=== PATIENT | male | born 1935 | race Caucasian/White ===

== ENCOUNTER 2023-08-04 09:20 | Outpatient (CLI) | payer MEDICARE, SELFPAY ==
--- OUTSIDE RECORDS SUMMARY | 2023-08-06 11:27 | XMS_ITS ---
Author Name Unknown Organization [facility] Address [address] [place] [address] Care Team Providers Care Processing Archivist Name Role Phone Unavailable Unavailable Unavailable Surgery Details Not on file Complications Check Surgery Details section. Procedure Estimated Blood Loss Check Surgery Details section. Procedure Findings Check Surgery Details section. Procedure Specimens Taken Check Surgery Details section.
--- OUTSIDE RECORDS SUMMARY | 2023-08-06 11:27 | XMS_ITS | Encounter Summary ---
Author Name Unknown Organization [facility] Address [address] [place] [address] Care Team Providers Care Director Supply Chain Name Role Phone Lashonda Velásquez APRN, C.N.P. Primary Care Provi [place] Encounter Details Date Type Department Care Team (Late st Contact Info) Description 06/10/2023 Orders Only [facility] MNT Lashonda Velásquez APRN, C.N.P. [address] [place] [address] Diabetes Mellitus Type 2 With Diabetic Nephropathy (HCC) Social History Tobacco Use Types Packs/Day Years Used Date Smoking Tobacco: Former Passive Smoke Exposure: Past Smokeless Tobacco: Current Chew Alcohol Use Standard Drinks/Week Comments Yes 2 (1 standard drink = 0.6 oz pur e alcohol) Humiliation, Afraid, Rape, and Kick questionnair e Answer Date Recorded Fear of Current or Ex-Partner No Emotionally Abused No 12/21/2018 Physically Abused No 12/21/2018 Sexually Abused No 12/21/2018 Social Connection and Isolat ion Panel [NHANES] Answer Date Recorded Frequency of Communication w ith Friends and Family Once a week 12/21/2018 Frequency of Social Gatherin gs with Friends and Family Once a week 12/21/2018 Attends Yarsani Services More than 4 times per year 12/21/2018 Active Member of Clubs or Organizations No 12/21/2018 Attends Club or Organization Meetings Never 12/21/2018 Marital Status 12/21/2018 AUDIT-C Answer Date Recorded Frequency of Alcohol Consumption 4 or more times a week 12/21/2018 Average Number of Drinks 1 or 2 019 Frequency of Binge Drinking Never 12/05 Overall Financial Resource Strain (CARDIA) Answe r Date Recorded Difficulty of Paying Living Expenses Not hard at all 12/21/2018 PHQ-2 Answer Date Recorded PHQ-2 Score 0 08/06/2022 [facility] Occupat ional Health - Occupational Stress Questionnaire Answer Date Recorded Feeling of Stress Not at all 12/21/2018 Exercise Vital Sign Answer Date Recorde d Days of Exercise per Week 7 days 2018 Minutes of Exercise per Session 150+ min 12/21/2018 Hunger Vital Sign Answer Date Recorded Worried About Running Out of Food in the Last Ye ar Never true 12/21/2018 Ran Out of Food in the Last Year Never true 12/21/2018 PRAPARE - Transportation Answer Date Re corded Lack of Transportation (Medical) No 12/21/2018 Lack of Transportation (Non-Medical) No 12/21/2018 Nutrition Answer Date Recorded Nutrition: EVOO Fat Source Unknown 08/29 Nutrition: Servings of Fruits/Vegetables per Day Not on file 08/29/2020 Dental Answer Date Recorded Dental: Regular Dentist Unknown 08/29/19 21 Education Answer Date Recorded What is the highest level of school you have completed or the highest degree you have received? 12th grade 12/21/2018 Sex and Gender Information Value Date Recorded Sex Assigned at Male 03/23/2021 1:45 PM CDT Gender Identity Not on file Sexual Orientation Not on file documented as of this encounter Plan of Treatment Scheduled Orders Name Type Priority Associated Diagnoses Orde r Schedule Hemoglobin A1c Lab Routine Diabetes Mellitus Type 2 With Diabetic Nephropathy (HCC) Expected: 06/24/2023, Expires: 12/07/2023 documented as of this encounter Visit Diagnoses Diagnosis Diabetes Mellitus Type 2 With Diabetic Nephropathy (HCC) documented in this encounter Additional Health Concerns Assessment Noted Time PHQ-9 Depression Total Score: 0 06/18/20 17 4:38 PM MARKER SHIPMENTS documented as of this encounter Care Teams Director Supply Chain Relationship Specialty Start Date End Date Lashonda Velásquez APRN, C.N.P. [address] [place] [phone] PCP - General Family Medicine 03/28/21 documented as of this encounter
--- OUTSIDE RECORDS SUMMARY | 2023-08-06 11:27 | XMS_ITS | Clinical Summary ---
Author Name Unknown Organization [facility] Address [address] [place] [address] Care Team Providers Care Salon Customer Experience Specialist Name Role Phone Lashonda Velásquez APRN, C.NCalista Primary Care Provi [place] Source Comments Patient records contain information from all sites at [facility]. For routine questions regarding patient records, call [phone] during business hours, M-F 8:00 AM - 5:00 PM Central Time. Record requests for emergency care only can be directed to [phone] at any time.[facility] Allergies No known active allergies Medications Medication Sig Dispensed Refills Start Date End Date Status aspirin [address] tablet Take 81 mg by mouth. 0 12/18/2016 Active nitroglycerin (NITROSTAT) 0.4 mg SL tabletIndications:C oronary Arterial Bypass Graft Status Post Personal History Place 1 tablet (0.4 mg total) under the tongue every 5 (five) minutes as needed for chest pain. 25 tablet 1 08/09/2022 Active Additional Information Patient not taking.Reported on 01/31/2023 atorvastatin (LIPITOR) 40 mg tabletIndications:D yslipidemia TAKE ONE TABLET BY MOUTH ONCE DAILY 90 tablet 3 09/10/2022 Active levothyroxine (SYNTHROID, LEVOTHROID) 25 mcg tabletIndications:A trial Fibrillation Unspecified (HCC) TAKE 1 AND 1/2 TABLET DAILY 135 tablet 3 10/15/2022 Active hydroCHLOROthiazide (HYDRODIURIL) 12.5 mg tabletIndications:H ypertension And Chronic Kidney Disease Stage 2 TAKE ONE TABLET BY MOUTH EVERY MORNING 90 tablet 3 11/01/2022 Active lisinopriL (PRINIVIL,ZESTRIL) 40 mg tabletIndications:H ypertension And Chronic Kidney Disease Stage 2 TAKE ONE TABLET BY MOUTH ONCE DAILY 90 tablet 3 11/07/2022 Active amLODIPine (NORVASC) 5 mg tabletIndications:H ypertension And Chronic Kidney Disease Stage 2 TAKE ONE TABLET BY MOUTH ONCE DAILY 90 tablet 3 11/19/2022 Active metoprolol succinate (TOPROL-XL) 100 mg 24 hr tablet Take 1 tablet (100 mg total) by mouth daily. Do not crush or chew. 90 tablet 3 11/22/2022 Active Additional Information Patient taking differently: 50 mgoral2 times daily, Do not crush or chew., Reported on 01/10/2023 warfarin (COUMADIN) 5 mg tabletIndications:A trial Fibrillation Unspecified (HCC) Take 1/2 tablet (2.5 mg) Friday, Friday, Friday and 1 tablet (5 mg) all other days. Or as directed by INR clinic. 90 tablet 3 12/17/2022 Active metoprolol succinate (TOPROL-XL) 100 mg 24 hr tablet Take 100 mg by mouth daily. Do not crush or chew. 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) TAKE TWO TABLETS BY MOUTH TWICE A DAY WITH FOOD 360 tablet 3 04/02/2023 Active Active Problems Problem Noted Date Diagnosed Date Loss Hearing Sensorineural Bilateral 08/03/2021 Arthritis Knee Left 03/27/2020 Diabetes Mellitus Type 2 With Diabetic Nephropat hy 12/21/2018 Diabetes Mellitus Type 2 Wit h Diabetic Chronic Kidney Disease 12/21/2018 Chronic Kidney Disease (CKD) , Stage 3a Glomerular Filtration Rate (GFR) 45 To 59 12/21/2018 History Of Falling 09/22/2018 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 Status post right carotid endarterectomy 05/28/2016 fo >70 percent stenosis. Followed by [facility] vascular surgery. 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 Bone: Coronary artery bypass grafts x 2 with a graft from the left internal mammary artery to the 1st diagonal branch of theleft anterior descending and a saphenous vein graft from the aorta to the LAD ?? Embolus Pulmonary Personal History 11/17/2013 Nodule Pulmonary 11/17/2013 Overview: Stable bilateral solid noncalcified pulmonary nodules measuring up to 6 mm Hypertension And Chronic Kidney Disease Stage 2 01/18/2013 Varicose Vein Lower Extremity 01/29/2011 Dermatitis Atopic 09/28/2009 Resolved Problems Problem Noted Date Diagnosed Date Resolved Date Obesity Body Mass Index 30-39.9 Adult 05/25/2018 12/18/2020 Microalbuminuria 05/24/2018 09/18/2018 Atrial Fibrillation Unspecified 01/06/2018 12/19/2019 Monitoring For Therapeutic D rug Therapy [Z51.81] 06/18/2017 06/18/2017 Other Specified Abnormal Fin dings Of Blood Chemistry 06/18/2017 06/18/2017 Diabetes Mellitus Type 2 Diabetic Cataract 04/24/2017 06/18/2017 Overview: Diagnosis Maintenance Updates Jul 2023 Other Specified Postprocedural States 05/28/2016 06/18/2017 Coronary Arterial Bypass Gra ft Status Post Personal History 09/13/2015 06/18/2017 Phimosis 07/05/2015 06/18/2017 Dermatitis Photocontact 01/29/201106/06 Diabetes Mellitus Type 2 09/28/2009 Overview: Diabetes mellitus type II Encounters Date Type Department Care Team Description 06/10/2023 Orders Only [facility]NT Lashonda Velásquez, ASSET MANAGEMENT LEAD, C.N.P. Diabetes Mellitus Type 2 With Diabetic Nephropathy (HCC) from Last 3 Months Immunizations Name Administration Dates Next Due HepB Adult 01/31/2023(Deferred: Patient Ref used) HepB, Unspecified 08/03/2021(Deferred: Other) Influenza high dose QV(65 ye ars or older) (PF) 05/06/2023,07/05/2022,04/17/2021,2019 Influenza, Seasonal, Injectable 07/21/2012 Influenza, Unspecified 05/02/2016,2014,05/26/2013,2012,04/17/2011,03/16/2010 PCV13 01/02/2015 PPSV23 02/13/2012,10/16/2006 RZV (SHINGRIX) 01/31/2023(Deferred: Patient Ref used) SARS-COV-2 (COVID-19) - PFIZ ER (12 YEARS OR OLDER) [id number] 05/06/2023 SARS-COV-2 (COVID-19) - PFIZ ER (12 years or older) 01/31/2023(Deferred: Not available from billing administrator),09/28/2020,09/07/2020 Td (Adult), adsorbed 10/30/2007 Tdap 03/24/2021,08/07/2011 Zoster, Unspecified 08/03/2021(Deferred: Other) influenza high dose (65 year s or older) (PF) 05/04/2019,05/25/2018,05/25/2017 Family History Medical History Relation Name Comments Cancer Brother 1 Carotid artery stenosis Brother 3 Stroke Brother 3 Alcoholic Father Coronary artery disease Father Bowel obstruction Mother Relation Name Status Comments Brother 1 (Age 53) Brother 2 Brother 3 Brother 4 (Age 90) Father (Age 82) Mother (Age 40) Sister (Age 93) Social History Tobacco Use Types Packs/Day Years Used Date Smoking Tobacco: Former Passive Smoke Exposure: Past Smokeless Tobacco: Current Chew Tobacco Cessation:Ready to Q uit: Not Asked; Counseling Given: Not Answered Alcohol Use Standard Drinks/Week Comments Yes 2 [...] and Family Once a week 12/21/2018 Attends [facility] More than 4 times per year [...] Answer Date Recorded PHQ-2 Score 0 08/06/2022 [facility] Occupat ional Health - Occupational Stress [...] Date Recorded Dental: Regular Dentist Unknown 08/29/19 Education Answer Date Recorded What is the highest level of school you have completed or the highest degree you have received? 12th grade 12/21/2018 Sex and Gender Information Value Date Recorded Sex Assigned at Male 03/23/2021 1:45 PM CDT Gender Identity Not on file Sexual Orientation Not on file Last Filed Vital Signs Vital Sign Reading Time Taken Comments Blood Pressure 127/52 01/31/2023 11:35 AM CDT Pulse 60 01/31/2023 10:47 AM CDT Temperature 36.2 ??C (97.2 ??F) 01/31/2023 10:47 AM C DT Respiratory Rate 20 01/31/2023 10:47 AM CDT Oxygen Saturation 99% 01/31/2023 10:47 AM CDT Inhaled Oxygen Concentration - - Weight 80.1 kg (176 lb 9.6 oz) 01/31/2023 10:47 AM CDT Height 167.6 cm (5' 6) 01/10/2023 11:52 AM CDT Body Mass Index 28.5 01/10/2023 11:52 AM CDT Plan of Treatment Health Maintenance Due Date Last Done Comments Visit: Medicare Annual Wellness 1937 Zoster Vaccines (1 of 2) 1956 Hepatitis B Vaccines (1 of 3 - Risk 3-dose series) 1997 Tobacco Cessation counseling 04/20/2022 04/20/2021 Diabetic Office Visit with F oot Exam 03/19/2023 03/19/2022, 07/10/2021, 12/24/2019, Additional history exists Urine Albumin 03/19/2023 03/19/2022, 12/05, 12/22/2019, Additional history exists Depression Screening (Annual PHQ-2) 07/07/2023 Fall Risk Screen (Annual) 07/07/2023 Hemoglobin A1C 08/03/2023 01/31/2023, 07/09, 03/19/2022, Additional history exists Lipid (Cholesterol) Screening 08/06/2023, 08/01/2021, 12/15/2020, Additional history exists Creatinine Level (Kidney Fun ction Test) 02/01/2024 01/31/2023, 01/12/2023, 01/11/2023, Additional history exists Potassium Level 02/01/2024 01/31/2023, 070 03/2023, 01/11/2023, Additional history exists Sodium Level 02/01/2024 01/31/2023, 0 03/2023, 01/11/2023, Additional history exists Visit: Chronic Disease, age 18+ 02/01/2024 , 08/06/2022 Dilated Eye Exam 06/18/2024 06/18/2023 (Per formed elsewhere), 07/09/2021 (Performed elsewhere), 11/02/2019 (Performed elsewhere), Additional history exists DTaP,Tdap,and Td Vaccines (3 - Td or Tdap) 03/24/2031 03/24/2021, 08/07/2011, 10/30/2007 Pneumococcal vaccine (65+ years) Completed 01/02/2015, 02/13/2012, 10/16/2006 COVID-19 Vaccine Completed 05/06/2023, , 04/23/2021, Additional history exists Influenza Vaccine Completed 05/06/2023, , 04/17/2021, Additional history exists Advance Directives For more information, please contact: [phone] Documents on File Type Date Recorded 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 [address] PCP - General Family Medicine 03/28/21
--- OUTSIDE RECORDS SUMMARY | 2023-08-06 11:27 | XMS_ITS | Referral Summary ---
Author Name Unknown Organization [facility] Address [address] [place] [address] Care Team Providers Care Truck Driving Instructor Name Role Phone Lashonda Velásquez APRN, C.N.P. Primary Care Provi [place] Source Comments Patient records contain information from all sites at [facility]. For routine questions regarding patient records, call [phone] during business hours, M-F 8:00 AM - 5:00 PM Central Time. Record requests for emergency care only can be directed to [phone] at any time.[facility] Encounters Date Type Department Care Team Description 06/10/2023 Orders Only [facility] MNT Lashonda Velásquez APRN, C.N.P. Diabetes Mellitus Type 2 With Diabetic Nephropathy (HCC) from Last 3 Months Allergies No known active allergies Medications Medication [...] Do not crush or chew. 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 Status post right carotid endarterectomy 05/28/2016 fo >70 percent stenosis. [facility]ed [facility]. Dyslipidemia 06/18/2017 Smoking Tobacco Use Personal History 06/18/2017 Loss Hearing 06/18/2017 Hypothyroidism 06/18/2017 Atrial Fibrillation Paroxysmal 09/13/2015 Atherosclerotic Heart Diseas e Of [place] Coronary Artery Without Angina Pectoris 09/13/2015 Overview: [...] 2 09/28/2009 Overview: Diabetes mellitus type II Immunizations Name Administration Dates Next Due HepB Adult 01/31/2023(Deferred: Patient Ref used) HepB, Unspecified 08/03/2021(Deferred: Other) Influenza high dose QV(65 ye ars or older) (PF) 05/06/2023,07/05/2022,04/17/2021,2019 Influenza, Seasonal, Injectable 07/21/2012 Influenza, Unspecified 05/02/2016,2014,05/26/2013,2012,04/17/2011,03/16/2010 PCV13 01/02/2015 PPSV23 02/13/2012,10/16/2006 RZV (SHINGRIX) 01/31/2023(Deferred: Patient Ref used) SARS-COV-2 (COVID-19) - PFIZ ER (12 YEARS OR OLDER) [id number] 05/06/2023 SARS-COV-2 (COVID-19) - PFIZ ER (12 years or older) 01/31/2023(Deferred: Not available from rat trapper),09/28/2020,09/07/2020 Td (Adult), adsorbed 10/30/2007 Tdap 03/24/2021,08/07/2011 Zoster, Unspecified 08/03/2021(Deferred: Other) influenza high dose (65 year s or older) (PF) 05/04/2019,05/25/2018,05/25/2017 Social History Tobacco Use Types Packs/Day Years [...] and Family Once a week 12/21/2018 Attends [employer]an[employer] Services More than 4 times per year [...] Answer Date Recorded PHQ-2 Score 0 08/06/2022 [facility] Health - Occupational Stress [...] 01/10/2023 11:52 AM CDT Plan of Treatment Not on file Advance Directives For more information, please contact: [phone] Documents on File Type Date 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 [address] [facility] [place] [phone] PCP - General Family Medicine 03/28/21
--- OUTSIDE RECORDS SUMMARY | 2023-08-06 11:28 | XMS_ITS | Encounter Summary ---
Author Name Unknown Organization [facility] Address [address] [place] [address] Care Team Providers Care Deicer Repairer Name Role Phone Lashonda Velásquez APRN, C.N.P. 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 [address] [place] [address] [facility] Referral ID Status Reason Start Date Expiration Date V isits Requested Visits Authorized [id number] Authorized 12/06/2022 12/06/2023 52 52 Encounter Details Date Type Department Care Team (Latest Contact Info) Description 04/29/2023 11:00 AM CDT Anticoagulation Visit Department of Anticoagulation in [place], [place] [address] [place] [phone] Lashonda Velásquez APRN, C.N.P. [address] [place] [address] Atrial Fibrillation Paroxysmal (HCC) (Primary Dx); Longterm (Current) Anticoagulant Treatment; Embolus Pulmonary Personal History Social History Tobacco Use Types Packs/Day Years [...] and Family Once a week 12/21/2018 Attends [employer] Services More than 4 times per year [...] Answer Date Recorded PHQ-2 Score 0 08/06/2022 [facility] [place] of Occupat ional Health - Occupational Stress [...] on file documented as of this encounter Progress Notes * Keke Stone R.N. - 04/29/2023 11:00 AM CDT Warfarin Maintenance Nursing Protocol Goal Range 2.0-3.0 (version approved 08/2021) Visit Type: Face to Face Primary reason for visit: Routine f/u OR f/u per previous visit recommendations Information provided by:patient INR result: 2.6 Goal range: 2.0-3.0 Inclusion Criteria: All inclusion criteria met. Proceeded to exclusion criteria. Exclusion Criteria: Section 1: No Section 1 exclusion criteria, proceeded to Section 2. Section 2: No Section 2 exclusion criteria, proceeded to screening criteria. Screening Criteria: All screening criteria negative. Testing interval extension evaluation: INR in range today? Yes. Patient does NOT have a newly diagnosed venous thromboembolism (VTE) within the last 3 months, a mechanical heart valve, history of arterial embolism (eg thrombosis superior mesenteric artery, embolism thrombosis lower extremity artery, occlusion arterial personal history), history of intracardiac thrombus (LA or LV apical), antiphospholipid syndrome (lupus anticoagulant syndrome), or a history of stroke/TIA with OR without diagnosis of atrial fibrillation (AF)/atrial flutter. Patient has atrial fibrillation/flutter and a CHADS2 score less than 5 (less than 12.5% risk) or [id number] score lessthan 6. CHADS2 score per EHR is reported as 5.9% risk. Proceeded to maintenance warfarin dosing andfollow-up, but offered patient return for follow-up INR in 6 weeks as 2 consecutive outpatient INRswithin range. Additional Info: None Previous INR was therapeutic. Today???s INR is Therapeutic. Dosing and follow up recommendation: Protocol dosing range for INR 2.0-3.0: No change in weekly dose. Currently bridging? no. Next INR in 6 weeks per testing interval extension eligibility. Additional dosing or follow-up information: None. Pt is on injectable anticoagulant: No. Plan used: Protocol. See Anticoagulation Track Calendar for dosing and plan details. Anticoagulation Visit Summary: Patient provided with handout of warfarin dosing and next INR appointment. Patient repeats back dosing instructions and has no further questions at this time. Total time spent with patient: 15 minutes documented in this encounter Plan of Treatment Not on file documented as of this encounter Procedures Procedure Name Priority Date/Time Associated Diagnosis Comments INR, POCT, B Routine 04/29/2023 11:02 AM CDT documented in this encounter Results * INR, POCT (04/29/2023 11:02 AM CDT) INR, POCT, B 2.6 04/29/2023 11:02 AM CDT NPCL Comment: ----ADDITIONAL INFORMATION---- Standard intensity warfarin therapeutic range: 2.0 to 3.0 ?? High intensity warfarin therapeutic range: 2.5 to 3.5 04/29/2023 11:0 2 AM CDT 04/29/2023 11:04 AM CDT Generic [facility] POCT ORDERABLES - DEVICE [facility] [address] [place] [id number], [facility] NPCL [facility] - [address] [address] documented in this encounter Visit Diagnoses Diagnosis Atrial Fibrillation Paroxysmal (HCC)- Primary Longterm (Current) Anticoagulant Treatment Embolus Pulmonary Personal History documented in this encounter Additional Health Concerns Assessment Noted Time PHQ-9 Depression Total Score: 0 06/18/20 17 4:38 PM DIFFERENTIAL TESTER documented as of this encounter Care Teams Deicer Repairer Relationship Specialty Start Date End Date Lashonda Velásquez APRN, C.N.P. [facility] [phone] PCP - General Family Medicine 03/28/21 documented as of this encounter
--- OUTSIDE RECORDS SUMMARY | 2023-08-06 11:28 | XMS_ITS | Encounter Summary ---
Author Name Unknown Organization [facility] Address [address] [place] [address] Care Team Providers Care Plastic Extruding Machine Operator Name Role Phone Lashonda Velásquez APRN, C.N.P. Primary Care Provi catalina Encounter Details Date Type Department Care Team (Latest Contact Info) Description 01/17/2023 Clinical Communication Department of Anticoagulation in [place], [place] [address] [place] [phone] Lashonda Velásquez APRN, C.N.P. [address] [place] [phone] Social History Tobacco Use Types Packs/Day Years Used Date Smoking Tobacco: Former Smokeless Tobacco: Current Chew Alcohol Use Standard [...] and Family Once a week 12/21/2018 Attends Rastafari Services More than 4 times per year [...] Answer Date Recorded PHQ-2 Score 0 08/06/2022 [facility] - [...] on file documented as of this encounter Miscellaneous Notes * Telephone Encounter - Keke Stone R.N. - 01/17/2023 9:04 AM CDT Patient was seen in clinic 01/14/23 for ACO and needs to have repeat testing on 01/17/23. Appointmentneeds to remain. documented in this encounter Plan of Treatment Not on file documented as of this encounter Visit Diagnoses Not on filedocumented in this encounter Additional Health Concerns Infection Onset Date Last Indicated Resolved Time COVID19 01/10/2023 01/10/2023 01/30/2023 6:17 AM CDT Assessment Noted Time PHQ-9 Depression Total Score: 0 06/18/20 17 4:38 PM TESTS SUPERINTENDENT documented as of this encounter Care Teams Plastic Extruding Machine Operator Relationship Specialty Start Date End Date Lashonda Velásquez APRN, C.N.P. Ave ID JOSE Gresham [phone] PCP - General Family Medicine 03/28/21 documented as of this encounter
--- OUTSIDE RECORDS SUMMARY | 2023-08-06 11:28 | XMS_ITS | Encounter Summary ---
Author Name Unknown Organization [facility] Address [address] [place] [address] Care Team Providers Care Child Care Center Administrator Name Role Phone Lashonda Velásquez APRN, C.N.P. Primary Care Provi catalina Reason for Visit * Outpatient (Routine) - Authorized Specialty Diagnoses / Procedures Referred By Brian beckett Referred To Contact Diagnoses Beer Maker (Current) Anticoagulant Treatment Procedures ACO Anticoagulation check Lashonda Velásquez APRN, C.N.P. [address] [place] [address] [facility] Region Referral ID Status Reason Start Date Expiration Date V isits Requested Visits Authorized [id number] Authorized 12/06/2022 12/06/2023 52 52 Encounter Details Date Type Department Care Team (Latest Contact Info) Description 01/17/2023 10:00 AM CDT Anticoagulation Visit Department of Anticoagulation in [place], [place] [address] [place] [phone] Lashonda Velásquez APRN, C.N.P. [address] [place] [address] Atrial Fibrillation Paroxysmal (HCC) (Primary Dx); Residential (Current) Anticoagulant Treatment; Embolus Pulmonary Personal History [...] and Family Once a week 12/21/2018 Attends Confucianist Services More than 4 times per year [...] Answer Date Recorded PHQ-2 Score 0 08/06/2022 [facility]at ional [facility] - Occupational [...] Progress Notes * Keke Stone R.N. - 01/17/2023 10:00 AM CDT Warfarin Maintenance Nursing Protocol Goal Range 2.0-3.0 (version approved 08/2021) Visit Type: Face to Face Primary reason for visit: Routine f/u OR f/u per previous visit recommendations Information provided by:patient INR result: 2.7 Goal range: 2.0-3.0 Inclusion Criteria: All inclusion criteria met. Proceeded to exclusion criteria. Exclusion Criteria: Section 1: No Section 1 exclusion criteria, proceeded to Section 2. Section 2: No Section 2 exclusion criteria, proceeded to screening criteria. Screening Criteria: Current INR value has changed by greater than or equal to 1 since last INR check: yes. Dose change was made within last 7 days. Protocol does not apply. Provider input required. Additional Info: Recovering from Covid Previous INR was subtherapeutic. Today???s INR is Therapeutic. Dosing and follow up recommendation: Protocol dosing range for INR 2.0-3.0: No change in weekly dose. Currently bridging? no. Next INR in twice the amount of time since last INR (max duration is 4-6 weeks): 2 weeks. Additional dosing or follow-up information: None. Pt [...] Associated Diagnosis Comments INR, POCT, B Routine 01/17/2023 10:01 AM CDT documented in this encounter Results * INR, POCT (01/17/2023 10:01 AM CDT) INR, POCT, B 2.7 01/17/2023 10:01 AM CDT NPC Comment: ----ADDITIONAL INFORMATION---- Standard intensity warfarin therapeutic range: 2.0 to 3.0 ?? High intensity warfarin therapeutic range: 2.5 to 3.5 01/17/2023 10:0 1 AM CDT 01/17/2023 10:03 AM CDT Generic [facility]als LAB POCT ORDERABLES - DEVICE [facility] [address] [place] [address], [address] [place] [id number] documented in this encounter Visit Diagnoses Diagnosis Atrial Fibrillation Paroxysmal (HCC)- Primary Beer Maker (Current) Anticoagulant Treatment Embolus Pulmonary Personal History documented in this encounter Additional Health Concerns Infection Onset Date Last Indicated Resolved Time COVID19 01/10/2023 01/10/2023 01/30/2023 6:17 AM CDT Assessment Noted Time PHQ-9 Depression Total Score: 0 06/18/20 17 4:38 PM STAFF TRAINER documented as of this encounter Care Teams Child Care Center Administrator Relationship Specialty Start Date End Date Lashonda Velásquez APRN, C.N.P. [address] [place] [phone] PCP - General Family Medicine 03/28/21 documented as of this encounter
--- OUTSIDE RECORDS SUMMARY | 2023-08-06 11:28 | XMS_ITS | Encounter Summary ---
Author Name Unknown Organization [facility] Address [address] [place] [address] Care Team Providers Care Train Caller Name Role Phone Lashonda Velásquez APRN, C.N.P. Primary Care Provi catalina Reason for Visit * Reason Comments Follow-up * Appointment Request (Routine) - Closed Specialty Diagnoses / Procedures Referred By Brian beckett Referred To Contact Family Medicine Referral ID Status Reason Start Date Expiration Date Visits Re quested Visits Authorized [id number] Closed 01/24/2023 01/24/2024 1 1 Encounter Details Date Type Department Care Team (Latest Contact Info) Description 01/31/2023 11:00 AM CDT Office Visit Department of Family Medicine in [place], [place] [address] [place] [address] Lashonda Velásquez APRN, C.N.P. 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); Concussion No Loss Of Consciousness Subsequent; Diabetes Mellitus Type 2 With Diabetic Chronic Kidney Disease (HCC) Social History Tobacco Use Types Packs/Day [...] and Family Once a week 12/21/2018 Attends Oriental [employer] Services More than 4 times per year [...] Answer Date Recorded PHQ-2 Score 0 08/06/2022 [facility] - [...] on file documented as of this encounter Last Filed Vital Signs Vital Sign Reading [...] 9.6 oz) 01/31/2023 10:47 AM CDT Height - - Body Mass Index 28.5 01/10/2023 11:52 AM CDT documented in this encounter Progress Notes * Lashonda Velásquez, JOSSIE, C.N.P. - 01/31/2023 11:00 AM CDT SUBJECTIVE CHIEF COMPLAINT/REASON FOR VISIT Follow-up HISTORY OF PRESENT ILLNESS Zeke Tejada is a 87 y.o. male who presents with his for ED follow up. He was seen on 01/11/23 for weakness/fatigue and positive COVID-19 infection. He was prescribed Paxlovid and stable for discharge home. The next day he presented to ED after a fall at home, collapsed after getting out of bed, is not sure if he lost consciousness, his found him and called EMS. Head CT Was negative for any bleed (on Coumadin), and positive for a non displaced nasal fracture. Some mild anemia, hyponatremia, elevated Creatinine. He states he feels better, but is still very tired. agrees. He just does not have energy to do much. No other prolonged or worsening symptoms. BP has been stable. 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 PHYSICAL EXAMINATION General: Patient is alert, oriented and appears to be in no distress. HENT: Head is atraumatic and normocephalic. Ears are externally normal. Bilateral TMs appear normal. Neck is supple and without mass or adenopathy. Cardiovascular: Heart is regular rate and rhythm. There are no murmurs, gallops or rubs. Respiratory: Breathing is nonlabored. Lungs are clear to auscultation bilaterally. Extremities: There is no lower extremity edema. Abdomen: Soft and nontender throughout. No organomegaly. Skin: No rashes or lesion noted. Neurologic: No neurologic deficit noted. ASSESSMENT / PLAN #1 Post COVID-19 Condition #2 Concussion No Loss Of Consciousness Subsequent #3 Diabetes Mellitus Type 2 With Diabetic Chronic Kidney Disease (HCC) - Hemoglobin A1c; Future; Expected date: 01/31/2023 - Hemoglobin A1c Other orders - Comprehensive Metabolic Panel; Future; Expected date: 01/31/2023 - CBC without Differential; Future; Expected date: 01/31/2023 - CBC without Differential - Comprehensive Metabolic Panel Records reviewed. Repeat labs today. We discussed that his fatigue is likely still due to COVID-19 infection at age 87, followed by likely concussion. Symptoms may last 4-6 weeks. They should not worsen, but may linger/persist. I will follow up with him pending results. Will likely need another follow up in 4-6 weeks to follow improvement, or sooner if labs indicate. All questions answered. I encouraged rest, hydration, healthy eating, try to complete a short walk daily, avoid falls. All questions answered. Lashonda Velásquez APRN, C.N.P. documented in this encounter Plan of Treatment Not on file documented as of this encounter Procedures Procedure Name Priority Date/Time Associated Diagnosis Comments CBC WITHOUT DIFFERENTIAL, B Routine 01/31/2023 11:40 AM CDT Post COVID-19 Condition Concussion No Loss Of Consciousness Subsequent Diabetes Mellitus Type 2 With Diabetic Chronic Kidney Disease (HCC) HEMOGLOBIN A1C, B Routine 01/31/2023 11: 40 AM CDT Diabetes Mellitus Type 2 With Diabetic Chronic Kidney Disease (HCC) COMPREHENSIVE METABOLIC PANEL, S/P Routine 01/31/2023 11:40 AM CDT Post COVID-19 Condition Concussion No Loss Of Consciousness Subsequent Diabetes Mellitus Type 2 With Diabetic Chronic Kidney Disease (HCC) documented in this encounter Results * (ABNORMAL) Hemoglobin A1c (01/31/2023 11:40 AM CDT) Hemoglobin A1c, B 6.4(H) 4.2 - 5.6 % 01/31/2023 12:42 PM CDT NPRG Comment: Hemoglobin A1c values of 5.7-6.4 percent indicate an increased risk for developing diabetes mellitus. In diabetic patients, HbA1c goals should be discussed with healthcare provider. Blood (Blood, Venous) 01/31/2023 11:40 AM CDT 01/31/2023 12:06 PM CDT Lashonda Velásquez APRN, C.N.P. LAB BLOOD A DD-ON [facility] [address] [place] [address], [facility] NPRG [facility] [address] [place] [address] * (ABNORMAL) CBC without Differential (01/31/2023 11:40 AM CDT) Hemoglobin 11.3(L) 13.2 - 16.6 g/dL 01/31/2023 12:37 PM CDT NPRG Hematocrit 34.0(L) 38.3 - 48.6 % 01/31/2023 12:37 PM CDT NPRG Erythrocytes 3.45(L) 4.35 - 5.65 x10(12)/L 01/31/2023 12:37 PM CDT NPRG MCV 98.6(H) 78.2 - 97.9 fL 01/31/2023 12:37 PM CDT NPRG RBC Distrib Width 12.9 11.8 - 14.5 % 01/31/2023 12:37 PM CDT NPRG Platelet Count 206 135 - 317 x10(9)/L 01/31/2023 12:37 PM CDT NPRG Leukocytes 7.8 3.4 - 9.6 x10(9)/L 01/31/2023 12:37 PM CDT NPRG Blood (Blood, Venous) 01/31/2023 11:40 AM CDT 01/31/2023 12:07 PM CDT Lashonda Velásquez APRN C.N.P. LAB BLOOD A DD-ON [facility] [address] [place] [address], [facility] NPRG [facility] [address] [place] [address] * (ABNORMAL) Comprehensive Metabolic Panel (01/31/2023 11:40 AM CDT) Potassium, P 4.9 3.6 - 5.2 mmol/L 01/31/2023 12:46 PM CDT NPRG Sodium, P 138 135 - 145 mmol/L 01/31/2023 12:46 PM CDT NPRG Chloride, P 103 98 - 107 mmol/L 01/31/2023 12:46 PM CDT NPRG Bicarbonate, P 25 22 - 29 mmol/L 01/31/2023 12:46 PM CDT NPRG Anion Gap, P 10 7 - 15 01/31/2023 12:46 PM CDT NPRG BUN (Blood Urea Nitrogen), P 25(H) 8 - 24 mg/dL 01/31/2023 12:46 PM CDT NPRG Creatinine 1.68(H) 0.74 - 1.35 mg/dL 01/31/2023 12:46 PM CDT NPRG Estimated GFR (eGFR) 40(L) >=60 mL/min/BS A 01/31/2023 12:46 PM CDT NPRG Comment: Estimated GFR calculated using the 2020 CKD_EPI creatinine equation. Calcium, Total, P 9.8 8.8 - 10.2 mg/dL 01/31/2023 12:46 PM CDT NPRG Glucose, P 126 70 - 140 mg/dL 01/31/2023 12:46 PM CDT NPRG Protein, Total, P 7.4 6.3 - 7.9 g/dL 01/31/2023 12:46 PM CDT NPRG Albumin, P 4.1 3.5 - 5.0 g/dL 01/31/2023 12:46 PM CDT NPRG Aspartate Aminotransferase (AST), P 22 8 - 48 U/L 01/31/2023 12:46 PM CDT NPRG Alkaline Phosphatase, P 65 40 - 129 U/L 01/31/2023 12:46 PM CDT NPRG Alanine Aminotransferase (ALT), P 21 7 - 55 U/L 01/31/2023 12:46 PM CDT NPRG Bilirubin, Total, P 0.5 <=1.2 mg/dL 01/31/2023 12:46 PM CDT NPRG Blood (Blood, Venous) 01/31/2023 11:40 AM CDT 01/31/2023 12:07 PM CDT Lashonda Velásquez APRN, C.N.P. LAB BLOOD A DD-ON [facility] [address] [place] [address], [facility] NPRG [facility] [address] [place] [address] documented in this encounter Visit Diagnoses Diagnosis Post COVID-19 Condition- Primary Concussion No Loss Of Consciousness Subsequent Diabetes Mellitus Type 2 With Diabetic Chronic Kidney Disease (HCC) documented in this encounter Additional Health Concerns Assessment Noted Time PHQ-9 Depression Total Score: 0 06/18/20 17 4:38 PM MANAGER BAKERY documented as of this encounter Care Teams Train Caller Relationship Specialty Start Date End Date Lashonda Velásquez APRN, C.N.P. [address] [place] [address] PCP - General Family Medicine 03/28/21 documented as of this encounter
--- OUTSIDE RECORDS SUMMARY | 2023-08-06 11:28 | XMS_ITS | Encounter Summary ---
Author Name Unknown Organization [facility] Address [address] [place] [address] Care Team Providers Care Microsoft Bi Consultant Name Role Phone Lashonda Velásquez APRN, C.N.P. Primary Care Provi catalina Reason for Visit * Outpatient (Routine) - Authorized Specialty Diagnoses / Procedures Referred By Brian beckett Referred To Contact Diagnoses Superintendent Police (Current) Anticoagulant Treatment Procedures ACO Anticoagulation check Lashonda Velásquez APRN, C.N.P. [address] [place] [address] [facility] Region Referral ID Status Reason Start Date Expiration Date V isits Requested Visits Authorized [id number] Authorized 12/06/2022 12/06/2023 52 52 Encounter Details Date Type Department Care Team (Latest Contact Info) Description 03/18/2023 11:30 AM CDT Anticoagulation Visit Department of Anticoagulation in [place], [place] [address] [place] [phone] Lashonda Velásquez APRN, C.N.P. [address] [place] [address] Atrial Fibrillation Paroxysmal (HCC) (Primary Dx); Assisted (Current) Anticoagulant Treatment; Embolus Pulmonary Personal History [...] Answer Date Recorded PHQ-2 Score 0 08/06/2022 [facility] [place] of Occupat ional Health - Occupational Stress [...] Progress Notes * Keke Stone R.N. - 03/18/2023 11:30 AM CDT Warfarin Maintenance Nursing Protocol Goal [...] interval extension evaluation: INR in range today? Yes, but last INR was out of range. Patient is not eligible for testing interval extension. Proceeded to maintenance warfarin dosing and follow-up. Additional Info: None Previous INR was subtherapeutic. Today???s INR is Therapeutic. Dosing and follow up recommendation: Protocol dosing range for INR 2.0-3.0: No change in weekly dose. Currently bridging? no. Next INR in 4-6 weeks if previous 4-8 week INR was outside range but did NOT require a dose change. Additional dosing or follow-up information: None. Pt [...] Associated Diagnosis Comments INR, POCT, B Routine 03/18/2023 11:42 AM CDT documented in this encounter Results * INR, POCT (03/18/2023 11:42 AM CDT) INR, POCT, B 2.7 03/18/2023 11:42 AM CDT NPCL Comment: ----ADDITIONAL INFORMATION---- Standard intensity warfarin therapeutic range: 2.0 to 3.0 ?? High intensity warfarin therapeutic range: 2.5 to 3.5 03/18/2023 11:4 2 AM CDT 03/18/2023 11:43 AM CDT Generic [facility] LAB POCT ORDERABLES - DEVICE [facility] [address] [place] [address], [facility] [address] [address] documented in this encounter Visit Diagnoses Diagnosis Atrial Fibrillation Paroxysmal (HCC)- Primary Superintendent Police (Current) Anticoagulant Treatment Embolus Pulmonary Personal History documented in this encounter Additional Health Concerns Assessment Noted Time PHQ-9 Depression Total Score: 0 06/18/20 17 4:38 PM CURRICULUM AND INSTRUCTION DIRECTOR documented as of this encounter Care Teams Microsoft Bi Consultant Relationship Specialty Start Date End Date Lashonda Velásquez APRN, C.N.P. [address] [place] [address] PCP - General Family Medicine 03/28/21 documented as of this encounter
--- OUTSIDE RECORDS SUMMARY | 2023-08-06 11:28 | XMS_ITS | Encounter Summary ---
Author Name Unknown Organization [facility] Address [address] [place] [address] Care Team Providers Care Bareback Rider Name Role Phone Lashonda Velásquez APRN, C.N.P. Primary Care Provi catalina Encounter Details Date Type Department Care Team (Late st Contact Info) Description 03/11/2023 Orders Only [facility] PCP [facility] Lashonda Velásquez APRN, C.N.P. [address] [place] [address] Diabetes Mellitus Type 2 With Diabetic Chronic [...] and Family Once a week 12/21/2018 Attends Scientology Services More than 4 times per year [...] Answer Date Recorded PHQ-2 Score 0 08/06/2022 [facility] Occupat ional Health - Occupational [...] Type Priority Associated Diagnoses Orde r Schedule Albumin, Random, Urine Lab Routine Diabetes Mellitus Type 2 With Diabetic Chronic Kidney Disease (HCC) Expected: 03/25/2023, Expires: 09/07/2023 documented as of this encounter Visit Diagnoses Diagnosis Diabetes Mellitus Type 2 With Diabetic Chronic Kidney Disease (HCC) documented in this encounter Additional Health Concerns Assessment Noted Time PHQ-9 Depression Total Score: 0 06/18/20 17 4:38 PM PROCESS SUPERVISOR documented as of this encounter Care Teams Bareback Rider Relationship Specialty Start Date End Date Lashonda Velásquez APRN, [place] [address] PCP - General Family Medicine 03/28/21 documented as of this encounter
--- OUTSIDE RECORDS SUMMARY | 2023-08-06 11:28 | XMS_ITS | Encounter Summary ---
Author Name Unknown Organization [facility] Address [address] [place] [address] Care Team Providers Care Canine Deputy Name Role Phone Lashonda Velásquez APRN, C.NIsabelPIsabel Primary Care Provi catalina Reason for Referral * Outpatient (Routine) - Closed Specialty Diagnoses / Procedures Referred By Brian beckett Referred To Contact Emergency Medicine Diagnoses COVID-19 Infection Thuy Polk D.O. [address] [place] [phone] [facility] Region Referral ID Status Reason Start Date Expiration Date Visits Re quested Visits Authorized [id number] Closed 01/11/2023 01/10/2026 1 1 Scheduling Instructions INR check Friday or Friday due to Paxlovid therapy. Reason for Visit * Reason Comments Weakness - Generalized Patient presents to ER with increased weakness andFever d/t CoVid Encounter Details Date Type Department Care Team (Late st Contact Info) Description 01/11/2023 11:55 AM CDT - 01/11/2023 3:35 PM CDT Emergency [facility] [address] [place] [address] Thuy Polk D.O. [address] [place] [address] COVID-19 Infection (Primary Dx) Discharge Disposition: Home or Self Care Social History Tobacco Use Types Packs/Day Years [...] and Family Once a week 12/21/2018 Attends Alevism Services More than 4 times per year [...] Answer Date Recorded PHQ-2 Score 0 08/06/2022 [facility] of Occupat ional Health - Occupational Stress [...] Sign Reading Time Taken Comments Blood Pressure 128/56 01/11/2023 3:30 PM CDT Pulse 69 01/11/2023 3:30 PM CDT Temperature 36.8 ??C (98.2 ??F) 01/11/2023 3:30 PM CD T Respiratory Rate - - Oxygen Saturation 98% 01/11/2023 3:30 PM CDT Inhaled Oxygen Concentration - - Weight - - Height - - Body Mass Index - - documented in this encounter Discharge Instructions * Discharge Instructions* Thuy Polk D.O. - 01/11/2023 1:06 PM CDT STOP your atorvastatin while taking the Paxlovid. You can restart the atorvastatin cholesterol medication the day after you have taken your last dose of Paxlovid. You will need your INR (coumadin level) checked Friday or Friday. Call the anticoagulation clinic tomorrow for an appointment. It is very important that you treat your fever and body aches. Take Tylenol 1,000mg every 6 hours for pain or fever. Do not take more than 4000 mg of Tylenol per day. You can also take ibuprofen or Aleve for fever. 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 Do not crush or chew. 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 25 tablet 1 08/09/2022 warfarin (COUMADIN) 5 mg tabletIndications:Atr ial Fibrillation Unspecified (HCC) Take 1/2 tablet (2.5 mg) Friday, Friday, Friday and 1 tablet (5 mg) all other days. Or as directed by INR clinic. 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 Take 150 mg nirmatrelvir (one 150 mg tablet) with 100 mg ritonavir (one 100 mg tablet) twice daily for 5 days. 20 tablet 0 01/11/2023 01/31/2023 [employer] Ultra Test strips USE ONE STRIP TO TEST ONCE DAILY 100 strip 3 03/05/2022 03/23/2023 documented as of this encounter ED Notes * Thuy Polk D.O. - 01/11/2023 12:54 PM CDT [facility] EMERGENCY DEPARTMENT ENCOUNTER Patient Name: Zeke Tejada Birthdate 1935 Date of evaluation: 01/11/2023 Provider: Thuy Polk D.O. PCP: Lashonda Velásquez APRN, C.NIsabelPIsabel SUBJECTIVE CHIEF COMPLAINT/REASON FOR VISIT Weakness - Generalized (Patient presents to ER with increased weakness andFever d/t CoVid ) HISTORY OF PRESENT ILLNESS Zeke Tejada is a 87 y.o. male who presents to the emergency department for evaluation of fever and generalized weakness. He was in urgent care yesterday and diagnosed with COVID after developing URI symptoms and having a known COVID exposure 4 days ago. The COVID Care team contacted patientthis morning to discuss initiating Paxlovid therapy, but his said he was weak, somnolent, and was unable to get out of bed independently. The Care team recommended he come to the emergency department for evaluation. She did not realize he had a fever. He has not he has not taken any antipyretic medication since illness symptoms started. No chest pain. No dyspnea. No nausea or vomiting. History provided by: Patient and significant other History limited by: Patient is extremely hard of hearing and does not have his hearing aids. Majority of history provided by . 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 Ill-appearing but no acute distress HENT: Mouth/Throat: Oropharynx is clear and moist. Eyes: Conjunctivae are normal. Neck: Neck supple. Cardiovascular: Normal rate and regular rhythm. No murmur heard.Capillary refill: takes less than 3 seconds Pulmonary/Chest: Effort normal and breath sounds normal. There is normal air entry. No cough. Abdominal: Soft. exhibits no distension. There is no abdominal tenderness. Musculoskeletal: General: No edema. Cervical back: Neck supple. Neurological: Alert and oriented to person, place, and time. No focal weakness. Generalized weakness, but able to sit himself up in bed using the railing on thebed. Shaking rigors from his fever. Skin: Skin is warm and dry. Psychiatric: He has a normal mood and affect. Behavior is normal. DIAGNOSTICS LABS: Labs Reviewed LACTATE, B/P - Abnormal Result Value Lactate, P 3.3 (*) CBC WITH DIFFERENTIAL, B - Abnormal Hemoglobin 11.8 (*) Hematocrit 34.5 (*) Erythrocytes 3.54 (*) MCV 97.5 RBC Distrib Width 12.5 Platelet Count 157 Leukocytes 6.7 Neutrophils 4.08 Lymphocytes 1.17 Monocytes 1.22 (*) Eosinophils 0.18 Basophils 0.02 COMPREHENSIVE METABOLIC PANEL, S/P - Abnormal Potassium, P 4.2 Sodium, P 133 (*) Chloride, P 97 (*) Bicarbonate, P 21 (*) Anion Gap, P 15 BUN (Blood Urea Nitrogen), P 23 Creatinine 1.72 (*) Estimated GFR (eGFR) 38 (*) Calcium, Total, P 9.4 Glucose, P 121 Protein, Total, P 7.7 Albumin, P 4.1 Aspartate Aminotransferase (AST), P 27 Alkaline Phosphatase, P 43 Alanine Aminotransferase (ALT), P 19 Bilirubin, Total, P 0.7 PROTHROMBIN TIME (PT), P - Abnormal Prothrombin Time, P 16.9 (*) INR 1.5 RADIOLOGY: DX Chest AP or PA and Lateral 2 Views Final Result COPD but no acute cardiopulmonary process noted. EMERGENCY DEPARTMENT COURSE and DIFFERENTIAL DIAGNOSIS/MDM: Patient was given the following medications: Medications NaCl 0.9 % bolus 1,000 mL (0 mL intravenous Stopped 01/11/23 1423) acetaminophen tablet 1,000 mg (TYLENOL) (1,000 mg oral Given 01/11/23 1302) NaCl 0.9 % bolus 1,000 mL (0 mL intravenous Stopped 01/11/23 1554) MDM: IMPRESSION AND PLAN Patient presents to the emergency department for evaluation of generalized weakness in the setting of an acute COVID infection. He is febrile and ill- appearing here but nontoxic. He was given Tylenolas well as 2 L of IV fluid. Labs shows a very minimal increase in his creatinine with known CKD. INR is subtherapeutic, but as we are initiating Paxlovid therapy, will not change dosing at this time.He will need close follow-up next week for re-evaluation. Has no shortness of breath or cough. Oxygenation, blood pressure, and heart rate are normal. Fever resolved after the Tylenol. Chest x-ray without evidence of acute COVID cardiopulmonary process. He feels much better after the fluids and antipyretics. I do feel that he is stable for discharge home. I have sent a prescription for Paxlovid to his pharmacy. He has been instructed to stop his atorvastatin while on the Paxlovid and will need close monitoring of his INR. I personally reviewed the lab result(s) and my interpretation is no significant findings. I personally reviewed the radiology image(s) and reviewed the radiology report(s). The Radiology exam interpretation(s) is/are abnormal but unchanged from previous exam. FINAL IMPRESSION: Final diagnoses: [U07.1] COVID-19 Infection ED DISCHARGE MEDS: ED Prescriptions Medication Sig Dispense Start Date End Date Auth. Provider nirmatrelvir-ritonavir (PAXLOVID) 150-100 mg dose pack Take 2 tablets by mouth 2 (two) times a day.Take 150 mg nirmatrelvir (one 150 mg tablet) with 100 mg ritonavir (one 100 mg tablet) twice daily for 5 days. 20 tablet 01/11/2023 -- Thuy Polk D.O. Sarah Rice, D.O. Rice, Sarah, D.O. 01/12/23 1447 documented in this encounter Plan of Treatment Scheduled Referrals Name Type Priority Associated Diagnoses Order Schedule POST ED VISIT Anticoagulation Outpatient Referral Routine COVID-19 Infection Expected: 01/14/2023, Expires: 04/13/2024 documented as of this encounter Procedures Procedure Name Priority Date/Time Associated Diagnosis Comments DX CHEST AP OR PA AND LATERAL 2 VIEWS RAD - Semiurgent (Fast; most ED patients; some inpatients) 01/11/2023 1:15 PM CDT PROTHROMBIN TIME (PT), P STAT 01/11/2023 12:57 PM CDT CBC WITH DIFFERENTIAL, B STAT 01/11/2023 12:57 PM CDT LACTATE, B/P STAT 01/11/2023 12:57 PM CDT COMPREHENSIVE METABOLIC PANEL, S/P STAT 01/11/2023 12:57 PM CDT documented in this encounter Results * DX Chest AP or PA and Lateral 2 Views (01/11/2023 1:15 PM CDT) Anatomical Region Laterality Modality Chest, Thoracic RST LOS, Tho racic ARZ LOS, Thoracic FLA LOS N/A Digital Radiography 01/11/2023 1:25 PM CDT Impressions 01/11/2023 1:25 PM CDT COPD but no acute cardiopulmonary process noted. Narrative 01/11/2023 1:25 PM CDT EXAM: DX CHEST AP OR PA AND LATERAL 2 VIEWS COMPARISON: Chest x-ray 10/20/2019 FINDINGS: The heart is normal in size. The lungs are hyperexpanded with flattening in hemidiaphragms. No suspicious infiltrates or masses are seen. Procedure Note Boy King M.D. - 01/11/2023 EXAM: DX CHEST AP OR PA AND LATERAL 2 VIEWS COMPARISON: Chest x-ray 10/20/2019 FINDINGS: The heart is normal in size. The lungs are hyperexpanded withflattening in hemidiaphragms. No suspicious infiltrates or masses are seen. IMPRESSION: COPD but no acute cardiopulmonary process noted. Thuy STONE DIAGNOSTIC IMAGI NG PROCEDURES * (ABNORMAL) Prothrombin Time (PT) (01/11/2023 12:57 PM CDT) Prothrombin Time, P 16.9(H) 9.4 - 12.5 sec 01/11/2023 1:12 PM CDT NPRG INR 1.5 0.9 - 1.1 01/11/2023 1:12 PM CDT NPRG Comment: ----ADDITIONAL INFORMATION---- Standard intensity warfarin therapeutic range: 2.0 to 3.0 ?? High intensity warfarin therapeutic range: 2.5 to 3.5 Blood (Blood, Venous) 01/11/2023 12:57 PM CDT 01/11/2023 1:00 PM CDT Thuy Polk D.O. LAB BLOOD ADD-ON [facility] [address] [place] [address], [facility] NPRG [facility] [address] [place] [address] * (ABNORMAL) Comprehensive Metabolic Panel (01/11/2023 12:57 PM CDT) Potassium, P 4.2 3.6 - 5.2 mmol/L 01/11/2023 1:23 PM CDT NPRG Sodium, P 133(L) 135 - 145 mmol/L 01/11/2023 1:23 PM CDT NPRG Chloride, P 97(L) 98 - 107 mmol/L 01/11/2023 1:23 PM CDT NPRG Bicarbonate, P 21(L) 22 - 29 mmol/L 01/11/2023 1:23 PM CDT NPRG Anion Gap, P 15 7 - 15 01/11/2023 1:23 PM CDT NPRG BUN (Blood Urea Nitrogen), P 23 8 - 24 mg/dL 01/11/2023 1:23 PM CDT NPRG Creatinine 1.72(H) 0.74 - 1.35 mg/dL 01/11/2023 1:23 PM CDT NPRG Estimated GFR (eGFR) 38(L) >=60 mL/min/BS A 01/11/2023 1:23 PM CDT NPRG Comment: Estimated GFR calculated using the 2020 CKD_EPI creatinine equation. Calcium, Total, P 9.4 8.8 - 10.2 mg/dL 01/11/2023 1:23 PM CDT NPRG Glucose, P 121 70 - 140 mg/dL 01/11/2023 1:23 PM CDT NPRG Protein, Total, P 7.7 6.3 - 7.9 g/dL 01/11/2023 1:23 PM CDT NPRG Albumin, P 4.1 3.5 - 5.0 g/dL 01/11/2023 1:23 PM CDT NPRG Aspartate Aminotransferase (AST), P 27 8 - 48 U/L 01/11/2023 1:23 PM CDT NPRG Alkaline Phosphatase, P 43 40 - 129 U/L 01/11/2023 1:23 PM CDT NPRG Alanine Aminotransferase (ALT), P 19 7 - 55 U/L 01/11/2023 1:23 PM CDT NPRG Bilirubin, Total, P 0.7 <=1.2 mg/dL 01/11/2023 1:23 PM CDT NPRG Blood (Blood, Venous) 01/11/2023 12:57 PM CDT 01/11/2023 1:00 PM CDT Thuy Polk D.O. LAB BLOOD ADD-ON [facility] [address] [place] [address], [facility] NPRG [facility] [address] [place] [address] * (ABNORMAL) CBC with Differential, Blood (01/11/2023 12:57 PM CDT) Hemoglobin 11.8(L) 13.2 - 16.6 g/dL 01/11/2023 1:06 PM CDT NPRG Hematocrit 34.5(L) 38.3 - 48.6 % 01/11/2023 1:06 PM CDT NPRG Erythrocytes 3.54(L) 4.35 - 5.65 x10(12)/L 01/11/2023 1:06 PM CDT NPRG MCV 97.5 78.2 - 97.9 fL 01/11/2023 1:06 PM CDT NPRG RBC Distrib Width 12.5 11.8 - 14.5 % 01/11/2023 1:06 PM CDT NPRG Platelet Count 157 135 - 317 x10(9)/L 01/11/2023 1:06 PM CDT NPRG Leukocytes 6.7 3.4 - 9.6 x10(9)/L 01/11/2023 1:06 PM CDT NPRG Neutrophils 4.08 1.56 - 6.45 x10(9)/L 01/11/2023 1:06 PM CDT NPRG Lymphocytes 1.17 0.95 - 3.07 x10(9)/L 01/11/2023 1:06 PM CDT NPRG Monocytes 1.22(H) 0.26 - 0.81 x10(9)/L 01/11/2023 1:06 PM CDT NPRG Eosinophils 0.18 0.03 - 0.48 x10(9)/L 01/11/2023 1:06 PM CDT NPRG Basophils 0.02 0.01 - 0.08 x10(9)/L 01/11/2023 1:06 PM CDT NPRG Blood (Blood, Venous) 01/11/2023 12:57 PM CDT 01/11/2023 1:00 PM CDT Thuy Polk D.O. LAB BLOOD ADD-ON [facility] [address] [place] [address], [facility] NPRG [place] [address] [place] [address] * (ABNORMAL) Lactate (01/11/2023 12:57 PM CDT) Lactate, P 3.3(H) 0.5 - 2.2 mmol/L 01/11/2023 1:21 PM CDT NPRG Blood (Blood, Venous) 01/11/2023 12:57 PM CDT 01/11/2023 1:00 PM CDT Thuy Polk D.O. LAB BLOOD NON ADD-ON [facility] [address] [place] [address], [place] [address] [place] [address] documented in this encounter Visit Diagnoses Diagnosis COVID-19 Infection- Primary documented in this encounter Administered Medications Inactive Administered Medications - up to 3 most recent administrations Medication Order MAR Action Action Date Dose Rate Site acetaminophen tablet 1,000 mg (TYLENOL) 1,000 mg, oral, Once, On 01/11/23 at 1240, For 1 dose Given 01/11/2023 1:02 PM CDT 1,000 mg NaCl 0.9 % bolus 1,000 mL 1,000 mL, intravenous, at 1,000 mL/hr, Administer over 1 Hours, Once, On 01/11/23 at 1240, For 1 dose New Bag 01/11/2023 1:01 PM CDT 1,000 mL 1000 mL/hr NaCl 0.9 % bolus 1,000 mL 1,000 mL, intravenous, at 1,000 mL/hr, Administer over 1 Hours, Once, On 01/11/23 at 1330, For 1 dose New Bag 01/11/2023 2:31 PM CDT 1,000 mL 1000 mL/hr sodium chloride 0.9 % injection 2-10 mL 2-10 mL, intravenous, As needed, line care, Starting on 01/11/23 at 1239 documented in this encounter Active and Recently Administered Medications Times are shown in CDT. Scheduled Medication Order 01/09/2023 01/10/2023 01/11/2023 acetaminophen tablet 1,000 mg (TYLENOL) (COMPLETED) 1,000 mg, oral, Once, On 01/11/23 at 1240, For 1 dose 1302 (Given - Provid er: Seda Cook R.N.) NaCl 0.9 % bolus 1,000 mL (COMPLETED) 1,000 mL, intravenous, at 1,000 mL/hr, Administer over 1 Hours, Once, On 01/11/23 at 1240, For 1 dose 1301 (New Bag - Prov ider: Seda Cook R.N.)1423 (Stopped - Provider: Carmen Stevens R.N.) NaCl 0.9 % bolus 1,000 mL (COMPLETED) 1,000 mL, intravenous, at 1,000 mL/hr, Administer over 1 Hours, Once, On 7/8/23 at 1330, For 1 dose 1431 (New Bag - Prov ider: Carmen Stevens RIsabelNIsabel - Comment: unit need)1554 (Stopped - Provider: Shaq Melo R.N.) PRN Medication Order 01/09/2023 01/10/2023 01/11/2023 sodium chloride 0.9 % injection 2-10 mL(Linked Group 1) 2-10 mL, intravenous, As needed, line care, Starting on 01/11/23 at 1239 Linked Groups Order Group 1: Place peripheral IV: No upper extremity site restrictions (COMPLETED) Upper extremity site restriction: No upper extremity site restrictions, Quantity of PIVs requested: One, STAT, Once, On 01/11/23 at 1240, For 1 occurrence And sodium chloride 0.9 % injection 2-10 mLJump to med 2-10 mL, intravenous, As needed, line care, Starting on 01/11/23 at 1239 documented in this encounter Additional Health Concerns Infection Onset Date Last Indicated Resolved Time COVID19 01/10/2023 01/10/2023 01/30/2023 6:17 AM CDT Assessment Noted Time PHQ-9 Depression Total Score: 0 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 [address] [place] [phone] PCP - General Family Medicine 03/28/21 documented as of this encounter
--- OUTSIDE RECORDS SUMMARY | 2023-08-06 11:28 | XMS_ITS | Encounter Summary ---
Author Name Unknown Organization [facility] Address [address] [place] [address] Care Team Providers Care Process Assistant Name Role Phone Lashonda Velásquez APRN, C.N.P. Primary Care Provi catalina Reason for Visit * Outpatient (Routine) - Authorized Specialty Diagnoses / Procedures Referred By Brian beckett Referred To Contact Diagnoses [facility] (Current) Anticoagulant Treatment Procedures ACO Anticoagulation check Lashonda Velásquez APRN, C.N.P. [address] [place] [address] [facility] Region Referral ID Status Reason Start Date Expiration Date V isits Requested Visits Authorized [id number] Authorized 12/06/2022 12/06/2023 52 52 Encounter Details Date Type Department Care Team (Latest Contact Info) Description 01/31/2023 10:45 AM CDT Anticoagulation Visit Department of Anticoagulation in [place], [place] [address] [place] [phone] Lashonda Velásquez APRN, C.N.P. [address] [place] [address] Atrial Fibrillation Paroxysmal (HCC) (Primary Dx); Jail (Current) Anticoagulant Treatment; Embolus Pulmonary Personal History [...] and Family Once a week 12/21/2018 Attends [employer]regational Services More than 4 times per year [...] Answer Date Recorded PHQ-2 Score 0 08/06/2022 [facility] [place] of Occupat ional Health - Occupational Stress [...] Progress Notes * Keke Stone R.N. - 01/31/2023 10:45 AM CDT Warfarin Maintenance Nursing Protocol Goal Range 2.0-3.0 (version approved 08/2021) Visit Type: Face to Face Primary reason for visit: Routine f/u OR f/u per previous visit recommendations Information provided by:patient and spouse INR result: 3.1 Goal range: 2.0-3.0 Inclusion Criteria: All inclusion criteria met. Proceeded to exclusion criteria. Exclusion Criteria: Section 1: No Section 1 exclusion criteria, proceeded to Section 2. Section 2: No Section 2 exclusion criteria, proceeded to screening criteria. Screening Criteria: All screening criteria negative. Testing interval extension evaluation: INR in range today? No. Patient is not eligible for testing interval extension. Proceeded to maintenance warfarin dosing and follow-up. Additional Info: None Previous INR was therapeutic. Today???s INR is Supratherapeutic, Causes: Unknown. Dosing and follow up recommendation: Protocol dosing range for INR 3.1-3.2: No change in weekly dose per protocol. Next INR in 2-4 weeks. Additional dosing or follow-up information: None. [...] Associated Diagnosis Comments INR, POCT, B Routine 01/31/2023 11:01 AM CDT documented in this encounter Results * INR, POCT (01/31/2023 11:01 AM CDT) INR, POCT, B 3.1 01/31/2023 11:01 AM CDT NPCL Comment: ----ADDITIONAL INFORMATION---- Standard intensity warfarin therapeutic range: 2.0 to 3.0 ?? High intensity warfarin therapeutic range: 2.5 to 3.5 01/31/2023 11:0 1 AM CDT 01/31/2023 11:04 AM CDT Generic [facility] LAB POCT ORDERABLES - DEVICE [facility] [address] [place] [address], [facility] [address] [address] documented in this encounter Visit Diagnoses Diagnosis Atrial Fibrillation Paroxysmal (HCC)- Primary Jail (Current) Anticoagulant Treatment Embolus Pulmonary Personal History documented in this encounter Additional Health Concerns Assessment Noted Time PHQ-9 Depression Total Score: 0 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 [address] [place] [phone] PCP - General Family Medicine 03/28/21 documented as of this encounter
--- OUTSIDE RECORDS SUMMARY | 2023-08-06 11:28 | XMS_ITS | Encounter Summary ---
Author Name Unknown Organization [facility] Address [address] [place] [address] Care Team Providers Care Db2 Dba Name Role Phone Lashonda Velásquez APRN, C.N.P. Primary Care Provi catalina Reason for Visit * Outpatient (Routine) - Closed Specialty Diagnoses / Procedures Referred By Brian beckett Referred To Contact Emergency Medicine Diagnoses COVID-19 Infection Thuy Polk D.O. [address] [place] [phone] [facility] Region Referral ID Status Reason Start Date Expiration Date Visits Re quested Visits Authorized [id number] Closed 01/11/2023 01/10/2026 1 1 Encounter Details Date Type Department Care Team (Latest Contact Info) Description 01/14/2023 3:15 PM CDT Anticoagulation Visit Department of Anticoagulation in [place], [place] [address] [place] [phone] Thuy Polk D.O. [address] [place] [address] Head Sawyer Automatic (Current) Anticoagulant Treatment (Primary Dx); COVID-19 Infection; Atrial Fibrillation Paroxysmal (HCC); Embolus Pulmonary Personal History Social History Tobacco [...] and Family Once a week 12/21/2018 Attends [employer] [facility] More than 4 times per year [...] Answer Date Recorded PHQ-2 Score 0 08/06/2022 [facility] Occupat ional Health - [...] Progress Notes * Keke Stone R.N. - 01/14/2023 3:15 PM CDT Warfarin Maintenance Nursing Protocol Goal Range 2.0-3.0 (version approved 08/2021) Visit Type: Face to Face Primary reason for visit: Routine f/u OR f/u per previous visit recommendations Information provided by:patient INR result: 1.7 Goal range: 2.0-3.0 Inclusion Criteria: All inclusion [...] Previous INR was therapeutic. Today???s INR is Subtherapeutic, Causes: Health change: has covid for about 1.5 weeks, has not beenfeeling well . Dosing and follow up recommendation: Protocol dosing range for INR 1.5-1.7: Consult required due to indication: no. Increase last 7 daysdosing by 10%. Currently bridging: no. Next INR in 5-7 days. Additional dosing or follow-up information: None. Pt [...] Associated Diagnosis Comments INR, POCT, B Routine 01/14/2023 3:22 PM CDT documented in this encounter Results * INR, POCT (01/14/2023 3:22 PM CDT) INR, POCT, B 1.7 01/14/2023 3:22 PM CDT NPCL Comment: ----ADDITIONAL INFORMATION---- Standard intensity warfarin therapeutic range: 2.0 to 3.0 ?? High intensity warfarin therapeutic range: 2.5 to 3.5 01/14/2023 3:22 PM CDT 01/14/2023 3:23 PM CDT Generic [facility] LAB POCT ORDERABLES - DEVICE [facility] [address] [place] [address], [facility] [address] [place] [id number] documented in this encounter Visit Diagnoses Diagnosis Head Sawyer Automatic (Current) Anticoagulant Treatment- Primary COVID-19 Infection Atrial Fibrillation Paroxysmal (HCC) Embolus Pulmonary Personal History documented in this encounter Additional Health Concerns Infection Onset Date Last Indicated Resolved Time COVID19 01/10/2023 01/10/2023 01/30/2023 6:17 AM CDT Assessment Noted Time PHQ-9 Depression Total Score: 0 06/18/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 [address] [place] [address] PCP - General Family Medicine 03/28/21 documented as of this encounter
--- OUTSIDE RECORDS SUMMARY | 2023-08-06 11:28 | XMS_ITS | Encounter Summary ---
Author Name Unknown Organization [facility] Address [address] [place] [address] Care Team Providers Care Associate Editor Name Role Phone Lashonda Velásquez APRN, C.N.P. Primary Care Provi catalina Reason for Visit * Reason Comments Med Refill Encounter Details Date Type Department Care Team (Late st Contact Info) Description 03/21/2023 Refill Department of Family Medicine in [place], [place] [address] [place] [address] Lashonda Velásquez APRN, C.N.P. 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 [address] [place] [phone] PCP - General Family Medicine 03/28/21 documented as of this encounter
--- OUTSIDE RECORDS SUMMARY | 2023-08-06 11:28 | XMS_ITS | Encounter Summary ---
Author Name Unknown Organization [facility] Address [address] [place] [address] Care Team Providers Care Customer Facilities Supervisor Name Role Phone Lashonda Velásquez APRN, C.N.P. Primary Care Provi catalina Reason for Visit * Reason Comments Fall Pt presents after a fall at home. Pt is positive for COVID and has had a fever for several days. Encounter Details Date Type Department Care Team (Late st Contact Info) Description 01/12/2023 3:01 AM CDT - 01/12/2023 4:35 AM CDT Emergency [place] [facility] [address] [place] [phone] Ha Lim M.D. [address] [place] [phone] Laceration Scalp Initial (Primary Dx); History Of Falling; Fci (Current) Anticoagulant Treatment Discharge Disposition: Home or Self Care Social [...] and Family Once a week 12/21/2018 Attends [employer] [facility] More than 4 times per year [...] Answer Date Recorded PHQ-2 Score 0 08/06/2022 [facility] of Occupat ional Health - Occupational Stress [...] Sign Reading Time Taken Comments Blood Pressure 114/76 01/12/2023 4:15 AM CDT Pulse 74 01/12/2023 4:15 AM CDT Temperature 38.6 ??C (101.5 ??F) 01/12/2023 3:03 AM C DT Respiratory Rate 15 01/12/2023 4:15 AM CDT Oxygen Saturation 93% 01/12/2023 4:15 AM CDT Inhaled Oxygen Concentration - - Weight 84.1 kg (185 lb 6.5 oz) 01/12/2023 3:03 A M CDT Height - - Body Mass Index 29.93 01/10/2023 11:52 AM CDT documented in this encounter Discharge Instructions * Discharge Instructions* Ha Lim M.D. - 01/12/2023 4:23 AM CDT Ibuprofen and Tylenol for pain. The skin glue on your forehead will start to peel off. This will tend to catch on things. Take a fingernail clipper and clip the loose glue. This will help keep it from getting caught on things and peeling so quickly. Return as needed. * Attachments The following attachments cannot be sent through Care Everywhere. * Laceration Care Adult (Swedish) documented in this encounter Medications at Time [...] 5 days. 20 tablet 0 01/11/2023 01/31/2023 OneTouch Ultra Test strips USE ONE STRIP TO TEST ONCE DAILY 100 strip 3 03/05/2022 03/23/2023 documented as of this encounter ED Notes * Ha Lim M.D. - 01/12/2023 3:01 AM CDT [facility] Department of Emergency Medicine- [place] 01/12/2023 4:24 AM CDT *Encounter labs and radiology results at the end of this note* Chief Complaint Patient presents with Fall Pt presents after a fall at home. Pt is positive for COVID and has had a fever for several days. PCP: Lashonda Velásquez APRN, C.N.P. HPI: Zeke Tejada is a 87 y.o. gentleman with a history of paroxysmal atrial fibrillation onCoumadin, history of pulmonary embolism, type 2 diabetes with neuropathy and nephropathy, tobaccoism. He was diagnosed with COVID-19 yesterday and started on Paxlovid. Presents today after an unwitnessed fall getting out of bed in which he ???collapsed?? . Per EMS he was not sure if or four consciousness. Patient states he was out for a few seconds at most. Denies any prodromal symptoms such as lightheadedness, diaphoresis, pain, or shortness of breath, though he is a little bit of a questionable historian. Currently has no complaints, specifically no headache, chest pain, shortness of breath, bony/musculoskeletal pain. He does note a couple small lacerations, one on the bridge of the nose and one on the forehead. A complete review of systems was obtained and negative except as in the HPI. No current tobacco use, modest alcohol, no illicit drugs. PHYSICAL EXAMINATION General: Well-appearing in no acute distress. HEENT: Head is normocephalic. Hearing and vision are grossly normal. No scleral icterus, jaundice, or pallor. 2 cm partial-thickness laceration over the left temporal scalp. Superficial abrasion overthe bridge of the nose, 1.5 cm in length and hemostatic. Neck: Supple, with normal range of motion. Heart: Heart rate is normal and regular, no murmurs. Sternotomy incision, well healed Lungs: Clear to auscultation bilaterally, no wheezes or rales. Abdomen: Soft, nontender, nondistended. Skin: Warm and well-perfused Neurologic: GCS 15. Moving all 4 extremities spontaneously. Speech clear. Psychiatric: Normal mood and affect. Differential diagnosis includes laceration, foreign body contamination, syncope, electrolyte abnormality, dehydration, COVID-19. MDM: 87-year-old man, chronic anticoagulation on warfarin for history of atrial fib and PEs, presenting after a fall with brief loss of consciousness. EKG is obtained with no acute ischemic changes or evidence of arrhythmia. Other labs are reassuring. Given the lack of any cardiac pain symptoms I do not think troponins are necessarily indicated in this instance. CT head was obtained and negative for any intracranial bleeding or other process. He does have a possible broken nose, but states thathis nose does not hurt tonight and thinks he may have broke at boxing in the . No other areas of pain or other complaints. Fluids were given and he ambulated adequately. Discharge with expectant management. 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) Anticoagulant Treatment Disposition: Discharge ED Prescriptions None Labs Reviewed CBC WITH DIFFERENTIAL, B - Abnormal Result Value Hemoglobin 10.6 (*) Hematocrit 31.2 (*) Erythrocytes 3.20 (*) MCV 97.5 RBC Distrib Width 12.6 Platelet Count 136 Leukocytes 5.9 Neutrophils 3.90 Lymphocytes 1.03 Monocytes 0.86 (*) Eosinophils 0.09 Basophils 0.01 BASIC METABOLIC PANEL, S/P - Abnormal Potassium, P 4.1 Sodium, P 132 (*) Chloride, P 100 Bicarbonate, P 18 (*) Anion Gap, P 14 BUN (Blood Urea Nitrogen), P 24 Creatinine 1.61 (*) Estimated GFR (eGFR) 42 (*) Calcium, Total, P 8.7 (*) Glucose, P 121 PROTHROMBIN TIME (PT), P - Abnormal Prothrombin Time, P 16.5 (*) INR 1.5 CT Head without IV Contrast Final Result 1. No evidence of acute intracranial abnormality. 2. Age indeterminant minimally displaced left nasal bone fracture, which is new since 03/24/2021. 3. Left frontal scalp soft tissue swelling. No underlying fracture. Ha Lim M.D. 01/12/[address] documented in this encounter Plan of Treatment Not on file documented as of this encounter Procedures Procedure Name Priority Date/Time Associated Diagnosis Comments CT HEAD WITHOUT IV CONTRAST RAD - Semiurgent (Fast; most ED patients; some inpatients) 01/12/2023 3:39 AM CDT PROTHROMBIN TIME (PT), P STAT 01/12/2023 3:12 AM CDT CBC WITH DIFFERENTIAL, B STAT 01/12/2023 3:12 AM CDT BASIC METABOLIC PANEL, S/P STAT 01/12/2023 3:12 AM CDT ECG Routine 01/12/2023 3:03 AM CDT documented in this encounter Results * CT Head without IV Contrast (01/12/2023 3:39 AM CDT) Anatomical Region Laterality Modality Head, Neuroradiology [facility] , Neuroradiology [facility], Neuroradiology [facility] N/A Computed Tomography 01/12/2023 3:55 AM CDT Impressions 01/12/2023 4:01 AM CDT 1. ??No evidence of acute intracranial abnormality. 2. ??Age indeterminant minimally displaced left nasal bone fracture, which is new since 03/24/2021. 3. ??Left frontal scalp soft tissue swelling. No underlying fracture. Narrative 01/12/2023 4:01 AM CDT EXAM: CT HEAD WITHOUT IV CONTRAST COMPARISON: CT head 03/24/2021. FINDINGS: Parenchyma: Patchy regions of hypoattenuation within periventricular and peripheral white matter most commonly represent chronic microangiopathy. No parenchymal hemorrhage, mass lesion, or evidence of evolving large territorial infarct. Extra-axial spaces: No extra-axial hemorrhage, collection, or generalized intracranial mass effect. Volume: Generalized parenchymal volume loss without lobar predominance. No hydrocephalus. Calvarium: Age indeterminant minimally displaced left nasal bone fracture, which is new since 03/24/2021. No skull fracture. Extracranial: Left frontal skull soft tissue swelling. Lens extractions. Mild mucosal thickening of the visualized paranasal sinuses. No mastoid or middle ear effusions. Other: Scattered calcification of the carotid siphons. Procedure Note Ailin Hernandez M.D. - 01/12/2023 EXAM: CT HEAD WITHOUT IV CONTRAST COMPARISON: CT head 03/24/2021. FINDINGS: Parenchyma: Patchy regions of hypoattenuation within periventricular andperipheral white matter most commonly represent chronic microangiopathy. No parenchymalhemorrhage, mass lesion, or evidence of evolving large territorial infarct. Extra-axial spaces: No extra-axial hemorrhage, collection, or generalizedintracranial mass effect. Volume: Generalized parenchymal volume loss without lobar predominance. Nohydrocephalus. Calvarium: Age indeterminant minimally displaced left nasal bone fracture,which is new since 03/24/2021. No skull fracture. Extracranial: Left frontal skull soft tissue swelling. Lens extractions.Mild mucosal thickening of the visualized paranasal sinuses. No mastoid or middle ear effusions. Other: Scattered calcification of the carotid siphons. IMPRESSION: 1. No evidence of acute intracranial abnormality. 2. Age indeterminant minimally displaced left nasal bone fracture, whichis new since 03/24/2021. 3. Left frontal scalp soft tissue swelling. No underlying fracture. Ha Lmi M.D. IMG CT PROCEDURES * (ABNORMAL) Prothrombin Time (PT) (01/12/2023 3:12 AM CDT) Prothrombin Time, P 16.5(H) 9.4 - 12.5 sec 01/12/2023 3:22 AM CDT NPRG INR 1.5 0.9 - 1.1 01/12/2023 3:22 AM CDT NPRG Comment: ----ADDITIONAL INFORMATION---- Standard intensity warfarin therapeutic range: 2.0 to 3.0 ?? High intensity warfarin therapeutic range: 2.5 to 3.5 Blood (Blood, Venous) 01/12/2023 3:12 AM CDT 01/12/2023 3:15 AM CDT Ha Lim M.D. LAB BLOOD ADD-ON [facility] [address] [place] [address], [place] NPRG [place] [address] [place] [address] * (ABNORMAL) Basic Metabolic Panel (01/12/2023 3:12 AM CDT) Potassium, P 4.1 3.6 - 5.2 mmol/L 01/12/2023 3:38 AM CDT NPRG Sodium, P 132(L) 135 - 145 mmol/L 01/12/2023 3:38 AM CDT NPRG Chloride, P 100 98 - 107 mmol/L 01/12/2023 3:38 AM CDT NPRG Bicarbonate, P 18(L) 22 - 29 mmol/L 01/12/2023 3:38 AM CDT NPRG Anion Gap, P 14 7 - 15 01/12/2023 3:38 AM CDT NPRG BUN (Blood Urea Nitrogen), P 24 8 - 24 mg/dL 01/12/2023 3:38 AM CDT NPRG Creatinine 1.61(H) 0.74 - 1.35 mg/dL 01/12/2023 3:38 AM CDT NPRG Estimated GFR (eGFR) 42(L) >=60 mL/min/BSA 01/12/2023 3:38 AM CDT NPRG Comment: Estimated GFR calculated using the 2020 CKD_EPI creatinine equation. Calcium, Total, P 8.7(L) 8.8 - 10.2 mg/dL 01/12/2023 3:38 AM CDT NPRG Glucose, P 121 70 - 140 mg/dL 01/12/2023 3:38 AM CDT NPRG Blood (Blood, Venous) 01/12/2023 3:12 AM CDT 01/12/2023 3:15 AM CDT Ha Lim M.D. LAB BLOOD ADD-ON [facility] [address] [place] [address], [place] NPRG [place] [address] [place] [address] * (ABNORMAL) CBC with Differential, Blood (01/12/2023 3:12 AM CDT) Hemoglobin 10.6(L) 13.2 - 16.6 g/dL 01/12/2023 3:20 AM CDT NPRG Hematocrit 31.2(L) 38.3 - 48.6 % 01/12/2023 3:20 AM CDT NPRG Erythrocytes 3.20(L) 4.35 - 5.65 x10(12)/L 01/12/2023 3:20 AM CDT NPRG MCV 97.5 78.2 - 97.9 fL 01/12/2023 3:20 AM CDT NPRG RBC Distrib Width 12.6 11.8 - 14.5 % 01/12/2023 3:20 AM CDT NPRG Platelet Count 136 135 - 317 x10(9)/L 01/12/2023 3:20 AM CDT NPRG Leukocytes 5.9 3.4 - 9.6 x10(9)/L 01/12/2023 3:20 AM CDT NPRG Neutrophils 3.90 1.56 - 6.45 x10(9)/L 01/12/2023 3:20 AM CDT NPRG Lymphocytes 1.03 0.95 - 3.07 x10(9)/L 01/12/2023 3:20 AM CDT NPRG Monocytes 0.86(H) 0.26 - 0.81 x10(9)/L 01/12/2023 3:20 AM CDT NPRG Eosinophils 0.09 0.03 - 0.48 x10(9)/L 01/12/2023 3:20 AM CDT NPRG Basophils 0.01 0.01 - 0.08 x10(9)/L 01/12/2023 3:20 AM CDT NPRG Blood (Blood, Venous) 01/12/2023 3:12 AM CDT 01/12/2023 3:15 AM CDT Ha Lim M.D. LAB BLOOD ADD-ON [facility] [address] [facility] [place] [address], [place] NPRG [facility] [address] [place] [address] * ECG 12 Lead (01/12/2023 3:03 AM CDT) Ventricular Rate ECG/Min 80 BPM MUSE UT Interval 170 ms MUSE QRSD Interval 100 ms MUSE QT Interval 394 ms MUSE QTC Interval 454 ms MUSE P Coleman 10 degrees MUSE R Coleman -41 degrees MUSE T Wave Coleman 39 degrees MUSE 01/12/2023 3:03 AM CDT 01/12/2023 3:14 AM CDT Impressions MUSE - 01/12/2023 3:14 AM CDT Normal sinus rhythm Left axis deviation Low anterior forces Cannot rule out Inferior infarct Nonspecific T wave abnormality When compared with ECG of 25-MAY-2017 11:31, Significant changes have occurred Reviewed by PRASHANTH Desai Narrative Procedure Note Jon Lynne M.D. - 01/12/2023 IMPRESSION: Normal sinus rhythm Left axis deviation Low anterior forces Cannot rule out Inferior infarct Nonspecific T wave abnormality When compared with ECG of 25-MAY-2017 11:31, Significant changes have occurred Reviewed by PRASHANTH Desai Ha Lim M.D. 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 (Current) Anticoagulant Treatment documented in this encounter Administered Medications Inactive Administered Medications - up to 3 most recent administrations Medication Order MAR Action Action Date Dose Rate Site NaCl 0.9 % bolus 1,000 mL 1,000 mL, intravenous, at 1,000 mL/hr, Administer over 1 Hours, Once, On 01/12/23 at 0302, For 1 dose New Bag 01/12/2023 3:12 AM CDT 1,000 mL 1000 mL/hr sodium chloride 0.9 % injection 2-10 mL 2-10 mL, intravenous, As needed, line care, Starting on 01/12/23 at 0259 documented in this encounter Active and Recently Administered Medications Times are shown in CDT. Scheduled Medication Order 01/10/2023 01/11/2023 01/12/2023 NaCl 0.9 % bolus 1,000 mL (COMPLETED) 1,000 mL, intravenous, at 1,000 mL/hr, Administer over 1 Hours, Once, On 01/12/23 at 0302, For 1 dose 0312 (New Bag - Prov ider: Chavez Kelly R.N.)0420 (Stopped - Provider: Seda Baker R.N.) PRN Medication Order 01/10/2023 01/11/2023 01/12/2023 sodium chloride 0.9 % injection 2-10 mL(Linked Group 1) 2-10 mL, intravenous, As needed, line care, Starting on 01/12/23 at 0259 Linked Groups Order Group 1: Place peripheral IV: No upper extremity site restrictions (COMPLETED) Upper extremity site restriction: No upper extremity site restrictions, Quantity of PIVs requested: One, STAT, Once, On 01/12/23 at 0300, For 1 occurrence And sodium chloride 0.9 % injection 2-10 mLJump to med 2-10 mL, intravenous, As needed, line care, Starting on 01/12/23 at 0259 documented in this encounter Additional Health Concerns Infection Onset Date Last Indicated Resolved Time COVID19 01/10/2023 01/10/2023 01/30/2023 6:17 AM CDT Assessment Noted Time PHQ-9 Depression Total Score: 0 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 [address] [facility] [place] [phone] PCP - General Family Medicine 03/28/21 documented as of this encounter
--- OUTSIDE RECORDS SUMMARY | 2023-08-06 11:28 | XMS_ITS | Encounter Summary ---
Author Name Unknown Organization [facility] Address [address] [place] [address] Care Team Providers Care Mud Boss Name Role Phone Lashonda Velásquez APRN, C.N.P. 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 [address] [place] [address] [facility] Region Referral ID Status Reason Start Date Expiration Date V isits Requested Visits Authorized [id number] Authorized 12/06/2022 12/06/2023 52 52 Encounter Details Date Type Department Care Team (Latest Contact Info) Description 02/28/2023 11:30 AM CDT Anticoagulation Visit Department of Anticoagulation in [place], [place] [address] [place] [phone] Lashonda Velásquez APRN, C.N.P. [address] [place] [address] Atrial Fibrillation Paroxysmal (HCC) (Primary Dx); Usp (Current) Anticoagulant Treatment; Embolus Pulmonary Personal History [...] and Family Once a week 12/21/2018 [facility] More than 4 times per year [...] Answer Date Recorded PHQ-2 Score 0 08/06/2022 [facility] of Occupat ional Health - Occupational Stress [...] Progress Notes * Keke Stone R.N. - 02/28/2023 11:30 AM CDT Warfarin Maintenance Nursing Protocol [...] criteria, proceeded to screening criteria. Screening Criteria: Patient has had a change in adherence (missed dose, extra dose, inaccurate dose) to prescribed warfarin dosing in last 3 days including: yes. Missed warfarin doses per Warfarin Anticoagulation Tracking calendar. Proceeded to maintenance warfarin dosing and follow-up, but have patient return for follow-up INR in 7-10 days. Additional Info: Missed dose last night Previous INR was supratherapeutic. Today???s INR is Subtherapeutic, Causes: Missed/incorrect warfarin dose: missed yesterday's dose . Dosing and follow up recommendation: Protocol [...] Associated Diagnosis Comments INR, POCT, B Routine 02/28/2023 11:34 AM CDT documented in this encounter Results * INR, POCT (02/28/2023 11:34 AM CDT) INR, POCT, B 1.7 02/28/2023 11:34 AM CDT NPCL Comment: ----ADDITIONAL INFORMATION---- Standard intensity warfarin therapeutic range: 2.0 to 3.0 ?? High intensity warfarin therapeutic range: 2.5 to 3.5 02/28/2023 11:3 4 AM CDT 02/28/2023 11:35 AM CDT Generic [facility] LAB POCT ORDERABLES - DEVICE 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 [address] [place] [address] PCP - General Family Medicine 03/28/21 documented as of this encounter
--- OUTSIDE RECORDS SUMMARY | 2023-08-06 11:28 | XMS_ITS | Encounter Summary ---
Author Name Unknown Organization [facility] Address [address] [place] [address] Care Team Providers Care Animal Geneticist Name Role Phone Lashonda Velásquez APRN, C.N.P. Primary Care Provi catalina Reason for Visit * Reason Comments Med Refill Encounter Details Date Type Department Care Team (Late st Contact Info) Description 03/29/2023 Refill Department of Family Medicine in [place], [place] [address] [place] [address] Lashonda Velásquez APRN, C.N.P. [address] [place] [address] Med Refill Social History Tobacco Use Types [...] and Family Once a week 12/21/2018 Attends [employer] Services More than 4 times per year [...] Answer Date Recorded PHQ-2 Score 0 08/06/2022 [facility] of Occupat ional Health - Occupational Stress [...] encounter Miscellaneous Notes * Telephone Encounter - Deyanira Mcintyre V. - 03/31/2023 9:06 AM CDT Recent Visits Date Type Provider Dept 01/31/23 Office Visit Lashonda Velásquez APRN, C.N.P. [facility] Npnp 08/06/22 Office Visit Lashonda Velásquez APRN, C.N.P. [facility] Npcristal Showing recent visits within past 365 days with a meds authorizing provider and meeting all other requirements Future Appointments No visits were found meeting these conditions. Showing future appointments within next 90 days with a meds authorizing provider and meeting all other requirements documented in this encounter Plan of Treatment Not on file documented as of this encounter Visit Diagnoses Diagnosis Diabetes Mellitus Type 2 With Diabetic Nephropathy (HCC) documented in this encounter Additional Health Concerns Assessment Noted Time PHQ-9 Depression Total Score: 0 06/18/20 17 4:38 PM PLUG WIRER documented as of this encounter Care Teams Animal Geneticist Relationship Specialty Start Date End Date Lashonda Velásquez APRN, C.NCalista [address] [facility] [place] [phone] PCP - General Family Medicine 03/28/21 documented as of this encounter
--- OUTSIDE RECORDS SUMMARY | 2023-08-06 11:29 | XMS_ITS | Encounter Summary ---
Author Name Unknown Organization [facility] Address [address] [place] [address] Care Team Providers Care Consultant Electronics Name Role Phone Lashonda Velásquez APRN, C.N.P. Primary Care Provi catalina Encounter Details Date Type Department Care Team (Late st Contact Info) Description 11/08/2022 Clinical Communication Department of Family Medicine in [place], [place] [address] [place] [phone] Lashonda Velásquez APRN, C.N.P. [address] [place] [phone] Social History Tobacco Use Types Packs/Day Years [...] and Family Once a week 12/21/2018 Attends [employer] Services More than 4 times per year [...] Answer Date Recorded PHQ-2 Score 0 08/06/2022 [facility] of Occupat ional Health - Occupational Stress [...] encounter Miscellaneous Notes * Telephone Encounter - Lashonda Velásquez APRN, C.N.P. - 11/22/2022 1:56 PM CDT Done, thanks TK * Telephone Encounter - Keke Stone R.N. - 11/22/2022 11:19 AM CDT Reviewed cardiology message with patient, he wants to continue with amlodipine instead of diltiazem. He is ok with increasing his metoprolol to 100 mg, refill pended to pcp. Name of Medication(s) Needing Refill: Requested Prescriptions Pending Prescriptions Disp Refills metoprolol succinate (TOPROL-XL) 100 mg 24 hr tablet 90 tablet 3 Sig: Take 1 tablet (100 mg total) by mouth daily. Do not crush or chew. Additional Information: Last BMP Lab Results Component Value Date NA 140 08/06/2022 KSERUM 4.7 12/21/2018 KPLASMA 4.7 08/06/2022 CL 102 08/06/2022 BICARB 27 08/06/2022 CREATININE 1.62 (H) 08/06/2022 CREATPOC 1.3 05/13/2016 EGFRNONBLKAA 49 (L) 08/14/2021 EGFRBLKAA 57 (L) 08/14/2021 BUN 23 08/06/2022 ANIONGAP 11 08/06/2022 GLUCOSE 116 (H) 08/06/2022 GLUCOSE CANCELED 08/06/2022 CALCIUM 9.7 08/06/2022 Last Appointment: Future Appointment: Pharmacy Verified: Yes * Telephone Encounter - Sapna Juárez R.N. - 11/21/2022 4:[address] Natarajan Diltiazem and amlodipine are in that same drug family and not dure why he would tolerate one nd not the other. If he goes cack to Amlodipine then will need to increase Metoprolol 100mg daily. Electronically signed by: Sapna Juárez R.N. 11/21/22 4:18 PM CDT * Telephone Encounter - Lashonda Velásquez APRN, C.N.P. - 11/08/2022 3:38 PM CDT Can this message be sent to his damage adjuster for review so they can decide if they want to trial anything else? Since they made the change I want them to be aware. Thanks, tK * Telephone Encounter - Keke Stone R.N. - 11/08/2022 3:24 PM CDT R: Refill for amlodipine pended. S: Patient states that he couldn't take diltiazem because it made him unable to sleep, he went backto amlodipine. B: Patient had been taking amlodipine 5 mg, he saw cardiology 09/19/22 and was switched to [id number] mg. He states that he took diltiazem for a week but then stopped because he was not able to sleep. He states that as soon as he made the switch back to amlodipine he was able to sleep per usual. He is requesting a refill of amlodipine. Name of Medication(s) Needing Refill: Requested Prescriptions Pending Prescriptions Disp Refills amLODIPine (NORVASC) 5 mg tablet 90 tablet 3 Sig: Take 1 tablet (5 mg total) by mouth daily. 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 [address] [place] [address] PCP - General Family Medicine 03/28/21 documented as of this encounter
--- OUTSIDE RECORDS SUMMARY | 2023-08-06 11:29 | XMS_ITS | Encounter Summary ---
Author Name Unknown Organization [facility] Address [address] [place] [address] Care Team Providers Care Agricultural Plow Operator Name Role Phone Lashonda Velásquez APRN, C.N.P. Primary Care Provi catalina Reason for Visit * Outpatient (Routine) - Canceled Specialty Diagnoses / Procedures Referred By Brian beckett Referred To Contact Diagnoses Monitoring For Therapeutic Drug Therapy Residential (Current) Anticoagulant Treatment Atrial Fibrillation Paroxysmal (HCC) Embolus Pulmonary Personal History Atrial Fibrillation Unspecified (HCC) Procedures ACO Anticoagulation check Lashonda Velásquez APRN, C.N.P. [address] [place] [address] [facility] Referral ID Status Reason Start Date Expiration Date V isits Requested Visits Authorized [id number] Canceled 12/18/2021 12/18/2022 52 [phone] Encounter Details Date Type Department Care Team (Latest Contact Info) Description 11/08/2022 11:15 AM CDT Anticoagulation Visit Department of Anticoagulation in [place], [place] [address] [place] [address] Lashonda Velásquez APRN, C.N.P. [address] [place] [phone] Monitoring For Therapeutic Drug Therapy; Cold Rolling Coordinator (Current) Anticoagulant Treatment; Atrial Fibrillation Paroxysmal (HCC); Embolus Pulmonary Personal History; Atrial Fibrillation Unspecified (HCC) Social History Tobacco Use Types Packs/Day [...] and Family Once a week 12/21/2018 Attends [employer] Services More than 4 times per year [...] Answer Date Recorded PHQ-2 Score 0 08/06/2022 [facility] of Occupat ional Health - Occupational [...] Progress Notes * Keke Stone R.N. - 11/08/2022 11:15 AM CDT Warfarin Maintenance Nursing Protocol Goal Range 2.0-3.0 (version approved 08/2021) Visit Type: Face to Face Primary reason for visit: Routine f/u OR f/u per previous visit recommendations Information provided by:patient INR result: 4.4 Goal range: 2.0-3.0 Inclusion Criteria: All inclusion [...] follow-up. Additional Info: None Previous INR was supratherapeutic. Today???s INR is Supratherapeutic, Causes: Unknown. Dosing and follow up recommendation: Protocol dosing range for INR 4.1-5: 2nd consecutive INR above goal range. HOLD next dose of warfarin, then decrease average daily dose by 50% for 1 dose, then resume current dose per protocol. Next INR within 5 days. Additional dosing or follow-up information: None. Pt is on injectable anticoagulant: No. Plan used: Consult. See Anticoagulation Track Calendar for dosing and [...] Associated Diagnosis Comments INR, POCT, B Routine 11/08/2022 11:27 AM CDT documented in this encounter Results * INR, POCT (11/08/2022 11:27 AM CDT) INR, POCT, B 4.4 11/08/2022 11:27 AM CDT NPCL Comment: ----ADDITIONAL INFORMATION---- Standard intensity warfarin therapeutic range: 2.0 to 3.0 ?? High intensity warfarin therapeutic range: 2.5 to 3.5 11/08/2022 11:2 7 AM CDT 11/08/2022 11:28 AM CDT Generic Rals LAB POCT ORDERABLES - DEVICE [facility] [address] [place] [address], [facility] NP[facility] [address] [address] documented in this encounter Visit Diagnoses Diagnosis Monitoring For Therapeutic Drug Therapy Cold Rolling Coordinator (Current) Anticoagulant Treatment Atrial Fibrillation Paroxysmal (HCC) Embolus Pulmonary Personal History Atrial Fibrillation Unspecified (HCC) documented in this encounter Additional Health Concerns Assessment Noted Time PHQ-9 Depression Total Score: 0 06/18/20 17 4:38 PM FRUIT GROWER documented as of this encounter Care Teams Agricultural Plow Operator Relationship Specialty Start Date End Date Lashonda Velásquez APRN, C.N.P. [address] [place] [address] PCP - General Family Medicine 03/28/21 documented as of this encounter
--- OUTSIDE RECORDS SUMMARY | 2023-08-06 11:29 | XMS_ITS | Encounter Summary ---
Author Name Unknown Organization [facility] Address [address] [place] [address] Care Team Providers Care Auto Damage Appraiser Name Role Phone Lashonda Velásquez APRN, C.N.P. Primary Care Provi catalina Encounter Details Date Type Department Care Team (Late st Contact Info) Description 12/11/2022 Orders Only [facility] Lashonda Velásquez APRN, C.N.P. [address] [place] [phone] Diabetes Mellitus Type 2 With Diabetic Nephropathy [...] and Family Once a week 12/21/2018 Attends [employer] Services More than 4 times per year [...] Answer Date Recorded PHQ-2 Score 0 08/06/2022 [facility] of Occupat ional Health - Occupational Stress [...] as of this encounter Plan of Treatment Not on file documented as of this encounter Visit Diagnoses Diagnosis Diabetes Mellitus Type 2 With Diabetic Nephropathy (HCC) documented in this encounter Additional Health Concerns Assessment Noted Time PHQ-9 Depression Total Score: 0 06/18/20 17 4:38 PM CNC APPLICATIONS ENGINEER documented as of this encounter Care Teams Auto Damage Appraiser Relationship Specialty Start Date End Date Lashonda Velásquez APRN, C.N.[place] [phone] PCP - General Family Medicine 03/28/21 documented as of this encounter
--- OUTSIDE RECORDS SUMMARY | 2023-08-06 11:29 | XMS_ITS | Encounter Summary ---
Author Name Unknown Organization [facility] Address [address] [place] [address] Care Team Providers Care Rivet Hammer Machine Operator Name Role Phone Lashonda Velásquez APRN, C.N.P. Primary Care Provi catalina Reason for Visit * Reason Comments Med Refill Encounter Details Date Type Department Care Team (Late st Contact Info) Description 11/11/2022 Refill Department of Family Medicine in [place], [place] [address] [place] [address] Lashonda Velásquez APRN, C.N.P. 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 [address] [place] [address] PCP - General Family Medicine 03/28/21 documented as of this encounter
--- OUTSIDE RECORDS SUMMARY | 2023-08-06 11:29 | XMS_ITS | Encounter Summary ---
Author Name Unknown Organization [facility] Address [address] [place] [address] Care Team Providers Care Breed To Wean Production Technician Name Role Phone Lashonda Velásquez APRN, C.N.P. Primary Care Provi catalina Reason for Visit * Reason Comments covid exposure with sx Exposed 01-07-23 Sx . Started yesterday am Encounter Details Date Type Department Care Team (Late st Contact Info) Description 01/10/2023 11:45 AM CDT Office Visit Urgent Care, [facility], in [place], [place] [address] [place] [phone] Anai Kaufman APRN, C.N.P., D.N.P. COVID-19 Infection (Primary Dx); Contact With And (Suspected) Exposure To COVID-19 Discharge Disposition: Home or Self Care Social History Tobacco Use Types Packs/Day Years Used Date Smoking Tobacco: Former Smokeless Tobacco: Current Chew Tobacco Cessation:Ready to [...] Answer Date Recorded PHQ-2 Score 0 08/06/2022 [facility] of Occupat ional Health - Occupational [...] Sign Reading Time Taken Comments Blood Pressure 111/65 01/10/2023 11:52 AM CDT Pulse 69 01/10/2023 11:52 AM CDT Temperature 37.2 ??C (99 ??F) 01/10/2023 11:52 AM CDT Respiratory Rate - - Oxygen Saturation 99% 01/10/2023 11:52 AM CDT Inhaled Oxygen Concentration - - Weight 79.8 kg (176 lb) 01/10/2023 11:52 AM CDT Height 167.6 cm (5' 6) 01/10/2023 11:52 AM CDT Body Mass Index 28.41 01/10/2023 11:52 AM CDT documented in this encounter Progress Notes * Anai Kaufman, JOSSIE, C.N.P., D.N.P. - 01/10/2023 11:45 AM CDT SUBJECTIVE CHIEF COMPLAINT / REASON FOR VISIT covid exposure with sx (Exposed 01-07-23 Sx. Started yesterday am) HISTORY OF PRESENT ILLNESS Zeke Tejada is a 87 y.o. male who presents to the urgent care for COVID testing. Patient reports that with body aches and chills with an occasional cough since yesterday. He was with his son on 07 of January and reports that his son called to informed that he tested positive for COVID the next day. Currently a daughter is also positive for COVID. REVIEW OF SYSTEMS A brief review of systems was negative except for that mentioned in the history of present of illness. The patient's social history, medical history, and home medications were reviewed in the electronicmedical record. ALLERGIES/CONTRAINDICATIONS No Known Allergies OBJECTIVE VITAL SIGNS BP 111/65 Pulse 69 Temp 37.2 ??C Ht 167.6 cm Wt 79.8 kg SpO2 99% BMI 28.41 kg/m?? PHYSICAL EXAMINATION General: This patient is alert and in no acute distress. HEENT: Head is normocephalic. Eyes: Pupils are PERRLA. Conjunctivae are clear without any discharge, edema or erythema. Ears: Auditory canals are clear without erythema or edema. TMs are pearly nur and intact without erythema. Mouth: Mucous membranes are moist. Posterior pharynx clear without erythema or exudates. Neck: Supple. Full range of motion without lymphadenopathy. Respiratory: Effort is easy. Lung sounds are clear to auscultation. No retractions or accessory muscle use. Cardiovascular: Normal rate. Musculoskeletal: grossly intact. Skin: Normal color, temperature and moisture. No rashes or lesions are noted. DIAGNOSTICS Recent Results (from the past 24 hour(s)) SARS Coronavirus 2, PCR Rapid Symptomatic Collection Time: 01/10/23 12:00 PM Specimen: Nasopharynx; Swab Result Value SARS CoV-2, PCR, Rapid, V Detected (A) SARS Coronavirus 2, Source, Rapid Swab, Nasopharynx No results found. ASSESSMENT / PLAN #1 COVID-19 Infection #2 Contact With And (Suspected) Exposure To COVID-19 - SARS Coronavirus 2, PCR Rapid Symptomatic COVID PCR was positive. Patient was given the [facility] COVID care team phone number. Plan will be to call at 8:00 a.m. tomorrow morning to discuss treatment options as patient is currently on long-term anticoagulation for atrial fibrillation on Coumadin and GFR of 41. Patient is aware that that typically the [facility] COVID care team will be contacting patient as well. Encouraged nutritious fluids and rest as needed. Patient was discharged ambulatory in stable condition. All questions were answered. Patient is agreeable to this plan. Electronically signed by: Anai Kaufman APRN, C.N.P., D.N.P. 01/10/23 documented in this encounter Plan of Treatment Not on file documented as of this encounter Procedures Procedure Name Priority Date/Time Associated Diagnosis Comments SARS CORONAVIRUS 2, PCR RAPID, V STAT 01/10/2023 12:00 PM CDT Contact With And (Suspected) Exposure To COVID-19 documented in this encounter Results * (ABNORMAL) SARS Coronavirus 2, PCR Rapid Symptomatic (01/10/2023 12:00 PM CDT) Pathologist [facility] SARS CoV-2, PCR, Rapid, V Detected(A) Undetected 01/10/2023 12:31 PM CDT NPRG Comment: ----ADDITIONAL INFORMATION---- This RT-PCR test was performed using the [employer] SARS-CoV-2 and Influenza A/B Reagent assay from [employer] [employer], which has received Emergency Use Authorization(EUA) by the U.S. Food and Drug Administration. Fact sheets for this Emergency Use Authorization (EUA) assay can be found at the following links: For Healthcare Providers: https://www.fda.gov/media/405522/download For Patients: https://www.fda.gov/media/911170/download SARS Coronavirus 2, Source, Rapid Swab, Nasopharynx 01/10/2023 12:06 PM CDT NPRG Swab (Nasopharynx) 01/10/2023 12:00 PM CDT 01/10/2023 12:06 PM CDT Anai Kaufman APRN, C.N.P., D.N.P. LAB M ICROBIOLOGY - GENERAL ORDERABLES [facility] [address] [place] [address], [facility] NPRG [facility] [address] [place] [address] documented in this encounter Visit Diagnoses Diagnosis COVID-19 Infection- Primary Contact With And (Suspected) Exposure To COVID-19 documented in this encounter Additional Health Concerns Infection Onset Date Last Indicated Resolved Time COVID19 Pending 01/10/2023 01/10/2023 01/10/2023 1 2:31 PM CDT Assessment Noted Time PHQ-9 Depression Total Score: 0 06/18/20 17 4:38 PM MARINE ELECTRONICS REPAIRER documented as of this encounter Care Teams Breed To Wean Production Technician Relationship Specialty Start Date End Date Lashonda Velásquez APRN, C.N.P. [address] [place] [address] PCP - General Family Medicine 03/28/21 documented as of this encounter
--- OUTSIDE RECORDS SUMMARY | 2023-08-06 11:29 | XMS_ITS | Encounter Summary ---
Author Name Unknown Organization [facility] Address [address] [place] [address] Care Team Providers Care Forest Technician Name Role Phone Lashonda Velásquez APRN, C.N.P. Primary Care Provi catalina Reason for Referral * Outpatient (Routine) - Authorized Specialty Diagnoses / Procedures Referred By Brian beckett Referred To Contact Diagnoses Skilled Nursing (Current) Anticoagulant Treatment Procedures ACO Anticoagulation check Lashonda Velásquez APRN, C.N.P. [address] [place] [address] [facility] Region Referral ID Status Reason Start Date Expiration Date V isits Requested Visits Authorized [id number] Authorized 12/06/2022 12/06/2023 52 52 Reason for Visit * Outpatient (Routine) - Canceled Specialty Diagnoses / Procedures Referred By Contlynda beckett Referred To Contact Diagnoses Monitoring For Therapeutic Drug Therapy Skilled Nursing (Current) Anticoagulant Treatment Atrial Fibrillation Paroxysmal (HCC) Embolus Pulmonary Personal History Atrial Fibrillation Unspecified (HCC) Procedures ACO Anticoagulation check Lashonda Velásquez APRN, C.N.P. [address] [place] [address] [facility] Region Referral ID Status Reason Start Date Expiration Date V isits Requested Visits Authorized [id number] Canceled 12/18/2021 12/18/2022 52 52 Encounter Details Date Type Department Care Team (Latest Contact Info) Description 12/06/2022 9:00 AM CDT Anticoagulation Visit Department of Anticoagulation in [place], [place] [address] [place] [address] Lashonda Velásquez APRN, C.N.P. [address] [place] [phone] Fuel Truck Driver (Current) Anticoagulant Treatment (Primary Dx); Monitoring For Therapeutic Drug Therapy; Atrial Fibrillation Paroxysmal (HCC); Embolus Pulmonary Personal [...] and Family Once a week 12/21/2018 Attends Confucianism Services More than 4 times per year [...] Answer Date Recorded PHQ-2 Score 0 08/06/2022 [facility] [place] of Occupat ional Health - Occupational Stress [...] Progress Notes * Keke Stone R.N. - 12/06/2022 9:00 AM CDT Warfarin Maintenance Nursing Protocol Goal Range 2.0-3.0 (version approved 08/2021) Visit Type: Face to Face Primary reason for visit: Routine f/u OR f/u per previous visit recommendations Information provided by:patient INR result: 1.9 Goal range: 2.0-3.0 Inclusion Criteria: All inclusion [...] was therapeutic. Today???s INR is Subtherapeutic, Causes: Diet change: added v8 back in . Dosing and follow up recommendation: Protocol dosing range for INR 1.8-1.9: Consult required due to indication: no. 1st INR in this range. No change in weekly dose per protocol. Currently bridging? no. Next INR in 8-10 days per protocol. Additional dosing or follow-up information: None. Pt is on injectable anticoagulant: No. Plan used: Protocol. See Anticoagulation Track Calendar for dosing and plan details. Anticoagulation Visit Summary: Patient provided with handout of warfarin dosing and next INR appointment. Patient repeats back dosing instructions and has no further questions at this time. Total time spent with patient: 15 minutes documented in this encounter Miscellaneous Notes * Addendum Note - Keke Stone R.N. - 12/06/2022 9:00 AM CDTAddended by: KEKE STONE on: 12/06/2022 09:55 AM Modules accepted: Orders documented in this encounter Plan of Treatment Scheduled Orders Name Type Priority Associated Diagnoses Orde r Schedule ACO Anticoagulation check Procedures Routine Fuel Truck Driver (Current) Anticoagulant Treatment 52 Occurrences starting 12/06/2022 until 03/08/2024 documented as of this encounter Procedures Procedure Name Priority Date/Time Associated Diagnosis Comments INR, POCT, B Routine 12/06/2022 9:02 AM CDT documented in this encounter Results * INR, POCT (12/06/2022 9:02 AM CDT) INR, POCT, B 1.9 12/06/2022 9:02 AM CDT NPCL Comment: ----ADDITIONAL INFORMATION---- Standard intensity warfarin therapeutic range: 2.0 to 3.0 ?? High intensity warfarin therapeutic range: 2.5 to 3.5 12/06/2022 9:02 AM CDT 12/06/2022 9:03 AM CDT Generic Rals LAB POCT ORDERABLES - DEVICE [facility] [address] [place] [address], [facility] NPCL [facility] [address] [place] [phone] documented in this encounter Visit Diagnoses Diagnosis Fuel Truck Driver (Current) Anticoagulant Treatment- Primary Monitoring For Therapeutic Drug Therapy Atrial Fibrillation Paroxysmal (HCC) Embolus Pulmonary Personal History Atrial Fibrillation Unspecified (HCC) documented in this encounter Additional Health Concerns Assessment Noted Time PHQ-9 Depression Total Score: 0 06/18/20 17 4:38 PM LUG LOADER documented as of this encounter Care Teams Forest Technician Relationship Specialty Start Date End Date Lashonda Velásquez APRN, C.N.P. [address] [place] [address] PCP - General Family Medicine 03/28/21 documented as of this encounter
--- OUTSIDE RECORDS SUMMARY | 2023-08-06 11:29 | XMS_ITS | Encounter Summary ---
Author Name Unknown Organization [facility] Address [address] [place] [address] Care Team Providers Care Complex Care Nurse Name Role Phone Lashonda Velásquez APRN, C.N.P. Primary Care Provi catalina Reason for Visit * Outpatient (Routine) - Authorized Specialty Diagnoses / Procedures Referred By Brian beckett Referred To Contact Diagnoses Check Clerk (Current) Anticoagulant Treatment Procedures ACO Anticoagulation check Lashonda Velásquez APRN, C.N.P. [address] [place] [address] [facility] Region Referral ID Status Reason Start Date Expiration Date V isits Requested Visits Authorized [id number] Authorized 12/06/2022 12/06/2023 52 52 Encounter Details Date Type Department Care Team (Latest Contact Info) Description 12/20/2022 11:15 AM CDT Anticoagulation Visit Department of Anticoagulation in [place], [place] [address] [place] [phone] Lashonda Velásquez APRN, C.N.P. [address] [place] [address] Atrial Fibrillation Paroxysmal (HCC) (Primary [...] and Family Once a week 12/21/2018 Attends Anabaptist Services More than 4 times per year [...] Answer Date Recorded PHQ-2 Score 0 08/06/2022 [facility] of Occupat ional Health - Occupational [...] Progress Notes * Keke Stone R.N. - 12/20/2022 11:15 AM CDT Warfarin Maintenance Nursing Protocol Goal Range 2.0-3.0 (version approved 08/2021) Visit Type: Face to Face Primary reason for visit: Routine f/u OR f/u per previous visit recommendations Information provided by:patient INR result: 2.3 Goal range: 2.0-3.0 Inclusion Criteria: All inclusion [...] Associated Diagnosis Comments INR, POCT, B Routine 12/20/2022 11:19 AM CDT documented in this encounter Results * INR, POCT (12/20/2022 11:19 AM CDT) INR, POCT, B 2.3 12/20/2022 11:19 AM CDT NPCL Comment: ----ADDITIONAL INFORMATION---- Standard intensity warfarin therapeutic range: 2.0 to 3.0 ?? High intensity warfarin therapeutic range: 2.5 to 3.5 12/20/2022 11:1 9 AM CDT 12/20/2022 11:20 AM CDT Generic Rals LAB POCT ORDERABLES - DEVICE [facility] [address] [place] [address], [facility] [address] [address] documented in this encounter Visit Diagnoses Diagnosis Atrial Fibrillation Paroxysmal (HCC)- Primary Check Clerk (Current) Anticoagulant Treatment Embolus Pulmonary Personal History documented in this encounter Additional Health Concerns Assessment Noted Time PHQ-9 Depression Total Score: 0 06/18/20 17 4:38 PM NON LICENSED NUCLEAR PLANT OPERATOR documented as of this encounter Care Teams Complex Care Nurse Relationship Specialty Start Date End Date Lashonda Velásquez APRN, C.N.P. [address] [place] [address] PCP - General Family Medicine 03/28/21 documented as of this encounter
--- OUTSIDE RECORDS SUMMARY | 2023-08-06 11:29 | XMS_ITS | Encounter Summary ---
Author Name Unknown Organization [facility] Address [address] [place] [address] Care Team Providers Care Shoeshiner Name Role Phone Lashonda Velásquez APRN, C.N.P. Primary Care Provi catalina Reason for Visit * Reason Comments Med Refill Encounter Details Date Type Department Care Team (Late st Contact Info) Description 12/15/2022 Refill Department of Family Medicine in [place], [place] [address] [place] [address] Lashonda Velásquez APRN, C.N.P. [address] [place] [address] Med Refill Social History Tobacco Use Types [...] Answer Date Recorded PHQ-2 Score 0 08/06/2022 [facility] of Occupat ional Health - Occupational Stress [...] encounter Miscellaneous Notes * Telephone Encounter - Daphne Damon - 12/17/2022 10:38 AM CDT Nurse review: Unable to forward request to provider; Anticoagulation Medication Primary Provider: Lashonda Kardoes, WEB SITE SPECIALIST, C.N.P. Requested Prescriptions Pending Prescriptions Disp Refills warfarin (COUMADIN) 5 mg tablet [Pharmacy Med Name: WARFARIN SODIUM 5MG TABS] 90 tablet 3 Sig: TAKE ONE TABLET BY MOUTH ONCE DAILY [facility] [place], [place] - [address] [phone] documented in this encounter Plan of Treatment Not on file documented as of this encounter Visit Diagnoses Diagnosis Atrial Fibrillation Unspecified (HCC) documented in this encounter Additional Health Concerns Assessment Noted Time PHQ-9 Depression Total Score: 0 06/18/20 17 4:38 PM COMMODITY MANAGER documented as of this encounter Care Teams Shoeshiner Relationship Specialty Start Date End Date Lashonda Velásquez APRN, C.N.P. [address] [place] [address] PCP - General Family Medicine 03/28/21 documented as of this encounter
--- OUTSIDE RECORDS SUMMARY | 2023-08-06 11:29 | XMS_ITS | Encounter Summary ---
Author Name Unknown Organization [facility] Address [address] [place] [address] Care Team Providers Care Sound Editor Name Role Phone Lashonda Velásquez APRN, C.N.P. Primary Care Provi catalina Reason for Visit * Reason Comments Med Refill Encounter Details Date Type Department Care Team (Late st Contact Info) Description 11/10/2022 Refill Department of Family Medicine in [place], [place] [address] [place] [address] Lashonda Velásquez APRN, C.N.P. [address] [place] [address] Med Refill Social History Tobacco Use Types [...] and Family Once a week 12/21/2018 Attends Christian Services More than 4 times per year [...] Answer Date Recorded PHQ-2 Score 0 08/06/2022 [facility] of Occupat ional Health - [...] * Telephone Encounter - Letitia Renee - 11/13/2022 11:51 AM CDT Recent Visits Date Type Provider Dept 08/06/22 Office Visit KardoLashonda ruiz APRN, C.N.P. [facility] 03/19/22 Office Visit Lashonda Velásquez APRN, C.N.P. [facility] Showing recent visits within past 365 days [...] Total Score: 0 06/18/20 17 4:38 PM SURGICAL PROCESSOR documented as of this encounter Care Teams Sound Editor Relationship Specialty Start Date End Date Lashonda Velásquez APRN, C.NCalista [address] [facility] [place] [address] PCP - General Family Medicine 03/28/21 documented as of this encounter
--- OUTSIDE RECORDS SUMMARY | 2023-08-06 11:29 | XMS_ITS | Encounter Summary ---
Author Name Unknown Organization [facility] Address [address] [place] [address] Care Team Providers Care Database Programmer Analyst Name Role Phone Lashonda Velásquez APRN, C.N.P. Primary Care Provi catalina Reason for Visit * Outpatient (Routine) - Canceled Specialty Diagnoses / Procedures Referred By Brian beckett Referred To Contact Diagnoses Monitoring For Therapeutic Drug Therapy Detention (Current) Anticoagulant Treatment Atrial Fibrillation Paroxysmal (HCC) Embolus Pulmonary Personal History Atrial Fibrillation Unspecified (HCC) Procedures ACO Anticoagulation check Lashonda Velásquez APRN, C.N.P. [address] [place] [address] [facility] Region Referral ID Status Reason Start Date Expiration Date V isits Requested Visits Authorized [id number] Canceled 12/18/2021 12/18/2022 52 52 Encounter Details Date Type Department Care Team (Latest Contact Info) Description 11/15/2022 11:00 AM CDT Anticoagulation Visit Department of Anticoagulation in [place], [place] [address] [place] [address] Lashonda Velásquez APRN, C.N.P. [address] [place] [phone] Monitoring For Therapeutic Drug Therapy; Special Assemblies Supervisor (Current) Anticoagulant Treatment; Atrial Fibrillation Paroxysmal (HCC); [...] and Family Once a week 12/21/2018 Attends Buddhist Services More than 4 times per year [...] Answer Date Recorded PHQ-2 Score 0 08/06/2022 [facility] of Occupat ional Health - [...] Progress Notes * Keke Stone R.N. - 11/15/2022 11:00 AM CDT Warfarin Maintenance Nursing Protocol Goal Range 2.0-3.0 (version approved 08/2021) Visit Type: Face to Face Primary reason for visit: Routine f/u OR f/u per previous visit recommendations Information provided by:patient INR result: 4.0 Goal range: 2.0-3.0 Inclusion Criteria: All inclusion [...] up recommendation: Protocol dosing range for INR 3.6-4: 3rd or more consecutive INR above goal range. Consulted Anticoagulation [facility] for plan. Additional dosing or follow-up information: None. Pt [...] Associated Diagnosis Comments INR, POCT, B Routine 11/15/2022 11:06 AM CDT documented in this encounter Results * INR, POCT (11/15/2022 11:06 AM CDT) INR, POCT, B 4.0 11/15/2022 11:06 AM CDT NPCL Comment: ----ADDITIONAL INFORMATION---- Standard intensity warfarin therapeutic range: 2.0 to 3.0 ?? High intensity warfarin therapeutic range: 2.5 to 3.5 11/15/2022 11:0 6 AM CDT 11/15/2022 11:08 AM CDT Generic Rals LAB POCT ORDERABLES - DEVICE [facility] [address] [place] [address], [facility] [address] [address] documented in this encounter Visit Diagnoses Diagnosis Monitoring For Therapeutic Drug Therapy Detention (Current) Anticoagulant Treatment Atrial Fibrillation Paroxysmal (HCC) Embolus Pulmonary Personal History Atrial Fibrillation Unspecified (HCC) documented in this encounter Additional Health Concerns Assessment Noted Time PHQ-9 Depression Total Score: 0 06/18/20 17 4:38 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 [address] [place] [address] PCP - General Family Medicine 03/28/21 documented as of this encounter
--- OUTSIDE RECORDS SUMMARY | 2023-08-06 11:29 | XMS_ITS | Encounter Summary ---
Author Name Unknown Organization [facility] Address [address] [place] [address] Care Team Providers Care Tube Making Machine Operator Name Role Phone Lashonda Velásquez APRN, C.N.P. Primary Care Provi catalina Reason for Visit * Reason Comments Med Refill Encounter Details Date Type Department Care Team (Late st Contact Info) Description 11/04/2022 Refill Department of Family Medicine in [place], [place] [address] [place] [address] Lashonda Velásquez APRN, C.N.P. [address] [place] [address] Med Refill Social History Tobacco Use Types [...] Answer Date Recorded PHQ-2 Score 0 08/06/2022 [facility] of Occupat ional Health - Occupational [...] encounter Miscellaneous Notes * Telephone Encounter - Johanna Bacon L.P.NIsabel - 11/06/2022 6:38 AM CDT Recent Visits Date Type Provider Dept 08/06/22 Office Visit Lashonda Velásquez APRN, C.N.P. [facility] 03/19/22 Office Visit Lashonda Velásquez APRN, C.N.P. 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 [address] [place] [address] PCP - General Family Medicine 03/28/21 documented as of this encounter
--- OUTSIDE RECORDS SUMMARY | 2023-08-06 11:29 | XMS_ITS | Encounter Summary ---
Author Name Unknown Organization [facility] Address [address] [place] [address] Care Team Providers Care Crane Ladle Person Name Role Phone Lashonda Velásquez APRN, C.N.P. Primary Care Provi catalina Reason for Visit * Reason Comments Med Refill Encounter Details Date Type Department Care Team (Late st Contact Info) Description 11/16/2022 Refill Department of Family Medicine in [place], [place] [address] [place] [address] Lashonda Velásquez APRN, C.N.P. [address] [place] [address] Med Refill Social History Tobacco Use Types [...] and Family Once a week 12/21/2018 Attends Protestant Services More than 4 times per year [...] Answer Date Recorded PHQ-2 Score 0 08/06/2022 [facility] of Occupat ional Health - Occupational [...] Total Score: 0 06/18/20 17 4:38 PM SOUNDING DEVICE OPERATOR documented as of this encounter Care Teams Crane Ladle Person Relationship Specialty Start Date End Date Lashonda Velásquez APRN, C.N.P. [address] [place] [phone] PCP - General Family Medicine 03/28/21 documented as of this encounter
--- OUTSIDE RECORDS SUMMARY | 2023-08-06 11:29 | XMS_ITS | Encounter Summary ---
Author Name Unknown Organization [facility] Address [address] [place] [address] Care Team Providers Care Employee Relations Manager Name Role Phone Lashonda Velásquez APRN, C.N.P. Primary Care Provi catalina Reason for Referral * Outpatient (Routine) - Authorized Specialty Diagnoses / Procedures Referred By Contact Referred To Contact Hematology / Anticoagulation Diagnoses Atrial Fibrillation Paroxysmal (HCC) Lashonda Velásquez APRN, C.N.P. [address] [place] [address] Referral ID Status Reason Start Date Expiration Date Visits Requested Visits Authorized [id number] Authorized Specialty Services Required 11/11/2022 11/11/2024 1 1 Scheduling Instructions Per [facility] warfarin management protocols Reason for Visit * Reason Onset Date Comments Anticoagulation 11/11/2022 Encounter Details Date Type Department Care Team (Latest Contact Info) Description 11/11/2022 Clinical Communication Department of Family Medicine in [place], [place] [address] [place] [phone] Christen Lashonda Don, BULK SEALER OPERATOR, C.N.P. [address] [place] [phone] Anticoagulation Social History Tobacco Use Types Packs/Day Years [...] and Family Once a week 12/21/2018 Attends Synagogue Services More than 4 times per year [...] Answer Date Recorded PHQ-2 Score 0 08/06/2022 [facility] of Occupat ional Health - Occupational [...] encounter Miscellaneous Notes * Telephone Encounter - Chidi Tejada, Pharm.D., R.Ph. - 11/11/2022 3:36 PM CDT Approve of plan of care, sent to PCP for final approval. Chidi Tejada PharmD * Telephone Encounter - Ruthann Montague R.N. - 11/11/2022 2:59 PM CDT ACO Biannual Plan of Care Due Indication for Anticoagulation (select all that apply): Atrial fibrillation and Hx. of Pulmonary Embolism Range: 2-3 Length of Therapy: Life time If atrial fibrillation, complete CHADS2 score: CHADS2 Score if applicable: ( ) Hx of CHF (1) (x ) Hx of HTN (1) ( x) Age > 75 (1) ( x) Hx of DM (1) ( ) Hx of TIA/Stroke (2) Total Score: 3 Lab Results Component Value Date WBC 8.0 04/02/2022 HGB 11.8 (L) 04/02/2022 HCT 36.1 (L) 04/02/2022 MCV 96.5 04/02/2022 PLT 200 04/02/2022 Pharmacist: Please update the CHADS2 in Epic if applicable. Please sign the plan of care order if agreeable. Nursing: It is recommended that patients on anticoagulation therapy have a yearly CBC. Nursing please pend CBC order to patients PCP if not completed in the last 12 months. Please update plan of care and date of last CBC in the episode comment. Please place ACO Standing Order for 52 visits. documented in this encounter Plan of Treatment Scheduled Referrals Name Type Priority Associated Diagnoses Orde r Schedule Anticoagulation monitoring consult (clinic) Outpatient Referral Routine Atrial Fibrillation Paroxysmal (HCC) Ordered: 11/11/2022 documented as of this encounter Visit Diagnoses Diagnosis Atrial Fibrillation Paroxysmal (HCC)- Primary documented in this encounter Additional Health Concerns Assessment Noted Time PHQ-9 Depression Total Score: 0 06/18/20 17 4:38 PM HAULAGE BOSS documented as of this encounter Care Teams Employee Relations Manager Relationship Specialty Start Date End Date Lashonda Velásquez, JOSSIE, C.N.P. [address] [place] [phone] PCP - General Family Medicine 03/28/21 documented as of this encounter
--- OUTSIDE RECORDS SUMMARY | 2023-08-06 11:29 | XMS_ITS | Encounter Summary ---
Author Name Unknown Organization [facility] Address [address] [place] [address] Care Team Providers Care Marine Engine Machinist Name Role Phone NakuljosephLashonda APRN, C.NIsabelPIsabel Primary Care Provi catalina Reason for Visit * Reason Onset Date Comments COVID Treatment Review 01/11/2023 Encounter Details Date Type Department Care Team (Latest Contact Info) Description 01/11/2023 Clinical Communication Department of Family Medicine, [address] [address] Juanita Samuel, R.NIsabel [address] [place] [address] COVID Treatment Review Social History Tobacco Use Types Packs/Day Years [...] and Family Once a week 12/21/2018 Attends Sabianist Services More than 4 times per year [...] Answer Date Recorded PHQ-2 Score 0 08/06/2022 [facility] of Occupat ional Health - Occupational Stress [...] Miscellaneous Notes * Telephone Encounter - Destiny Fuller R.N. - 01/11/2023 11:10 AM CDT [facility] COMMUNICATION NOTE The patient's returned a call to the [facility] regarding a recent positive test result for COVID-19.. The caller is with the patient. Treatment Recommendation: Paxlovid, Remdesivir, and Molnupiravir Monoclonal Antibody Screening Score (MASS) Total Points Current as of about an hour ago 7 0 - 3 Points: Low Risk 4 - 6 Points: Medium Risk >= 7 Points: High Risk No Change Details This score is used to evaluate patient risk of complications with COVID-19 infection Points Metrics 2 Age: 87 Current as of about an hour ago 0 Has Chronic Respiratory Disease: No Current as of about an hour ago 2 Has Diabetes: Yes Current as of about an hour ago 0 Patient is Immune Compromised/Transplant Patient: No Current as of about an hour ago 0 BMI: 28.41 Current as of about an hour ago 2 Has CVD: Yes Current as of about an hour ago 0 Has Renal Disease (CKD 4 or 5, ESRD w/ Dialysis): No Current as of about an hour ago 1 Has Hypertension: Yes Current as of about an hour ago 0 : No Current as of about an hour ago Symptom Onset Date: 01/09/23 . Patient is between day 0-5 and having symptoms. The patient is currently experiencing severe weakness and fatigue. His states it is difficult for him to stay awake. He is unable to sit up in bed unassisted. He is unable to get out of bed due to extreme weakness. If you are experiencing severe symptoms, please seek emergency medical attention. Severe symptoms may include new or increasing oxygen requirements, shortness of breath at rest, shortness of breath that limits walking short distances, chest pain (such as retrosternal or left sided chest pain, pain that radiates to the jaw or arm), and dizziness or lightheadedness that makes you unsteady or unableto stand or walk. Counseling Regarding Therapy for COVID-19 You may choose to accept or refuse any of the available treatments that we will review today. You may also stop treatment at any time. Your choice will not change your standard medical care. Regardless of your choice, you should continue to self-isolate and use infection control measures according to CDC guidelines (e.g., wear mask, isolate, social distance, avoid sharing personal items,and frequent handwashing). In addition, regardless of whether you accept any of the treatments we discuss today, if you develop worsening symptoms of COVID-19, you should reach out to your primary care provider or present to the nearest emergency department for evaluation. Treatment Discussion The patient is currently experiencing severe symptoms that require evaluation in the emergency department. The patient's states she will contact their neighbor for assistance transporting the patient to the emergency department. If the neighbor is unavailable, the will call an ambulance. If the patient is discharged from the emergency department and needs assistance with arranging outpatient COVID-19 treatment, the will call the [facility] back at [phone]. We are available Friday- 8:30 a.m. - 4:30 p.m. and Friday - Friday 8:30 a.m. - noon. Isolation: COVID-19 Isolation: Stay home from work, school, or daycare until fever free for 24 hours without the use of fever reducing medications AND it has been at least 5 days since symptom onset (10 days ifconsidered immunocompromised). Continue to wear a face mask for 5 additional days. Home Care Points for Upper Respiratory Infection: - Wash your hands often with soap and water. - For fever or discomfort, give Acetaminophen (Tylenol) or Ibuprofen (Motrin) following the dosing recommendations on the attending psychiatrist's label. - For a sore throat, gargle with 8 ounces of warm salt water several times a day for throat discomfort (1/4 tsp regular salt to 8 ounces or 1 cup warm water). Do not swallow salt water. Throat lozenges will help keep the throat lubricated. Hard candy, lollipops, and throat lozenges are equally effective. - Suctioning your 's nose can make it easier for your child to breathe and eat. Using a bulb syringe or nasal aspirator with saline drops, you can safely remove mucus from your child's nose. - Suction mucus from your child's nose before you feed your child. - Notify your primary care provider of any new or worsening symptoms. When to seek emergency care: Patient is 18 years of age or older and reports the following urgent symptoms: - New shortness of breath at rest. - Pain, pressure, or tightness in chest, jaw, or arm (unrelated to coughing). - New confusion or inability to stay alert and awake. - Dizziness when sitting or standing. - Noisy, wheezy, or raspy breathing that does not clear with coughing. - Inability to swallow liquids or saliva, muffled voice, or inability to open mouth fully. - Drooling. Please follow up with your PCP with any questions regarding symptom management. Plan: Disposition/Recommendation: recommended to report to the nearest emergency department Response to Education: patient/caller able to teach back Was the RN protocol completed? N/A The following references were used: Nursing or provider judgement, [facility] workflow(s), guidelines, and protocols, [facility] Protocols Destiny Fuller R.N. [facility] Care Team [facility] and [facility] * Telephone Encounter - Juanita Samuel R.N. - 01/11/2023 8:53 AM CDT [facility] COMMUNICATION NOTE Attempt #1 to reach patient regarding COVID-19.. Left a voicemail for patient and sent a portal message if possible. Our team is available at [phone] Friday- [phone] and Friday-Friday [phone] if patient returns call. Juanita Samuel R.N. [facility] Team [facility] and [facility] documented in this encounter Plan of Treatment Not on file documented as of this encounter Visit Diagnoses Not on filedocumented in this encounter Additional Health Concerns Infection Onset Date Last Indicated Resolved Time COVID19 01/10/2023 01/10/2023 01/30/2023 6:17 AM CDT Assessment Noted Time PHQ-9 Depression Total Score: 0 06/18/20 17 4:38 PM FUNCTIONAL TESTER TYPEWRITERS documented as of this encounter Care Teams Marine Engine Machinist Relationship Specialty Start Date End Date Lashonda Velásquez APRN, C.N.P. [address] [place], [place] [phone] PCP - General Family Medicine 03/28/21 documented as of this encounter
--- OUTSIDE RECORDS SUMMARY | 2023-08-06 11:29 | XMS_ITS | Encounter Summary ---
Author Name Unknown Organization [facility] Address [address] [place] [address] Care Team Providers Care Landscape Artist Name Role Phone Lashonda Velásquez APRN, C.N.P. Primary Care Provi catalina Reason for Visit * Outpatient (Routine) - Canceled Specialty Diagnoses / Procedures Referred By Brian beckett Referred To Contact Diagnoses Monitoring For Therapeutic Drug Therapy Group Home (Current) Anticoagulant Treatment Atrial Fibrillation Paroxysmal (HCC) Embolus Pulmonary Personal History Atrial Fibrillation Unspecified (HCC) Procedures ACO Anticoagulation check Lashonda Velásquez APRN, C.N.P. [address] [place] [address] [facility] Region Referral ID Status Reason Start Date Expiration Date V isits Requested Visits Authorized [id number] Canceled 12/18/2021 12/18/2022 52 [phone] Encounter Details Date Type Department Care Team (Latest Contact Info) Description 11/22/2022 11:00 AM CDT Anticoagulation Visit Department of Anticoagulation in [place], [place] [address] [place] [address] Lashonda Velásquez APRN, C.N.P. [address] [place] [phone] Monitoring For Therapeutic Drug Therapy; Sap Director (Current) Anticoagulant Treatment; Atrial Fibrillation Paroxysmal (HCC); [...] and Family Once a week 12/21/2018 Attends Sabianism Services More than 4 times per year [...] Answer Date Recorded PHQ-2 Score 0 08/06/2022 [facility] of Occupat ional Health - [...] Progress Notes * Keke Stone R.N. - 11/22/2022 11:00 AM CDT Warfarin Maintenance Nursing Protocol [...] Previous INR was supratherapeutic. Today???s INR is Therapeutic. Dosing and follow [...] Associated Diagnosis Comments INR, POCT, B Routine 11/22/2022 11:07 AM CDT documented in this encounter Results * INR, POCT (11/22/2022 11:07 AM CDT) INR, POCT, B 2.3 11/22/2022 11:07 AM CDT NPCL Comment: ----ADDITIONAL INFORMATION---- Standard intensity warfarin therapeutic range: 2.0 to 3.0 ?? High intensity warfarin therapeutic range: 2.5 to 3.5 11/22/2022 11:0 7 AM CDT 11/22/2022 11:08 AM CDT Generic [facility] POCT ORDERABLES - DEVICE [facility] [address] [place] [address], [facility] [address] [address] documented in this encounter Visit Diagnoses Diagnosis Monitoring For Therapeutic Drug Therapy Group Home (Current) Anticoagulant Treatment Atrial Fibrillation Paroxysmal (HCC) Embolus Pulmonary Personal History Atrial Fibrillation Unspecified (HCC) documented in this encounter Additional Health Concerns Assessment Noted Time PHQ-9 Depression Total Score: 0 06/18/20 17 4:38 PM HOISTING LABORER documented as of this encounter Care Teams Landscape Artist Relationship Specialty Start Date End Date Lashonda Velásquez APRN, C.N.P. [address] [place] [address] PCP - General Family Medicine 03/28/21 documented as of this encounter
--- OUTSIDE RECORDS SUMMARY | 2023-08-06 11:30 | XMS_ITS | Encounter Summary ---
Author Name Unknown Organization [facility] Address [address] [place] [address] Care Team Providers Care Neon Sign Worker Name Role Phone Lashonda Velásquez APRN CIsabelNCalista Primary Care Provi catalina Reason for Visit * Physical Therapy (Routine) - Canceled Specialty Diagnoses / Procedures Referred By Brian beckett Referred To Contact Diagnoses Primary Osteoarthritis Knee Left Procedures PT Ongoing treatment Lily Mederos P.A.-C., M.S. [address] [place] [phone] [facility] Region Referral ID Status Reason Start Date Expiration Date V isits Requested Visits Authorized [id number] Canceled 08/23/2022 07/06/2023 99 99 Encounter Details Date Type Department Care Team (Latest Contact Info) Description 09/09/2022 8:00 AM RIGGING ENGINEER Clinical Support Department of Physical Medicine and Rehabilitation in [place], [place] [address] [place] [phone] Lily Mederos P.A.-C., M.S. [address] [place] [phone] Eliane Alberto P.T. [address] [place] [phone] Primary Osteoarthritis Knee Left Social History Tobacco Use Types Packs/Day Years [...] and Family Once a week 12/21/2018 Attends Orthodox Services More than 4 times per [...] Answer Date Recorded PHQ-2 Score 0 08/06/2022 [facility] of Occupat ional Health - [...] as of this encounter Progress Notes * Eliane Alberto PCathy. - 09/09/2022 8:00 AM CST Physical Therapy Outpatient Treatment Note SUBJECTIVE Patient's Name: Zeke Tejada Referring Provider: Damion Sommers* Visit Diagnosis: 1. 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 Patient comments: Patient reports he noted improvement of stiffness and tightness into his left thigh following last therapy session which did maintain over the weekend. Patient had slight return into the lateral thigh. He has been consistent with home exercise program OBJECTIVE Measures - Tools Patient presents with FOTO functional status score of 86 (MCII: 8 and MDC: 9) indicating general function at stage 5. The risk adjusted functional status score is 56. Patient is predicted to have -2 points of functional status change in 9 visits over 35 days based on normative data. Gait Speed (m/sec) Preferred speed: .80 Reference values: Age Preferred men 60's 0.95 70's 0.94 Household Ambulation: .4 Limited Community: .4-.8 Community: .8-1.2 Fall Risk: <.45 m/sec=Fall Risk The Timed Up and Go (TUG) Time: 14.88 Normative Data for Community Dwelling: Age Range Time in seconds 80-89 years old 10.5 Score > 13.5 seconds is correlated with increased fall risk, > 20 seconds is indicative of impaired functional mobility. TREATMENT Treatment today consisted of: Manual Therapy: In right side-lying, myofascial/mobilization performed into distal 1/2 ITB band. Insitting, performed additionally into vastus lateralis. Therapeutic Exercise: Initiated lower extremity resistance strengthening exercises including: Hip adduction 4.5 plates X 20 reps Hip abduction 3.5 plates X 20 reps Leg extension 1.0 plates X 20 reps Leg curl 3.0 plates X 20 reps Reviewed home exercise program of standing towel roll calf stretch progressing into standing towel roll hamstring stretch 20 seconds each Home Exercise Program/Education: Standing towel roll calf stretch, hamstring stretch Patient reports good HEP compliance. Assessment Clinical Impression: Patient continues have hypertonicity into the distal ITB band however patient denies tenderness with manual therapy techniques. Improvement of symptoms noted with return to sitting and standing per patient. Patient able to initiate resistance strengthening exercises with no worsening of symptoms. Functional Goals and Timeframes: PT Goal #1: Patient will have full resolution of tightness in thigh PT Goal #1 Date: 10/18/22 PT Goal #2: patient to increase gait speed to 1.0 m/s for community ambulation PT Goal #2 Date: 10/18/22 PT Goal #3: patient to increase activity tolerance to increase daily walks to 1.5 miles per day PT Goal #3 Date: 10/18/22 PT Goal #4: patient to increase timed up and go to 10.5 sec for community ambulation PT Goal #4 Date: 10/18/22 Plan Physical Therapy Attestation Statement: Patient agrees with the plan of care and goals. Plan: Continue with current plan Number of Outpatient PT Visits: 10 PT Outpatient Duration (days): 90 days PT Frequency: 2 times per week Plan for next session: Will continue manual therapy techniques into the ITB band and quadricep musculature. Treatment/Interventions: Therapeutic exercise, Therapeutic functional activity, Neuromuscular re-education, Manual therapy Time Spent with Patient Therapeutic Interventions Manual Therapy (min): 17 min Therapeutic Exercise (min): 10 min Time Tracking Total Timed Units (min): 27 min Total Treatment Time (min): 27 min ING ENGINEER documented in this encounter Plan of Treatment Not on file documented as of this encounter Visit Diagnoses Diagnosis Primary Osteoarthritis Knee Left documented in this encounter Additional Health Concerns Assessment Noted Time PHQ-9 Depression Total Score: 0 06/18/20 17 4:38 PM RIGGING ENGINEER documented as of this encounter Care Teams Neon Sign Worker Relationship Specialty Start Date End Date Lashonda Velásquez APRN, C.N.P. [address] [place] [phone] PCP - General Family Medicine 03/28/21 documented as of this encounter
--- OUTSIDE RECORDS SUMMARY | 2023-08-06 11:30 | XMS_ITS | Encounter Summary ---
Author Name Unknown Organization [facility] Address [address] [place] [address] Care Team Providers Care Aviation Electrician Name Role Phone Lashonda Velásquez APRN, C.N.P. Primary Care Provi catalina Reason for Visit * Outpatient (Routine) - Canceled Specialty Diagnoses / Procedures Referred By Brian beckett Referred To Contact Diagnoses Monitoring For Therapeutic Drug Therapy Senior Living (Current) Anticoagulant Treatment Atrial Fibrillation Paroxysmal (HCC) Embolus Pulmonary Personal History Atrial Fibrillation Unspecified (HCC) Procedures ACO Anticoagulation check Lashonda Velásquez APRN, C.N.P. [address] [place] [address] [facility] Region Referral ID Status Reason Start Date Expiration Date V isits Requested Visits Authorized [id number] Canceled 12/18/2021 12/18/2022 52 52 Encounter Details Date Type Department Care Team (Latest Contact Info) Description 09/10/2022 11:45 AM CESSATION SYSTEMS OUTREACH SPECIALIST Anticoagulation Visit Department of Anticoagulation in [place], [place] [address] [place] [address] Kardoes, Lashonda E, CUSTODIAL SUPERVISOR, C.N.P. [address] [place] [phone] Monitoring For Therapeutic Drug Therapy; Pe Manager (Current) Anticoagulant Treatment; Atrial Fibrillation Paroxysmal (HCC); Embolus Pulmonary Personal History; Atrial Fibrillation Unspecified Social History Tobacco Use Types Packs/Day Years [...] Answer Date Recorded PHQ-2 Score 0 08/06/2022 [facility] of Occupat ional Health - [...] Progress Notes * Keke Stone R.N. - 09/10/2022 11:45 AM CST Warfarin Maintenance Nursing Protocol Goal Range 2.0-3.0 (version approved 08/2021) Visit Type: Face to Face Primary reason for visit: Routine f/u OR f/u per previous visit recommendations Information provided by:patient INR result: 3.9 Goal range: 2.0-3.0 Inclusion Criteria: All inclusion [...] was supratherapeutic. Today???s INR is Supratherapeutic, Causes: No alcohol this past week and doesn't plan on any this week . Dosing and follow up recommendation: Protocol dosing range for INR 3.6-4: 2nd consecutive INR above goal range. INR is same or trending down from last INR. Decrease last 7 days by 10% per protocol. Next INR in 5-7 days. Additional dosing or follow-up information: None. Pt is on injectable anticoagulant: No. Plan used: Protocol. See Anticoagulation Track Calendar for dosing and plan details. Anticoagulation Visit Summary: Patient provided with handout of warfarin dosing and next INR appointment. Patient repeats back dosing instructions and has no further questions at this time. Total time spent with patient: 15 minutes ATION SYSTEMS OUTREACH SPECIALIST documented in this encounter Plan of Treatment Not on file documented as of this encounter Procedures Procedure Name Priority Date/Time Associated Diagnosis Comments INR, POCT, B Routine 09/10/2022 11:51 AM CESSATION SYSTEMS OUTREACH SPECIALIST documented in this encounter Results * INR, POCT (09/10/2022 11:51 AM CESSATION SYSTEMS OUTREACH SPECIALIST) INR, POCT, B 3.9 09/10/2022 11:51 AM CESSATION SYSTEMS OUTREACH SPECIALIST NPCL Comment: ----ADDITIONAL INFORMATION---- Standard intensity warfarin therapeutic range: 2.0 to 3.0 ?? High intensity warfarin therapeutic range: 2.5 to 3.5 09/10/2022 11:5 1 AM CESSATION SYSTEMS OUTREACH SPECIALIST 09/10/2022 11:52 AM CESSATION SYSTEMS OUTREACH SPECIALIST Generic [facility] POCT ORDERABLES - DEVICE [facility] [address] [place] [address], [facility] NPCL [address] [address] documented in this encounter Visit Diagnoses Diagnosis Monitoring For Therapeutic Drug Therapy Pe Manager (Current) Anticoagulant Treatment Atrial Fibrillation Paroxysmal (HCC) Embolus Pulmonary Personal History Atrial Fibrillation Unspecified (HCC) documented in this encounter Additional Health Concerns Assessment Noted Time PHQ-9 Depression Total Score: 0 06/18/20 17 4:38 PM CESSATION SYSTEMS OUTREACH SPECIALIST documented as of this encounter Care Teams Aviation Electrician Relationship Specialty Start Date End Date Lashonda Velásquez APRN, C.N.P. [address] [place] [address] (work) PCP - General Family Medicine 03/28/21 documented as of this encounter
--- OUTSIDE RECORDS SUMMARY | 2023-08-06 11:30 | XMS_ITS | Encounter Summary ---
Author Name Unknown Organization [facility] Address [address] [place] [address] Care Team Providers Care Filament Maker Name Role Phone Lashonda Velásquez APRN, C.N.P. Primary Care Provi catalina Reason for Visit * Outpatient (Routine) - Canceled Specialty Diagnoses / Procedures Referred By Brian beckett Referred To Contact Diagnoses Monitoring For Therapeutic Drug Therapy Custodial (Current) Anticoagulant Treatment Atrial Fibrillation Paroxysmal (HCC) Embolus Pulmonary Personal History Atrial Fibrillation Unspecified (HCC) Procedures ACO Anticoagulation check Lashonda Velásquez APRN, C.N.P. [address] [place] [address] [facility] Region Referral ID Status Reason Start Date Expiration Date V isits Requested Visits Authorized [id number] Canceled 12/18/2021 12/18/2022 52 52 Encounter Details Date Type Department Care Team (Latest Contact Info) Description 09/17/2022 11:45 AM CDT Anticoagulation Visit Department of Anticoagulation in [place], [place] [address] [place] [address] Lashonda Velásquez APRN, C.N.P. [address] [place] [phone] Monitoring For Therapeutic Drug Therapy; Hepatologist (Current) Anticoagulant Treatment; Atrial Fibrillation Paroxysmal (HCC); [...] and Family Once a week 12/21/2018 Attends Uats[employer] Services More than 4 times per year [...] Answer Date Recorded PHQ-2 Score 0 08/06/2022 [facility] of Occupat ional Health - Occupational [...] Progress Notes * Keke Stone R.N. - 09/17/2022 11:45 AM CDT Warfarin Maintenance Nursing Protocol Goal [...] not apply. Provider input required. Additional Info: None Previous INR was supratherapeutic. Today???s INR is Subtherapeutic, Causes: Unknown. Dosing and follow up recommendation: [...] Associated Diagnosis Comments INR, POCT, B Routine 09/17/2022 11:56 AM CDT documented in this encounter Results * INR, POCT (09/17/2022 11:56 AM CDT) INR, POCT, B 1.9 09/17/2022 11:56 AM CDT NPCL Comment: ----ADDITIONAL INFORMATION---- Standard intensity warfarin therapeutic range: 2.0 to 3.0 ?? High intensity warfarin therapeutic range: 2.5 to 3.5 09/17/2022 11:5 6 AM CDT 09/17/2022 11:58 AM CDT Generic [facility] POCT ORDERABLES - DEVICE [facility] [address] [place] [address], [facility] [address] [address] documented in this encounter Visit Diagnoses Diagnosis Monitoring For Therapeutic Drug Therapy Hepatologist (Current) Anticoagulant Treatment Atrial Fibrillation Paroxysmal (HCC) Embolus Pulmonary Personal History Atrial Fibrillation Unspecified (HCC) documented in this encounter Additional Health Concerns Assessment Noted Time PHQ-9 Depression Total Score: 0 06/18/20 17 4:38 PM MUFFLER INSTALLER documented as of this encounter Care Teams Filament Maker Relationship Specialty Start Date End Date Lashonda Velásquez APRN, C.N.P. [address] [place] [address] PCP - General Family Medicine 03/28/21 documented as of this encounter
--- OUTSIDE RECORDS SUMMARY | 2023-08-06 11:30 | XMS_ITS | Encounter Summary ---
Author Name Unknown Organization [facility] Address [address] [place] [address] Care Team Providers Care College Advisor Name Role Phone Lashonda Velásquez APRN, C.N.P. [...] Velásquez APRN, C.N.P. [address] [place] [address] [facility] Region Referral ID Status Reason Start Date Expiration Date V isits Requested Visits Authorized [id number] Canceled 12/18/2021 12/18/2022 52 52 Encounter Details Date Type Department Care Team (Latest Contact Info) Description 10/04/2022 11:00 AM CDT Anticoagulation Visit Department of Anticoagulation in [place], [place] [address] [place] [address] Lashonda Velásquez APRN, C.N.P. [address] [place] [phone] Monitoring For Therapeutic Drug Therapy; Plate Grinder (Current) Anticoagulant Treatment; Atrial Fibrillation Paroxysmal (HCC); [...] and Family Once a week 12/21/2018 Attends Anglican Services More than 4 times per year [...] Answer Date Recorded PHQ-2 Score 0 08/06/2022 [facility] of Occupat ional Health - Occupational [...] Progress Notes * Keke Stone R.N. - 10/04/2022 11:00 AM CDT Warfarin Maintenance Nursing Protocol Goal Range 2.0-3.0 (version approved 08/2021) Visit Type: Face to Face Primary reason for visit: Routine f/u OR f/u per previous visit recommendations Information provided by:patient INR result: 2.9 Goal range: 2.0-3.0 Inclusion Criteria: All inclusion [...] last INR (max duration is 4-6 weeks): 4 weeks. Additional dosing or follow-up information: None. [...] Associated Diagnosis Comments INR, POCT, B Routine 10/04/2022 11:01 AM CDT documented in this encounter Results * INR, POCT (10/04/2022 11:01 AM CDT) INR, POCT, B 2.9 10/04/2022 11:01 AM CDT NPCL Comment: ----ADDITIONAL INFORMATION---- Standard intensity warfarin therapeutic range: 2.0 to 3.0 ?? High intensity warfarin therapeutic range: 2.5 to 3.5 10/04/2022 11:0 1 AM CDT 10/04/2022 11:02 AM CDT Generic [facility] POCT ORDERABLES - DEVICE [facility] [address] [place] [address], [facility] NPCL [address] [address] documented in this encounter Visit Diagnoses Diagnosis Monitoring For Therapeutic Drug Therapy Plate Grinder (Current) Anticoagulant Treatment Atrial Fibrillation Paroxysmal (HCC) Embolus Pulmonary Personal History Atrial Fibrillation Unspecified (HCC) documented in this encounter Additional Health Concerns Assessment Noted Time PHQ-9 Depression Total Score: 0 06/18/20 17 4:38 PM EDUCATIONAL ASSISTANT TEACHER documented as of this encounter Care Teams College Advisor Relationship Specialty Start Date End Date Lashonda Velásquez APRN, C.N.P. [address] [place] [address] PCP - General Family Medicine 03/28/21 documented as of this encounter
--- OUTSIDE RECORDS SUMMARY | 2023-08-06 11:30 | XMS_ITS | Encounter Summary ---
Author Name Unknown Organization [facility] Address [address] [place] [address] Care Team Providers Care Federal Law Clerk Name Role Phone Lashonda Velásquez APRN, C.N.P. Primary Care Provi catalina Reason for Visit * Outpatient (Routine) - Canceled Specialty Diagnoses / Procedures Referred By Brian beckett Referred To Contact Diagnoses Monitoring For Therapeutic Drug Therapy Long-Term (Current) Anticoagulant Treatment Atrial Fibrillation Paroxysmal (HCC) Embolus Pulmonary Personal History Atrial Fibrillation Unspecified (HCC) Procedures ACO Anticoagulation check Lashonda Velásquez APRN, C.N.P. [address] [place] [address] [facility] Region Referral ID Status Reason Start Date Expiration Date V isits Requested Visits Authorized [id number] Canceled 12/18/2021 12/18/2022 52 52 Encounter Details Date Type Department Care Team (Latest Contact Info) Description 09/03/2022 11:45 AM SCOUT Anticoagulation Visit Department of Anticoagulation in [place], [place] [address] [place] [address] Kardoes, Lashonda E, WAITER WAITRESS, C.N.P. [address] [place] [phone] Monitoring For Therapeutic Drug Therapy; Records Management Clerk (Current) Anticoagulant Treatment; Atrial Fibrillation Paroxysmal (HCC); [...] and Family Once a week 12/21/2018 Attends Yazidi Services More than 4 times per year [...] Answer Date Recorded PHQ-2 Score 0 08/06/2022 [facility] of Occupat ional Health - [...] as of this encounter Progress Notes * Kkee Stone R.N. - 09/03/2022 11:45 AM CST Warfarin Maintenance Nursing Protocol Goal Range 2.0-3.0 (version approved 08/2021) Visit Type: Face to Face Primary reason for visit: Routine f/u OR f/u per previous visit recommendations Information provided by:patient INR result: 4.6 Goal range: 2.0-3.0 Inclusion Criteria: All inclusion criteria met. Proceeded to exclusion criteria. Exclusion Criteria: Section 1: No Section 1 exclusion criteria, proceeded to Section 2. Section 2: No Section 2 exclusion criteria, proceeded to screening criteria. Screening Criteria: Patient has had a change in diet, lifestyle, alcohol intake, tobacco habits, health status, hospitalization, or surgery in the last 3 days: yes. Alcohol intake change: had whiskey yesterday. Proceeded to maintenance warfarin dosing and follow-up, but have patient return for follow-up INR in 7-10 days. Additional Info: None Previous INR was supratherapeutic. Today???s INR is Supratherapeutic, Causes: Diet change: had whiskey yesterday . Dosing and follow up recommendation: Protocol [...] Total time spent with patient: 15 minutes T documented in this encounter Plan of Treatment Not on file documented as of this encounter Procedures Procedure Name Priority Date/Time Associated Diagnosis Comments INR, POCT, B Routine 09/03/2022 11:40 AM SCOUT documented in this encounter Results * INR, POCT (09/03/2022 11:40 AM SCOUT) INR, POCT, B 4.6 09/03/2022 11:40 AM SCOUT NPCL Comment: ----ADDITIONAL INFORMATION---- Standard intensity warfarin therapeutic range: 2.0 to 3.0 ?? High intensity warfarin therapeutic range: 2.5 to 3.5 09/03/2022 11:4 0 AM SCOUT 09/03/2022 11:42 AM SCOUT Generic [facility] POCT ORDERABLES - DEVICE [facility] [address] [place] [address], [facility] NPCL [facility] [place] [address] documented in this encounter Visit Diagnoses Diagnosis Monitoring For Therapeutic Drug Therapy Long-Term (Current) Anticoagulant Treatment Atrial Fibrillation Paroxysmal (HCC) Embolus Pulmonary Personal History Atrial Fibrillation Unspecified (HCC) documented in this encounter Additional Health Concerns Assessment Noted Time PHQ-9 Depression Total Score: 0 06/18/20 17 4:38 PM SCOUT documented as of this encounter Care Teams Federal Law Clerk Relationship Specialty Start Date End Date Lashonda Velásquez APRN, C.N.P. [address] [place] [phone] PCP - General Family Medicine 03/28/21 documented as of this encounter
--- OUTSIDE RECORDS SUMMARY | 2023-08-06 11:30 | XMS_ITS | Encounter Summary ---
Author Name Unknown Organization [facility] Address [address] [place] [address] Care Team Providers Care Federal Appellate Law Clerk Name Role Phone Lashonda Velásquez APRN, C.N.P. Primary Care Provi catalina Reason for Referral * Outpatient (Routine) - Closed Specialty Diagnoses / Procedures Referred By Brian beckett Referred To Contact Diagnoses Pain Knee Left Procedures DX Knee Left 4+ Views Lily Mederos P.A.-C., M.S. [address] [place] [phone] [facility] Region Referral ID Status Reason Start Date Expiration Date Visits Re quested Visits Authorized [id number] Closed 08/08/2022 08/08/2023 1 1 H COMMANDER Reason for Visit * Outpatient (Routine) - Closed Specialty Diagnoses / Procedures Referred By Brian beckett Referred To Contact Diagnoses Pain Knee Left Procedures DX Knee Left 4+ Views Lily Mederos P.A.-C., M.S. [address] [place] [phone] [facility] Region Referral ID Status Reason Start Date Expiration Date Visits Re quested Visits Authorized [id number] Closed 08/08/2022 08/08/2023 1 1 Encounter Details Date Type Department Care Team (Latest Contact Info) Description 08/23/2022 9:15 AM WATCH COMMANDER - 08/23/2022 11:59 PM WATCH COMMANDER Hospital Encounter Department of Radiology, [facility], in [place], [place] [address] [place] [phone] Lily Mederos P.A.-C., M.S. [address] [place] [phone] Pain Knee Left Discharge Disposition: Home or Self Care Social [...] and Family Once a week 12/21/2018 Attends Church Services More than 4 times per year [...] Answer Date Recorded PHQ-2 Score 0 08/06/2022 [facility] Occupat ional Health - Occupational Stress [...] on file documented as of this encounter Medications at Time of Discharge Medication Sig Dispensed Refills Start Date End Date aspirin [address] tablet Take 81 mg by mouth. 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 Do not crush or chew. 90 tablet 0 08/06/2022 11/13/2022 ProgressusTouch Ultra Test strips USE ONE STRIP TO TEST ONCE DAILY 100 strip 3 03/05/2022 03/23/2023 warfarin (COUMADIN) 5 mg tabletIndications:Atrial Fibrillation Unspecified (HCC) TAKE ONE TABLET BY MOUTH ONCE DAILY 90 tablet 3 11/06/2021 12/17/2022 documented as of this encounter Plan of Treatment Not on file documented as of this encounter Procedures Procedure Name Priority Date/Time Associated Diagnosis Comments DX KNEE LEFT 4+ VIEWS RAD - Routine (most inpatients and all outpatients) 08/23/2022 9:39 AM WATCH COMMANDER Pain Knee Left documented in this encounter Results * DX Knee Left 4+ Views (08/23/2022 9:39 AM WATCH COMMANDER) Anatomical Region Laterality Modality Lower Extremity, Knee, Muscu loskeletal RST LOS, Musculoskeletal ARZ LOS, Muskuloskeletal FLA LOS Left Digit al Radiography 08/23/2022 9:59 AM WATCH COMMANDER Impressions 08/23/2022 10:06 AM WATCH COMMANDER 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 Narrative 08/23/2022 10:06 AM WATCH COMMANDER EXAM: DX KNEE LEFT 4+ VIEWS COMPARISON: 03/29/2020. FINDINGS: Soft tissues are unremarkable except for extensive vascular calcification and surgical clips at the medial aspect of the knee. No fracture or destructive lesion is identified. There is mild degenerative osteoarthritis of the medial compartment and patellofemoral joint. Incidentally visualized right knee on the AP, PA, and sunrise views is unremarkable except for mild degenerative change of the patellofemoral joint. Degenerative change of the left knee shows mild progression compared with 03/29/2020. Procedure Note Deven Montaño Jr., M.D. - 08/23/2022 EXAM: DX KNEE LEFT 4+ VIEWS COMPARISON: 03/29/2020. FINDINGS: Soft tissues are unremarkable except for extensive vascularcalcification and surgical clips at the medial aspect of the knee. No fracture or destructive lesionis identified. There is mild degenerative osteoarthritis of the medial compartment andpatellofemoral joint. Incidentally visualized right knee on the AP, PA, and sunrise views is unremarkableexcept for mild degenerative change of the patellofemoral joint. Degenerative change of the left kneeshows mild progression compared with 03/29/2020. IMPRESSION: Mild degenerative osteoarthritis of the left medial compartment andpatellofemoral joint. Lily Mederos P.A.-C. M.S. IMG DIAG NOSTIC IMAGING PROCEDURES documented in this encounter Visit Diagnoses Diagnosis Pain Knee Left documented in this encounter Additional Health Concerns Assessment Noted Time PHQ-9 Depression Total Score: 0 06/18/20 17 4:38 PM WATCH COMMANDER documented as of this encounter Care Teams Federal Appellate Law Clerk Relationship Specialty Start Date End Date Lashonda Velásquez APRN, C.N.P. [address] [place] [phone] PCP - General Family Medicine 03/28/21 documented as of this encounter
--- OUTSIDE RECORDS SUMMARY | 2023-08-06 11:30 | XMS_ITS | Encounter Summary ---
Author Name Unknown Organization [facility] Address [address] [place] [address] Care Team Providers Care Reed Polisher Name Role Phone Lashonda Velásquez APRN, C.N.P. Primary Care Provi catalina Reason for Visit * Reason Comments Med Refill Encounter Details Date Type Department Care Team (Late st Contact Info) Description 09/07/2022 Refill Department of Family Medicine in [place], [place] [address] [place] [address] Lashonda Velásquez APRN, C.N.P. [address] [place] [address] Med Refill Social History Tobacco Use Types [...] and Family Once a week 12/21/2018 Attends Amish Services More than 4 times per year [...] Answer Date Recorded PHQ-2 Score 0 08/06/2022 [facility] [place] of Occupat ional Health - Occupational Stress [...] * Telephone Encounter - Daphne Damon - 09/09/2022 10:35 AM ENTERPRISE SALES PERSON Recent Visits Date Type Provider Dept 08/06/22 [...] authorizing provider and meeting all other requirements RPRISE SALES PERSON documented in this encounter Plan of Treatment Not on file documented as of this encounter Visit Diagnoses Diagnosis Dyslipidemia documented in this encounter Additional Health Concerns Assessment Noted Time PHQ-9 Depression Total Score: 0 06/18/20 17 4:38 PM ENTERPRISE SALES PERSON documented as of this encounter Care Teams Reed Polisher Relationship Specialty Start Date End Date Lashonda Velásquez APRN, C.NCalista [address] [place] [phone] PCP - General Family Medicine 03/28/21 documented as of this encounter
--- OUTSIDE RECORDS SUMMARY | 2023-08-06 11:30 | XMS_ITS | Encounter Summary ---
Author Name Unknown Organization [facility] Address [address] [place] [address] Care Team Providers Care Psychiatric Security Nurse Name Role Phone Lashonda Velásquez APRN CIsabelNCalista Primary Care Provi catalina Reason for Visit * Physical Therapy (Routine) - Canceled Specialty Diagnoses / Procedures Referred By Brian beckett Referred To Contact Diagnoses Primary Osteoarthritis Knee Left Procedures PT Ongoing treatment Lily Mederos P.A.-C., M.S. [address] [place] [phone] [facility] Region Referral ID Status Reason Start Date Expiration Date V isits Requested Visits Authorized [id number] Canceled 08/23/2022 07/06/2023 99 99 Encounter Details Date Type Department Care Team (Latest Contact Info) Description 09/12/2022 1:00 PM DRIVER OPERATOR Clinical Support Department of Physical Medicine and Rehabilitation in [place], [place] [address] [place] [phone] Lily Mederos P.A.-C., M.S. [address] [place] [phone] Eliane Ayers P.T. [address] [place] [phone] Primary Osteoarthritis Knee Left Social History [...] and Family Once a week 12/21/2018 Attends [employer] Services More than 4 times per year [...] of this encounter Progress Notes * Eliane Ayers PCathy. - 09/12/2022 1:00 PM CST Physical Therapy Outpatient Treatment Note SUBJECTIVE Patient's Name: Zeke Tejada Referring Provider: Damion Sommers* Visit Diagnosis: 1. 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 Patient comments: Patient reports full resolution of stiffness and tightness into his thigh muscle since last therapy session. He states he is able to complete his activities of daily living without difficulty. OBJECTIVE Patient returns with FOTO functional status score of 94 indicating 8 point change compared to initial survey. Patient has 3 visits over 20 days. Patient is predicted to have -2 points [...] performed additionally into vastus lateralis. Therapeutic Exercise: lower extremity resistance strengthening exercises including: Hip [...] good HEP compliance. Assessment Clinical Impression: Patient with continued tightness into ITB band however full resolution tightness and tenderness with manual therapy techniques. Patient verbalizes he feels ready for discharge due to improvement of symptoms. Patient has met partially all physical therapy goals. Functional Goals and Timeframes: PT Goal #1: [...] times per week Plan for next session: Patient be discharged from physical therapy services. Treatment/Interventions: Therapeutic exercise, Therapeutic functional activity, Neuromuscular re-education, Manual therapy Time Spent with Patient Therapeutic Interventions Manual Therapy (min): 10 min Therapeutic Exercise (min): 10 min Time Tracking Total Timed Units (min): 20 min Total Treatment Time (min): 20 min ER OPERATOR documented in this encounter Miscellaneous Notes * Addendum Note - Eliane Ayers P.T. - 09/12/2022 1:00 PM CSTAddended by: ELIANE AYERS on: 10/09/2022 10:59 AM Modules accepted: Orders documented in this encounter Plan of Treatment Not on file documented as of this encounter Visit Diagnoses Diagnosis Primary Osteoarthritis Knee Left documented in this encounter Additional Health Concerns Assessment Noted Time PHQ-9 Depression Total Score: 0 06/18/20 17 4:38 PM DRIVER OPERATOR documented as of this encounter Care Teams Psychiatric Security Nurse Relationship Specialty Start Date End Date Lashonda Velásquez APRN, C.N.P. [address] [place] [phone] PCP - General Family Medicine 03/28/21 documented as of this encounter
--- OUTSIDE RECORDS SUMMARY | 2023-08-06 11:30 | XMS_ITS | Encounter Summary ---
Author Name Unknown Organization [facility] Address [address] [place] [address] Care Team Providers Care Geophysical Laboratory Chief Name Role Phone Lashonda Velásquez APRN, C.N.P. Primary Care Provi catalina Reason for Visit * Reason Comments Med Refill Encounter Details Date Type Department Care Team (Late st Contact Info) Description 09/02/2022 Refill Department of Family Medicine in [place], [place] [address] [place] [address] Lashonda Velásquez APRN, C.N.P. [address] [place] [address] Med Refill Social History Tobacco Use Types [...] and Family Once a week 12/21/2018 Attends Jew Services More than 4 times per year [...] Answer Date Recorded PHQ-2 Score 0 08/06/2022 [facility] of Occupat ional Health - Occupational Stress [...] Total Score: 0 06/18/20 17 4:38 PM FUR TINTER documented as of this encounter Care Teams Geophysical Laboratory Chief Relationship Specialty Start Date End Date Lashonda Velásquez APRN, [place] [phone] PCP - General Family Medicine 03/28/21 documented as of this encounter
--- OUTSIDE RECORDS SUMMARY | 2023-08-06 11:30 | XMS_ITS | Encounter Summary ---
Author Name Unknown Organization [facility] Address [address] [place] [address] Care Team Providers Care Meal Cook Name Role Phone Lashonda Velásquez APRN, C.NCalista Primary Care Provi catalina Reason for Referral * Outpatient (Routine) - Closed Specialty Diagnoses / Procedures Referred By Brian beckett Referred To Contact Diagnoses Fatigue Procedures Echo Transthoracic (TTE) Shirley Natarajan M.D. [address] [place] [address] [facility] Region Referral ID Status Reason Start Date Expiration Date Visits Re quested Visits Authorized [id number] Closed 09/19/2022 09/19/2023 1 1 Reason for Visit * Outpatient (Routine) - Closed Specialty Diagnoses / Procedures Referred By Brian beckett Referred To Contact Diagnoses Fatigue Procedures Echo Transthoracic (TTE) Shirley Natarajan M.D. [address] [place] [address] [facility] Region Referral ID Status Reason Start Date Expiration Date Visits Re quested Visits Authorized [id number] Closed 09/19/2022 09/19/2023 1 1 Encounter Details Date Type Department Care Team (Latest Contact Info) Description 10/08/2022 12:43 PM CDT - 10/08/2022 11:59 PM CDT Hospital Encounter Department of Cardiovascular Diseases in [place], [place] [address] [place] [phone] Shirley Natarajan M.D. [address] [place] [address] Fatigue Discharge Disposition: Home or Self Care Social [...] and Family Once a week 12/21/2018 Attends Denominational Services More than 4 times per year [...] Answer Date Recorded PHQ-2 Score 0 08/06/2022 [facility] of Occupat ional Health - Occupational [...] mouth. 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 90 tablet 0 08/06/2022 11/19/2022 hydroCHLOROthiazide (HYDRODIURIL) 12.5 mg tabletIndications:Hypert ension And [...] or chew. 90 tablet 0 08/06/2022 11/13/2022 Core StixTouch Ultra Test strips USE ONE STRIP TO TEST ONCE DAILY 100 strip 3 03/05/2022 03/23/2023 warfarin (COUMADIN) 5 mg tabletIndications:Atrial Fibrillation Unspecified (HCC) TAKE ONE TABLET BY MOUTH ONCE DAILY 90 tablet 3 11/06/2021 12/17/2022 documented as of this encounter Plan of Treatment Not on file documented as of this encounter Procedures Procedure Name Priority Date/Time Associated Diagnosis Comments (TTE) 2D ECHO DOPPLER COLOR Routine 10/08/2022 1:18 PM CDT Fatigue documented in this encounter Results * (TTE) 2D ECHO DOPPLER COLOR (10/08/2022 1:18 PM CDT) Narrative CV E[facility] - 10/15/2022 9:04 AM CDT This study was read by an external provider and scanned to the patient's chart. Please launch the scanned document link to view the full report. Shirley Natarajan M.D. CV ECHO PROCEDURES [facility] NA documented in this encounter Visit Diagnoses Diagnosis Fatigue documented in this encounter Additional Health Concerns Assessment Noted Time PHQ-9 Depression Total Score: 0 06/18/20 17 4:38 PM TEST CAR DRIVER documented as of this encounter Care Teams Meal Cook Relationship Specialty Start Date End Date Lashonda Velásquez APRN, C.N.P. [address] [place] [phone] PCP - General Family Medicine 03/28/21 documented as of this encounter
--- OUTSIDE RECORDS SUMMARY | 2023-08-06 11:30 | XMS_ITS | Encounter Summary ---
Author Name Unknown Organization [facility] Address [address] [place] [address] Care Team Providers Care Bottling Machine Operator Name Role Phone Lashonda Velásquez APRN, C.N.P. Primary Care Provi catalina Reason for Visit * Reason Comments Med Refill Encounter Details Date Type Department Care Team (Late st Contact Info) Description 10/14/2022 Refill Department of Family Medicine in [place], [place] [address] [place] [address] Lashonda Velásquez APRN, C.N.P. [address] [place] [address] Med Refill Social History Tobacco Use Types [...] Answer Date Recorded PHQ-2 Score 0 08/06/2022 [facility] of Occupat ional Health - Occupational Stress [...] encounter Miscellaneous Notes * Telephone Encounter - Loretta Anaya L.P.NIsabel - 10/15/2022 2:51 PM CDT Recent Visits Date Type Provider Dept 08/06/22 Office Visit Lashonda Vel[facility]quez APRN[facility] C.N.P. [facility] 03/19/22 Office Visit Lashonda Velásquez APRN, C.N.P. [facility] Showing recent visits within past 365 days with a meds authorizing provider and meeting all other requirements Future Appointments No visits were found meeting these conditions. Showing future appointments within next 90 days with a meds authorizing provider and meeting all other requirements Lab Results Component Value Date TSH 3.8 08/06/2022 documented in this encounter Plan of Treatment Not on file documented as of this encounter Visit Diagnoses Diagnosis Atrial Fibrillation Unspecified (HCC) documented in this encounter Additional Health Concerns Assessment Noted Time PHQ-9 Depression Total Score: 0 06/18/20 17 4:38 PM SALES CENTER MANAGER documented as of this encounter Care Teams Bottling Machine Operator Relationship Specialty Start Date End Date Lashonda Velásquez APRN, C.N.P. [address] [place] [facility] [place] [address] PCP - General Family Medicine 03/28/21 documented as of this encounter
--- OUTSIDE RECORDS SUMMARY | 2023-08-06 11:30 | XMS_ITS | Encounter Summary ---
Author Name Unknown Organization [facility] Address [address] [place] [address] Care Team Providers Care Machine Ii Coremaker Name Role Phone Lashonda Velásquez APRN, C.NCalista Primary Care Provi catalina Reason for Visit * Physical Therapy (Routine) - Closed Specialty Diagnoses / Procedures Referred By Brian beckett Referred To Contact Diagnoses Primary Osteoarthritis Knee Left Procedures PT Evaluate and treat Lily Mederos P.A.-C., M.S. [address] [place] [phone] [facility] Region Referral ID Status Reason Start Date Expiration Date Visits Re quested Visits Authorized [id number] Closed 08/23/2022 08/23/2023 1 1 Encounter Details Date Type Department Care Team (Latest Contact Info) Description 09/06/2022 2:15 PM BELLHOP SERVICE CAPTAIN Comprehensive Visit Department of Physical Medicine and Rehabilitation in [place], [place] [address] [place] [phone] Lily Mederos P.A.-C., M.S. [address] [place] [address] Eliane Alberto P.T. [address] [place] [phone] Primary Osteoarthritis Knee Left (Primary Dx) Social History Tobacco Use Types Packs/Day Years [...] and Family Once a week 12/21/2018 [facility]ends [employer] More than 4 times per year [...] Date Recorded PHQ-2 Score 0 08/06/2022 [facility] of Occupat ional Health - Occupational Stress [...] on file documented as of this encounter Consult Notes * Eliane Alberto P.Victorino. - 09/06/2022 2:15 PM CST Physical Therapy Outpatient Evaluation/Treatment By co-signing this note, the provider certifies the therapy being provided to this patient is reasonable and necessary for the diagnosis or treatment of this patient. SUBJECTIVE Patient's Name: Zeke Tejada Referring Provider: Damion Sommers* Visit Diagnosis: 1. 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 Mcfp Anticoagulant Treatment [Z79.01] Stenosis Carotid Artery Right [...] Arthritis Knee Left Loss Hearing Sensorineural Bilateral Past Surgical History: Procedure Laterality Date APPENDECTOMY CAROTID ENDARTERECTOMY CHOLECYSTECTOMY N/A 09/09/2008 Cholecystectomy CORONARY ARTERY BYPASS GRAFTS X 2 N/A 08/31/2015 CABG x 2 - Coronary artery bypass grafts x 2 DECOMPRESSION OF MEDIAN NERVE N/A Carpal tunnel release REPAIR OF MUSCULOTENDINOUS CUFF OF SHOULDER N/A Rotator cuff repair Diagnostic Tests: IMPRESSION: 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 Patient presents to outpatient physical therapy for evaluation of symptoms including: Right thigh tightness Overall patient reports status remains the same. History of Present Illness: Patient presents today stating that over the past few years he is beganto have worsening of left thigh tightness into the muscle region. Patient states that it is not a pain into the knee but feels stiffness into the knee joint and thigh. He states that the more he moves it will get improved however finds an aching sensation into the thigh muscle with prolonged sitting position. He is able to perform stairs with step over step negotiation up and down. He began utilizing a cane proximally 3-4 years go indoor and outdoor. He finds the tightness in the thigh interferes with sleep proximally 1 time per week. He is currently limited to ambulating with his dog for 1/2mi however he had been completing up to 6 miles prior to initiation of coronavirus. He is found himself with decreased activity tolerance since then. They have discontinued using their [email or web address] and [employer] membership over past few years as well. Patient does not require any heating pad, cold pack, [id number] medications for this dysfunction. Aggravating Factors: Sitting Relieving Factors: Ambulating Previous Treatments: None Prior Function/Occupational Profile: Prior Mobility/Functional Transfers Level of [place]: Modified independent Gait Devices/Wheelchair Used: Cane Prior Function/Occupational Profile Dominant Hand: Right Lives With: Spouse Receives Help From: Family ADL Assistance: Independent IADL/Homemaking Assistance: Independent Driving: Independent Occupational Role: Retired Home Living Type of Home: House Home Layout: Two level, Bedroom upstairs Home Access: Stairs to enter with rails, Stairs to alternate level with rails Entrance Stairs: Number of Steps: 2 Family/Caregiver Present: No Patient goals:Decrease Discomfort in Thigh Fall Risk (65 and older) Fall in the last 12 months: No Are you fearful of falling?: No OBJECTIVE REVIEW OF SYSTEMS Pt denies the following red flag symptoms: immunosuppresion, recent spine surgery, fever/chills, rash, history of spine infection, unexplained weight loss, cancer history, increased night pain, osteoporosis (fracture risk), trauma, systemic steroids (fracture risk), foot drop, incapacitating pain. PHYSICAL EXAM Pain: Pain Assessment Pain Assessment: 0-10 Numeric Pain Intensity Scale Pain Score: 0 - No pain Vital Signs Outcome Measures: Measures - Tools Patient presents with FOTO [...] seconds is indicative of impaired functional mobility. Observation/Inspection: No swelling or edema into the knee joint Ambulation/Balance: Device: Single point cane Assessment of Gait: Patient ambulates with single-point cane with step through gait pattern. Cane placed in right upper extremity. Palpation: Hypertonicity into ITB band musculature however patient denies pain with palpation throughout the knee joint structures. Range of Motion: ROM - Lower Extremity Screen: Addressed, no concerns noted Strength: Strength - Lower Extremity Screen: Addressed, no concerns noted Neuro Screen/Motor Control: Sensation intact to light touch bilateral lower extremities Joint Mobility: Good mobility tibial mobilizations and patellar mobilizations Attendance policy was discussed with patient. Patient verbalized and agrees to no show policy expectations including discharge from therapy if attendance expectations are not met. TREATMENT Treatment today consisted of: Manual Therapy: In right side-lying, myofascial release and soft tissue mobilization into distal 1/2 ITB band. Therapeutic Exercise: Initiated standing towel roll calf stretch progressing into standing towel roll hamstring stretch Home Exercise Program/Education: Standing towel roll calf stretch, hamstring stretch Assessment Clinical Impression: Patient presents to physical therapy with signs and symptoms consistent with left knee stiffness. Patient presenting with full range of motion into the knee joint denying tenderness with palpation throughout musculature. With manual therapy techniques into the ITB band, patient notes improvement of symptoms with return to sitting and standing immediately. Patient feels adequate stretch with standing towel roll calf stretch. Patient benefit from continued physical therapy services focusing on manual therapy techniques into this region while also progressing into lower extremity stabilizationexercises of the knee and general strengthening of conditioning to improve patient's overall activity tolerance and fall risks as seen with gait speed and timed up and go values. Rehab Potential: Patient has Good potential to achieve established physical therapy goals within the time frame outlined below, provided active participation in the physical therapy treatment plan and home program. Comorbid Conditions: Arthritis Personal Factors: Age, Needs assistive device Clinical Presentation: Stable Examination elements: 1-2 Clinical Decision Making: Low complexity clinical decision making Functional Goals and Timeframes: PT Outpatient Goals PT Goal #1: Patient will have full [...] ambulation PT Goal #4 Date: 10/18/22 Plan Patient was educated regarding evaluative findings, diagnosis, prognosis, potential risks and benefits of rehabilitation interventions. A collaborative effort was used to establish goals and plan of care. The patient was informed of the right to make decisions regarding care, including refusal of examination or treatment or selection of services from another provider if desired. The treatment plan may be progressed or modified based upon the patient's response to treatment. Physical Therapy Attestation Statement: Patient agrees with the plan of care and goals. Treatment Plan: Plan: Plan of care initiated Start of Plan of Care: 09/06/2022 PT Next Certification Date: 11/15/22 Number of Visits:10 visits PT Duration: 90 days PT Frequency: PT Frequency: 2 times per week Treatment interventions may include: Treatment/Interventions: Therapeutic exercise, Therapeutic functional activity, Neuromuscular re-education, Manual therapy Plan for next session: Will reassess initiation into the knee joint and continue as warranted. Willinitiate lower extremity strengthening and stabilization exercises Time Spent with Patient Evaluations PT Eval - Low Complexity: 16 min Therapeutic Interventions Manual Therapy (min): 15 min Therapeutic Exercise (min): 3 min Time Tracking Total Timed Units (min): 18 min Total Treatment Time (min): 34 min HOP SERVICE CAPTAIN documented in this encounter Plan of Treatment Not on file documented as of this encounter Visit Diagnoses Diagnosis Primary Osteoarthritis Knee Left- Primary documented in this encounter Additional Health Concerns Assessment Noted Time PHQ-9 Depression Total Score: 0 06/18/20 17 4:38 PM BELLHOP SERVICE CAPTAIN documented as of this encounter Care Teams Machine Ii Coremaker Relationship Specialty Start Date End Date Lashonda Velásquez APRN, C.N.P. [address] [facility] [place] [phone] PCP - General Family Medicine 03/28/21 documented as of this encounter
--- OUTSIDE RECORDS SUMMARY | 2023-08-06 11:30 | XMS_ITS | Encounter Summary ---
Author Name Unknown Organization [facility] Address [address] [place] [address] Care Team Providers Care Capacity Planning Analyst Name Role Phone Lashonda Velásquez APRN, C.N.P. Primary Care Provi catalina Reason for Visit * Outpatient (Routine) - Canceled Specialty Diagnoses / Procedures Referred By Brian beckett Referred To Contact Diagnoses Monitoring For Therapeutic Drug Therapy Prison (Current) Anticoagulant Treatment Atrial Fibrillation Paroxysmal (HCC) Embolus Pulmonary Personal History Atrial Fibrillation Unspecified (HCC) Procedures ACO Anticoagulation check Lashonda Velásquez APRN, C.N.P. [address] [place] [address] [facility] Region Referral ID Status Reason Start Date Expiration Date V isits Requested Visits Authorized [id number] Canceled 12/18/2021 12/18/2022 52 52 Encounter Details Date Type Department Care Team (Latest Contact Info) Description 11/01/2022 11:00 AM CDT Anticoagulation Visit Department of Anticoagulation in [place], [place] [address] [place] [address] Lashonda Velásquez APRN, C.N.P. [address] [place] [phone] Monitoring For Therapeutic Drug Therapy; Skidder Driver (Current) Anticoagulant Treatment; Atrial Fibrillation Paroxysmal (HCC); [...] Answer Date Recorded PHQ-2 Score 0 08/06/2022 [facility] of Occupat ional Health - Occupational [...] Progress Notes * Keke Stone R.N. - 11/01/2022 11:00 AM CDT Warfarin Maintenance Nursing Protocol Goal Range 2.0-3.0 (version approved 08/2021) Visit Type: Face to Face Primary reason for visit: Routine f/u OR f/u per previous visit recommendations Information provided by:patient INR result: 4.3 Goal range: 2.0-3.0 Inclusion Criteria: All inclusion criteria met. Proceeded to exclusion criteria. Exclusion Criteria: Section 1: No Section 1 exclusion criteria, proceeded to Section 2. Section 2: No Section 2 exclusion criteria, proceeded to screening criteria. Screening Criteria: Current INR value has changed by greater than or equal to 1 since last INR check: yes. NO dose change was made within the last 7 days. Proceeded to maintenance warfarin dosing and follow-up Additional Info: None Previous INR was therapeutic. Today???s INR is Supratherapeutic, Causes: Unknown. Dosing and follow up recommendation: Protocol dosing range for INR 4.1-5: HOLD next dose of warfarin, then resume current dose per protocol. Next [...] Associated Diagnosis Comments INR, POCT, B Routine 11/01/2022 11:02 AM CDT documented in this encounter Results * INR, POCT (11/01/2022 11:02 AM CDT) INR, POCT, B 4.3 11/01/2022 11:02 AM CDT NPCL Comment: ----ADDITIONAL INFORMATION---- Standard intensity warfarin therapeutic range: 2.0 to 3.0 ?? High intensity warfarin therapeutic range: 2.5 to 3.5 11/01/2022 11:0 2 AM CDT 11/01/2022 11:03 AM CDT Generic [facility] LAB POCT ORDERABLES - DEVICE [facility] [address] [place] [address], [facility] [address] [address] documented in this encounter Visit Diagnoses Diagnosis Monitoring For Therapeutic Drug Therapy Prison (Current) Anticoagulant Treatment Atrial Fibrillation Paroxysmal (HCC) Embolus Pulmonary Personal History Atrial Fibrillation Unspecified (HCC) documented in this encounter Additional Health Concerns Assessment Noted Time PHQ-9 Depression Total Score: 0 06/18/20 17 4:38 PM GUN STOCKER documented as of this encounter Care Teams Capacity Planning Analyst Relationship Specialty Start Date End Date Lashonda Velásquez APRN, C.N.P. [address] [place] [address] PCP - General Family Medicine 03/28/21 documented as of this encounter
--- OUTSIDE RECORDS SUMMARY | 2023-08-06 11:30 | XMS_ITS | Encounter Summary ---
Author Name Unknown Organization [facility] Address [address] [place] [address] Care Team Providers Care Pressure Dispatcher Name Role Phone Lashonda Velásquez APRN, C.NCalista Primary Care Provi catalina Reason for Referral * Physical Therapy (Routine) - Closed Specialty Diagnoses / Procedures Referred By Brian beckett Referred To Contact Diagnoses Primary Osteoarthritis Knee Left Procedures PT Evaluate and treat Lily Mederos P.A.-C., M.S. 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 [address] [place] [address] [facility] Region Referral ID Status Reason Start Date Expiration Date Visits Re quested Visits Authorized [id number] Closed 08/06/2022 08/06/2023 1 1 Encounter Details Date Type Department Care Team (Latest Contact Info) Description 08/23/2022 9:30 AM NON ACOUSTIC OPERATOR Comprehensive Visit Department of Orthopedic Surgery in [place], [place] [address] [place] [address] Eric Garcia D.O. [address] [place] [address] Primary Osteoarthritis Knee Left (Primary Dx) Social [...] and Family Once a week 12/21/2018 Attends [employer] More than 4 times per year [...] Answer Date Recorded PHQ-2 Score 0 08/06/2022 [facility] of Occupat ional Health - Occupational [...] Sign Reading Time Taken Comments Blood Pressure - - Pulse 65 08/23/2022 9:44 AM NON ACOUSTIC OPERATOR Temperature 36.3 ??C (97.3 ??F) 08/23/2022 9:44 AM CS T Respiratory Rate - - Oxygen Saturation 97% 08/23/2022 9:44 AM NON ACOUSTIC OPERATOR Inhaled Oxygen Concentration - - Weight - - Height - - Body Mass Index - - documented in this encounter Consult Notes * Lily Mederos P.A.-C., M.S. - 08/23/2022 9:30 AM CST [facility] Orthopedic Surgery [facility] Note Name: Zeke Tejada : 1935 Sex: male Date: 08/23/2022 Zeke Tejada is a 87 y.o. male who was referred by Lashonda Velásquez APRN, C.N.P. for consultation of left knee pain. CHIEF COMPLAINT: Left knee pain HISTORY OR PRESENT ILLNESS: Luis is an 87-year-old male who presents to the clinic with left knee pain. He is accompanied by his Casandra. He states his left knee has started to become bothersome for him over the last 2-3 months. He denies having any pain to the knee while doing any day-to-day activities or with walking. His biggest complaint is the sensation of instability while ambulating. He does use a cane for assistance. He states he normally would walk roughly 3-4 miles a day but is now limited to half a mile. He denies any previous bracing to the knee or any formal physical therapy. PAST MEDICAL/SURGICAL/FAMILY/SOCIAL HISTORY: The medical history was reviewed today from the electronic medical record. Please see the electronic medical record for complete details of the PAST MEDICAL HISTORY, FAMILY HISTORY, and SOCIAL HISTORY. Past Surgical History: Procedure Laterality Date APPENDECTOMY CAROTID ENDARTERECTOMY CHOLECYSTECTOMY N/A 09/09/2008 Cholecystectomy CORONARY ARTERY BYPASS GRAFTS X 2 N/A 08/31/2015 CABG x 2 - Coronary artery bypass grafts x 2 DECOMPRESSION OF MEDIAN NERVE N/A Carpal tunnel release REPAIR OF MUSCULOTENDINOUS CUFF OF SHOULDER N/A Rotator cuff repair MEDICATIONS: Current Outpatient Medications on File Prior to Visit Medication Sig Dispense Refill amLODIPine (NORVASC) 5 mg tablet Take 1 tablet (5 mg total) by mouth daily. 90 tablet [address] tablet Take 81 mg by mouth. atorvastatin (LIPITOR) 40 mg tablet TAKE ONE TABLET BY MOUTH ONCE DAILY 90 tablet 1 hydroCHLOROthiazide (HYDRODIURIL) 12.5 mg tablet TAKE ONE TABLET BY MOUTH EVERY MORNING 90 tablet 0 levothyroxine (SYNTHROID, LEVOTHROID) 25 mcg tablet TAKE 1 AND 1/2 TABLET DAILY 135 tablet 0 lisinopriL (PRINIVIL,ZESTRIL) 40 mg tablet Take 1 tablet (40 mg total) by mouth daily. 90 tablet 0 metFORMIN (GLUCOPHAGE) 500 mg tablet TAKE TWO TABLETS BY MOUTH TWICE A DAY WITH FOOD 360 tablet 3 metoprolol succinate (TOPROL-XL) 50 mg 24 hr tablet Take 1 tablet (50 mg total) by mouth every evening. Do not crush or chew. 90 tablet 0 Content Raven Ultra Test strips USE ONE STRIP TO TEST ONCE DAILY 100 strip 3 warfarin (COUMADIN) 5 mg tablet TAKE ONE TABLET BY MOUTH ONCE DAILY 90 tablet 3 nitroglycerin (NITROSTAT) 0.[address] 1 tablet (0.4 mg total) under the tongue every 5 (five) minutes as needed for chest pain. (Patient not taking: Reported on 08/23/2022) 25 tablet 1 No current facility-administered medications on file prior to visit. ALLERGIES: No Known Allergies PHYSICAL EXAM: General: Alert and orientated to person, place, and time. No signs of distress or discomfort. Speech is coherent and appropriate to conversation. Breathing is non-labored. Vitals: 08/23/22 0944 Pulse: 65 Temp: 36.3 ??C SpO2: 97% Gait: Nonantalgic. Skin: Intact. No ecchymosis or scars. Pulses: 2+ posterior tibialis pulse. Sensation: Intact sensation along peroneal, deep peroneal, and tibial nerve distribution bilaterally. Left Knee Exam: No joint effusion with balloting. Range of motion 0??-125??. No tenderness to palpation along the anterior, medial, and lateral joint lines. No pain or laxity with valgus and varus stress at 0?? and 30??. Mild patellofemoral crepitus during knee extension and flexion. 5/5 strength with flexion and extension. Negative Anterior drawer. IMAGING: @DX Knee Left 4+ Views Result Date: 08/23/2022 Impression: 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 ASSESSMENT: Left knee instability Left knee mild osteoarthritic changes PLAN: I reviewed patient's x-rays today. He does have mild osteoarthritic changes to the left knee.I discussed with him that patients with arthritic changes can have sensations of instability. He isnot having any pain at this time to the knee. I discussed with him the anatomy and pathology of arthritis and different treatment options we have. I feel at this time it is most appropriate for him to attempt bracing to the left knee as well as attend formal physical therapy to work on quadriceps and hamstring strengthening. We discussed different brace options today, and he plans on picking one up at a local pharmacy. Luis will plan to follow up with us on an as-needed basis. If he has any new symptoms or increased pain to the knee, he will let us know and we can see him. Zeke Tejada verbalizes understanding and agrees with the plan. If further questions or concerns arise to let us know. Keerthi Mederos PA-C Orthopedic Surgery [facility] ACOUSTIC OPERATOR documented in this encounter Plan of Treatment Not on file documented as of this encounter Visit Diagnoses Diagnosis Primary Osteoarthritis Knee Left- Primary documented in this encounter Additional Health Concerns Assessment Noted Time PHQ-9 Depression Total Score: 0 06/18/20 17 4:38 PM NON ACOUSTIC OPERATOR documented as of this encounter Care Teams Pressure Dispatcher Relationship Specialty Start Date End Date Lashonda Velásquez APRN, [place] [address] PCP - General Family Medicine 03/28/21 documented as of this encounter
--- OUTSIDE RECORDS SUMMARY | 2023-08-06 11:30 | XMS_ITS | Encounter Summary ---
Author Name Unknown Organization [facility] Address [address] [place] [address] Care Team Providers Care Director Of Knowledge Management Name Role Phone Lashonda Velásquez APRN, C.N.P. Primary Care Provi catalina Reason for Visit * Reason Comments Med Refill Encounter Details Date Type Department Care Team (Late st Contact Info) Description 10/29/2022 Refill Department of Family Medicine in [place], [place] [address] [place] [address] Lashonda Velásquez APRN, C.N.P. [address] [place] [address] Med Refill Social History Tobacco Use Types [...] Answer Date Recorded PHQ-2 Score 0 08/06/2022 [facility] of Occupat ional Health - [...] * Telephone Encounter - Destiny King - 10/30/2022 1:46 PM CDT Recent Visits Date Type Provider [...] Total Score: 0 06/18/20 17 4:38 PM RISK CONTROL MANAGER documented as of this encounter Care Teams Director Of Knowledge Management Relationship Specialty Start Date End Date Lashonda Velásquez APRN, C.NCalista [address] [place] [address] PCP - General Family Medicine 03/28/21 documented as of this encounter
--- OUTSIDE RECORDS SUMMARY | 2023-08-06 11:31 | XMS_ITS | Encounter Summary ---
Author Name Unknown Organization [facility] Address [address] [place] [address] Care Team Providers Care Roll Icer Name Role Phone Lashonda Velásquez APRN, C.N.P. 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 [address] [place] [address] [facility] Region Referral ID Status Reason Start Date Expiration Date V isits Requested Visits Authorized [id number] Authorized 08/06/2022 08/05/2025 1 1 Encounter Details Date Type Department Care Team (Late st Contact Info) Description 08/23/2022 11:45 AM BATCH ANALYST Nurse Only Department of Family Medicine in [place], [place] [address] [place] [phone] Lashonda Velásquez APRN, C.N.P. [address] [place] [address] Keke Stone R.N. Hypertension Social History Tobacco Use Types Packs/Day Years [...] and Family Once a week 12/21/2018 Attends [employer] More than 4 times per year [...] Sign Reading Time Taken Comments Blood Pressure 108/68 08/23/2022 11:46 AM BATCH ANALYST Pulse 65 08/23/2022 11:46 AM BATCH ANALYST Temperature - - Respiratory Rate - - Oxygen Saturation - - Inhaled Oxygen Concentration - - Weight 81.6 kg (180 lb) 08/23/2022 11:46 AM BATCH ANALYST Height - - Body Mass Index 28.59 08/03/2021 12:44 PM BATCH ANALYST documented in this encounter Progress Notes * Keke Stone R.N. - 08/23/2022 11:45 AM CST Zeke is seen today for a routine BP check per orders from Lashonda Velásquez CNP . After sitting for 10 minutes, BP was measured and recorded. A list of home BP readings brought in by patient are reviewed. Systolic BP ranges from 100 to 144, average 122. Diastolic BP ranges from 59 to 77, average 68. Heart rate ranges from 67 to 67, [id number]. The provider notified of BP reading. Patient is requested to follow up with provider. H ANALYST * Lashonda Velásquez APRN, C.N.P. - 08/23/2022 11:45 AM CST This looks good, is pt feeling fine? Thanks, TK H ANALYST documented in this encounter Plan of Treatment Not on file documented as of this encounter Visit Diagnoses Not on filedocumented in this encounter Additional Health Concerns Assessment Noted Time PHQ-9 Depression Total Score: 0 06/18/20 4:38 PM BATCH ANALYST documented as of this encounter Care Teams Roll Icer Relationship Specialty Start Date End Date Lashonda Velásquez APRN, C.N.P. [facility] [phone] PCP - General Family Medicine 03/28/21 documented as of this encounter
--- OUTSIDE RECORDS SUMMARY | 2023-08-06 11:31 | XMS_ITS | Encounter Summary ---
Author Name [facility] Organization [facility] Address [address] [place] [address] Support Name Relationship Address Phone ELÍAS BERNARD Hany Next of Kin [address] [facility] [place] [address] HILARIA ROGERS Emergency Contact [address] [place] [address] Insurance Providers: All historical and current Section Date Range: From patient's date of to the date document was created. This section includes the names of all active insurance providers for the patient. Insurance Provider Type of Coverage Plan Name Start of Policy Coverage End of Policy Coverage Group Number Member ID Insurance Provider's Telephone Number Policy Clark's Name Patient's Relationship to Policy Clark MEDICARE PART D (WNR) MEDICARE (M) PART D Jul 07, 2011 PART D [id number] [phone] BLANK BERNARD PATIENT [facility] OF [facility] (WNR) MEDICARE (M) MCR(W NR) STAND LIZZY S Jul 07, 2019 [id number] [phone] BLANK BERNARD PATIENT [facility] OF [facility] (WNR) MEDICARE ADVANTAGE [facility] (WNR) Jul 07, 2010 RICT [id number] BLANK BERNARD ERT PATIENT Selected Encounter This section includes the information on record at [place] for the Encounter. Date/Time Encounter Type Encounter Description Reason Pro vider Source Jun 12, 2023 12:00 PM Outpatient Encounter TELEPHONE TRIAGE IHE Encounter Template Text not used by [place] Social History: Smoking Status (Most current) and Tobacco Use (All prior to encounter date) This section includes the most current, and the historical, smoking and tobacco- related health factors from the [place] facility where the Encounter took place. Current Smoking Status This section includes the most current smoking, or tobacco-related health factor, from the [place] facility where the Encounter took place. Date/Time Current Smoking Status Comment Facil ity Feb 08, 2013 08:53 AM FORMER TOBACCO USE <1Y [facility] Encounter Notes: All associated encounter notes This section contains the clinical notes associated to the Encounter. Date/Time Encounter Note(s) Provider Source Jun 12, 2023 12:00 PM NONVA CONSULT: LOCAL TITLE: COMMUNITY CARE CONSULT RESULT DS ROUTINE AUD STANDARD TITLE: NONVA CONSULT DATE OF NOTE: JUN 12, 2023@12:00 ENTRY DATE: JUN 13, 2023@11:58:22 AUTHOR: ESTEFANY KHALIL EXP COSIGNER: URGENCY: STATUS: COMPLETED VistA Imaging - Scanned Document SCANNED DOCUMENT SIGNATURE NOT REQUIRED Electronically Filed: 06/13/2023 by: ESTEFANY KHALIL LPN LICENSED PRACTICAL NURSE ESTEFANY KHALIL [facility]
--- OUTSIDE RECORDS SUMMARY | 2023-08-06 11:31 | XMS_ITS | Encounter Summary ---
Author Name [facility] Organization [facility] Address [address] [place] [address] Support Name Relationship Address Phone ELÍAS BERNARD Next of Kin [address] [facility] [place] [address] HILARIA ROGERS Emergency Contact [address] [place] [address] Insurance Providers: All historical and current Section [...] PART D Jul 07, 2011 PART D [id number] [phone] BLANK BERNARD PATIENT [facility] (WNR) MEDICARE (M) MCR(W NR) STAND LIZZY S Jul 07, 2019 [id number] BLANK BERNARD PATIENT [facility] (WNR) MEDICARE ADVANTAGE [facility] (WNR) Jul 07, 2010 RICT [id number] BLANK BERNARD PATIENT Selected Encounter This section includes the information on record at [place] for the Encounter. Date/Time Encounter Type Encounter Description Reason Pro vider Source May 28, 2023 01:31 PM Outpatient Encounter COMMUNITY CARE CONSULT IHE Encounter Template Text not used by [place] Social History: Smoking Status (Most current) and Tobacco Use (All prior to encounter date) This section includes the most current, and the historical, smoking and tobacco- related health factors from the [place] facility where the Encounter took place. Current Smoking Status This section includes the most current smoking, or tobacco-related health factor, from the [place] facility where the Encounter took place. Date/Time Current Smoking Status Comment Facil ity Feb 08, 2013 08:53 AM FORMER TOBACCO USE <1Y [facility] Encounter Notes: All associated encounter notes This section contains the clinical notes associated to the Encounter. Date/Time Encounter Note(s) Provider Source May 28, 2023 01:31 PM NONVA NOTE: LOCAL TITLE: COMMUNITY CARE PRE-AUTH LETTER (AUTOPRINT) STANDARD TITLE: NONVA NOTE DATE OF NOTE: MAY 28, 2023@13:31 ENTRY DATE: MAY 28, 2023@13:32:01 AUTHOR: KURTIS SEGURA COSIGNER: URGENCY: STATUS: COMPLETED May RYLEE BERNARD [address] [address] Dear RYLEE BERNARD, Your VA provider has referred you to a provider within the community for care. Your medical care for Audiology has been authorized with the community care provider listed below. DO NOT REPORT TO THE [place] [facility] Provider info: Care has been approved for the following vendor: Office name, address, and phone number: [facility] [address] [place] [address] Please contact the identified provider to schedule your community appointment. If you need assistance with this appointment, please call your facility community care office [facility] Office of Community Care at [phone] during the hours of 8:30AM - 3:00PM. Please follow up with your local community care office once this is scheduled. This step is needed to ensure your referral duration is maximized and the [place] has accurate referral information for billing purposes. Authorization Number: [id number] Referral Issue Date: May Expiration Date: May (subject to change based on first appointment) If you are unable to schedule this appointment or the appointment is no longer needed, please contact the community provider above for notification/rescheduling and then call the [facility] Office of Community Care at [phone] during the hours of 8:30AM - 3:00PM. If you need additional care/services not mentioned above or your authorization has and additional care is needed, please contact your primary care provider for a new referral. [facility] Portal(Fredio) Co-Payments: If you are required to pay a VA co-payment, you will be billed by the VA for each authorized visit that you attend. However, you are NOT REQUIRED to make co-payments to a community provider. Medical Devices: Your community provider may recommend that medical devices, adapted equipment, or other items be provided for the treatment or rehabilitation of your medical condition. Veterans are generally required to obtain these items through the [facility] Office of Community Care by calling [phone]. Thank you for the opportunity to serve you. Sincerely, [place] Community Care (VACC) /joseph/ KURTIS SEGURA MSA Signed: 05/28/2023 13:33 KURTIS SEGURA [facility]
--- OUTSIDE RECORDS SUMMARY | 2023-08-06 11:31 | XMS_ITS | Encounter Summary ---
Author Name [facility] of [facility] Organization [facility] of [facility] Address [address] [place] [address] Support Name Relationship Address Phone ELÍAS BERNARD Hany Next of Kin [address] [facility] [place] [address] HILARIA ROGERS Emergency Contact [address] [place] [address] Insurance Providers: All historical and current Section [...] PART D Jul 07, 2011 PART D [id number] BLANK BERNARD PATIENT U-CARE OF [facility] (WNR) MEDICARE (M) MCR(W NR) STAND LIZZY S Jul 07, 2019 [id number] BLANK BERNARD PATIENT U-CARE OF [facility] (WNR) MEDICARE ADVANTAGE [facility] (WNR) Jul 07, 2010 RICT [id number] [phone] BLANK BERNARD ERT PATIENT Selected Encounter This section includes the information on record at [place] for the Encounter. Date/Time Encounter Type Encounter Description Reason Pro vider Source Feb 03, 2023 12:00 PM Outpatient Encounter TELEPHONE TRIAGE IHE Encounter Template Text not used by [place] Social History: Smoking Status (Most current) and Tobacco Use (All prior to encounter date) This section includes the most current, and the historical, smoking and tobacco- related health factors from the [place] facility where the Encounter took place. Current Smoking Status This section includes the most current smoking, or tobacco-related health factor, from the [place] facility where the Encounter took place. Date/Time Current Smoking Status Comment Facil ity Feb 08, 2013 08:53 AM FORMER TOBACCO USE <1Y [facility] Encounter Notes: All associated encounter notes This section contains the clinical notes associated to the Encounter. Date/Time Encounter Note(s) Provider Source Feb 03, 2023 12:00 PM NONVA CONSULT: LOCAL TITLE: COMMUNITY CARE CONSULT RESULT DS ROUTINE AUD STANDARD TITLE: NONVA CONSULT DATE OF NOTE: FEB 03, 2023@12:00 ENTRY DATE: FEB 06, 2023@10:36:46 AUTHOR: SHAWN CUELLAR LPN EXP COSIGNER: URGENCY: STATUS: COMPLETED VistA Imaging - Scanned Document [facility] Hearing SCANNED DOCUMENT SIGNATURE NOT REQUIRED Electronically Filed: 02/06/2023 by: SHAWN CUELLAR LPN STAFF NURSE SHAWN CUELLAR LPN [facility]
--- OUTSIDE RECORDS SUMMARY | 2023-08-06 11:31 | XMS_ITS | Encounter Summary ---
Author Name [facility] of [facility] Organization [facility] Address [address] [place] [address] Support Name Relationship Address Phone ELÍAS BERNARD Hany Next of Kin [address] [facility] [address] HILARIA ROGERS Emergency Contact [address] [place] [address] Insurance Providers: All historical and current Section [...] PART D Jul 07, 2011 PART D [id number] BLANK BERNARD PATIENT U-CARE OF [facility] (WNR) MEDICARE (M) MCR(W NR) STAND LIZZY S Jul 07, 2019 [id number] [phone] BLANK BERNARD PATIENT U-CARE OF [facility] (WNR) MEDICARE ADVANTAGE [facility] (WNR) Jul 07, 2010 RICT [id number] BLANK BERNARD ERT PATIENT Selected Encounter This section includes the information on record at [place] for the Encounter. Date/Time Encounter Type Encounter Description Reason Pro vider Source Feb 19, 2023 12:00 PM Outpatient Encounter TELEPHONE TRIAGE IHE Encounter Template Text not used by [place] Social History: Smoking Status (Most current) and Tobacco Use (All prior to encounter date) This section includes the most current, and the historical, smoking and tobacco- related health factors from the [place] facility where the Encounter took place. Current Smoking Status This section includes the most current smoking, or tobacco-related health factor, from the [place] facility where the Encounter took place. Date/Time Current Smoking Status Comment Facil ity Feb 08, 2013 08:53 AM FORMER TOBACCO USE <1Y [facility] Encounter Notes: All associated encounter notes This section contains the clinical notes associated to the Encounter. Date/Time Encounter Note(s) Provider Source Feb 19, 2023 12:00 PM NONVA CONSULT: LOCAL TITLE: COMMUNITY CARE CONSULT RESULT DS ROUTINE AUD STANDARD TITLE: NONVA CONSULT DATE OF NOTE: FEB 19, 2023@12:00 ENTRY DATE: FEB 27, 2023@13:06:14 AUTHOR: LAVERNE SARGENT EXP COSIGNER: URGENCY: STATUS: COMPLETED VistA Imaging - Scanned Document SCANNED DOCUMENT SIGNATURE NOT REQUIRED Electronically Filed: 02/27/2023 by: LAVERNE SARGENT LPN LICENSED PRACTICAL NURSE LAVERNE SARGENT [facility]
--- OUTSIDE RECORDS SUMMARY | 2023-08-06 11:31 | XMS_ITS | Encounter Summary ---
Author Name [facility] Organization [facility] Address [address] [place] [address] Support Name Relationship Address Phone ELÍAS BERNARD Hany Next of Kin [address] [facility] [place] [address] HILARIA ROGERS Emergency Contact [address] [place] [address] Insurance Providers: All historical and current Section [...] PART D Jul 07, 2011 PART D [id number] BLANK BERNARD PATIENT U-CARE OF [facility] (WNR) MEDICARE (M) MCR(W NR) STAND LIZZY S Jul 07, 2019 [id number] BLANK BERNARD PATIENT [facility] (WNR) MEDICARE ADVANTAGE [facility] (WNR) Jul 07, 2010 RICT [id number] [phone] BLANK BERNARD ERT PATIENT Selected Encounter This section includes the information on record at [place] for the Encounter. Date/Time Encounter Type Encounter Description Reason Pro vider Source Jan 02, 2023 12:00 PM Outpatient Encounter TELEPHONE TRIAGE IHE Encounter Template Text not used by [place] Social History: Smoking Status (Most current) and Tobacco Use (All prior to encounter date) This section includes the most current, and the historical, smoking and tobacco- related health factors from the [place] facility where the Encounter took place. Current Smoking Status This section includes the most current smoking, or tobacco-related health factor, from the [place] facility where the Encounter took place. Date/Time Current Smoking Status Comment Facil ity Feb 08, 2013 08:53 AM FORMER TOBACCO USE <1Y [facility] Encounter Notes: All associated encounter notes This section contains the clinical notes associated to the Encounter. Date/Time Encounter Note(s) Provider Source Jan 02, 2023 12:00 PM NONVA CONSULT: LOCAL TITLE: COMMUNITY CARE CONSULT RESULT DS ROUTINE AUD STANDARD TITLE: NONVA CONSULT DATE OF NOTE: JAN 02, 2023@12:00 ENTRY DATE: JAN 12, 2023@18:33:52 AUTHOR: ESTEFANY KHALIL EXP COSIGNER: URGENCY: STATUS: COMPLETED VistA Imaging - Scanned Document SCANNED DOCUMENT SIGNATURE NOT REQUIRED Electronically Filed: 01/12/2023 by: ESTEFANY KHALIL LPN LICENSED PRACTICAL NURSE ESTEFANY KHALIL [facility]
--- OUTSIDE RECORDS SUMMARY | 2023-08-06 11:31 | XMS_ITS | Encounter Summary ---
Author Name Unknown Organization [facility] Address [address] [place] [address] Care Team Providers Care Hvac Sheet Metal Installer Helper Name Role Phone Lashonda Velásquez APRN, C.N.P. Primary Care Provi catalina Reason for Referral * Outpatient (Routine) - Authorized Specialty Diagnoses / Procedures Referred By Brian beckett Referred To Contact Orthopedic Surgery Eliane Pearson, D.P.M. [address] [place] [address] [facility] Region Referral ID Status Reason Start Date Expiration Date V isits Requested Visits Authorized [id number] Authorized 08/23/2022 08/22/2025 1 1 IT PORTFOLIO MANAGER Reason for Visit * Outpatient (Routine) - Closed Specialty Diagnoses / Procedures Referred By Brian beckett Referred To Contact Orthopedic Surgery Diagnoses Diabetes Mellitus Type 2 With Diabetic Nephropathy (HCC) Dystrophic Toenail Lashonda Velásquez APRN, C.N.P. [address] [place] [address] [facility] Referral ID Status Reason Start Date Expiration Date Visits Re quested Visits Authorized [id number] Closed 08/06/2022 08/06/2023 1 1 Encounter Details Date Type Department Care Team (Late st Contact Info) Description 08/23/2022 10:30 AM CREDIT PORTFOLIO MANAGER Comprehensive Visit Department of Orthopedic Surgery in [place], [place] [address] [place] [phone] Eliane Pearson D.P.M. [address] [place] [phone] Diabetes Mellitus Type 2 With Diabetic Nephropathy (HCC); Onychomycosis Discharge Disposition: Home or Self Care Social [...] Answer Date Recorded PHQ-2 Score 0 08/06/2022 [facility] of Occupat ional Health - Occupational Stress [...] of this encounter Progress Notes * Eliane Pearson D.P.M. - 08/23/2022 10:30 AM CST SUBJECTIVE CHIEF COMPLAINT No chief complaint on file. HISTORY OF PRESENT ILLNESS Zeke Tejada is a 87 y.o. male who presents for routine diabetic foot care. Patient reports that his toenails have been thick, dystrophic and difficult to trim for quite some time. He is no longer able to reach his toenails to trim them himself. He is requesting assistance with this today. No further concerns at this time. The following portions were reviewed and updated as appropriate: Allergies, medications, medical history, surgical history, family history, social history and problem list. OBJECTIVE VITAL SIGNS There were no vitals taken for this visit. PHYSICAL EXAMINATION General: Appears well, in no apparent distress. Alert and oriented times three, pleasant and cooperative. Vital signs are as noted by the nurse. Respiratory: No evidence of respiratory distress. Breathing is regular and non-labored. Psych: Appropriate affect, judgement and insight Vascular: Pulses: PT 0/4 and DP 0/4 bilateral Hair growth absent at the level of the digits. Capillary refill less than three seconds to distal tip of all digits Lower extremity/foot edema absent bilateral. Neurological: Protective sensation decreased bilaterally to light touch Dermatologic: Skin thin, shiny and atrophic, without open lesions bilateral Bilateral 1st, 2nd, 3rd, 4th and 5th toenail(s) are thickened, dystrophic, discolored, significantly elongated and full of subungual debris. Drainage is not present. Absent pain on palpation of affected nail . Musculoskeletal: Neutral medial longitudinal arch height, bilateral ASSESSMENT / PLAN #1 Diabetes Mellitus Type 2 With Diabetic Nephropathy (HCC) #2 Onychomycosis Performed sharp debridement to thickened elongated onychomycotic toenail plates digits 1 through 5 bilateral feet to normal thickness and length with a sterile toenail yumi. Slight bleeding was noted upon debridement of left second digit nail plate. Coagulation noted and dressed with a band aid. Discussed with patient about monitoring feet after the debridement that occurred today for any signs of infection such as increased redness, swelling, new developed sores or lesions. Notify Podiatry and/or present to emergency department if there ever becomes concern for infection in the feet. Patient agreeable with plan. Patient will return to Podiatry Clinic in 3 months. Perla TriplettPGregory IT PORTFOLIO MANAGER documented in this encounter Plan of Treatment Scheduled Referrals Name Type Priority Associated Diagnoses Order Schedule Orthopedic Surgery office visit (clinic) Outpatient Referral Routine Expected: 11/20/2022 (Approximate), Expires: 11/21/2023 documented as of this encounter Visit Diagnoses Diagnosis Diabetes Mellitus Type 2 With Diabetic Nephropathy (HCC) Onychomycosis documented in this encounter Additional Health Concerns Assessment Noted Time PHQ-9 Depression Total Score: 0 06/18/20 17 4:38 PM CREDIT PORTFOLIO MANAGER documented as of this encounter Care Teams Hvac Sheet Metal Installer Helper Relationship Specialty Start Date End Date Lashonda Velásquez APRN, C.N.P. [facility] [place] [phone] PCP - General Family Medicine 03/28/21 documented as of this encounter
--- OUTSIDE RECORDS SUMMARY | 2023-08-06 11:31 | XMS_ITS | Encounter Summary ---
Author Name Unknown Organization [facility] Address [address] [place] [address] Care Team Providers Care Senior Firewall Engineer Name Role Phone Lashonda Velásquez APRN, C.N.P. Primary Care Provi catalina Reason for Visit * Reason Comments Med Refill Encounter Details Date Type Department Care Team (Late st Contact Info) Description 08/09/2022 Refill Department of Family Medicine in [place], [place] [address] [place] [address] Lashonda Velásquez APRN, C.N.P. [address] [place] [address] Med Refill Social History Tobacco Use Types [...] Date Recorded PHQ-2 Score 0 08/06/2022 [facility] - Occupational [...] encounter Miscellaneous Notes * Telephone Encounter - Filomena Naik L.P.N. - 08/09/2022 2:09 PM AGRICULTURE RESEARCH DIRECTOR Unable to refill per protocol: Name of Medications Needing Refill: Nitorglycerin Last Refill Date: 2020 Additional Information: Last / Future Appointment: Last OV 08/06/22 No future Ov scheduled. CULTURE RESEARCH DIRECTOR documented in this encounter Plan of Treatment Not on file documented as of this encounter Visit Diagnoses Diagnosis Coronary Arterial Bypass Graft Status Post Personal History documented in this encounter Additional Health Concerns Assessment Noted Time PHQ-9 Depression Total Score: 0 06/18/20 17 4:38 PM AGRICULTURE RESEARCH DIRECTOR documented as of this encounter Care Teams Senior Firewall Engineer Relationship Specialty Start Date End Date Lashonda Velásquez APRN, C.N.P. [address] [facility] [place] [phone] PCP - General Family Medicine 03/28/21 documented as of this encounter
--- OUTSIDE RECORDS SUMMARY | 2023-08-06 11:31 | XMS_ITS | Continuity of Care Document ---
Author Name [facility] Organization [facility] Care Team Providers Care Rotor Coil Taper Name Role Phone [facility] Unavailable Unavailable Problems Combined list of problems from Department of Defense and Veterans Affairs facilities. It does not include entries that were removed or entered in error. Problem Status Onset Date Problem Type Date of Resolution Comments Source Diabetic complication Active Condition [facility] Hypertension * (ICD-9-CM 401.9) Active Condition [facility] Diagnosis: ICD-10-CM Z01.118 Encntr for exam of ears and hearing w oth abnormal findings Active Diagnosis [facility] Encounters Combined list of: 1) Encounters from Department of Veterans Affairs facilities going back up to thelast 18 months. 2) Encounters from the Department of Defense facilities going back up to 280 months. Location Location Details Encounter Type Encounter Number Reason For Visit Attending Provider ADM Date DC Date Status Disposition Source [facility] HEARING AID FITTING/[facility] E[facility] [id number] Diagnos is: ICD-10- CM Z01.118 Encntr for exam of ears and hearing w oth abnorma l finding s
Clifford CAMEJO 01/10 [facility] [place] [facility] Outpatient Encounter [id number] 01/02 [facility] [place] [facility] Outpatient Encounter [id number] 02/03 [facility] [place] [facility] Outpatient Encounter [id number] 02/19 [facility] [place] [facility] Outpatient Encounter [id number] 05/28 [facility] [place] [facility] Outpatient Encounter [id number] 06/12 [facility] Social History Combined list of available smoking, tobacco, and other social history from Department of Defense and Veterans Affairs facilities. Social History Type Response Date Comment Sourc e Tobacco smoking status NHIS FORMER TOBACCO USE <1Y 02/08/2013 [facility]
--- OUTSIDE RECORDS SUMMARY | 2023-08-06 11:31 | XMS_ITS | Encounter Summary ---
Author Name Unknown Organization [facility] Address [address] [place] [address] Care Team Providers Care Maintenance Equipment Operator Name Role Phone Lashonda Velásquez APRN, C.N.P. Primary Care Provi catalina Reason for Visit * Outpatient (Routine) - Canceled Specialty Diagnoses / Procedures Referred By Brian beckett Referred To Contact Diagnoses Monitoring For Therapeutic Drug Therapy Shelter (Current) Anticoagulant Treatment Atrial Fibrillation Paroxysmal (HCC) Embolus Pulmonary Personal History Atrial Fibrillation Unspecified (HCC) Procedures ACO Anticoagulation check Lashonda Velásquez APRN, C.N.P. [address] [place] [address] [facility] Region Referral ID Status Reason Start Date Expiration Date V isits Requested Visits Authorized [id number] Canceled 12/18/2021 12/18/2022 [id number] Encounter Details Date Type Department Care Team (Latest Contact Info) Description 08/23/2022 11:30 AM IMAGING CLERK Anticoagulation Visit Department of Anticoagulation in [place], [place] [address] [place] [address] Kardoes, Lashonda E, POLYSOMNOGRAPH TECH, C.N.P. [address] [place] [phone] Monitoring For Therapeutic Drug Therapy; Fisher Dip Net (Current) Anticoagulant Treatment; Atrial Fibrillation Paroxysmal (HCC); [...] Date Recorded PHQ-2 Score 0 08/06/2022 [facility] - Occupational [...] Notes * Keke Stone R.N. - 08/23/2022 11:30 AM CST Warfarin Maintenance Nursing Protocol Goal Range 2.0-3.0 (version approved 08/2021) Visit Type: Face to Face Primary reason for visit: Routine f/u OR f/u per previous visit recommendations Information provided by:patient INR result: 3.5 Goal range: 2.0-3.0 Inclusion Criteria: All inclusion [...] up recommendation: Protocol dosing range for INR 3.3-3.5: Decrease average daily dose by 50% for 1 dose, then resume current dose per protocol. Next INR in 8-10 days. Additional dosing or follow-up information: None. Pt is on injectable anticoagulant: No. Plan used: Protocol. See Anticoagulation Track Calendar for dosing and plan details. Anticoagulation Visit Summary: Patient provided with handout of warfarin dosing and next INR appointment. Patient repeats back dosing instructions and has no further questions at this time. Total time spent with patient: 15 minutes ING CLERK documented in this encounter Plan of Treatment Not on file documented as of this encounter Procedures Procedure Name Priority Date/Time Associated Diagnosis Comments INR, POCT, B Routine 08/23/2022 11:37 AM IMAGING CLERK documented in this encounter Results * INR, POCT (08/23/2022 11:37 AM IMAGING CLERK) INR, POCT, B 3.5 08/23/2022 11:37 AM IMAGING CLERK NPCL Comment: ----ADDITIONAL INFORMATION---- Standard intensity warfarin therapeutic range: 2.0 to 3.0 ?? High intensity warfarin therapeutic range: 2.5 to 3.5 08/23/2022 11:3 7 AM IMAGING CLERK 08/23/2022 11:39 AM IMAGING CLERK Generic [facility] POCT ORDERABLES - DEVICE [facility] [address] [place] [address], [facility] NPCL [facility] - [address] [address] documented in this encounter Visit Diagnoses Diagnosis Monitoring For Therapeutic Drug Therapy Shelter (Current) Anticoagulant Treatment Atrial Fibrillation Paroxysmal (HCC) Embolus Pulmonary Personal History Atrial Fibrillation Unspecified (HCC) documented in this encounter Additional Health Concerns Assessment Noted Time PHQ-9 Depression Total Score: 0 06/18/20 17 4:38 PM IMAGING CLERK documented as of this encounter Care Teams Maintenance Equipment Operator Relationship Specialty Start Date End Date Lashonda Velásquez APRN, C.N.P. [address] [place] [address] PCP - General Family Medicine 03/28/21 documented as of this encounter
--- OUTSIDE RECORDS SUMMARY | 2023-08-06 11:31 | XMS_ITS | Encounter Summary ---
Author Name Unknown Organization [facility] Address [address] [place] [address] Care Team Providers Care Mechanical Oxidizer Name Role Phone Lashonda Velásquez APRN, C.N.P. Primary Care Provi catalina Encounter Details Date Type Department Care Team (Late st Contact Info) Description 08/09/2022 Abstract Department of Family Medicine in [place], [place] [address] [place] [phone] Lashonda Velásquez APRN, C.N.P. [address] [place] [phone] Social History Tobacco Use Types Packs/Day Years [...] and Family Once a week 12/21/2018 Attends [employer] More than 4 times per year [...] Answer Date Recorded PHQ-2 Score 0 08/06/2022 [facility] - Occupational [...] Total Score: 0 06/18/20 17 4:38 PM DEVELOPMENTAL EDUCATION INSTRUCTOR documented as of this encounter Care Teams Mechanical Oxidizer Relationship Specialty Start Date End Date Lashonda Velásquez APRN, C.N.P. [facility] [place] [phone] PCP - General Family Medicine 03/28/21 documented as of this encounter
--- OUTSIDE RECORDS SUMMARY | 2023-08-06 11:31 | XMS_ITS | Clinical Summary ---
Author Name Unknown Organization [facility] Address [place], [place] [address] Care Team Providers Care Air Conditioning Installer Name Role Phone Lashonda Velásquez CALCULUS TEACHER Primary Care Provider [phone] Allergies No known active allergies Medications Medication Sig Dispensed Refills Start Date End Date Status levothyroxine (SYNTHROID) 25 mcg tablet Take 1 tablet by mouth before breakfast. 0 Active metFORMIN (GLUCOPHAGE) 500 mg tablet Take 1 tablet by mouth 2 times daily with meals. 0 Active CONTOUR NEXT STRIPS strip 0 07/18/2015 Active atorvastatin (LIPITOR) 40 mg tabletIndications:S/P CABG x 2 Take 1 tablet by mouth once daily with evening meal. 30 tablet 2 09/06/2015 Active nitroglycerin (NITROSTAT) 0.4 mg sublingual tabletIndications:S/P CABG x 2,ASCVD (arteriosclerotic cardiovascular disease) Place 1 tablet under the tongue every 5 minutes if needed for Chest Pain. 1 Bottle 0 09/06/2015 Active aspirin (ECOTRIN) 81 mg enteric coated tablet Take 1 tablet by mouth once daily with a meal. 0 12/18/2016 Active warfarin (COUMADIN) 5 mg tablet 2.5mg on Mon/Fri; 5mg all other days 0 09/08/2018 Active hydroCHLOROthiazide 12.5 mg tablet Take 12.5 mg by mouth. 0 08/03/2021 Active lisinopriL (PRINIVIL; ZESTRIL) 40 mg tablet Take 40 mg by mouth. 0 07/10/2021 Active dilTIAZem (DILACOR XR; DILTIA XT) 120 mg Extended-Release capsuleIndications:JUDY D (arteriosclerotic heart disease),Fatigue, unspecified type Take 1 Capsule (120 mg) by mouth once daily. In AM 30 Capsule 6 09/19/2022 Active metoprolol succinate (TOPROL XL) 100 mg Sustained-Release tablet Take 0.5 Tablets (50 mg) by mouth once daily. In PM 0 09/19/2022 Active Active Problems Problem Noted Date Diagnosed Date S/P right carotid endarterectomy 05/28/2016 Dr. 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 Bone: Coronary artery bypass grafts x 2 with a graft from the left internal mammary artery to the 1st diagonal branch of theleft anterior descending and a saphenous vein graft from the aorta to the LAD ?? Lightheadedness 08/30/2015 Chronic anticoagulation 08/30/2015 ASCVD (arteriosclerotic cardiovascular disease) 08/30/2015 Overview: -Stress Myoview 08/03/2015 Medium sized area of mild to moderate ischemia in the inferior and inferolateral elkins EF 60% Abnormal liver function tests Diabetes mellitus, type 2 Hearing loss HTN (hypertension) Dyslipidemia Hypothyroidism Nuclear sclerosis History of pulmonary embolism Pulmonary nodule Former smoker Varicose veins Carotid stenosis, asymptomatic Encounters Date Type Department Care Team Description 07/10/2023 [facility]phone [facility] [address] [place] [address] Sergio Cast AuD 06/18/2023 Orders Only [facility] Scanner 1 scan: (1-Ord) [facility], 06/18/2023 06/12/2023 11:30 AM LACING OPERATOR [facility] [address] [place] [address] Sergio Cast, Cynthia Hearing Aid 06/12/2023 Travel 05/12/2023 11:30 AM LACING OPERATOR [facility] [address] [place] [address] Sergio Cast AuD Hearing Aid 05/12/2023 Travel 05/09/2023 [facility]phone [facility] [address] [place] [address] Sergio Cast, AuD from Last 3 Months Immunizations Name Administration Dates Next Due Influenza, IIV3 (Age >=3 years) 05/06/2016 Influenza, IIV4 07/03/2015 Social History Tobacco Use Types Packs/Day Years Used Date Smoking Tobacco: Former Cigarettes 1 17 Pipe Smokeless Tobacco: Current Chew Alcohol Use Standard Drinks/Week Comments Yes 7 (1 standard drink = 0.6 oz pur e alcohol) once or twice week very little Social Connections Answer Date Recorded Frequency of Communication with Friends and Fami ly Not on file 07/07/2021 Financial Resource Strain Answer Date R ecorded Difficulty of Paying Living Expenses Not on file 07/07/2021 Difficulty of Paying Living Expenses Not on file 07/07/2021 Sex and Gender Information Value Date Recorded Sex Assigned at Not on file Gender Identity Not on file Sexual Orientation Not on file Obstetrics History Last Filed Vital Signs Vital Sign Reading Time Taken Comments Blood Pressure 146/61 09/19/2022 11:37 AM CDT Pulse 69 09/19/2022 11:37 AM CDT Temperature 36.7 ??C (98.1 ??F) 05/29/2016 7:36 AM CS T Respiratory Rate 16 05/29/2016 7:36 AM LACING OPERATOR Oxygen Saturation 100% 09/19/2022 11:37 AM CDT Inhaled Oxygen Concentration - - Weight 81.6 kg (180 lb) 09/19/2022 11:37 AM CDT Height 170.2 cm (5' 7) 12/19/2021 2:45 PM CDT Body Mass Index 28.19 12/19/2021 2:45 PM CDT Plan of Treatment Upcoming Encounters Date Type Department Care Team (Late st Contact Info) Description 08/11/2023 10:00 AM LACING OPERATOR [facility] [address] [place] [address] Sergio Cast, AuD [address] [place] [phone] Health Maintenance Due Date Last Done Comments Pneumococcal series for age 65+ (1 of 2 - PCV) 1943 Tdap 1948 Depression screening for age 12+ 1949 Tetanus booster 1957 Zoster (shingles) series for age 50+ (1 of 2) 1987 Medicare Wellness for age 65+ 2002 BMI (ht and wt on same day) for age 18+ 12/19/2022 12/19/2021, 12/06/2020, 01/13/2019, Additional history exists Influenza for age 65+ 03/07/2023 05/06/2016, 015 COVID-19 vaccine series Completed 05/06/20, 05/29/2022, 04/23/2021, Additional history exists Goals Goal Patient Goal Type Associated Problems Recent Progress Patient-Stated? Author BLOOD PRESSURE - MAINTAINS BP less than 140/90 Blood Pressure No Roman Ortega MD Medical Devices Implanted Type Area Estate Planning Paralegal Device Identifier Shelf Expiration Date Model / Serial / Lot Patch Vasc 0.8x8cm [employer] Pericardial - [id number] Implanted:Qty: 1 on 05/28/2016 by Chidi Valenzuela MD at [facility] Right: Carotid Artery [employer] 01/01/2019 [id number]# / / [id number] Procedures Procedure Name Priority Date/Time Associated Diagnosis Comments SCAN-EYE EXAM 06/18/2023 12:00 AM LACING OPERATOR SCAN-DIAGNOSTIC REPORT 05/12/2023 12:00 AM LACING OPERATOR from Last 3 Months Results * SCAN-EYE EXAM (06/18/2023 12:00 AM LACING OPERATOR) Scanner OTHER * SCAN-DIAGNOSTIC REPORT (05/12/2023 12:00 AM LACING OPERATOR) Scanner OTHER from Last 3 Months Advance Directives Latest Code Status on File Code Status Date Activated Date Inactivated Comments Full Code 05/28/2016 4:21 PM 05/29/2016 3:50 PM Code Status History Code Status Date Activated Date Inactivated Comments Full Code 09/04/2015 4:03 PM 09/06/2015 3:32 PM Full Code 09/01/2015 11:21 AM 09/04/2015 4:03 PM Full Code 08/31/2015 10:11 AM 09/01/2015 11:21 AM Full Code 08/31/2015 5:56 AM 08/31/2015 10:11 AM Care Teams Air Conditioning Installer Relationship Specialty Start Date End Date Lashonda Velásquez NP [address] [address] PCP - General Nurse Practitioner 03/28/22
--- OUTSIDE RECORDS SUMMARY | 2023-08-06 11:31 | XMS_ITS | Encounter Summary ---
Author Name Unknown Organization [facility] Address [address] [place] [address] Care Team Providers Care Design Agent Name Role Phone Lashonda Velásquez APRN, C.N.P. Primary Care Provi catalina Reason for Referral * Outpatient (Routine) - Closed Specialty Diagnoses / Procedures Referred By Brian beckett Referred To Contact Orthopedic Surgery Diagnoses Diabetes Mellitus Type 2 With Diabetic Nephropathy (HCC) Dystrophic Toenail Lashonda Velásquez APRN, C.N.P. [address] [place] [address] [facility] Region Referral ID Status Reason Start Date Expiration Date Visits Re quested Visits Authorized [id number] Closed 08/06/2022 08/06/2023 1 1 Scheduling Instructions Schedule after imaging orders FORCE ANALYST * Outpatient (Routine) - Authorized Specialty Diagnoses / Procedures Referred By Brian beckett Referred To Contact Family Medicine Diagnoses Hypertension And Chronic Kidney Disease Stage 2 Lashonda Velásquez APRN, C.N.P. [address] [place] [address] [facility] Referral ID Status Reason Start Date Expiration Date V isits Requested Visits Authorized [id number] Authorized 08/06/2022 08/05/2025 1 1 FORCE ANALYST * Outpatient (Routine) - Closed Specialty Diagnoses / Procedures Referred By Brian t Referred To Contact Diagnoses Atrial Fibrillation Paroxysmal (HCC) Lashonda Velásquez APRN, C.N.P. 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 [address] [place] [address] [facility] Region Referral ID Status Reason Start Date Expiration Date Visits Re quested Visits Authorized [id number] Closed 08/06/2022 08/06/2023 1 1 Scheduling Instructions Ortho internal referral panel order, imaging before Consult visit FORCE ANALYST Reason for Visit * Reason Comments Pain Left knee. Would lik e referral Cortisone injection Encounter Details Date Type Department Care Team (Late st Contact Info) Description 08/06/2022 3:30 PM WORKFORCE ANALYST Office Visit Department of Family Medicine in [place], [place] [address] [place] [address] Lahsonda Velásquez, OPTICAL GOODS DRILL OPERATOR, C.N.P. [address] [place] [address] Chronic Kidney Disease (CKD), Stage 3a Glomerular Filtration Rate (GFR) 45 To 59 (HCC) (Primary Dx); Dyslipidemia; Diabetes Mellitus Type 2 With Diabetic Nephropathy (HCC); Atrial Fibrillation Paroxysmal (HCC); Hypertension And Chronic Kidney Disease Stage 2; Dystrophic Toenail; History Of Falling; Fatigue; Pain Knee Left Social History Tobacco Use Types [...] and Family Once a week 12/21/2018 Attends [employer] Services More than 4 times per year [...] Answer Date Recorded PHQ-2 Score 0 08/06/2022 [facility] - Occupational [...] Sign Reading Time Taken Comments Blood Pressure 152/68 08/06/2022 4:21 PM WORKFORCE ANALYST Pulse 64 08/06/2022 3:36 PM WORKFORCE ANALYST Temperature 36.6 ??C (97.8 ??F) 08/06/2022 3:36 PM CS T Respiratory Rate 20 08/06/2022 3:36 PM WORKFORCE ANALYST Oxygen Saturation 100% 08/06/2022 3:36 PM WORKFORCE ANALYST Inhaled Oxygen Concentration - - Weight 81.4 kg (179 lb 6.4 oz) 08/06/2022 3:36 P M WORKFORCE ANALYST Height - - Body Mass Index 28.49 08/03/2021 12:44 PM WORKFORCE ANALYST documented in this encounter Progress Notes * Lashonda Velásquez, JOSSIE, C.N.P. - 08/06/2022 3:30 PM CST SUBJECTIVE CHIEF COMPLAINT/REASON FOR VISIT Pain (Left knee. Would like referral Cortisone injection /) HISTORY OF PRESENT ILLNESS Zeke Tejada is a 87 y.o. male who presents for a few concerns today: He would like to see a internet security specialist for his nail care. They are thickened and difficult to cut himself. He is having intermittent left knee pain and instability. He continues to feel generalized fatigue, but wonders if this is just due to age. He did have a bit of a GI bug about 2 weeks ago, but this seems to have self resolved. The following screenings were completed: PHQ-2 Score: 0 REVIEW OF SYSTEMS As stated above. Otherwise a complete systems review was performed and negative. 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 atorvastatin (LIPITOR) 40 mg tablet TAKE ONE TABLET BY MOUTH ONCE DAILY hydroCHLOROthiazide (HYDRODIURIL) 12.5 mg tablet TAKE ONE TABLET BY MOUTH EVERY MORNING levothyroxine (SYNTHROID, LEVOTHROID) 25 mcg tablet TAKE 1 AND 1/2 TABLET DAILY lisinopriL (PRINIVIL,ZESTRIL) 40 mg tablet Take 1 tablet (40 mg total) by mouth daily. metFORMIN (GLUCOPHAGE) 500 mg tablet TAKE TWO TABLETS BY MOUTH TWICE A DAY WITH FOOD metoprolol succinate (TOPROL-XL) 50 mg 24 hr tablet Take 1 tablet (50 mg total) by mouth every evening. Do not crush or chew. Bike HUDuch Ultra Test strips USE ONE STRIP TO TEST ONCE DAILY warfarin (COUMADIN) 5 mg tablet TAKE ONE TABLET BY MOUTH ONCE DAILY amLODIPine (NORVASC) 5 mg tablet Take 1 tablet (5 mg total) by mouth daily. nitroglycerin (NITROSTAT) 0.[address] 1 tablet (0.4 mg total) under the tongue every 5 (five) minutes as needed for chest pain. (Patient not taking: Reported on 08/23/2022) ALLERGIES/CONTRAINDICATIONS No Known Allergies MEDICAL HISTORY Past Medical History: Diagnosis Date Coronary Arterial Bypass Graft Status Post Personal History 09/13/2015 Dermatitis Photocontact 01/29/2011 Diabetes Mellitus Type 2 (HCC) Diabetes Mellitus Type 2 Diabetic Cataract Hyperglycemic (HCC) 04/24/2017 Hyperlipidemia Hypertension NOS Monitoring For Therapeutic Drug Therapy [Z51.81] 06/18/2017 Other Specified Abnormal Findings Of Blood Chemistry 06/18/2017 Other Specified Postprocedural States 05/28/2016 Phimosis 07/05/2015 SURGICAL HISTORY Past Surgical History: Procedure Laterality Date APPENDECTOMY CAROTID ENDARTERECTOMY CHOLECYSTECTOMY N/A 09/09/2008 Cholecystectomy CORONARY ARTERY BYPASS GRAFTS X 2 N/A 08/31/2015 CABG x 2 - Coronary artery bypass grafts x 2 DECOMPRESSION OF MEDIAN NERVE N/A Carpal tunnel release REPAIR OF MUSCULOTENDINOUS CUFF OF SHOULDER N/A Rotator cuff repair FAMILY HISTORY Family History Problem Relation Age of Onset Coronary artery disease Father Alcoholic Father Bowel obstruction Mother Cancer Brother Carotid artery stenosis Brother Stroke Brother SOCIAL HISTORY Social History Tobacco Use Smoking status: Former Smokeless tobacco: Current Types: Chew Substance Use Topics Alcohol use: Yes Alcohol/week: 2.0 standard drinks Types: 1 Shots of liquor, 1 Cans of beer per week Drug use: No Social History Social History Narrative Luis is . He has 6 kids. He enjoys walking his dog and reading. He does not smoke. He likes adrink of Vyteris nightly. OBJECTIVE VITAL SIGNS BP 152/68 Pulse 64 Temp 36.6 ??C Resp 20 Wt 81.4 kg SpO2 100% BMI 28.49 kg/m?? PHYSICAL EXAMINATION General: Patient is alert, [...] neurologic deficit noted. ASSESSMENT / PLAN #1 Chronic Kidney Disease (CKD), Stage 3a Glomerular Filtration Rate (GFR) 45 To 59 (HCC) Continuing to monitor, review medications. Labs today. #2 Dyslipidemia Labs today, continue statin. - Lipid Panel; Future; Expected date: 08/06/2022 - Lipid Panel #3 Diabetes Mellitus Type 2 With Diabetic Nephropathy (HCC) Recent A1c has been stable. Continue current medications. Labs today. - Comprehensive Metabolic Panel; Future; Expected date: 08/06/2022 - Glucose, Fasting; Future; Expected date: 08/06/2022 - Hemoglobin A1c; Future; Expected date: 08/06/2022 - Hemoglobin A1c - Glucose, Fasting - Comprehensive Metabolic Panel #4 Atrial Fibrillation Paroxysmal (HCC) HE has not seen cardiology in almost 2 years. We will set up a follow up appointment with his lead systems analyst. - External referral physician (non-[facility]) #5 Hypertension And Chronic Kidney Disease Stage 2 BP stable, I think it is reasonable to try and slightly lower metoprolol to see if this helps with fatigue. HE needs to continue on it for his rate control, but we will lower to 50mg daily, and startamlodipine 5mg daily. Recheck BP in 2 weeks. His BP was high today. Increase lisinopril to 40mg daily. - lisinopriL (PRINIVIL,ZESTRIL) 40 mg tablet; Take 1 tablet (40 mg total) by mouth daily., StartingFri08/06/2022, Normal - amLODIPine (NORVASC) 5 mg tablet; Take 1 tablet (5 mg total) by mouth daily., Starting Fri08/06/2022, Normal - metoprolol succinate (TOPROL-XL) 50 mg 24 hr tablet; Take 1 tablet (50 mg total) by mouth every evening. Do not crush or chew., Starting Fri08/06/2022, Normal - Family Medicine nurse visit (clinic); Future; Expected date: 08/20/2022 #[address] podiatry consult due to diabetic dystrophic toenails. - Orthopedic Surgery - Podiatry foot non surgical consult (clinic); Future; Expected date: 08/06/2022 #7 History Of Falling No recent falls. We will address left knee instability with orthopedics. #8 Fatigue Check TSH with other labs today. Sleep he feels is stable. - S-TSH (Thyroid-Stimulating Hormone - Sensitive); Future; Expected date: 08/06/2022 - S-TSH (Thyroid-Stimulating Hormone - Sensitive) #9 Pain Knee Left Consult ortho for mild left knee pain. Consider injection vs PT for strengthening. - Orthopedic Surgery - Knee non surgical consult (clinic); Future; Expected date: 08/06/2022 (Aftertests) All questions answered. Follow up with lab results. BP check 2 weeks. Next visit likely 3-4 months. Lashonda Velásquez APRN, C.N.P. FORCE ANALYST documented in this encounter Plan of Treatment Scheduled Referrals Name Type Priority Associated Diagnoses Order Schedule Orthopedic Surgery - Knee non surgical consult (clinic) Outpatient Referral Routine Pain Knee Left Expected: 08/06/2022 (Approximate), Expires: 11/04/2023 Family Medicine nurse visit (clinic) Outpatient Referral Routine Hypertension And Chronic Kidney Disease Stage 2 Expected: 08/20/2022 (Approximate), Expires: 11/04/2023 Orthopedic Surgery - Podiatry foot non surgical consult (clinic) Outpatient Referral Routine Dystrophic Toenail Expected: 08/06/2022 (Approximate), Expires: 11/04/2023 documented as of this encounter Procedures Procedure Name Priority Date/Time Associated Diagnosis Comments LIPID PANEL, S Routine 08/06/2022 4:29 PM WORKFORCE ANALYST Dyslipidemia HEMOGLOBIN A1C, B Routine 08/06/2022 4:2 9 PM WORKFORCE ANALYST Diabetes Mellitus Type 2 With Diabetic Nephropathy (HCC) GLUCOSE, FASTING, S/P Routine 08/06/2022 4:29 PM WORKFORCE ANALYST Diabetes Mellitus Type 2 With Diabetic Nephropathy (HCC) COMPREHENSIVE METABOLIC PANEL, S/P Routine 08/06/2022 4:29 PM WORKFORCE ANALYST Diabetes Mellitus Type 2 With Diabetic Nephropathy (HCC) THYROID-STIMULATING HORMONE-SENSITIVE (S-TSH) Routine 08/06/2022 4:28 PM WORKFORCE ANALYST Fatigue documented in this encounter Results * (ABNORMAL) Hemoglobin A1c (08/06/2022 4:29 PM WORKFORCE ANALYST) Hemoglobin A1c, B 6.4(H) 4.2 - 5.6 % 08/06/2022 7:26 PM WORKFORCE ANALYST NPRG Comment: Hemoglobin A1c values of 5.7-6.4 percent indicate an increased risk for developing diabetes mellitus. In diabetic patients, HbA1c goals should be discussed with healthcare provider. Blood (Blood, Venous) 08/06/2022 4:29 PM WORKFORCE ANALYST 08/06/2022 6:58 PM WORKFORCE ANALYST Lashonda Velásquez APRN C.N.PIsabel LAB BLOOD A DD-ON Performing Organization Address [facility] Co de Phone Number [facility] [address] [place] [address], [facility] NPRG [place] [address] [place] [address] * (ABNORMAL) Glucose, Fasting (08/06/2022 4:29 PM WORKFORCE ANALYST) Glucose, P 116(H) 70 - 100 mg/dL 08/06/2022 7:19 PM WORKFORCE ANALYST NPRG Last Intake 8 hr 08/06/2022 6:58 PM WORKFORCE ANALYST NPRG Blood (Blood, Venous) 08/06/2022 4:29 PM WORKFORCE ANALYST 08/06/2022 6:58 PM WORKFORCE ANALYST Lashonda Velásquez APRN, C.N.P. LAB BLOOD N ON ADD-ON Performing Organization Address [facility] Co de Phone Number [facility] [address] [place] [address], [facility] NPRG [place] [address] [address] [place] [address] * (ABNORMAL) Comprehensive Metabolic Panel (08/06/2022 4:29 PM WORKFORCE ANALYST) Potassium, P 4.7 3.6 - 5.2 mmol/L 08/06/2022 7:29 PM WORKFORCE ANALYST NPRG Sodium, P 140 135 - 145 mmol/L 08/06/2022 7:29 PM WORKFORCE ANALYST NPRG Chloride, P 102 98 - 107 mmol/L 08/06/2022 7:29 PM WORKFORCE ANALYST NPRG Bicarbonate, P 27 22 - 29 mmol/L 08/06/2022 7:29 PM WORKFORCE ANALYST NPRG Anion Gap, P 11 7 - 15 08/06/2022 7:29 PM WORKFORCE ANALYST NPRG BUN (Blood Urea Nitrogen), P 23 8 - 24 mg/dL 08/06/2022 7:29 PM WORKFORCE ANALYST NPRG Creatinine 1.62(H) 0.74 - 1.35 mg/dL 08/06/2022 7:29 PM WORKFORCE ANALYST NPRG Estimated GFR (eGFR) 41(L) >=60 mL/min/BS A 08/06/2022 7:29 PM WORKFORCE ANALYST NPRG Comment: Estimated GFR calculated using the 2020 CKD_EPI creatinine equation. Calcium, Total, P 9.7 8.8 - 10.2 mg/dL 08/06/2022 7:29 PM WORKFORCE ANALYST NPRG Glucose, P CANCELED mg/dL 08/06/2022 6:58 PM WORKFORCE ANALYST NPRG Comment: Duplicate test request. Result canceled by the ancillary. Protein, Total, P 7.8 6.3 - 7.9 g/dL 08/06/2022 7:29 PM WORKFORCE ANALYST NPRG Albumin, P 4.4 3.5 - 5.0 g/dL 08/06/2022 7:29 PM WORKFORCE ANALYST NPRG Aspartate Aminotransferase (AST), P 24 8 - 48 U/L 08/06/2022 7:29 PM WORKFORCE ANALYST NPRG Alkaline Phosphatase, P 56 40 - 129 U/L 08/06/2022 7:29 PM WORKFORCE ANALYST NPRG Alanine Aminotransferase (ALT), P 17 7 - 55 U/L 08/06/2022 7:29 PM WORKFORCE ANALYST NPRG Bilirubin, Total, P 0.5 <=1.2 mg/dL 08/06/2022 7:29 PM WORKFORCE ANALYST NPRG Blood (Blood, Venous) 08/06/2022 4:29 PM WORKFORCE ANALYST 08/06/2022 6:58 PM WORKFORCE ANALYST Emily Renae APRNNCalista LAB BLOOD A DD-ON [facility] [address] [place] [address], [place] NPRG [facility] [address] [place] [address] * (ABNORMAL) Lipid Panel (08/06/2022 4:29 PM WORKFORCE ANALYST) Triglycerides 141 mg/dL 08/06/2022 7:29 PM WORKFORCE ANALYST NPRG Comment: ----REFERENCE VALUE---- Normal: <150 mg/dL Borderline High: 150-199 mg/dL High: 200-499 mg/dL Very High: > or =500 mg/dL Cholesterol, Total 123 mg/dL 2022 7:29 PM WORKFORCE ANALYST NPRG Comment: ----REFERENCE VALUE---- Desirable: < 200 mg/dL Borderline High: 200 - 239 mg/dL High: > or = 240 mg/dL Cholesterol, LDL, Calculated 60 mg/dL 08/06/2022 7:29 PM WORKFORCE ANALYST NPRG Comment: ----REFERENCE VALUE---- Desirable: <100 mg/dL Above Desirable: 100-129 mg/dL Borderline High: 130-159 mg/dL High: 160-189 mg/dL Very High: >=190 mg/dL ----ADDITIONAL INFORMATION---- LDL cholesterol calculated using the Islas/NIH equation. Cholesterol, HDL 38(L) >=40 mg/dL 08/06/19 7:29 PM WORKFORCE ANALYST NPRG Cholesterol, Non-HDL, Calculated 85 mg/dL 08/06/2022 7:29 PM WORKFORCE ANALYST NPRG Comment: ----REFERENCE VALUE---- Desirable: <130 mg/dL Above Desirable: 130-159 mg/dL Borderline High: 160-189 mg/dL High: 190-219 mg/dL Very High: > or =220 mg/dL Fasting (8 HR or more) Y 08/06/2022 6:58 PM WORKFORCE ANALYST NPRG Blood (Blood, Venous) 08/06/2022 4:29 PM WORKFORCE ANALYST 08/06/2022 6:58 PM WORKFORCE ANALYST Lashonda Velásquez APRN C.N.PIsabel LAB BLOOD A DD-ON [facility] [address] [place] [address], [facility] [address] [place] [address] * S-TSH (Thyroid-Stimulating Hormone - Sensitive) (08/06/2022 4:28 PM WORKFORCE ANALYST) TSH, Sensitive 3.8 0.3 - 4.2 mIU/L 08/06/2022 7:35 PM WORKFORCE ANALYST NPRG Blood (Blood, Venous) 08/06/2022 4:28 PM WORKFORCE ANALYST 08/06/2022 6:58 PM WORKFORCE ANALYST Lashonda Velásquez APRN, C.N.P. LAB BLOOD A DD-ON [facility] [address] [place] [address], [facility] NPRG [facility] [address] [place] [address] documented in this encounter Visit Diagnoses Diagnosis Chronic Kidney Disease (CKD), Stage 3a Glomerular Filtration Rate (GFR) 45 To 59 (HCC)- Primary Dyslipidemia Diabetes Mellitus Type 2 With Diabetic Nephropathy (HCC) Atrial Fibrillation Paroxysmal (HCC) Hypertension And Chronic Kidney Disease Stage 2 Dystrophic Toenail History Of Falling Fatigue Pain Knee Left documented in this encounter Additional Health Concerns Assessment Noted Time PHQ-9 Depression Total Score: 0 06/18/20 17 4:38 PM WORKFORCE ANALYST documented as of this encounter Care Teams Design Agent Relationship Specialty Start Date End Date Lashonda Velásquez APRN, C.N.P. [address] [place] [address] PCP - General Family Medicine 03/28/21 documented as of this encounter
== END 2023-08-04 09:21 | disposition home or self-care (01) ==
LOC: NFLDREF 08-06 11:18
PROVIDERS: PCP Internal Medicine; Referring Provider Internal Medicine; Visit Provider Internal Medicine
DX: E03.9 Hypothyroidism, unspecified (principal); E11.9 Type 2 diabetes mellitus without complications
CPT/HCPCS: 80053; 80061; 82043; 82570; 84439; 84443

== ENCOUNTER 2023-11-04 11:05 | Outpatient (CLI) | payer MEDICARE, SELFPAY ==
--- OUTSIDE RECORDS SUMMARY | 2023-11-05 06:45 | XMS_ITS ---
Author Name Unknown Organization [facility] Address [address] [place] [address] Care Team Providers Care Milk Drying Machine Operator Name Role Phone Unavailable Unavailable Unavailable Surgery Details Not on file Complications Check Surgery Details section. Procedure Estimated Blood Loss Check Surgery Details section. Procedure Findings Check Surgery Details section. Procedure Specimens Taken Check Surgery Details section.
--- OUTSIDE RECORDS SUMMARY | 2023-11-05 06:45 | XMS_ITS | Encounter Summary ---
Author Name Unknown Organization [facility] Address [address] [place] [address] Care Team Providers Care Labeling Strategist Name Role Phone Lashonda Velásquez APRN, C.N.P. Primary Care Provi catalina Reason for Visit * Outpatient (Routine) - Authorized Specialty Diagnoses / Procedures Referred By Brian beckett Referred To Contact Diagnoses Fpc (Current) Anticoagulant Treatment Procedures ACO Anticoagulation check Lashonda Velásquez APRN, C.N.P. [address] [place] [address] [facility] Region Referral ID Status Reason Start Date Expiration Date V isits Requested Visits Authorized [id number] Authorized 12/06/2022 12/06/2023 52 52 Encounter Details Date Type Department Care Team (Latest Contact Info) Description 04/29/2023 11:00 AM CDT Anticoagulation Visit Department of Anticoagulation in [place], [place] [address] [place] [address] Lashonda Velásquez APRN, C.N.P. 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 [facility] [address] PCP - General Family Medicine 03/28/21 documented as of this encounter
--- OUTSIDE RECORDS SUMMARY | 2023-11-05 06:45 | XMS_ITS | Referral Summary ---
Author Name Unknown Organization [facility] Address [address] [place] [address] Care Team Providers Care Healthcare Recruiter Name Role Phone Lashonda Velásquez APRN, C.N.P. Primary Care Provi catalina Source Comments Patient records contain information from all sites at [facility]. For routine questions regarding patient records, call [phone] during business hours, M-F 8:00 AM - 5:00 PM Central Time. Record requests for emergency care only can be directed to [phone] at any time.[facility] Encounters Date Type Department Care Team Description 10/24/2023 Refill Department of Family Medicine in [place], [place] [address] [place] [phone] Lashonda Velásquez APRN, C.N.P. Med Refill 09/09/2023 Orders Only [facility] Lashonda Velásquez APRN, C.N.P. Diabetes Mellitus Type 2 With Diabetic Nephropathy (HCC); Dyslipidemia from Last 3 Months Allergies No known active allergies Medications Medication Sig Dispensed Refills Start Date End Date Status aspirin [address] tablet Take 81 mg by mouth. 12/18/2016 Active nitroglycerin (NITROSTAT) 0.4 mg SL tabletIndications :Coronary Arterial Bypass Graft Status Post Personal History Place 1 tablet (0.4 mg total) under the tongue every 5 (five) minutes as needed for chest pain. 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 Or as directed by INR clinic. 90 tablet 3 12/17/2022 Active metoprolol succinate (TOPROL-XL) 100 mg 24 hr tablet Take 100 mg by mouth daily. Do not crush or chew. Active Mediaoceanuch Ultra Test Strips USE ONE STRIP TO TEST ONCE DAILY 100 strip 3 03/23/2023 Active metFORMIN (GLUCOPHAGE) 500 mg tabletIndications :Diabetes Mellitus Type 2 With Diabetic Nephropathy (HCC) TAKE TWO TABLETS BY MOUTH TWICE A DAY WITH FOOD 360 tablet 3 04/02/2023 Active levothyroxine (SYNTHROID, LEVOTHROID) 25 mcg tabletIndications :Atrial Fibrillation Unspecified (HCC) take 1 and 1/2 tablets by mouth every day 135 tablet 10/29/2023 Active levothyroxine (SYNTHROID, LEVOTHROID) 25 mcg tabletIndications :Atrial Fibrillation Unspecified (HCC) TAKE 1 AND 1/2 TABLET DAILY 135 tablet 3 10/15/2022 10/29/19 24 Discontinued Active Problems Problem Noted Date Diagnosed Date Loss Hearing Sensorineural Bilateral 08/03/2021 Arthritis Knee Left 03/27/2020 Diabetes Mellitus Type 2 With Diabetic Nephropat hy 12/21/2018 Diabetes Mellitus Type 2 Wit h Diabetic Chronic Kidney Disease 12/21/2018 Chronic Kidney Disease (CKD) , Stage 3a Glomerular Filtration Rate (GFR) 45 To 59 12/21/2018 History Of Falling 09/22/2018 Stenosis Carotid Artery Right 06/18/2017 Overview: Fully occluded left carotid. Status post right carotid endarterectomy 05/28/2016 fo >70 percent stenosis. [facility]ed by [facility] vascular surgery. Dyslipidemia 06/18/2017 Smoking Tobacco Use Personal History 06/18/2017 Loss Hearing 06/18/2017 Hypothyroidism 06/18/2017 Atrial Fibrillation Paroxysmal 09/13/2015 Atherosclerotic Heart Diseas e Of [place] Coronary Artery Without Angina Pectoris 09/13/2015 Overview: [...] Therapeutic D rug Therapy [Z51.81] 06/18/2017 06/18/2017 Shelter Anticoagulant Treatment [Z79.01] 06/18/2017 08/26/2023 Other Specified Abnormal Fin dings Of Blood [...] Injectable 07/21/2012 Influenza, Unspecified 05/02/2016,2014,05/26/2013,2012,04/17/2011,03/16/2010 PCV13 01/02/2015 PPSV23(Discontinued) 02/13/2012,10/16/2006 RZV (SHINGRIX) 01/31/2023(Deferred: Patient Ref used) SARS-COV-2 (COVID-19) - PFIZ ER (Discontinued)(12 years or older) 01/31/2023(Deferred: Not available from beach expert),09/28/2020,09/07/2020 SARS-COV-2 (COVID-19) - PFIZ ER [id number] (12 YEARS OR OLDER) 05/06/2023 Td (Adult), adsorbed 10/30/2007 Tdap 03/24/2021,08/07/2011 Zoster, [...] and Family Once a week 12/21/2018 Attends [employer] Services More than 4 times per [...] Answer Date Recorded PHQ-2 Score 0 08/06/2022 [facility] - Occupational [...] CDT Plan of Treatment Not on file Procedures Procedure Name Priority Date/Time Associated Diagnosis Comments HEMOGLOBIN A1C, B Routine 01/31/2023 11: 40 AM CDT Diabetes Mellitus Type 2 With Diabetic Chronic Kidney Disease (HCC) COMPREHENSIVE METABOLIC PANEL, S/P Routine 01/31/2023 11:40 AM CDT Post COVID-19 Condition Concussion No Loss Of Consciousness Subsequent Diabetes Mellitus Type 2 With Diabetic Chronic Kidney Disease (HCC) LIPID PANEL, S Routine 08/06/2022 4:29 PM DUTY OFFICER Dyslipidemia ALBUMIN, RANDOM, U Routine 03/19/2022 10 :44 AM CDT Diabetes Mellitus Type 2 With Diabetic Nephropathy (HCC) from Last 3 Months or Most Recently Relevant to Health Maintenance Results * (ABNORMAL) Hemoglobin A1c (01/31/2023 11:40 [...] Velásquez APRN, C.N.P. LAB BLOOD A DD-ON [facility] [address] [place] [address], [place] NPRG [facility] [address] [place] [address] * (ABNORMAL) Comprehensive Metabolic Panel (01/31/2023 11:40 [...] 01/31/2023 12:07 PM CDT Lashonda Velásquez APRN C.NIsabelPIsabel LAB BLOOD A DD-ON [facility] [address] [place] [address], [facility] NPRG [place] [address] [place] [address] * (ABNORMAL) Lipid Panel (08/06/2022 4:29 PM DUTY OFFICER) Triglycerides 141 mg/dL 08/06/2022 7:29 PM DUTY OFFICER NPRG Comment: ----REFERENCE VALUE---- Normal: <150 mg/dL Borderline High: 150-199 mg/dL High: 200-499 mg/dL Very High: > or =500 mg/dL Cholesterol, Total 123 mg/dL 2022 7:29 PM DUTY OFFICER NPRG Comment: ----REFERENCE VALUE---- Desirable: < 200 mg/dL Borderline High: 200 - 239 mg/dL High: > or = 240 mg/dL Cholesterol, LDL, Calculated 60 mg/dL 08/06/2022 7:29 PM DUTY OFFICER NPRG Comment: ----REFERENCE VALUE---- Desirable: <100 mg/dL Above Desirable: 100-129 mg/dL Borderline High: 130-159 mg/dL High: 160-189 mg/dL Very High: >=190 mg/dL ----ADDITIONAL INFORMATION---- LDL cholesterol calculated using the Islas/NIH equation. Cholesterol, HDL 38(L) >=40 mg/dL 08/06/19 7:29 PM DUTY OFFICER NPRG Cholesterol, Non-HDL, Calculated 85 mg/dL 08/06/2022 7:29 PM DUTY OFFICER NPRG Comment: ----REFERENCE VALUE---- Desirable: <130 mg/dL Above Desirable: 130-159 mg/dL Borderline High: 160-189 mg/dL High: 190-219 mg/dL Very High: > or =220 mg/dL Fasting (8 HR or more) Y 08/06/2022 6:58 PM DUTY OFFICER NPRG Blood (Blood, Venous) 08/06/2022 4:29 PM DUTY OFFICER 08/06/2022 6:58 PM DUTY OFFICER Lashonda Velásquez APRN, C.N.P. LAB BLOOD A DD-ON Performing Organization Address City/[facility] Co de Phone Number [facility] [address] [place] [address], [facility] NPRG [place] [address] [place] [address] * (ABNORMAL) Albumin, Random, Urine (03/19/2022 10:44 AM CDT) Microalbumin 17.0 mg/L 03/19/2022 12:51 PM CDT NPRG Creatinine 88 mg/dL 03/19/2022 12:51 PM CDT NPRG Albumin/Creatinin e Ratio 19(H) <17 mg/g 03/19/2022 12:51 PM CDT NPRG Urine (Urine, Midstream) 03/19/2022 10:44 AM CDT 03/19/2022 12:12 PM CDT Lashonda Velásquez APRN, C.N.P. LAB URINE O RDERABLES [facility] [address] [place] [address], [facility] NPRG [facility] [address] [place] [address] from Last 3 Months or Most Recently Relevant to Health Maintenance Advance Directives For more information, please contact: [phone] Documents on File Type Date Recorded Patient Qa Software Test Engineer Expl anation Advance Directives 06/04/2018 1:25 PM * DNR/DNI (Latest Code Status on File) Date Activated Date Inactivated Comments 12/19/2019 3:45 PM 03/24/2021 10:20 AM Healthcare Agents on File Name Relationship Healthcare Agent Relationshi p Communication Michelle Tejada Spouse Health Care Agent Rip Tejada First Alternate Health Care Agent Juanita Velasquez Alterna te Health Care Agent Care Teams Healthcare Recruiter Relationship Specialty Start Date End Date Lashonda Velásquez APRN, C.N.P. [address] [place] [id number] PCP - General Family Medicine 03/28/21
--- OUTSIDE RECORDS SUMMARY | 2023-11-05 06:45 | XMS_ITS | Clinical Summary ---
Author Name Unknown Organization [facility] Address [address] [place] [address] Care Team Providers Care Furniture Fabricator Name Role Phone Lashonda Velásquez APRN, C.N.P. Primary Care Provi catalina Source Comments Patient records contain information from all sites at [facility]. For routine questions regarding patient records, call [phone] during business hours, M-F 8:00 AM - 5:00 PM Central Time. Record requests for emergency care only can be directed to [phone] at any time.[facility] Allergies No known active allergies Medications [...] daily. Do not crush or chew. Active Unrulyuch Ultra Test Strips USE ONE STRIP TO [...] 05/28/2016 fo >70 percent stenosis. Followed by [facility] vascular surgery. 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 Med Refill 09/09/2023 Orders Only [facility] Lashonda Velásquez APRN, C.N.P. Diabetes Mellitus Type 2 With Diabetic Nephropathy (HCC); Dyslipidemia from Last 3 Months Immunizations Name Administration Dates Next Due HepB Adult 01/31/2023(Deferred: Patient Ref used) HepB, Unspecified 08/03/2021(Deferred: Other) Influenza high dose QV(65 ye ars or older) (PF) 05/06/2023,07/05/2022,04/17/2021,2019 Influenza, Seasonal, Injectable 07/21/2012 Influenza, Unspecified 05/02/2016,2014,05/26/2013,2012,04/17/2011,03/16/2010 PCV13 01/02/2015 PPSV23(Discontinued) 02/13/2012,10/16/2006 RZV (SHINGRIX) 01/31/2023(Deferred: Patient Ref used) SARS-COV-2 (COVID-19) - PFIZ ER (Discontinued)(12 years or older) 01/31/2023(Deferred: Not available from resp ther),09/28/2020,09/07/2020 SARS-COV-2 (COVID-19) - PFIZ ER [id number] (12 YEARS OR OLDER) 05/06/2023 Td (Adult), [...] Answer Date Recorded PHQ-2 Score 0 08/06/2022 [facility] [place] of Occupat ional Health - Occupational Stress [...] 1937 Zoster Vaccines (1 of 2) 1956 Tobacco Cessation counseling 04/20/2022 04/20/2021 Diabetic Office Visit with F oot Exam 03/19/2023 03/19/2022, 07/10/2021, 12/24/2019, Additional history exists Urine Albumin 03/19/2023 03/19/2022, 12/05, 12/22/2019, Additional history exists Depression Screening (Annual PHQ-2) 07/07/2023 Fall Risk Screen (Annual) 07/07/2023 Hemoglobin A1C 08/03/2023 01/31/2023, 07/09, 03/19/2022, Additional history exists Lipid (Cholesterol) Screening 08/06/2023, 08/01/2021, 12/15/2020, Additional history exists COVID-19 Vaccine (2 4 season) 2023 05/06/2023, 05/29/2022, 04/23/2021, Additional history exists Creatinine Level (Kidney Fun ction Test) 02/01/2024 01/31/2023, 01/12/2023, 01/11/2023, Additional history exists Potassium Level 02/01/2024 01/31/2023, 07/0 03/2023, 01/11/2023, Additional history exists Sodium Level 02/01/2024 01/31/2023, 07/0 03/2023, 01/11/2023, Additional history exists Visit: Chronic Disease, age 18+ 02/01/2024 , 08/06/2022 Dilated Eye Exam 06/18/2024 06/18/2023 (Per formed elsewhere), 07/09/2021 (Performed elsewhere), 11/02/2019 (Performed elsewhere), Additional history exists DTaP,Tdap,and Td Vaccines (3 - Td or Tdap) 03/24/2031 03/24/2021, 08/07/2011, 10/30/2007 Pneumococcal vaccine (65+ years) Completed 01/02/2015, 02/13/2012, 10/16/2006 Influenza Vaccine Completed 05/06/2023, , 04/17/2021, Additional history exists Procedures Procedure Name Priority Date/Time Associated Diagnosis Comments HEMOGLOBIN A1C, B Routine 01/31/2023 11: 40 AM CDT Diabetes Mellitus Type 2 With Diabetic Chronic Kidney Disease (HCC) COMPREHENSIVE METABOLIC PANEL, S/P Routine 01/31/2023 11:40 AM CDT Post COVID-19 Condition Concussion No Loss Of Consciousness Subsequent Diabetes Mellitus Type 2 With Diabetic Chronic Kidney Disease (HCC) LIPID PANEL, S Routine 08/06/2022 4:29 PM PROPOSAL DIRECTOR Dyslipidemia ALBUMIN, RANDOM, U Routine 03/19/2022 10 [...] CDT 01/31/2023 12:06 PM CDT Lashonda Velásquez APRN C.N.P. LAB BLOOD A DD-ON [facility] [address] [place] [address], [facility] NPRG [facility] [address] [place] [address] * (ABNORMAL) Comprehensive Metabolic Panel (01/31/2023 11:40 [...] Velásquez APRN, C.N.P. LAB BLOOD A DD-ON [facility] [address] [place] [address], [facility] NPRG [facility] [address] [place] [address] * (ABNORMAL) Lipid Panel (08/06/2022 4:29 PM PROPOSAL DIRECTOR) [facility] Triglycerides 141 mg/dL 08/06/2022 7:29 PM PROPOSAL DIRECTOR NPRG Comment: ----REFERENCE VALUE---- Normal: <150 mg/dL Borderline High: 150-199 mg/dL High: 200-499 mg/dL Very High: > or =500 mg/dL Cholesterol, Total 123 mg/dL 2022 7:29 PM PROPOSAL DIRECTOR NPRG Comment: ----REFERENCE VALUE---- Desirable: < 200 mg/dL Borderline High: 200 - 239 mg/dL High: > or = 240 mg/dL Cholesterol, LDL, Calculated 60 mg/dL 08/06/2022 7:29 PM PROPOSAL DIRECTOR NPRG Comment: ----REFERENCE VALUE---- Desirable: <100 mg/dL Above Desirable: 100-129 mg/dL Borderline High: 130-159 mg/dL High: 160-189 mg/dL Very High: >=190 mg/dL ----ADDITIONAL INFORMATION---- LDL cholesterol calculated using the Islas/NIH equation. Cholesterol, HDL 38(L) >=40 mg/dL 08/06/19 7:29 PM PROPOSAL DIRECTOR NPRG Cholesterol, Non-HDL, Calculated 85 mg/dL 08/06/2022 7:29 PM PROPOSAL DIRECTOR NPRG Comment: ----REFERENCE VALUE---- Desirable: <130 mg/dL Above Desirable: 130-159 mg/dL Borderline High: 160-189 mg/dL High: 190-219 mg/dL Very High: > or =220 mg/dL Fasting (8 HR or more) Y 08/06/2022 6:58 PM PROPOSAL DIRECTOR NPRG Blood (Blood, Venous) 08/06/2022 4:29 PM PROPOSAL DIRECTOR 08/06/2022 6:58 PM PROPOSAL DIRECTOR Lashonda Velásquez APRN, C.N.P. LAB BLOOD A DD-ON [facility] [address] [place] [address], [facility] NPRG [facility] [address] [place] [address] * (ABNORMAL) Albumin, Random, Urine (03/19/2022 10:44 AM CDT) Microalbumin 17.0 mg/L 03/19/2022 12:51 PM CDT NPRG Creatinine 88 mg/dL 03/19/2022 12:51 PM CDT NPRG Albumin/Creatinin e Ratio 19(H) <17 mg/g 03/19/2022 12:51 PM CDT NPRG Urine (Urine, Midstream) 03/19/2022 10:44 AM CDT 03/19/2022 12:12 PM CDT Lashonda Velásquez APRN, C.N.P. LAB URINE O RDERABLES [facility] [address] [place] [address], [place] NPRG [facility] [address] [place] [address] from Last 3 Months or Most Recently Relevant to Health Maintenance Advance Directives For more information, please contact: [phone] Documents on File Type Date Recorded Patient Keyliner Expl anation Advance Directives 06/04/2018 1:25 PM * DNR/DNI (Latest Code Status on File) Date Activated Date Inactivated Comments 12/19/2019 3:45 PM 03/24/2021 10:20 AM Healthcare Agents on File Name Relationship Healthcare Agent Relationshi p Communication Michelle Tejada Spouse Health Care Agent Rip Tejada First Alternate Health Care Agent Juanita Velasquez Alterna te Health Care Agent Care Teams Furniture Fabricator Relationship Specialty Start Date End Date Lashonda Velásquez APRN, C.N.P. [address] [place] [phone] PCP - General Family Medicine 03/28/21
--- OUTSIDE RECORDS SUMMARY | 2023-11-05 06:45 | XMS_ITS | Encounter Summary ---
Author Name Unknown Organization [facility] [place] [facility] Address [address] [place] [address] Care Team Providers Care Health Promotion Educator Name Role Phone Lashonda Velásquez APRN, C.N.P. Primary Care Provi catalina Reason for Visit * Reason Comments Med Refill Encounter Details Date Type Department Care Team (Late st Contact Info) Description 10/24/2023 Refill Department of Family Medicine in [place], [place] [address] [place] [address] Lashonda Velásquez APRN, C.N.P. [address] [place] [address] Med Refill Social History Tobacco Use Types [...] and Family Once a week 12/21/2018 Attends [employer] More than 4 times per year [...] Answer Date Recorded PHQ-2 Score 0 08/06/2022 [facility] Occupat ional Health - Occupational [...] Telephone Encounter - Deyanira Mcintyre V. - 10/27/2023 7:17 AM CDT Lab Results Component Value Date TSH 3.8 08/06/2022 Existing Office visit order available for patient to schedule. Recent Visits Date Type Provider Dept 01/31/23 Office Visit Lashonda Velásquez APRN C.N.PIsabel [facility] Showing recent visits within past 365 [...] Total Score: 0 06/18/20 17 4:38 PM GUEST EXPERIENCE MANAGER documented as of this encounter Care Teams Health Promotion Educator Relationship Specialty Start Date End Date Lashonda Velásquez APRN, C.N.P. [address] [place] [phone] PCP - General Family Medicine 03/28/21 documented as of this encounter
--- OUTSIDE RECORDS SUMMARY | 2023-11-05 06:45 | XMS_ITS | Clinical Summary ---
Author Name Unknown Organization [employer] [facility] Address [place], [place] [address] Care Team Providers Care Roll Forger Name Role Phone Lashonda Velásquez BEAN SNIPPER Primary Care Provider [phone] Allergies No known active allergies Medications Medication Sig Dispensed Refills Start Date End Date Status levothyroxine (SYNTHROID) 25 mcg tablet Take 1 tablet by mouth before breakfast. 0 Active metFORMIN (GLUCOPHAGE) 500 mg tablet Take 1 tablet by mouth 2 times daily with meals. 0 Active CONTOUR NEXT STRIPS strip 07/18/2015 Active atorvastatin (LIPITOR) 40 mg tabletIndications:S/P [...] 2.5mg on Mon/Fri; 5mg all other days 09/08/2018 Active hydroCHLOROthiazide 12.5 mg tablet Take 12.5 mg by mouth. 08/03/2021 Active lisinopriL (PRINIVIL; ZESTRIL) 40 mg tablet Take 40 mg by mouth. 07/10/2021 Active dilTIAZem (DILACOR XR; DILTIA XT) 120 mg Extended-Release capsuleIndications:JUDY D (arteriosclerotic heart disease),Fatigue, unspecified type Take 1 Capsule (120 mg) by mouth once daily. In AM 30 Capsule 6 09/19/2022 Active metoprolol succinate (TOPROL XL) 100 mg Sustained-Release tablet Take 0.5 Tablets (50 mg) by mouth once daily. In PM 09/19/2022 Active Active Problems Problem Noted Date [...] Encounters Date Type Department Care Team Description 10/13/2023 Telephone [facility] [place] [address] [place] [address] Natalya Dumont MD Results (echocardiogram) 10/10/2023 2:00 PM CDT Ancillary Procedure [facility] [address] [place] [address] 10/10/2023 Travel 09/11/2023 Telephone [facility] [place] [address] [place] [address] Natalya Dumont MD Procedure (echo) 08/11/2023 10:00 AM DIAL MOUNTER Office Visit [facility] [address] [place] [address] Sergio Cast, Cynthia Hearing Problem 08/11/2023 Travel from Last 3 Months Immunizations Name Administration [...] T Respiratory Rate 16 05/29/2016 7:36 AM DIAL MOUNTER Oxygen Saturation 100% 09/19/2022 11:37 AM CDT Inhaled Oxygen Concentration - - Weight 81.6 kg (180 lb) 09/19/2022 11:37 AM CDT Height 170.2 cm (5' 7) 12/19/2021 2:45 PM CDT Body Mass Index 28.19 12/19/2021 2:45 PM CDT Plan of Treatment Upcoming Encounters Date Type Department Care Team (Late st Contact Info) Description 12/23/2023 11:30 AM CDT Office Visit [facility] [address] [place] [address] Nickolas Contreras MD [address] [address] Health Maintenance Due Date Last Done Comments [...] Additional history exists Influenza for age 65+ 03/07/2024 05/06/2016, 015 COVID-19 vaccine series Completed 05/06/20, 05/29/2022, 04/23/2021, Additional history exists Goals Goal Patient Goal Type Associated Problems Recent Progress Patient-Stated? Author BLOOD PRESSURE - MAINTAINS BP less than 140/90 Blood Pressure No Roman Ortega MD Medical Devices Implanted Type Area Store Coordinator Device Identifier Shelf Expiration Date Model / Serial / Lot Patch Vasc 0.8x8cm [employer] Pericardial - [id number] Implanted:Qty: 1 on 05/28/2016 by Chidi Valenzuela MD at [facility] Right: Carotid Artery [employer] 01/01/2019 0.8P8# / / [id number] Procedures Procedure Name Priority Date/Time Associated Diagnosis Comments ECHO TTE COMPLETE WO CONTRAST Routine 10/10/2023 2:18 PM CDT PAF (paroxysmal atrial fibrillation) (HC) HTN (hypertension) ASHD (arteriosclerotic heart disease) from Last 3 Months Results * ECHO TTE COMPLETE WO CONTRAST (10/10/2023 2:18 PM CDT) AORTIC VALVE MEAN PG 18 mmHg EJECTION FRACTION 62 % PEAK TR VELOCITY 3.1 m/s LVEDD 4.8 cm Anatomical Region Laterality Modality Ultrasound 10/10/2023 2:04 PM CDT Narrative 10/10/2023 2:29 PM CDT ECHOCARDIOGRAM RYLEE TEJADA ?Accession#: ?? [id number] : ?1935 88 years Study Date: ?? 10/10/2023 2:04:22 PM Gender: M ? BP: ? 140/70 mmHg Height: 170.00 cm ? BSA: ?1.94 m? ? ? Weight: 82.00 kg ?Tech: ? NWA ?Referring MD: NATALYA DUMONT Site: ? [facility] Reading Location: Mobile-OP Patient Location: Outpatient. Procedure: 2D, Color Doppler and Spectral Doppler. Indication for study: paroxysmal Afib, HTN, Cardiac Rhythm: Regular.Study quality: Final Impressions: 1. Normal left ventricular size, mildly increased wall thickness, normal global systolic function, calculated EF of 62 %. 2. Right ventricular cavity size is normal, global systolic RV function is normal. 3. The aortic valve is calcified and trileaflet, mild to moderate stenosis (Vmax 2.8m/s, MG 18mmHg, DI 0.24) and mild regurgitation. Comparison Compared to prior exam of 10/08/22, there has been no significant change. Chamber Sizes and Function Normal left ventricular size, mildly increased wall thickness, normal global systolic function, calculated EF of 62 %. Left atrial size is normal. Right ventricular cavity size is normal, global systolic RV function is normal. RV wall thickness is normal. The right atrium is normal. Right atrial volume index is 12 ml/m? ? ?. Right atrial area is 11 cm? ? ?. The pulmonary artery is of normal size and origin. The sinus of Valsalva is normal sized. The ascending aorta is normal sized. Valves, RV Pressures and Diastolic Function The aortic valve is calcified and trileaflet, mild to moderate stenosis and mild regurgitation. The mitral valve is sclerotic, trace mitral regurgitation. Normal diastolic function for age. The tricuspid valve is normal in structure. Tricuspid regurgitation is mild regurgitation. The tricuspid regurgitant velocity is 3.1 m/s, the estimated right ventricular systolic pressure is 38 mmHg plus right atrial pressure. The pulmonic valve is normal. Mild pulmonary regurgitation. Masses, Effusion, Shunts There is no pericardial effusion. The inferior vena cava is normal sized, respiratory size variation greater than 50%. No left to right shunting was detected by limited color flow Doppler interrogation of the interatrial septum. MEASUREMENTS AND CALCULATIONS 2-D Measurements and LV Function: LVID (d) 4.8 cm Planimetered EF 62 % LVID (s) 2.5 cm LV FS% (2D) ? 47 % IVS (d) ??1.2 cm LVOT diameter ?? 2.2 cm LVPW (d) 1.1 cm HR ?63 bpm Ao Sinus 3.6 cm LA Vol index ?22 ml/m2 Asc Ao ?? 3.8 cm RA Vol index ?12 ml/m2 LA ? 4.3 cm RA area ? 11 cm?RV Max 4C (d) ?? 3.3 cm Diastology: Mitral ?Tissue Doppler E Peak 1.0 m/s ??e', Septum ? 0.07 m/s A Peak 1.1 m/s ??e', Lateral ?0.09 m/s E/A ?0.9 ?E/e' Average ?? 12.30 DT ? 198 msec Aortic Valve: Vmax ? 2.8 m/s ??MARILY (V) ?? 1.08 cm? ? ? VTI ?0.76 m ?? MARILY (I) ?? 0.94 cm? ? ? LVOT V max 0.8 m/s ??Max PG ?31 mmHg LVOT VTI ?? 0.18 m ?? Mean PG ?? 18 mmHg SV ? 72 ml ?Dim Index 0.24 SV index ?? 37 ml/m? ? ? CO ?4.5 l/min ?CI ?2.3 l/min/m? ? ? Mitral Valve: MVA ?3.8 cm? ? ? MV P 1/2 57 msec Tricuspid Valve and estimated PA pressures: TR Vmax 3.1 m/s TAPSE 1.8 cm TR maxG 38 mmHg Pulmonic Valve: PV Vmax 1.0 m/s PIEDV 1.2 m/s . This study was interpreted by an [facility] accredited facility. ??Final ?? Procedure Note Jackson Vargas MD - 10/10/2023 ECHOCARDIOGRAM RYLEE TEJADA : 1935 88 years Study Date: 10/10/2023 2:04:22 PM Gender: M BP: 140/70 mmHg Height: 170.00 cm BSA: 1.94 m? ? ? Weight: 82.00 kg Tech: SELVIN Referring MD: NATALYA DUMONT Site: [facility] Reading Location: Mobile-OP Patient Location: Outpatient. Procedure: 2D, Color Doppler and Spectral Doppler. Indication for study: paroxysmal Afib, HTN, Cardiac Rhythm: Regular.Study quality: Final Impressions: 1. Normal left ventricular size, mildly increased wall thickness, normalglobal systolic function, calculated EF of 62 %. 2. Right ventricular cavity size is normal, global systolic RV functionis normal. 3. The aortic valve is calcified and trileaflet, mild to moderatestenosis (Vmax 2.8m/s, MG 18mmHg, DI 0.24) and mild regurgitation. Comparison Compared to prior exam of 10/08/22, there has been no significant change. Chamber Sizes and Function Normal left ventricular size, mildly increased wall thickness, normalglobal systolic function, calculated EF of 62 %. Left atrial size isnormal. Right ventricular cavity size is normal, global systolic RVfunction is normal. RV wall thickness is normal. The right atrium isnormal. Right atrial volume index is 12 ml/m? ? ?. Right atrial area is 11cm? ? ?. The pulmonary artery is of normal size and origin. The sinus ofValsalva is normal sized. The ascending aorta is normal sized. Valves, RV Pressures and Diastolic Function The aortic valve is calcified and trileaflet, mild to moderate stenosisand mild regurgitation. The mitral valve is sclerotic, trace mitralregurgitation. Normal diastolic function for age. The tricuspid valve isnormal in structure. Tricuspid regurgitation is mild regurgitation. Thetricuspid regurgitant velocity is 3.1 m/s, the estimated right ventricularsystolic pressure is 38 mmHg plus right atrial pressure. The pulmonicvalve is normal. Mild pulmonary regurgitation. Masses, Effusion, Shunts There is no pericardial effusion. The inferior vena cava is normal sized,respiratory size variation greater than 50%. No left to right shunting wasdetected by limited color flow Doppler interrogation of the interatrialseptum. MEASUREMENTS AND CALCULATIONS 2-D Measurements and LV Function: LVID (d) 4.8 cm Planimetered EF 62 % LVID (s) 2.5 cm LV FS% (2D) 47 % IVS (d) 1.2 cm LVOT diameter 2.2 cm LVPW (d) 1.1 cm HR 63 bpm Ao Sinus 3.6 cm LA Vol index 22 ml/m2 Asc Ao 3.8 cm RA Vol index 12 ml/m2 LA 4.3 cm RA area 11 cm? ? ? RV Max 4C (d) 3.3 cm Diastology: Mitral Tissue Doppler E Peak 1.0 m/s e', Septum 0.07 m/s A Peak 1.1 m/s e', Lateral 0.09 m/s E/A 0.9 E/e' Average 12.30 DT 198 msec Aortic Valve: Vmax 2.8 m/s MARILY (V) 1.08 cm? ? ? VTI 0.76 m MARILY (I) 0.94 cm? ? ? LVOT V max 0.8 m/s Max PG 31 mmHg LVOT VTI 0.18 m Mean PG 18 mmHg SV 72 ml Dim Index 0.24 SV index 37 ml/m? ? ? CO 4.5 l/min CI 2.3 l/min/m? ? ? Mitral Valve: MVA 3.8 cm? ? ? MV P 1/2 57 msec Tricuspid Valve and estimated PA pressures: TR Vmax 3.1 m/s TAPSE 1.8 cm TR maxG 38 mmHg Pulmonic Valve: PV Vmax 1.0 m/s PIEDV 1.2 m/s . This study was interpreted by an [facility] accredited facility. Final Natalya Dumont MD ECHO ORD from Last 3 Months Advance Directives * Full Code (Latest Code Status on File) Date Activated Date Inactivated Comments 05/28/2016 4:21 PM 05/29/2016 3:50 PM * Full Code Date Activated Date Inactivated Comments 09/04/2015 4:03 PM 09/06/2015 3:32 PM * Full Code Date Activated Date Inactivated Comments 09/01/2015 11:21 AM 09/04/2015 4:03 PM * Full Code Date Activated Date Inactivated Comments 08/31/2015 10:11 AM 09/01/2015 11:21 AM * Full Code Date Activated Date Inactivated Comments 08/31/2015 5:56 AM 08/31/2015 10:11 AM Care Teams Roll Forger Relationship Specialty Start Date End Date Lashonda Velásquez NP [address] [place] [facility] [place] [address] PCP - General Nurse Practitioner 03/28/22
--- OUTSIDE RECORDS SUMMARY | 2023-11-05 06:45 | XMS_ITS | Continuity of Care Document ---
Author Name DOD-AK Organization [facility] Care Team Providers Care Striping Machine Operator Name Role Phone DOD-AK Unavailable Unavailable Problems Combined list of problems from Department of Defense and Veterans Affairs facilities. It does not include entries that were removed or entered in error. Problem Status Onset Date Problem Type Date of Resolution Comments Source Diabetic complication Active Condition [facility] Hypertension * (ICD-9-CM 401.9) Active Condition [facility] Encounters Combined list of: 1) Encounters from Department of Veterans Affairs facilities going back up to thelast 18 months. 2) Encounters from the Department of [facility] facilities going back up to 280 months. Location Location Details Encounter Type Encounter Number Reason For Visit Attending Provider ADM Date DC Date Status Disposition Source [place] [facility] Outpatient Encounter [id number] 01/02 [facility] [place] [facility] Outpatient Encounter [id number] 02/03 [facility] [place] [facility] Outpatient Encounter [id number] 02/19 [facility] [place] [facility] Outpatient Encounter [id number] 05/28 [facility] [place] [facility] Outpatient Encounter [id number] 06/12 [facility] [place] [facility] Outpatient Encounter [id number] 08/11 [facility] Social History Combined list of available smoking, tobacco, and other social history from Department of Defense and Veterans Affairs facilities. Social History Type Response Date Comment Sourc e Tobacco smoking status NHIS FORMER TOBACCO USE <1Y 02/08/2013 [place] [facility]
--- OUTSIDE RECORDS SUMMARY | 2023-11-05 06:45 | XMS_ITS | Encounter Summary ---
Author Name Unknown Organization [facility] Address [address] [place] [address] Care Team Providers Care Operational Risk Manager Name Role Phone Lashonda Velásquez APRN, C.N.P. Primary Care Provi catalina Reason for Referral * Outpatient (Routine) - Authorized Specialty Diagnoses / Procedures Referred By Brian beckett Referred To Contact Family Medicine Lashonda Velásquez APRN, C.N.P. [address] [place] [address] [facility] Region Referral ID Status Reason Start Date Expiration Date V isits Requested Visits Authorized [id number] Authorized 09/09/2023 03/10/2025 1 1 Scheduling Instructions Nurse AWV Do not schedule prior to due date to ensure insurance coverage Visit: Medicare Annual Wellness Never done. RPRISE ENGINEER * Outpatient (Routine) - Authorized Specialty Diagnoses / Procedures Referred By Brian beckett Referred To Contact Family Lashonda Lisa APRN, C.N.P. [address] [place] [address] [facility] Region Referral ID Status Reason Start Date Expiration Date V isits Requested Visits Authorized [id number] Authorized 09/09/2023 03/10/2025 1 1 Scheduling Instructions Medicare annual provider visit/HCC gaps Do not schedule prior to due date to ensure insurance coverage Visit: Medicare Annual Wellness Never done. RPRISE ENGINEER Encounter Details Date Type Department Care Team (Late st Contact Info) Description 09/09/2023 Orders Only [facility] PCP [facility] MNT Lashonda Velásquez APRN, C.N.P. [address] [place] [place] [phone] Diabetes Mellitus Type 2 With Diabetic Nephropathy (HCC); Dyslipidemia Social History Tobacco Use Types Packs/Day Years [...] and Family Once a week 12/21/2018 Attends Shinto Services More than 4 times per year [...] Type 2 With Diabetic Nephropathy (HCC) Expected: 09/23/2023, Expires: 03/07/2024 Lipid Panel Lab Routine Dyslipidemia Expected: 09/23/2023, Expires: 03/07/2024 Scheduled Referrals Name Type Priority Associated Diagnoses Orde r Schedule Family Medicine office visit (clinic) Outpatient Referral Routine Expected: 10/07/2023, Expires: 03/07/2024 Family Medicine nurse visit (clinic) Outpatient Referral Routine Expected: 10/07/2023, Expires: 03/07/2024 documented as of this encounter Visit Diagnoses Diagnosis Diabetes Mellitus Type 2 With Diabetic Nephropathy (HCC) Dyslipidemia documented in this encounter Additional Health Concerns Assessment Noted Time PHQ-9 Depression Total Score: 0 06/18/20 17 4:38 PM ENTERPRISE ENGINEER documented as of this encounter Care Teams Operational Risk Manager Relationship Specialty Start Date End Date Lashonda Velásquez APRN, C.N.P. [address] [place] [phone] PCP - General Family Medicine 03/28/21 documented as of this encounter
== END 2023-11-04 11:06 | disposition home or self-care (01) ==
LOC: NFLDREF 11-05 06:43
PROVIDERS: PCP Internal Medicine; Referring Provider Internal Medicine; Visit Provider Internal Medicine
DX: D68.59 Other primary thrombophilia (principal); Z79.01 Long term (current) use of anticoagulants
CPT/HCPCS: 85610

== ENCOUNTER 2023-12-17 13:33 | Outpatient (CLI) | payer MEDICARE, SELFPAY ==
--- OUTSIDE RECORDS SUMMARY | 2023-12-21 16:25 | XMS_ITS | Clinical Summary ---
Author Organization [facility] Address [address] [place] [address] Care Team Providers Care Window Installation Subcontractor Name Role Phone Ruben Morelos M.D. Primary Care Provider [phone] Source Comments Patient records contain information from all sites at [facility]. For routine questions regarding patient records, call [phone] during business hours, M-F 8:00 AM - 5:00 PM Central Time. Record requests for emergency care only can be directed to [phone] at any time.[facility] Allergies No known active allergies Medications [...] Additional Information Patient not taking.Reported on 01/31/2023 amLODIPine (NORVASC) 5 mg tabletIndications :Hypertension And [...] daily. Do not crush or chew. 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 Patient needs Office Visit for further refills. 90 tablet 11/28/2023 Active metoprolol succinate (TOPROL-XL) 100 mg 24 hr tablet Take 1 tablet (100 mg total) by mouth daily. Patient needs Office Visit for further refills. 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 Followed by [facility] vascular surgery. 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 Overview: [...] Therapeutic D rug Therapy [Z51.81] 06/18/2017 06/18/2017 Long-Term Anticoagulant Treatment [Z79.01] 06/18/2017 08/26/2023 Other Specified Abnormal Fin dings Of Blood Chemistry 06/18/2017 06/18/2017 Diabetes Mellitus Type 2 Diabetic Cataract 04/24/2017 06/18/2017 Other Specified Postprocedural States 05/28/2016 06/18/2017 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 Monitoring For Therapeutic Drug Therapy; Diabetes Mellitus Type 2 With Diabetic Nephropathy (HCC) 11/27/2023 Refill Department of Family Medicine in [place], [place] [address] [place] [address] Lashonda Velásquez APRN, C.N.P. Med Refill 11/13/2023 Refill Department of Family Medicine in [place], [place] [address] [place] [address] Lashonda Velásquez APRN, C.N.P. Med Refill 11/06/2023 Refill Department of Family Medicine in [place], [place] [address] [place] [address] Lashonda Velásquez APRN, C.N.P. Med Refill 10/24/2023 Refill Department of Family Medicine in [place], [place] [address] [place] [address] Lashonda Velásquez APRN, C.N.P. Med Refill from Last 3 Months Immunizations Name Administration Dates Next Due HepB Adult 01/31/2023(Deferred: Patient Ref used) HepB, Unspecified 08/03/2021(Deferred: Other) Influenza high dose QV(65 ye ars or older) (PF) 05/06/2023,07/05/2022,04/17/2021,2019 Influenza, Seasonal, Injectable 07/21/2012 Influenza, Unspecified 05/02/2016,2014,05/26/2013,2012,04/17/2011,03/16/2010 PCV13 01/02/2015 PPSV23 02/13/2012,10/16/2006 RZV (SHINGRIX) 01/31/2023(Deferred: Patient Ref used) SARS-COV-2 (COVID-19) - PFIZ ER (Discontinued)(12 years or older) 01/31/2023(Deferred: Not available from international sales manager),09/28/2020,09/07/2020 SARS-COV-2 (COVID-19) - PFIZ ER [id number] (12 YEARS OR OLDER) 05/06/2023 Td (Adult), [...] and Family Once a week 12/21/2018 Attends [employer] More than 4 times per year [...] Answer Date Recorded PHQ-2 Score 0 08/06/2022 [facility] - Occupational [...] 08/01/2021, 12/15/2020, Additional history exists COVID-19 Vaccine (2022-2 4 season) 2023 05/06/2023, 05/29/2022, 04/23/2021, Additional [...] LIPID PANEL, S Routine 08/06/2022 4:29 PM ALTERNATIVE DISPUTE RESOLUTION MEDIATOR Dyslipidemia ALBUMIN, RANDOM, U Routine 03/19/2022 10 [...] 11:40 AM CDT 01/31/2023 12:06 PM CDT Emily Renae APRNNIsabelPIsabel LAB BLOOD A DD-ON [facility] [address] [place] [address], [facility] NPRG [facility] [address] [place] [address] * (ABNORMAL) Comprehensive Metabolic Panel (01/31/2023 11:40 [...] Velásquez APRN, C.N.P. LAB BLOOD A DD-ON [facility] [address] [place] [address], [facility] NPRG [facility] [address] [place] [address] * (ABNORMAL) Lipid Panel (08/06/2022 4:29 PM ALTERNATIVE DISPUTE RESOLUTION MEDIATOR) Triglycerides 141 mg/dL 08/06/2022 7:29 PM ALTERNATIVE DISPUTE RESOLUTION MEDIATOR NPRG Comment: ----REFERENCE VALUE---- Normal: <150 mg/dL Borderline High: 150-199 mg/dL High: 200-499 mg/dL Very High: > or =500 mg/dL Cholesterol, Total 123 mg/dL 2022 7:29 PM ALTERNATIVE DISPUTE RESOLUTION MEDIATOR NPRG Comment: ----REFERENCE VALUE---- Desirable: < 200 mg/dL Borderline High: 200 - 239 mg/dL High: > or = 240 mg/dL Cholesterol, LDL, Calculated 60 mg/dL 08/06/2022 7:29 PM ALTERNATIVE DISPUTE RESOLUTION MEDIATOR NPRG Comment: ----REFERENCE VALUE---- Desirable: <100 mg/dL Above Desirable: 100-129 mg/dL Borderline High: 130-159 mg/dL High: 160-189 mg/dL Very High: >=190 mg/dL ----ADDITIONAL INFORMATION---- LDL cholesterol calculated using the Islas/NIH equation. Cholesterol, HDL 38(L) >=40 mg/dL 08/06/19 7:29 PM ALTERNATIVE DISPUTE RESOLUTION MEDIATOR NPRG Cholesterol, Non-HDL, Calculated 85 mg/dL 08/06/2022 7:29 PM ALTERNATIVE DISPUTE RESOLUTION MEDIATOR NPRG Comment: ----REFERENCE VALUE---- Desirable: <130 mg/dL Above Desirable: 130-159 mg/dL Borderline High: 160-189 mg/dL High: 190-219 mg/dL Very High: > or =220 mg/dL Fasting (8 HR or more) Y 08/06/2022 6:58 PM ALTERNATIVE DISPUTE RESOLUTION MEDIATOR NPRG Blood (Blood, Venous) 08/06/2022 4:29 PM ALTERNATIVE DISPUTE RESOLUTION MEDIATOR 08/06/2022 6:58 PM ALTERNATIVE DISPUTE RESOLUTION MEDIATOR Emily Renae APRNNCalista LAB BLOOD A DD-ON Performing Organization Address [facility] Co de Phone Number [facility] [address] [place] [address], [facility] NPRG [place] [address] [place] [address] * (ABNORMAL) Albumin, Random, Urine (03/19/2022 10:44 AM CDT) Microalbumin 17.0 mg/L 03/19/2022 12:51 PM CDT NPRG Creatinine 88 mg/dL 03/19/2022 12:51 PM CDT NPRG Albumin/Creatinin e Ratio 19(H) <17 mg/g 03/19/2022 12:51 PM CDT NPRG Urine (Urine, Midstream) 03/19/2022 10:44 AM CDT 03/19/2022 12:12 PM CDT Emliy Renae APRNNIsabelP. LAB URINE O RDERABLES Performing Organization Address [facility] Co de Phone Number [facility] [address] [place] [address], [facility] [address] [address] from Last 3 Months or Most Recently Relevant to Health Maintenance Advance Directives For more information, please contact: [phone] Documents on File Type Date Recorded Patient Wet Sander Expl anation Advance Directives 06/04/2018 1:25 PM * DNR/DNI (Latest Code Status on File) Date Activated Date Inactivated Comments 12/19/2019 3:45 PM 03/24/2021 10:20 AM Healthcare Agents on File Name Relationship Healthcare Agent Relationshi p Communication Michelle Tejada Spouse Health Care Agent Rip Tejada First Alternate Health Care Agent Juanita Howard First Alterna te Health Care Agent Care Teams Window Installation Subcontractor Relationship Specialty Start Date End Date Ruben Morelos M.D. [address] [place] [phone] PCP - General 11/28/23
--- OUTSIDE RECORDS SUMMARY | 2023-12-21 16:26 | XMS_ITS | Referral Summary ---
Author Organization [facility] Address [address] [place] [address] Care Team Providers Care Lapping Machine Operator Name Role Phone Ruben Morelos M.D. Primary Care Provider [phone] Source Comments Patient records contain information from all sites at [facility]. For routine questions regarding patient records, call [phone] during business hours, M-F 8:00 AM - 5:00 PM Central Time. Record requests for emergency care only can be directed to [phone] at any time.[facility] Encounters Date Type Department Care Team Description 12/09/2023 Orders Only [facility] PCP [facility] Ruben Conley M.D. Monitoring For Therapeutic Drug Therapy; Diabetes Mellitus Type 2 With Diabetic Nephropathy (HCC) 11/27/2023 Refill Department of Family Medicine in [place], [place] [address] [place] [address] Lashonda Velásquez APRN, C.N.P. Med Refill 11/13/2023 Refill Department of Family Medicine in [place], [place] [address] [place] [phone] Lashonda Velásquez APRN, C.N.P. Med Refill 11/06/2023 Refill Department of Family Medicine in [place], [place] [address] [place] [address] Lashonda Velásquez APRN, C.N.P. Med Refill 10/24/2023 Refill Department of Family Medicine in [place], [place] [address] [place] [address] Lashonda Velásquez APRN, C.N.P. Med Refill from Last 3 Months Allergies No known [...] daily. Do not crush or chew. Active Sample6uch Ultra Test Strips USE ONE STRIP TO [...] 05/28/2016 fo >70 percent stenosis. Followed by [facility] vascular surgery. 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 Overview: [...] Therapeutic D rug Therapy [Z51.81] 06/18/2017 06/18/2017 [facility] Administrator Anticoagulant Treatment [Z79.01] 06/18/2017 08/26/2023 Other Specified [...] years or older) 01/31/2023(Deferred: Not available from selector packer),09/28/2020,09/07/2020 SARS-COV-2 (COVID-19) - PFIZ ER [id number] (12 YEARS OR OLDER) 05/06/2023 Td (Adult), [...] Answer Date Recorded PHQ-2 Score 0 08/06/2022 [facility] Occupat ional Health - Occupational Stress [...] LIPID PANEL, S Routine 08/06/2022 4:29 PM SIGNAL ENGINEER Dyslipidemia ALBUMIN, RANDOM, U Routine 03/19/2022 10 [...] CDT 01/31/2023 12:06 PM CDT Emily Renae APRNNIsabelP. LAB BLOOD A DD-ON [facility] [address] [place] [address], [facility] NPRG [facility] [address] [place] [address] * (ABNORMAL) Comprehensive Metabolic Panel (01/31/2023 11:40 [...] 11:40 AM CDT 01/31/2023 12:07 PM CDT Jean Renae APRN.N.P. LAB BLOOD A DD-ON [facility] [address] [place] [address], [facility] NPRG [facility] [address] [place] [address] * (ABNORMAL) Lipid Panel (08/06/2022 4:29 PM SIGNAL ENGINEER) Triglycerides 141 mg/dL 08/06/2022 7:29 PM SIGNAL ENGINEER NPRG Comment: ----REFERENCE VALUE---- Normal: <150 mg/dL Borderline High: 150-199 mg/dL High: 200-499 mg/dL Very High: > or =500 mg/dL Cholesterol, Total 123 mg/dL 2022 7:29 PM SIGNAL ENGINEER NPRG Comment: ----REFERENCE VALUE---- Desirable: < 200 mg/dL Borderline High: 200 - 239 mg/dL High: > or = 240 mg/dL Cholesterol, LDL, Calculated 60 mg/dL 08/06/2022 7:29 PM SIGNAL ENGINEER NPRG Comment: ----REFERENCE VALUE---- Desirable: <100 mg/dL Above Desirable: 100-129 mg/dL Borderline High: 130-159 mg/dL High: 160-189 mg/dL Very High: >=190 mg/dL ----ADDITIONAL INFORMATION---- LDL cholesterol calculated using the Islas/NIH equation. Cholesterol, HDL 38(L) >=40 mg/dL 08/06/19 7:29 PM SIGNAL ENGINEER NPRG Cholesterol, Non-HDL, Calculated 85 mg/dL 08/06/2022 7:29 PM SIGNAL ENGINEER NPRG Comment: ----REFERENCE VALUE---- Desirable: <130 mg/dL Above Desirable: 130-159 mg/dL Borderline High: 160-189 mg/dL High: 190-219 mg/dL Very High: > or =220 mg/dL Fasting (8 HR or more) Y 08/06/2022 6:58 PM SIGNAL ENGINEER NPRG Blood (Blood, Venous) 08/06/2022 4:29 PM SIGNAL ENGINEER 08/06/2022 6:58 PM SIGNAL ENGINEER Lashonda Velásquez APRN C.N.P. LAB BLOOD A DD-ON [facility] [address] [place] [address], [facility] NPRG [facility] [address] [place] [address] * (ABNORMAL) Albumin, Random, Urine (03/19/2022 10:44 AM CDT) Microalbumin 17.0 mg/L 03/19/2022 12:51 PM CDT NPRG Creatinine 88 mg/dL 03/19/2022 12:51 PM CDT NPRG Albumin/Creatinin e Ratio 19(H) <17 mg/g 03/19/2022 12:51 PM CDT NPRG Urine (Urine, Midstream) 03/19/2022 10:44 AM CDT 03/19/2022 12:12 PM CDT Emily Renae APRNNCalista LAB URINE O RDERABLES [facility] [address] [place] [address], [facility] NPRG [facility] [address] [place] [address] from Last 3 Months or Most Recently Relevant to Health Maintenance Advance Directives For more information, please contact: [phone] Documents on File Type Date Recorded 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 [phone] PCP - General 11/28/23
--- OUTSIDE RECORDS SUMMARY | 2023-12-21 16:26 | XMS_ITS | Encounter Summary ---
Author Organization [facility] Address [address] [place] [address] Care Team Providers Care Nurse Supervisor Name Role Phone Ruben Morelos M.D. Primary Care Provider Reason for Referral * Outpatient (Routine) - Authorized Specialty Diagnoses / Procedures Referred By Brian beckett Referred To Contact Family Medicine Chelsi Jimenez M.D. [address] [place] [address] [facility] Region Referral ID Status Reason Start Date Expiration Date V isits Requested Visits Authorized [id number] Authorized 11/28/2023 05/29/2025 1 1 Reason for Visit * Reason Comments Med Refill Encounter Details Date Type Department Care Team (Late st Contact Info) Description 11/27/2023 Refill Department of Family Medicine in [place], [place] [address] [place] [phone] Lashonda Velásquez APRN, C.N.P. Med Refill Social History Tobacco Use Types [...] * Telephone Encounter - Letitia Renee - 11/27/2023 4:19 PM CDT Existing Office visit order available for patient to schedule. 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 [address] [place] [phone] PCP - General 11/28/23 documented as of this encounter
--- OUTSIDE RECORDS SUMMARY | 2023-12-21 16:26 | XMS_ITS | Encounter Summary ---
Author Organization [facility] Address [address] [place] [address] Care Team Providers Care Cash Accounting Clerk Name Role Phone Lashonda Velásquez APRN, C.N.P. Primary Care Provi catalina Unavailable Reason for Visit * Reason Comments Med Refill Encounter Details Date Type Department Care Team (Late st Contact Info) Description 11/06/2023 Refill Department of Family Medicine in [place], [place] [address] [place] [phone] Lashonda Velásquez APRN, C.N.P. Med Refill Social [...] Answer Date Recorded PHQ-2 Score 0 08/06/2022 [facility] Occupat ional Health [...] Notes * Telephone Encounter - Johanna Bacon L.P.N. - 11/06/2023 12:57 PM CDT Existing Office Visit and Labs order(s) available for patient to schedule. documented in this encounter Plan of Treatment Not on file documented as of this encounter Visit Diagnoses Diagnosis Dyslipidemia documented in this encounter Additional Health Concerns Assessment Noted Time PHQ-9 Depression Total Score: 0 06/18/20 17 4:38 PM CARTON STAMPER documented as of this encounter Care Teams Cash Accounting Clerk Relationship Specialty Start Date End Date Lashonda Velásquez APRN, C.N.P. PCP - General Family Medicine 03/28/21 11/27/23 documented as of this encounter
--- OUTSIDE RECORDS SUMMARY | 2023-12-21 16:26 | XMS_ITS | Clinical Summary ---
Author Organization [facility] [employer] [facility] Address [place], [place] [address] Care Team Providers Care Day Care Teacher Name Role Phone Lashonda Velásquez INSEAM TRIMMER Primary Care Provider [phone] Allergies No known active allergies Medications Medication [...] warfarin (COUMADIN) 5 mg tablet 2.5mg on Fri/Fri; 5mg all other days 09/08/2018 Active hydroCHLOROthiazide [...] Type Department Care Team Description 10/13/2023 Telephone [facility] [address] [place], [place] [phone] Natalya Dumont MD Results (echocardiogram) 10/10/2023 2:00 PM CDT Ancillary Procedure [facility] [address] [place] [address] 10/10/2023 Travel from Last 3 Months Immunizations Name [...] T Respiratory Rate 16 05/29/2016 7:36 AM CONTRACTS ANALYST Oxygen Saturation 100% 09/19/2022 11:37 AM CDT Inhaled Oxygen Concentration - - Weight 81.6 kg (180 lb) 09/19/2022 11:37 AM CDT Height 170.2 cm (5' 7) 12/19/2021 2:45 PM CDT Body Mass Index 28.19 12/19/2021 2:45 PM CDT Plan of Treatment Upcoming Encounters Date Type Department Care Team (Late st Contact Info) Description 12/23/2023 11:30 AM CDT Office Visit [facility] [address] [place] [address] Nickolas Contreras MD [address] [place] [address] Health Maintenance Due Date Last Done Comments Pneumococcal series for age 65+ (1 of 2 - PCV) 1943 Tdap 1948 Depression screening for age 12+ 1949 Tetanus booster 1957 Zoster (shingles) series for age 50+ (1 of 2) 1987 Medicare Wellness for age 65+ 2002 BMI (ht and wt on same day) for age 18+ 12/19/2022 12/19/2021, 12/06/2020, 01/13/2019, Additional history exists COVID-19 vaccine series (2022-24 season) 2023 05/06/2023, 05/29/2022, 04/23/2021, Additional history exists Influenza for age 65+ 03/07/2024 05/06/2016, 015 Goals Goal Patient Goal Type Associated Problems Recent Progress Patient-Stated? Author BLOOD PRESSURE - MAINTAINS BP less than 140/90 Blood Pressure No Roman Ortega MD Medical Devices Implanted Type Area Bonderizer Operator Device Identifier Shelf Expiration Date Model / Serial / Lot Patch Vasc 0.8x8cm Xenosure Biological Pericardial - [id number] Implanted:Qty: 1 on 05/28/2016 by Chidi Valenzuela MD at [facility] Right: Carotid Artery [employer] 01/01/2019 [id number]# / / [id number] Procedures Procedure Name Priority Date/Time Associated Diagnosis [...] PM CDT ECHOCARDIOGRAM RYLEE TEJADA ?Accession#: ?? [id number] : ?1935 88 years Study Date: ?? 10/10/2023 2:04:22 PM Gender: M ? BP: ? 140/70 mmHg Height: 170.00 cm ? BSA: ?1.94 m? ? ? Weight: 82.00 kg ?Tech: ? NWA ?Referring MD: NATALYA DUMONT Site: ? [facility] Reading Location: Mobile-OP Patient Location: Outpatient. Procedure: [...] . This study was interpreted by an [facility] accredited facility. ??Final ?? Procedure Note Jackson Vargas MD - 10/10/2023 ECHOCARDIOGRAM RYLEE TEJADA : 1935 88 years Study Date: 10/10/2023 2:04:22 PM Gender: M BP: 140/70 mmHg Height: 170.00 cm BSA: 1.94 m? ? ? Weight: 82.00 kg Tech: NWA Referring MD: NATALYA DUMONT Site: [facility] Reading Location: Mobile-OP Patient Location: Outpatient. Procedure: [...] . This study was interpreted by an [facility] accredited facility. Final Natalya Dumont MD ECHO [...] 5:56 AM 08/31/2015 10:11 AM Care Teams Day Care Teacher Relationship Specialty Start Date End Date Lashonda Velásquez NP [address] [place] [phone] PCP - General Nurse Practitioner 03/28/22
--- OUTSIDE RECORDS SUMMARY | 2023-12-21 16:26 | XMS_ITS | Continuity of Care Document ---
Author Name [facility] Organization [facility] Care Team Providers Care Life Scientists Name Role Phone [facility] Unavailable Unavailable Problems Combined list of problems from Department of Defense and Veterans Affairs facilities. It does not include entries that were removed or entered in error. Problem Status Onset Date Problem Type Date of Resolution Comments Source Diabetic complication Active Condition [facility] Hypertension * (ICD-9-CM 401.9) Active Condition [facility] Encounters Combined list of: 1) Encounters from Department of Veterans Affairs facilities going back up to thelast 18 months. 2) Encounters from the Department of [facility] facilities going back up to 280 months. Location Location Details Encounter Type Encounter Number Reason For Visit Attending Provider ADM Date DC Date Status Disposition Source [place] [facility] Outpatient Encounter [id number] 01/02 [facility] [place] [facility] Outpatient Encounter [id number] 02/03 [facility] [place] [facility] Outpatient Encounter [id number] 02/19 [facility] [place] [facility] Outpatient Encounter [id number] 05/28 [facility] [place] [facility] Outpatient Encounter [id number] 06/12 [facility] [place] [facility] Outpatient Encounter [id number] 08/11 [facility] Social History Combined list of available smoking, tobacco, and other social history from Department of Defense and Veterans Affairs facilities. Social History Type Response Date Comment Sourc e Tobacco smoking status NHIS FORMER TOBACCO USE <1Y 02/08/2013 [place] [facility]
--- OUTSIDE RECORDS SUMMARY | 2023-12-21 16:26 | XMS_ITS | Encounter Summary ---
Author Organization [facility] Address [address] [place] [address] Care Team Providers Care Senior Biostatistician Name Role Phone Ruben Morelos M.D. Primary Care Provider [phone] Encounter Details Date Type Department Care Team (Late st Contact Info) Description 12/09/2023 Orders Only [facility] P[facility] Ruben Conley M.D. [address] [place] [phone] Monitoring For Therapeutic Drug Therapy; Diabetes Mellitus [...] and Family Once a week 12/21/2018 Attends Worship Services More than 4 times per year [...] Answer Date Recorded PHQ-2 Score 0 08/06/2022 [facility] of Occupat ional Health - Occupational Stress [...] Type Priority Associated Diagnoses Orde r Schedule Basic Metabolic Panel Lab Routine Monitoring For Therapeutic Drug Therapy Expected: 12/23/2023, Expires: 06/06/2024 Hemoglobin A1c Lab Routine Diabetes Mellitus Type 2 With Diabetic Nephropathy (HCC) Expected: 12/23/2023, Expires: 06/06/2024 documented as of this encounter Visit Diagnoses Diagnosis Monitoring For Therapeutic Drug Therapy Diabetes Mellitus Type 2 With Diabetic Nephropathy (HCC) documented in this encounter Additional Health Concerns Assessment Noted Time PHQ-9 Depression Total Score: 0 06/18/20 17 4:38 PM CANE FLUME WATCHMAN documented as of this encounter Care Teams Senior Biostatistician Relationship Specialty Start Date End Date Ruben Morelos M.D. [address] [place] [address] PCP - General 11/28/23 documented as of this encounter
--- OUTSIDE RECORDS SUMMARY | 2023-12-21 16:26 | XMS_ITS | Encounter Summary ---
Author Organization [facility] Address [address] [place] [address] Care Team Providers Care Centerless Grinder Name Role Phone Lashonda Velásquez APRN, C.N.P. Primary Care Provi catalina Unavailable Reason for Visit * Reason Comments Med Refill Encounter Details Date Type Department Care Team (Late st Contact Info) Description 10/24/2023 Refill Department of Family Medicine in [place], [place] [address] [place] [phone] Lashonda Velásquez APRN, C.N.P. Med Refill Social [...] and Family Once a week 12/21/2018 Attends [employer] Services More than 4 times per year [...] Type Provider Dept 01/31/23 Office Visit Lashonda Velásquez, JOSSIE, C.N.P. [facility] Showing recent visits within past [...] Total Score: 0 06/18/20 17 4:38 PM CAMPUS ADMINISTRATIVE ASSISTANT documented as of this encounter Care Teams Centerless Grinder Relationship Specialty Start Date End Date Lashonda Velásquez APRN, C.N.P. PCP - General Family Medicine 03/28/21 11/27/23 documented as of this encounter
--- OUTSIDE RECORDS SUMMARY | 2023-12-21 16:26 | XMS_ITS | Encounter Summary ---
Author Organization [facility] Address [address] [place] [address] Care Team Providers Care Ur Coordinator Name Role Phone Lashonda Velásquez APRN, C.N.P. Primary Care Provi catalina Unavailable Reason for Visit * Reason Comments Med Refill Encounter Details Date Type Department Care Team (Late st Contact Info) Description 11/13/2023 Refill Department of Family Medicine in [place], [place] [address] [place] [phone] Lashonda Velásquez APRN, C.N.P. Med Refill Social [...] and Family Once a week 12/21/2018 Attends Baptism Services More than 4 times per year [...] Answer Date Recorded PHQ-2 Score 0 08/06/2022 [facility] of Occupat ional Health - Occupational [...] * Telephone Encounter - Daphne Damon - 11/13/2023 1:48 PM CDT Recent Visits Date Type Provider Dept 01/31/23 Office Visit Lashonda Velásquez, JOSSIE, C.N.P. [facility] Showing recent visits within past 365 days with a meds authorizing provider and meeting all other requirements Future Appointments No visits were found meeting these conditions. Showing future appointments within next 90 days with a meds authorizing provider and meeting all other requirements Existing Office visit order available for patient to schedule. 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 PCP - General Family Medicine 03/28/21 11/27/23 documented as of this encounter
--- OUTSIDE RECORDS SUMMARY | 2023-12-21 16:26 | XMS_ITS ---
Author Organization [facility] Address [address] [place] [address] Care Team Providers Care General Passenger Agent Name Role Phone Unavailable Unavailable Unavailable Surgery Details Not on file Complications Check Surgery Details section. Procedure Estimated Blood Loss Check Surgery Details section. Procedure Findings Check Surgery Details section. Procedure Specimens Taken Check Surgery Details section.
== END 2023-12-17 13:34 | disposition home or self-care (01) ==
LOC: NFLDREF 12-21 16:23
PROVIDERS: PCP Internal Medicine; Referring Provider Internal Medicine; Visit Provider Internal Medicine
DX: D68.59 Other primary thrombophilia (principal); I48.0 Paroxysmal atrial fibrillation; Z79.01 Long term (current) use of anticoagulants
CPT/HCPCS: 85610

== ENCOUNTER 2023-12-31 11:00 | Outpatient (CLI) | payer MEDICARE, SELFPAY ==
--- OUTSIDE RECORDS SUMMARY | 2024-01-02 09:32 | XMS_ITS | Encounter Summary ---
Author Organization [facility] Address [address] [place] [address] Care Team Providers Care Coremaker Bench Name Role Phone Ruben Morelos M.D. Primary Care Provider [phone] Reason for Referral * Outpatient (Routine) - Authorized Specialty Diagnoses / Procedures Referred By Brian beckett Referred To Contact Family Medicine Chelsi Jimenez M.D. [address] [place] [address] [facility] Referral ID Status Reason Start Date Expiration Date V isits Requested Visits Authorized [id number] Authorized 11/28/2023 05/29/2025 1 1 Reason for Visit * Reason Comments Med Refill Encounter Details Date Type Department Care Team (Late st Contact Info) Description 11/27/2023 Refill Department of Family Medicine in [place], [place] [address] [place] [phone] Lashonda Velásquez APRN, C.N.P. Med Refill Social [...] and Family Once a week 12/21/2018 Attends Restorationism Services More than 4 times per year [...] Date Recorded PHQ-2 Score 0 08/06/2022 [facility] of Occupat ional Health [...] Total Score: 0 06/18/20 17 4:38 PM INTEGRITY SPECIALIST documented as of this encounter Care Teams Coremaker Bench Relationship Specialty Start Date End Date Ruben Morelos M.D. [address] [place] [phone] PCP - General 11/28/23 documented as of this encounter
--- OUTSIDE RECORDS SUMMARY | 2024-01-02 09:32 | XMS_ITS | Encounter Summary ---
Author Organization [facility] Address [address] [place] [address] Care Team Providers Care Bean Dumper Name Role Phone Lashonda Velásquez APRN, C.N.P. Primary Care Provi catalina Unavailable Reason for Visit * Reason Comments Med Refill Encounter Details Date Type Department Care Team (Late st Contact Info) Description 11/13/2023 Refill Department of Family Medicine in [place], [place] [address] [place] [phone] Lashonda Velásquez APRN, C.N.P. Med Refill Social [...] and Family Once a week 12/21/2018 Attends Tenriism Services More than 4 times per year [...] Answer Date Recorded PHQ-2 Score 0 08/06/2022 [facility] of Occupat ional Health - Occupational [...] Total Score: 0 06/18/20 17 4:38 PM ROOFER HELPER VINYL COATING documented as of this encounter Care Teams Bean Dumper Relationship Specialty Start Date End Date Lashonda Velásquez APRN, C.N.P. PCP - General Family Medicine 03/28/21 11/27/23 documented as of this encounter
--- OUTSIDE RECORDS SUMMARY | 2024-01-02 09:32 | XMS_ITS | Encounter Summary ---
Author Organization [facility] Address [address] [place] [address] Care Team Providers Care Shuttleless Loom Weaver Name Role Phone Lashonda Velásquez APRN, C.N.P. Primary Care Provi catalina Unavailable Reason for Visit * Reason Comments Med Refill Encounter Details Date Type Department Care Team (Late st Contact Info) Description 11/06/2023 Refill Department of Family Medicine in [place], [place] [address] [place] [phone] Lashonda Velásquez APRN, C.N.P. Med Refill Social [...] and Family Once a week 12/21/2018 Attends Sikh Services More than 4 times per year [...] Answer Date Recorded PHQ-2 Score 0 08/06/2022 [facility] of Occupat ional Health - [...] Total Score: 0 06/18/20 17 4:38 PM HEAT WELDER PLASTICS documented as of this encounter Care Teams Shuttleless Loom Weaver Relationship Specialty Start Date End Date Lashonda Velásquez APRN, C.N.P. PCP - General Family Medicine 03/28/21 11/27/23 documented as of this encounter
--- OUTSIDE RECORDS SUMMARY | 2024-01-02 09:32 | XMS_ITS | Referral Summary ---
Author Organization [facility] Address [address] [place] [address] Care Team Providers Care Sand Slinger Operator Name Role Phone Ruben Morelos M.D. Primary Care Provider [phone] Source Comments Patient records contain information from all sites at [facility]. For routine questions regarding patient records, call [phone] during business hours, M-F 8:00 AM - 5:00 PM Central Time. Record requests for emergency care only can be directed to [phone] at any time.[facility] Encounters Date Type Department Care Team Description 12/09/2023 Orders Only [facility] Ruben Conley M.D. Monitoring For Therapeutic Drug Therapy; Diabetes Mellitus Type 2 With Diabetic Nephropathy (HCC) 11/27/2023 Refill Department of Family Medicine in [place], [place] [address] [place] [phone] Lashonda Velásquez APRN, C.N.P. Med Refill 11/13/2023 Refill Department of Family Medicine in [place], [place] [address] [place] [phone] Lashonda Velásquez APRN, C.N.P. Med Refill 11/06/2023 Refill Department of Family Medicine in [place], [place] [address] [place] [address] Lashonda Velásquez APRN, C.N.P. Med Refill 10/24/2023 Refill Department of Family Medicine in [place], [place] [address] [place] [address] Lashonda Velásquez APRN, C.N.P. Med Refill from [...] taking.Reported on 01/31/2023 amLODIPine (NORVASC) 5 mg tabletIndications:H ypertension And [...] daily. Do not crush or chew. 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 (HCC) TAKE TWO TABLETS BY MOUTH TWICE A DAY WITH FOOD 360 tablet 3 04/02/2023 Active levothyroxine (SYNTHROID, LEVOTHROID) 25 mcg tabletIndications:A trial Fibrillation Unspecified (HCC) take 1 and 1/2 tablets by mouth every day 135 tablet 10/29/2023 Active atorvastatin (LIPITOR) 40 mg tabletIndications:D yslipidemia take one tablet by mouth once daily 90 tablet 11/07/2023 Active hydroCHLOROthiazide 12.5 mg tabletIndications:H 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 Patient needs Office Visit for further refills. 90 tablet 11/28/2023 Active metoprolol succinate (TOPROL-XL) 100 mg 24 hr tablet Take 1 tablet (100 mg total) by mouth daily. Patient needs Office Visit for further refills. 90 tablet 11/28/2023 Active Active Problems Problem Noted Date Diagnosed [...] 05/28/2016 fo >70 percent stenosis. Followed by [facility] vascular surgery. 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 Overview: [...] Therapeutic D rug Therapy [Z51.81] 06/18/2017 06/18/2017 Seed Potato Cutter Anticoagulant Treatment [Z79.01] 06/18/2017 08/26/2023 Other Specified [...] years or older) 01/31/2023(Deferred: Not available from lab head),09/28/2020,09/07/2020 SARS-COV-2 (COVID-19) - PFIZ ER [id number] (12 YEARS OR OLDER) 05/06/2023 Td (Adult), [...] Answer Date Recorded PHQ-2 Score 0 08/06/2022 [facility] [place] of Occupat ional Health - Occupational Stress [...] LIPID PANEL, S Routine 08/06/2022 4:29 PM DIETITIAN CHIEF Dyslipidemia ALBUMIN, RANDOM, U Routine 03/19/2022 10 [...] CDT 01/31/2023 12:06 PM CDT Emily Renae APRNNCalista LAB BLOOD A DD-ON [facility] [address] [place] [address], [facility] NPRG [facility] [address] [place] [address] * (ABNORMAL) Comprehensive Metabolic Panel (01/31/2023 11:40 [...] Velásquez APRN, C.N.P. LAB BLOOD A DD-ON [facility] [address] [place] [address], [facility] NPRG [facility] [address] [place] [address] * (ABNORMAL) Lipid Panel (08/06/2022 4:29 PM DIETITIAN CHIEF) Triglycerides 141 mg/dL 08/06/2022 7:29 PM DIETITIAN CHIEF NPRG Comment: ----REFERENCE VALUE---- Normal: <150 mg/dL Borderline High: 150-199 mg/dL High: 200-499 mg/dL Very High: > or =500 mg/dL Cholesterol, Total 123 mg/dL 2022 7:29 PM DIETITIAN CHIEF NPRG Comment: ----REFERENCE VALUE---- Desirable: < 200 mg/dL Borderline High: 200 - 239 mg/dL High: > or = 240 mg/dL Cholesterol, LDL, Calculated 60 mg/dL 08/06/2022 7:29 PM DIETITIAN CHIEF NPRG Comment: ----REFERENCE VALUE---- Desirable: <100 mg/dL Above Desirable: 100-129 mg/dL Borderline High: 130-159 mg/dL High: 160-189 mg/dL Very High: >=190 mg/dL ----ADDITIONAL INFORMATION---- LDL cholesterol calculated using the Islas/NIH equation. Cholesterol, HDL 38(L) >=40 mg/dL 08/06/19 7:29 PM DIETITIAN CHIEF NPRG Cholesterol, Non-HDL, Calculated 85 mg/dL 08/06/2022 7:29 PM DIETITIAN CHIEF NPRG Comment: ----REFERENCE VALUE---- Desirable: <130 mg/dL Above Desirable: 130-159 mg/dL Borderline High: 160-189 mg/dL High: 190-219 mg/dL Very High: > or =220 mg/dL Fasting (8 HR or more) Y 08/06/2022 6:58 PM DIETITIAN CHIEF NPRG Blood (Blood, Venous) 08/06/2022 4:29 PM DIETITIAN CHIEF 08/06/2022 6:58 PM DIETITIAN CHIEF Lashonda Velásquez APRN, C.N.PIsabel LAB BLOOD A DD-ON [facility] [address] [place] [address], [facility] NPRG [facility] [address] [place] [address] * (ABNORMAL) Albumin, Random, Urine (03/19/2022 10:44 AM CDT) Microalbumin 17.0 mg/L 03/19/2022 12:51 PM CDT NPRG Creatinine 88 mg/dL 03/19/2022 12:51 PM CDT NPRG Albumin/Creatinin e Ratio 19(H) <17 mg/g 03/19/2022 12:51 PM CDT NPRG Urine (Urine, Midstream) 03/19/2022 10:44 AM CDT 03/19/2022 12:12 PM CDT Emily Renae APRNNCalista LAB URINE O RDERABLES [facility] [address] [place] [address], [place] NPRG [facility] [address] [place] [address] from Last 3 Months or Most Recently Relevant to Health Maintenance Advance Directives For more information, please contact: [phone] Documents on File Type Date Recorded Patient Hunter Skin Diver Expl anation Advance Directives 06/04/2018 1:25 PM * DNR/DNI (Latest Code Status on File) Date Activated Date Inactivated Comments 12/19/2019 3:45 PM 03/24/2021 10:20 AM Healthcare Agents on File Name Relationship Healthcare Agent [facility] p Communication Michelle Tejada Spouse Health Care Agent Rip Tejada First Alternate Health Care Agent Juanitajorden Howard First [place] Health Care Agent Care Teams Sand Slinger Operator Relationship Specialty Start Date End Date Ruben Morelos M.D. ARNOL: [id number] [place] [address] PCP - General 11/28/23
--- OUTSIDE RECORDS SUMMARY | 2024-01-02 09:32 | XMS_ITS | Encounter Summary ---
Author Organization [facility] Address [address] [place] [address] Care Team Providers Care Mixer Lever Operator Name Role Phone Ruben Morelos M.D. Primary Care Provider [phone] Encounter Details Date Type Department Care Team (Late st Contact Info) Description 12/09/2023 Orders Only [facility] Ruben Conley M.D. [address] [place] [phone] Monitoring For Therapeutic Drug Therapy; Diabetes Mellitus [...] Answer Date Recorded PHQ-2 Score 0 08/06/2022 [facility] [place] of Occupat ional Health - Occupational Stress [...] Total Score: 0 06/18/20 17 4:38 PM RECONCILIATION MACHINE OPERATOR documented as of this encounter Care Teams Mixer Lever Operator Relationship Specialty Start Date End Date Ruben Morelos M.D. [address] [facility] [place] [address] PCP - General 11/28/23 documented as of this encounter
--- OUTSIDE RECORDS SUMMARY | 2024-01-02 09:32 | XMS_ITS | Clinical Summary ---
Author Organization [facility] Address [address] [place] [address] Care Team Providers Care Tarper Name Role Phone Ruben Morelos M.D. Primary Care Provider [phone] Source Comments Patient records contain information from all sites at [facility]. For routine questions regarding patient records, call [phone] during business hours, M-F 8:00 AM - 5:00 PM Central Time. Record requests for emergency care only can be directed to [phone] at any time.[facility] Allergies No known active allergies Medications Medication [...] daily. Do not crush or chew. Active [employer] Ultra Test Strips USE ONE STRIP TO [...] 05/28/2016 fo >70 percent stenosis. [facility]ed by [facility] vascular surgery. 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 Med Refill 11/13/2023 Refill Department of Family Medicine in [place] [address] [place] [address] Lashonda Velásquez APRN, C.N.P. Med Refill 11/06/2023 Refill Department of Family Medicine in [place] [address] [place] [address] Lashonda Velásquez APRN, C.N.P. Med Refill 10/24/2023 Refill Department of Family Medicine in [place] [address] [place] [address] Lashonda Velásquez APRN, C.N.P. Med Refill from [...] years or older) 01/31/2023(Deferred: Not available from accounting recruiter),09/28/2020,09/07/2020 SARS-COV-2 (COVID-19) - PFIZ ER [id number] (12 YEARS OR OLDER) 05/06/2023 Td (Adult), [...] and Family Once a week 12/21/2018 Attends Mandaen Services More than 4 times per year [...] Date Recorded PHQ-2 Score 0 08/06/2022 [facility] of Occupat ional Health - Occupational Stress [...] LIPID PANEL, S Routine 08/06/2022 4:29 PM RAIL SIGNAL DESIGNER Dyslipidemia ALBUMIN, RANDOM, U Routine 03/19/2022 10 [...] Velásquez APRN C.N.P. LAB BLOOD A DD-ON [facility] [address] [place] [address], [place] NPRG [facility] [address] [place] [address] * (ABNORMAL) Comprehensive Metabolic Panel (01/31/2023 11:40 [...] Velásquez APRN, C.N.P. LAB BLOOD A DD-ON [facility] [address] [place] [address], [facility] NPRG [facility] [address] [place] [address] * (ABNORMAL) Lipid Panel (08/06/2022 4:29 PM RAIL SIGNAL DESIGNER) Triglycerides 141 mg/dL 08/06/2022 7:29 PM RAIL SIGNAL DESIGNER NPRG Comment: ----REFERENCE VALUE---- Normal: <150 mg/dL Borderline High: 150-199 mg/dL High: 200-499 mg/dL Very High: > or =500 mg/dL Cholesterol, Total 123 mg/dL 2022 7:29 PM RAIL SIGNAL DESIGNER NPRG Comment: ----REFERENCE VALUE---- Desirable: < 200 mg/dL Borderline High: 200 - 239 mg/dL High: > or = 240 mg/dL Cholesterol, LDL, Calculated 60 mg/dL 08/06/2022 7:29 PM RAIL SIGNAL DESIGNER NPRG Comment: ----REFERENCE VALUE---- Desirable: <100 mg/dL Above Desirable: 100-129 mg/dL Borderline High: 130-159 mg/dL High: 160-189 mg/dL Very High: >=190 mg/dL ----ADDITIONAL INFORMATION---- LDL cholesterol calculated using the Islas/NIH equation. Cholesterol, HDL 38(L) >=40 mg/dL 08/06/19 7:29 PM RAIL SIGNAL DESIGNER NPRG Cholesterol, Non-HDL, Calculated 85 mg/dL 08/06/2022 7:29 PM RAIL SIGNAL DESIGNER NPRG Comment: ----REFERENCE VALUE---- Desirable: <130 mg/dL Above Desirable: 130-159 mg/dL Borderline High: 160-189 mg/dL High: 190-219 mg/dL Very High: > or =220 mg/dL Fasting (8 HR or more) Y 08/06/2022 6:58 PM RAIL SIGNAL DESIGNER NPRG Blood (Blood, Venous) 08/06/2022 4:29 PM RAIL SIGNAL DESIGNER 08/06/2022 6:58 PM RAIL SIGNAL DESIGNER Lashonda Velásquez APRN, C.N.P. LAB BLOOD A DD-ON Performing Organization Address City/[facility] Co de Phone Number [facility] [address] [place] [address], [facility] [place] [address] [place] [address] * (ABNORMAL) Albumin, Random, Urine (03/19/2022 10:44 AM CDT) Microalbumin 17.0 mg/L 03/19/2022 12:51 PM CDT NPRG Creatinine 88 mg/dL 03/19/2022 12:51 PM CDT NPRG Albumin/Creatinin e Ratio 19(H) <17 mg/g 03/19/2022 12:51 PM CDT NPRG Urine (Urine, Midstream) 03/19/2022 10:44 AM CDT 03/19/2022 12:12 PM CDT Lashonda Velásquez APRN, C.N.P. LAB URINE O RDERABLES Performing Organization Address City/[facility] Co de Phone Number [facility] [address] [place] [address], [facility] [place] [address] [address] [place] [address] from Last 3 Months or Most Recently Relevant to Health Maintenance Advance Directives For more information, please contact: [phone] Documents on File Type Date Recorded Patient Item Processor Expl anation Advance Directives 06/04/2018 1:25 PM * DNR/DNI (Latest Code Status on File) Date Activated Date Inactivated Comments 12/19/2019 3:45 PM 03/24/2021 10:20 AM Healthcare Agents on File Name Relationship Healthcare Agent Relationshi p Communication Michelle Tejada Spouse Health Care Agent Rip Tejada First Alternate Health Care Agent Juanita Howard First Alterna te Health Care Agent Care Teams Tarper Relationship Specialty Start Date End Date [place] [address] PCP - General 11/28/23
--- OUTSIDE RECORDS SUMMARY | 2024-01-02 09:32 | XMS_ITS ---
Author Organization [facility] Address [address] [place] [address] Care Team Providers Care Group Account Director Name Role Phone Unavailable Unavailable Unavailable Surgery Details Not on file Complications Check Surgery Details section. Procedure Estimated Blood Loss Check Surgery Details section. Procedure Findings Check Surgery Details section. Procedure Specimens Taken Check Surgery Details section.
--- OUTSIDE RECORDS SUMMARY | 2024-01-02 09:33 | XMS_ITS | Continuity of Care Document ---
Author Name DOD-NH Organization [facility] Care Team Providers Care Trust Vault Clerk Name Role Phone DOD-NH Unavailable Unavailable Problems Combined list of problems from Department of Defense and Veterans Affairs facilities. It does not include entries that were removed or entered in error. Problem Status Onset Date Problem Type Date of Resolution Comments Source Diabetic complication Active Condition [facility] Hypertension * (ICD-9-CM 401.9) Active Condition [facility] Encounters Combined list of: 1) Encounters from Department of Veterans Affairs facilities going back up to thelast 18 months. 2) Encounters from the Department of [facility] facilities going back up to 280 months. Location Location Details Encounter Type Encounter Number Reason For Visit Attending Provider ADM Date DC Date Status Disposition Source [place] [facility] Outpatient Encounter [id number] 01/02 [facility] [place] [facility] Outpatient Encounter [id number] 02/03 [place] [facility] [place] [facility] Outpatient Encounter [id number] 02/19 [place] [facility] [place] [facility] Outpatient Encounter [id number] 05/28 [facility] [place] [facility] Outpatient Encounter [id number] 06/12 [place] [facility] [place] [facility] Outpatient Encounter [id number] 08/11 [facility] Social History Combined list of available smoking, tobacco, and other social history from Department of Defense and Veterans Affairs facilities. Social History Type Response Date Comment Sourc e Tobacco smoking status NHIS FORMER TOBACCO USE <1Y 02/08/2013 [place] [facility]
--- OUTSIDE RECORDS SUMMARY | 2024-01-02 09:33 | XMS_ITS | Clinical Summary ---
Author Organization [facility] Address [place], [place] [address] Care Team Providers Care Parachute Line Tier Name Role Phone Pao Nguyen MD Primary Care Provider [phone] Allergies No known active allergies Medications Medication [...] Encounters Date Type Department Care Team Description 12/23/2023 11:30 AM CDT Office Visit [facility] [address] [place] [phone] Nickolas Contreras MD Follow Up (Review- echo result) 12/23/2023 Travel 10/13/2023 Telephone [facility] [address] [place], [place] [phone] Natalya Dumont MD Results (echocardiogram) 10/10/2023 2:00 PM CDT Ancillary Procedure [facility] [address] [place] [phone] 10/10/2023 Travel from Last 3 Months Immunizations [...] Sign Reading Time Taken Comments Blood Pressure 120/68 12/23/2023 11:29 AM CDT Pulse 66 12/23/2023 11:29 AM CDT Temperature 36.7 ??C (98.1 ??F) 05/29/2016 7:36 AM CS T Respiratory Rate 16 05/29/2016 7:36 AM BLANCHARD GRINDER OPERATOR Oxygen Saturation 100% 12/23/2023 11:29 AM CDT Inhaled Oxygen Concentration - - Weight 84.4 kg (186 lb) 12/23/2023 11:29 AM CDT Height 170.2 cm (5' 7) 12/19/2021 2:45 PM CDT Body Mass Index 29.13 12/19/2021 2:45 PM CDT Plan of Treatment Health Maintenance Due [...] 01/13/2019, Additional history exists COVID-19 vaccine series ( season) 2023 05/06/2023, 09/28/2020, 09/07/2020 Influenza for age 65+ 03/07/2024 05/06/2016, 015 Goals Goal Patient Goal Type Associated Problems Recent Progress Patient-Stated? Author BLOOD PRESSURE - MAINTAINS BP less than 140/90 Blood Pressure No Roman Ortega MD Medical Devices Implanted Type Area Entry Level Sales Representative Device Identifier Shelf Expiration Date Model / Serial / Lot Patch Vasc 0.8x8cm Xenosure Biological Pericardial - [id number] Implanted:Qty: 1 on 05/28/2016 by Chidi Valenzuela MD at [facility] Right: Carotid Artery [employer] 01/01/2019 0.8P8# / / [id number] Procedures Procedure Name Priority Date/Time Associated Diagnosis [...] Narrative 10/10/2023 2:29 PM CDT ECHOCARDIOGRAM RYLEE BERNARD ?Accession#: ?? [id number] : ?1935 88 years Study Date: ?? 10/10/2023 2:04:22 PM Gender: M ? BP: ? 140/70 mmHg Height: 170.00 cm ? BSA: ?1.94 m? ? ? Weight: 82.00 kg ?Tech: ? NWA ?Referring MD: NATALYA DUMONT Site: ? [facility] Reading Location: Mobile-OP Patient Location: Outpatient. Procedure: [...] . This study was interpreted by an [facility] accredited facility. ??Final ?? Procedure Note aJckson Vargas MD - 10/10/2023 ECHOCARDIOGRAM RYLEE BERNARD : 1935 88 years Study Date: 10/10/2023 2:04:22 PM Gender: M BP: 140/70 mmHg Height: 170.00 cm BSA: 1.94 m? ? ? Weight: 82.00 kg Tech: NWA Referring MD: NATALYA DUMONT Site: [facility] Reading Location: Mobile-OP Patient Location: Outpatient. Procedure: [...] . This study was interpreted by an [facility] accredited facility. Final Natalya Dumont MD ECHO [...] 5:56 AM 08/31/2015 10:11 AM Care Teams Parachute Line Tier Relationship Specialty Start Date End Date Pao Nguyen MD [address] [place] [address] PCP - General Internal Medicine 12/23/23
--- OUTSIDE RECORDS SUMMARY | 2024-01-02 09:33 | XMS_ITS | Encounter Summary ---
Author Organization [facility] Address [address] [place] [address] Care Team Providers Care Hospice Volunteer Name Role Phone Lashonda Velásquez APRN, C.N.P. Primary Care Provi catalina Unavailable Reason for Visit * Reason Comments Med Refill Encounter Details Date Type Department Care Team (Late st Contact Info) Description 10/24/2023 Refill Department of Family Medicine in [place], [place] [address] [place] [phone] Lashonda Velásquez APRN, C.N.P. Med Refill Social [...] 01/31/23 Office Visit Lashonda Velásquez, JOSSIE, C.N.P. [facility] Showing recent visits within past [...] Total Score: 0 06/18/20 17 4:38 PM BROKERAGE MANAGER documented as of this encounter Care Teams Hospice Volunteer Relationship Specialty Start Date End Date Lashonda Velásquez APRN, C.N.P. PCP - General Family Medicine 03/28/21 11/27/23 documented as of this encounter
== END 2023-12-31 11:01 | disposition home or self-care (01) ==
LOC: NFLDREF 01-02 09:30
PROVIDERS: PCP Internal Medicine; Referring Provider Internal Medicine; Visit Provider Internal Medicine
DX: Z79.01 Long term (current) use of anticoagulants (principal)
CPT/HCPCS: 85610

== ENCOUNTER 2024-03-05 11:04 | Outpatient (CLI) | payer MEDICARE, SELFPAY ==
--- OUTSIDE RECORDS SUMMARY | 2024-03-07 07:38 | XMS_ITS | Clinical Summary ---
Author Organization [facility] Address [address] [place] [address] Care Team Providers Care Basket Hand Braider Name Role Phone Ruben Morelos M.D. Primary Care Provider [phone] Source Comments Patient records contain information from all sites at [facility]. For routine questions regarding patient records, call [phone] during business hours, M-F 8:00 AM - 5:00 PM Central Time. Record requests for emergency care only can be directed to [phone] at any time.[facility] Allergies No known active allergies Medications Medication [...] Additional Information Patient not taking.Reported on 01/31/2023 metoprolol succinate (TOPROL-XL) 100 mg 24 hr [...] daily. Do not crush or chew. 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 90 tablet 11/28/2023 Active levothyroxine 25 mcg tabletIndications:A trial Fibrillation Unspecified (HCC) take 1 and 1/2 tablets by mouth every day 135 tablet 01/26/2024 Active amLODIPine (Norvasc) 5 mg tabletIndications:H ypertension And Chronic Kidney Disease Stage 2 take one tablet by mouth once daily 90 tablet 01/26/2024 Active Active Problems Problem Noted Date Diagnosed Date Loss Hearing Sensorineural Bilateral 08/03/2021 Arthritis Knee Left 03/27/2020 Diabetes Mellitus Type 2 With Diabetic Nephropat hy 12/21/2018 Diabetes Mellitus Type 2 Wit h Diabetic Chronic Kidney Disease 12/21/2018 Chronic Kidney Disease (CKD) , Stage 3a Glomerular Filtration Rate (GFR) 45 To 59 12/21/2018 History Of Falling 09/22/2018 Stenosis Carotid Artery Right 06/18/2017 Overview (06/26/2020): Fully occluded left carotid. Status post right carotid endarterectomy 05/28/2016 fo >70 percent stenosis. Followed by [facility] vascular surgery. Dyslipidemia 06/18/2017 Smoking Tobacco Use Personal History 06/18/2017 Loss Hearing 06/18/2017 Hypothyroidism 06/18/2017 Atrial Fibrillation Paroxysmal 09/13/2015 Atherosclerotic Heart Diseas e Of [place] Coronary Artery Without Angina Pectoris 09/13/2015 Overview (06/18/2017): -Stress Myoview 08/03/2015 Medium sized area of mild to moderate ischemia in the inferior and inferolateral elkins EF 60% Coronary Arterial Bypass Graft Status Post Perso nal History 09/01/2015 Overview (06/18/2017): 09/01/2015 Dr. Bone: Coronary artery bypass grafts x 2 with a graft from the left internal mammary artery to the 1st diagonal branch of theleft anterior descending and a saphenous vein graft from the aorta to the LAD ?? 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 Dermatitis Atopic 09/28/2009 Resolved Problems Problem Noted Date Diagnosed Date Resolved Date Obesity Body Mass Index 30-39.9 Adult 05/25/2018 12/18/2020 Microalbuminuria 05/24/2018 09/18/2018 Atrial Fibrillation Unspecified 01/06/2018 12/19/2019 Monitoring For Therapeutic D rug Therapy [Z51.81] 06/18/2017 06/18/2017 Managing Consultant Clinical Professor Anticoagulant Treatment [Z79.01] 06/18/2017 08/26/2023 Other Specified Abnormal Fin dings Of Blood Chemistry 06/18/2017 06/18/2017 Diabetes Mellitus Type 2 Diabetic Cataract 04/24/2017 06/18/2017 Other Specified Postprocedural States 05/28/2016 06/18/2017 Coronary Arterial Bypass Gra ft Status Post Personal History 09/13/2015 06/18/2017 Phimosis 07/05/2015 06/18/2017 Dermatitis Photocontact 01/29/201106/06 Diabetes Mellitus Type 2 09/28/2009 Overview (11/26/2016): Diabetes mellitus type II Encounters Date Type Department Care Team Description 01/24/2024 Refill Department of Family Medicine in [place], [place] [address] [place] [phone] Lashonda Velásquez, MACHINE HELPER, C.N.P. Med Refill 12/09/2023 Orders Only [facility] Ruben Morelos M.D. Monitoring For Therapeutic Drug Therapy; Diabetes [...] years or older) 01/31/2023(Deferred: Not available from vice provost),09/28/2020,09/07/2020 SARS-COV-2 (COVID-19) - PFIZ ER [id number] (12 YEARS OR OLDER) 05/06/2023 Td (Adult), [...] Answer Date Recorded PHQ-2 Score 0 08/06/2022 [facility] [place] of Occupat ional Health - Occupational Stress [...] of 3 - Risk 3-dose series) 1997 Diabetic Office Visit with F oot Exam [...] Chronic Disease, age 18+ 02/01/2024 , 08/06/2022 Influenza Vaccine (#1) 2024 , 07/05/2022, 04/17/2021, Additional history exists Dilated Eye Exam 06/18/2024 06/18/2023 (Per formed elsewhere), 07/09/2021 (Performed elsewhere), 11/02/2019 (Performed elsewhere), Additional history exists DTaP,Tdap,and Td Vaccines (3 - Td or Tdap) 03/24/2031 03/24/2021, 08/07/2011, 10/30/2007 Pneumococcal vaccine (65+ years) Completed 01/02/2015, 02/13/2012, 10/16/2006 Procedures Procedure Name Priority Date/Time Associated Diagnosis Comments HEMOGLOBIN A1C, B Routine 01/31/2023 11: 40 AM CDT Diabetes Mellitus Type 2 With Diabetic Chronic Kidney Disease (HCC) COMPREHENSIVE METABOLIC PANEL, S/P Routine 01/31/2023 11:40 AM CDT Post COVID-19 Condition Concussion No Loss Of Consciousness Subsequent Diabetes Mellitus Type 2 With Diabetic Chronic Kidney Disease (HCC) LIPID PANEL, S Routine 08/06/2022 4:29 PM OPERATIONS AND MAINTENANCE SPECIALIST Dyslipidemia ALBUMIN, RANDOM, U Routine 03/19/2022 10 [...] Emily Renae APRNNCalista LAB BLOOD A DD-ON [facility] [address] [place] [address], [facility] NPRG [facility] [address] [place] [address] * (ABNORMAL) Comprehensive Metabolic Panel (01/31/2023 11:40 [...] 01/31/2023 12:07 PM CDT Lashonda Velásquez APRN C.N.PIsabel LAB BLOOD A DD-ON [facility] [address] [place] [address], [place] NPRG [facility] [address] [place] [address] * (ABNORMAL) Lipid Panel (08/06/2022 4:29 PM OPERATIONS AND MAINTENANCE SPECIALIST) Triglycerides 141 mg/dL 08/06/2022 7:29 PM OPERATIONS AND MAINTENANCE SPECIALIST NPRG Comment: ----REFERENCE VALUE---- Normal: <150 mg/dL Borderline High: 150-199 mg/dL High: 200-499 mg/dL Very High: > or =500 mg/dL Cholesterol, Total 123 mg/dL 2022 7:29 PM OPERATIONS AND MAINTENANCE SPECIALIST NPRG Comment: ----REFERENCE VALUE---- Desirable: < 200 mg/dL Borderline High: 200 - 239 mg/dL High: > or = 240 mg/dL Cholesterol, LDL, Calculated 60 mg/dL 08/06/2022 7:29 PM OPERATIONS AND MAINTENANCE SPECIALIST NPRG Comment: ----REFERENCE VALUE---- Desirable: <100 mg/dL Above Desirable: 100-129 mg/dL Borderline High: 130-159 mg/dL High: 160-189 mg/dL Very High: >=190 mg/dL ----ADDITIONAL INFORMATION---- LDL cholesterol calculated using the Islas/NIH equation. Cholesterol, HDL 38(L) >=40 mg/dL 08/06/19 7:29 PM OPERATIONS AND MAINTENANCE SPECIALIST NPRG Cholesterol, Non-HDL, Calculated 85 mg/dL 08/06/2022 7:29 PM OPERATIONS AND MAINTENANCE SPECIALIST NPRG Comment: ----REFERENCE VALUE---- Desirable: <130 mg/dL Above Desirable: 130-159 mg/dL Borderline High: 160-189 mg/dL High: 190-219 mg/dL Very High: > or =220 mg/dL Fasting (8 HR or more) Y 08/06/2022 6:58 PM OPERATIONS AND MAINTENANCE SPECIALIST NPRG Blood (Blood, Venous) 08/06/2022 4:29 PM OPERATIONS AND MAINTENANCE SPECIALIST 08/06/2022 6:58 PM OPERATIONS AND MAINTENANCE SPECIALIST Lashonda Velásquez APRN C.N.PIsabel LAB BLOOD A DD-ON [facility] [address] [place] [address], [place] NPRG [facility] [address] [place] [address] * (ABNORMAL) Albumin, Random, Urine (03/19/2022 10:44 AM CDT) Microalbumin 17.0 mg/L 03/19/2022 12:51 PM CDT NPRG Creatinine 88 mg/dL 03/19/2022 12:51 PM CDT NPRG Albumin/Creatinin e Ratio 19(H) <17 mg/g 03/19/2022 12:51 PM CDT NPRG Urine (Urine, Midstream) 03/19/2022 10:44 AM CDT 03/19/2022 12:12 PM CDT Emily Renae APRNNIsabelPIsabel LAB URINE O RDERABLES [facility] [address] [place] [address], [place] NPRG [facility] [address] [place] [address] from Last 3 Months or Most Recently Relevant to Health Maintenance Advance Directives For more information, please contact: [phone] Documents on File Type Date Recorded Patient Helmet Hat Puncher Expl anation Advance Directives 06/04/2018 1:25 PM * DNR/DNI (Latest Code Status on File) Date Activated Date Inactivated Comments 12/19/2019 3:45 PM 03/24/2021 10:20 AM Healthcare Agents on File Name Relationship Healthcare Agent Relationshi p Communication Michelle Tejada Spouse Health Care Agent Rip Velasquez Alternate Health Care Agent Juanita Velasquez Alterna te Health Care Agent Care Teams Basket Hand Braider Relationship Specialty Start Date End Date Ruben Morelos M.D. ALFIEI: [id number] [place] [phone] [facility] - General 11/28/23
--- OUTSIDE RECORDS SUMMARY | 2024-03-07 07:39 | XMS_ITS ---
Author Organization [facility] Address [address] [place] [address] Care Team Providers Care Fire Code Inspector Name Role Phone Unavailable Unavailable Unavailable Surgery Details Not on file Complications Check Surgery Details section. Procedure Estimated Blood Loss Check Surgery Details section. Procedure Findings Check Surgery Details section. Procedure Specimens Taken Check Surgery Details section.
--- OUTSIDE RECORDS SUMMARY | 2024-03-07 07:39 | XMS_ITS | Encounter Summary ---
Author Organization [facility] Address [address] [place] [address] Care Team Providers Care Senior Interactive Developer Name Role Phone Ruben Morelos M.D. Primary Care Provider [phone] Encounter Details Date Type Department Care Team (Late st Contact Info) Description 12/09/2023 Orders Only [facility] Ruben Morelos M.D. [address] [place] [phone] Monitoring For Therapeutic Drug Therapy; Diabetes Mellitus [...] Answer Date Recorded PHQ-2 Score 0 08/06/2022 [facility] [place] of Occupat ional Health - Occupational Stress [...] Total Score: 0 06/18/20 17 4:38 PM FINANCIAL RISK MANAGER documented as of this encounter Care Teams Senior Interactive Developer Relationship Specialty Start Date End Date Ruben Morelos M.D. [address] [place] [address] PCP - General 11/28/23 documented as of this encounter
--- OUTSIDE RECORDS SUMMARY | 2024-03-07 07:39 | XMS_ITS | Encounter Summary ---
Author Organization [facility] Address [address] [place] [address] Care Team Providers Care Receiving Coordinator Name Role Phone Ruben Morelos M.D. Primary Care Provider [phone] Reason for Visit * Reason Comments Med Refill Encounter Details Date Type Department Care Team (Late st Contact Info) Description 01/24/2024 Refill Department of Family Medicine in [place], [place] [address] [place] [phone] Lashonda Velásquez, EXERCISE SCIENCE INTERNSHIP, C.N.P. Med Refill Social History Tobacco Use [...] * Telephone Encounter - Daphne Damon - 01/26/2024 12:23 PM CDT Lab Results Component Value Date TSH 3.8 08/06/2022 TSH lab order pended for you to approve Recent Visits Date Type Provider Dept 01/31/23 Office Visit Lashonda Velásquez, EXERCISE SCIENCE INTERNSHIP, C.N.P. [facility] Showing recent visits [...] Visit Diagnoses Diagnosis Atrial Fibrillation Unspecified (HCC) Hypertension And Chronic Kidney Disease Stage 2 documented in this encounter Additional Health Concerns Assessment Noted Time PHQ-9 Depression Total Score: 0 06/18/20 17 4:38 PM DIRECTOR OF RESTAURANTS documented as of this encounter Care Teams Receiving Coordinator Relationship Specialty Start Date End Date Ruben Morelos M.D. [address] [place] [phone] PCP - General 11/28/23 documented as of this encounter
--- OUTSIDE RECORDS SUMMARY | 2024-03-07 07:39 | XMS_ITS | Referral Summary ---
Author Organization [facility] Address [address] [place] [address] Care Team Providers Care Optical Glass Sawyer Name Role Phone Ruben Morelos M.D. Primary Care Provider [phone] Source Comments Patient records contain information from all sites at [facility]. For routine questions regarding patient records, call [phone] during business hours, M-F 8:00 AM - 5:00 PM Central Time. Record requests for emergency care only can be directed to [phone] at any time.[facility] Encounters Date Type Department Care Team Description 01/24/2024 Refill Department of Family Medicine in [place], [place] [address] [place] [phone] Lashonda Velásquez APRN, C.N.P. Med Refill 12/09/2023 Orders Only [facility] PCP TH [...] daily. Do not crush or chew. Active Airpowered Ultra Test Strips USE ONE STRIP TO [...] Paroxysmal 09/13/2015 Atherosclerotic Heart Diseas e Of [place] Coronary Artery Without Angina Pectoris 09/13/2015 Overview [...] Therapeutic D rug Therapy [Z51.81] 06/18/2017 06/18/2017 Skilled Nursing Anticoagulant Treatment [Z79.01] 06/18/2017 08/26/2023 Other Specified Abnormal Fin dings Of Blood Chemistry 06/18/2017 06/18/2017 Diabetes Mellitus Type 2 Diabetic Cataract 04/24/2017 06/18/2017 Other Specified Postprocedural States 05/28/2016 06/18/2017 Coronary Arterial Bypass Gra ft Status Post Personal History 09/13/2015 06/18/2017 Phimosis 07/05/2015 06/18/2017 Dermatitis Photocontact 01/29/201106/06 Diabetes Mellitus Type 2 09/28/2009 Overview (11/26/2016): Diabetes mellitus type II Immunizations Name Administration Dates Next Due HepB Adult 01/31/2023(Deferred: Patient Ref used) HepB, Unspecified 08/03/2021(Deferred: Other) Influenza high dose QV(65 ye ars or older) (PF) 05/06/2023,07/05/2022,04/17/2021,2019 Influenza, Seasonal, Injectable 07/21/2012 Influenza, Unspecified 05/02/2016,2014,05/26/2013,2012,04/17/2011,03/16/2010 PCV13 01/02/2015 PPSV23 02/13/2012,10/16/2006 RZV (SHINGRIX) 01/31/2023(Deferred: Patient Ref used) SARS-COV-2 (COVID-19) - PFIZ ER (Discontinued)(12 years or older) 01/31/2023(Deferred: Not available from general counsel),09/28/2020,09/07/2020 SARS-COV-2 (COVID-19) - PFIZ ER [id number] (12 YEARS OR OLDER) 05/06/2023 Td (Adult), [...] Answer Date Recorded PHQ-2 Score 0 08/06/2022 [facility] of Occupat ional Health - Occupational Stress [...] LIPID PANEL, S Routine 08/06/2022 4:29 PM REPAIRER SCREEN CRUSHER Dyslipidemia ALBUMIN, RANDOM, U Routine 03/19/2022 10 [...] Velásquez APRN, C.N.P. LAB BLOOD A DD-ON [facility] [address] [place] [address], [facility] NPRG [facility] [address] [place] [address] * (ABNORMAL) Comprehensive Metabolic Panel (01/31/2023 11:40 [...] 01/31/2023 12:07 PM CDT Lashonda Velásquez APRN CIsabelNCalista LAB BLOOD A DD-ON [facility] [address] [place] [address], [facility] NPRG [facility] [address] [place] [address] * (ABNORMAL) Lipid Panel (08/06/2022 4:29 PM REPAIRER SCREEN CRUSHER) Triglycerides 141 mg/dL 08/06/2022 7:29 PM REPAIRER SCREEN CRUSHER NPRG Comment: ----REFERENCE VALUE---- Normal: <150 mg/dL Borderline High: 150-199 mg/dL High: 200-499 mg/dL Very High: > or =500 mg/dL Cholesterol, Total 123 mg/dL 2022 7:29 PM REPAIRER SCREEN CRUSHER NPRG Comment: ----REFERENCE VALUE---- Desirable: < 200 mg/dL Borderline High: 200 - 239 mg/dL High: > or = 240 mg/dL Cholesterol, LDL, Calculated 60 mg/dL 08/06/2022 7:29 PM REPAIRER SCREEN CRUSHER NPRG Comment: ----REFERENCE VALUE---- Desirable: <100 mg/dL Above Desirable: 100-129 mg/dL Borderline High: 130-159 mg/dL High: 160-189 mg/dL Very High: >=190 mg/dL ----ADDITIONAL INFORMATION---- LDL cholesterol calculated using the Islas/NIH equation. Cholesterol, HDL 38(L) >=40 mg/dL 08/06/19 7:29 PM REPAIRER SCREEN CRUSHER NPRG Cholesterol, Non-HDL, Calculated 85 mg/dL 08/06/2022 7:29 PM REPAIRER SCREEN CRUSHER NPRG Comment: ----REFERENCE VALUE---- Desirable: <130 mg/dL Above Desirable: 130-159 mg/dL Borderline High: 160-189 mg/dL High: 190-219 mg/dL Very High: > or =220 mg/dL Fasting (8 HR or more) Y 08/06/2022 6:58 PM REPAIRER SCREEN CRUSHER NPRG Blood (Blood, Venous) 08/06/2022 4:29 PM REPAIRER SCREEN CRUSHER 08/06/2022 6:58 PM REPAIRER SCREEN CRUSHER Lashonda Velásquez APRN, C.N.P. LAB BLOOD A DD-ON Performing Organization Address City/State/[facility] Co de Phone Number [facility] [address] [place] [address], [facility] NPRG [place] [address] [place] [address] * (ABNORMAL) Albumin, Random, Urine (03/19/2022 10:44 AM CDT) Microalbumin 17.0 mg/L 03/19/2022 12:51 PM CDT NPRG Creatinine 88 mg/dL 03/19/2022 12:51 PM CDT NPRG Albumin/Creatinin e Ratio 19(H) <17 mg/g 03/19/2022 12:51 PM CDT NPRG Urine (Urine, Midstream) 03/19/2022 10:44 AM CDT 03/19/2022 12:12 PM CDT Lashonda Velásquez APRN C.N.P. LAB URINE O RDERABLES [facility] [address] [place] [address], [place] NPRG [facility] [address] [place] [address] from Last 3 Months or Most Recently Relevant to Health Maintenance Advance Directives For more information, please contact: [phone] Documents on File Type Date Recorded Patient Yarder Engineer Expl anation Advance Directives 06/04/2018 1:25 PM * DNR/DNI (Latest Code Status on File) Date Activated Date Inactivated Comments 12/19/2019 3:45 PM 03/24/2021 10:20 AM Healthcare Agents on File Name Relationship Healthcare Agent Relationshi p Communication Michelle Tejada Spouse Health Care Agent Rip Tejada First Alternate Health Care Agent Juanita Velasquez Alterna te Health Care Agent Care Teams Optical Glass Sawyer Relationship Specialty Start Date End Date Ruben Morelos M.D. [address] [place] [address] PCP - General 11/28/23
--- OUTSIDE RECORDS SUMMARY | 2024-03-07 07:39 | XMS_ITS | Encounter Summary ---
Author Organization [facility] Address [address] [place] [address] Care Team Providers Care Dairy Processing Supervisor Name Role Phone Ruben Morelos M.D. Primary Care Provider [phone] Reason for Referral * Outpatient (Routine) - Authorized Specialty Diagnoses / Procedures Referred By Brian t Referred To Contact Family Medicine Chelsi Jimenez M.D. [address] [place] [address] [facility] Region Referral ID Status Reason Start Date Expiration Date V isits Requested Visits Authorized [id number] Authorized 11/28/2023 05/29/2025 1 1 Reason for Visit * Reason Comments Med Refill Encounter Details Date Type Department Care Team (Late st Contact Info) Description 11/27/2023 Refill Department of Family Medicine in [place], [place] [address] [place] [phone] Lashonda Velásquez APRN, C.N.P. Med Refill Social [...] Answer Date Recorded PHQ-2 Score 0 08/06/2022 [facility] [place] of Occupat ional Health - Occupational Stress [...] Score: 0 06/18/20 17 4:38 PM MACHINE TOOL ELECTRICIAN documented as of this encounter Care Teams Dairy Processing Supervisor Relationship Specialty Start Date End Date Ruben Morelos M.D. [address] [place] [phone] PCP - General 11/28/23 documented as of this encounter
--- OUTSIDE RECORDS SUMMARY | 2024-03-07 07:39 | XMS_ITS | Clinical Summary ---
Author Organization [facility] Address [place], [place] [address] Care Team Providers Care Coater Smoking Pipe Name Role Phone Pao Nguyen MD Primary Care Provider [phone] Allergies No known active allergies Medications Medication [...] Encounters Date Type Department Care Team Description 02/23/2024 Telephone [facility] [address] [place] [address] Chidi Valenzuela MD Follow Up 12/23/2023 11:30 AM CDT Office Visit [facility] [address] [place] [address] Nickolas Contreras MD Follow Up (Review- echo result) 12/23/2023 Travel from Last 3 Months Immunizations Name [...] T Respiratory Rate 16 05/29/2016 7:36 AM EXECUTIVE DIRECTOR GLOBAL BRAND MARKETING Oxygen Saturation 100% 12/23/2023 11:29 AM CDT [...] Ortega MD Medical Devices Implanted Type Area Medicaid Business Analyst Device Identifier Shelf Expiration Date Model / Serial / Lot Patch Vasc 0.8x8cm Xenosure Biological Pericardial - [id number] Implanted:Qty: 1 on 05/28/2016 by Chidi Valenzuela MD at [facility] Right: Carotid Artery [employer] 01/01/2019 0.8P8# / / [id number] Advance Directives * Full Code (Latest Code [...] 5:56 AM 08/31/2015 10:11 AM Care Teams Coater Smoking Pipe Relationship Specialty Start Date End Date Pao Nguyen MD [address] [place] [address] PCP - General Internal Medicine 12/23/23
--- OUTSIDE RECORDS SUMMARY | 2024-03-07 07:39 | XMS_ITS | Continuity of Care Document ---
Author Name [facility] Organization [facility] Care Team Providers Care Enamel Drier Name Role Phone [facility] Unavailable Unavailable Problems Combined list of problems from Department of Defense and Veterans Affairs facilities. It does not include entries that were removed or entered in error. Problem Status Onset Date Problem Type Date of Resolution Comments Source Diabetic complication Active Condition [facility] Hypertension * (ICD-9-CM 401.9) Active Condition [facility] Encounters Combined list of: 1) Encounters from Department of Veterans Affairs facilities going back up to thelast 18 months. 2) Encounters from the Department of [place] facilities going back up to 280 months. Location Location Details Encounter Type Encounter Number Reason For Visit Attending Provider ADM Date DC Date Status Disposition Source [place] [facility] Outpatient Encounter [id number] 01/02 [facility] [place] [facility] Outpatient Encounter [id number] 02/03 [facility] [place] [facility] Outpatient Encounter [id number] 02/19 [facility] [place] [facility] Outpatient Encounter [id number] 05/28 [facility] [place] [facility] Outpatient Encounter [id number] 06/12 [facility] [facility] [place] [facility] Outpatient Encounter [id number] 08/11 [facility] Social History Combined list of available smoking, tobacco, and other social history from Department of Defense and Veterans Affairs facilities. Social History Type Response Date Comment Sourc e Tobacco smoking status NHIS FORMER TOBACCO USE <1Y 02/08/2013 [place] [facility]
== END 2024-03-05 11:05 | disposition home or self-care (01) ==
LOC: NFLDREF 03-07 07:37
PROVIDERS: PCP Internal Medicine; Referring Provider Internal Medicine; Visit Provider Internal Medicine
DX: Z79.01 Long term (current) use of anticoagulants (principal)
CPT/HCPCS: 85610

== ENCOUNTER 2024-04-02 11:05 | Outpatient (CLI) | payer MEDICARE, SELFPAY ==
--- OUTSIDE RECORDS SUMMARY | 2024-04-06 22:57 | XMS_ITS | Encounter Summary ---
Author Organization [facility] Address [address] [place] [address] Care Team Providers Care Boat Puller Name Role Phone Ruben Morelos M.D. Primary Care Provider [phone] Reason for Visit * Reason Comments Med Refill Encounter Details Date Type Department Care Team (Late st Contact Info) Description 01/24/2024 Refill Department of Family Medicine in [place], [place] [address] [place] [phone] Lashonda Velásquez, PUMP HOUSE OPERATOR, C.N.P. Med Refill Social History Tobacco Use [...] Provider Dept 01/31/23 Office Visit Lashonda Velásquez, PUMP HOUSE OPERATOR, C.N.P. [facility] Showing recent visits [...] Total Score: 0 06/18/20 17 4:38 PM PEN TENDER documented as of this encounter Care Teams Boat Puller Relationship Specialty Start Date End Date Ruben Morelos M.D. [address] [place] [phone] PCP - General 11/28/23 documented as of this encounter
--- OUTSIDE RECORDS SUMMARY | 2024-04-06 22:57 | XMS_ITS | Clinical Summary ---
Author Organization [facility] Address [address] [place] [address] Care Team Providers Care Machine Deburrer Name Role Phone Ruben Morelos M.D. Primary Care Provider [phone] Source Comments Patient records contain information from all sites at [facility]. For routine questions regarding patient records, call [phone] during business hours, M-F 8:00 AM - 5:00 PM Central Time. Record requests for emergency care only can be directed to [phone] Allergies No known active allergies Medications Medication [...] daily. Do not crush or chew. Active LifeOnKey Ultra Test Strips USE ONE STRIP TO [...] 05/28/2016 fo >70 percent stenosis. Followed by [facility] vascular surgery. 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 Diabetes Mellitus Type 2 With Diabetic Nephropathy (HCC); Dyslipidemia 01/24/2024 Refill Department of Family Medicine in [place], [place] [address] [place] [phone] Lashonda Velásquez, JOSSIE, C.N.P. Med Refill from Last 3 Months Immunizations Name Administration Dates Next Due HepB Adult 01/31/2023(Deferred: Patient Ref used) HepB, Unspecified 08/03/2021(Deferred: Other) Influenza high dose QV(65 ye ars or older) (PF) 05/06/2023,07/05/2022,04/17/2021,2019 Influenza, Seasonal, Injectable 07/21/2012 Influenza, Unspecified 05/02/2016,2014,05/26/2013,2012,04/17/2011,03/16/2010 PCV13 01/02/2015 PPSV23 02/13/2012,10/16/2006 RZV (SHINGRIX) 01/31/2023(Deferred: Patient Ref used) SARS-COV-2 (COVID-19) - PFIZ ER (Discontinued)(12 years or older) 01/31/2023(Deferred: Not available from foundry superintendant),09/28/2020,09/07/2020 SARS-COV-2 (COVID-19) - PFIZ ER [id number] (12 YEARS OR OLDER) 05/06/2023 Td (Adult), adsorbed 10/30/2007 Tdap 03/24/2021,08/07/2011 Zoster, Unspecified 08/03/2021(Deferred: Other) influenza trivalent high dos e (HD)(PF) 05/04/2019,05/25/2018,05/25/2017 Family History Medical History Relation Name [...] Answer Date Recorded PHQ-2 Score 0 08/06/2022 [facility] [place] of Occupat ional Health - Occupational Stress [...] of 3 - Risk 3-dose series) 1997 RSV vaccine - (32-3 6 weeks) or 60+ years (1 - 1-dose 75+ series) 2012 Diabetic Office Visit with F oot Exam [...] Chronic Disease, age 18+ 02/01/2024 , 08/06/2022 COVID-19 Vaccine (2023-08 5 season) 2024 05/06/2023, 05/29/2022, 04/23/2021, Additional history exists Influenza Vaccine (#1) 2024 , 07/05/2022, 04/17/2021, [...] LIPID PANEL, S Routine 08/06/2022 4:29 PM SCHOOL AGE PROGRAM ASSOCIATE Dyslipidemia ALBUMIN, RANDOM, U Routine 03/19/2022 10 [...] Emily Renae APRNNCalista LAB BLOOD A DD-ON [facility] [address] [place] [address], [facility] NPRG [facility] [address] [place] [address] * (ABNORMAL) Comprehensive Metabolic Panel (01/31/2023 11:40 [...] BLOOD A DD-ON [facility] [address] [place] [address], [place] NPRG [facility] [address] [place] [address] * (ABNORMAL) Lipid Panel (08/06/2022 4:29 PM SCHOOL AGE PROGRAM ASSOCIATE) Triglycerides 141 mg/dL 08/06/2022 7:29 PM SCHOOL AGE PROGRAM ASSOCIATE NPRG Comment: ----REFERENCE VALUE---- Normal: <150 mg/dL Borderline High: 150-199 mg/dL High: 200-499 mg/dL Very High: > or =500 mg/dL Cholesterol, Total 123 mg/dL 2022 7:29 PM SCHOOL AGE PROGRAM ASSOCIATE NPRG Comment: ----REFERENCE VALUE---- Desirable: < 200 mg/dL Borderline High: 200 - 239 mg/dL High: > or = 240 mg/dL Cholesterol, LDL, Calculated 60 mg/dL 08/06/2022 7:29 PM SCHOOL AGE PROGRAM ASSOCIATE NPRG Comment: ----REFERENCE VALUE---- Desirable: <100 mg/dL Above Desirable: 100-129 mg/dL Borderline High: 130-159 mg/dL High: 160-189 mg/dL Very High: >=190 mg/dL ----ADDITIONAL INFORMATION---- LDL cholesterol calculated using the Islas/NIH equation. Cholesterol, HDL 38(L) >=40 mg/dL 08/06/19 7:29 PM SCHOOL AGE PROGRAM ASSOCIATE NPRG Cholesterol, Non-HDL, Calculated 85 mg/dL 08/06/2022 7:29 PM SCHOOL AGE PROGRAM ASSOCIATE NPRG Comment: ----REFERENCE VALUE---- Desirable: <130 mg/dL Above Desirable: 130-159 mg/dL Borderline High: 160-189 mg/dL High: 190-219 mg/dL Very High: > or =220 mg/dL Fasting (8 HR or more) Y 08/06/2022 6:58 PM SCHOOL AGE PROGRAM ASSOCIATE NPRG Blood (Blood, Venous) 08/06/2022 4:29 PM SCHOOL AGE PROGRAM ASSOCIATE 08/06/2022 6:58 PM SCHOOL AGE PROGRAM ASSOCIATE Lashonda Velásquez APRN, C.N.P. LAB BLOOD A DD-ON [facility] [address] [place] [address], [place] [facility] [address] [place] [address] * (ABNORMAL) Albumin, Random, Urine (03/19/2022 10:44 AM CDT) Microalbumin 17.0 mg/L 03/19/2022 12:51 PM CDT NPRG Creatinine 88 mg/dL 03/19/2022 12:51 PM CDT NPRG Albumin/Creatinin e Ratio 19(H) <17 mg/g 03/19/2022 12:51 PM CDT NPRG Urine (Urine, Midstream) 03/19/2022 10:44 AM CDT 03/19/2022 12:12 PM CDT Lashonda Velásquez APRN C.N.PIsabel LAB URINE O RDERABLES [facility] [address] [place] [address], [place] NPRG [facility] [address] [place] [address] from Last 3 Months or Most Recently Relevant to Health Maintenance Advance Directives For more information, please contact: [phone] Documents on File Type Date Recorded Patient Tester Vibrator Equipment Expl anation Advance Directives 06/04/2018 1:25 PM * DNR/DNI (Latest Code Status on File) Date Activated Date Inactivated Comments 12/19/2019 3:45 PM 03/24/2021 10:20 AM Healthcare Agents on File Name Relationship Healthcare Agent Relationshi p Communication Michelle Tejada Spouse Health Care Agent Rip Tejada First Alternate Health Care Agent Juanita Velasquez Alterna te Health Care Agent Care Teams Machine Deburrer Relationship Specialty Start Date End Date Ruben [place] [facility] [place] [phone] PCP - General 11/28/23
--- OUTSIDE RECORDS SUMMARY | 2024-04-06 22:57 | XMS_ITS | Encounter Summary ---
Author Organization [facility] Address [address] [place] [address] Care Team Providers Care Air Cargo Specialist Name Role Phone Ruben Morelos M.D. Primary Care Provider [phone] Encounter Details Date Type Department Care Team (Late st Contact Info) Description 03/09/2024 Orders Only [facility] P[facility] Ruben Morelos M.D. [address] [place] [phone] Diabetes Mellitus Type 2 With Diabetic Nephropathy [...] Answer Date Recorded PHQ-2 Score 0 08/06/2022 [facility] of Occupat ional Health - Occupational [...] Type 2 With Diabetic Nephropathy (HCC) Expected: 03/23/2024, Expires: 09/05/2024 Lipid Panel Lab Routine Dyslipidemia Expected: 03/23/2024, Expires: 09/05/2024 documented as of this encounter Visit Diagnoses Diagnosis Diabetes Mellitus Type 2 With Diabetic Nephropathy (HCC) Dyslipidemia documented in this encounter Additional Health Concerns Assessment Noted Time PHQ-9 Depression Total Score: 0 06/18/20 17 4:38 PM COMMERCIAL TIRE SERVICE TECHNICIAN documented as of this encounter Care Teams Air Cargo Specialist Relationship Specialty Start Date End Date Ruben Morelos [place] [address] PCP - General 11/28/23 documented as of this encounter
--- OUTSIDE RECORDS SUMMARY | 2024-04-06 22:57 | XMS_ITS | Clinical Summary ---
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 Bone: Coronary artery bypass grafts x 2 with a graft from the left internal mammary artery to the 1st diagonal branch of theleft anterior descending and a saphenous vein graft from the aorta to the LAD ?? Lightheadedness 08/30/2015 Chronic anticoagulation 08/30/2015 ASCVD (arteriosclerotic cardiovascular disease) 08/30/2015 Overview (08/30/2015): -Stress Myoview 08/03/2015 Medium sized area of mild to moderate ischemia in the inferior and inferolateral elkins EF 60% Abnormal liver function tests Diabetes mellitus, type 2 Hearing loss HTN (hypertension) Dyslipidemia Hypothyroidism Nuclear sclerosis History of pulmonary embolism Pulmonary nodule Former smoker Varicose veins Carotid stenosis, asymptomatic Encounters Date Type Department Care Team Description 02/23/2024 Telephone [facility] [place] [address] [place] [address] Chidi Valenzuela MD Follow Up from Last 3 Months Immunizations Name Administration [...] T Respiratory Rate 16 05/29/2016 7:36 AM HUMID SYSTEM OPERATOR Oxygen Saturation 100% 12/23/2023 11:29 AM [...] 1987 Medicare Wellness for age 65+ 2002 RSV vaccine for adults or (1 - 1-dose 75+ series) 2012 BMI (ht and wt on same day) for age 18+ 12/19/2022 12/19/2021, 12/06/2020, 01/13/2019, Additional history exists COVID-19 vaccine series () 03/07/2024 05/06/2023, 09/28/2020, 09/07/2020 Influenza for age 65+ 03/07/2024 05/06/2016, 015 Goals Goal Patient Goal Type Associated Problems Recent Progress Patient-Stated? Author BLOOD PRESSURE - MAINTAINS BP less than 140/90 Blood Pressure No Roman Ortega MD Medical Devices Implanted Type Area Marking Machine Operator Device Identifier Shelf Expiration Date Model / Serial / Lot Patch Vasc 0.8x8cm Xenosure Biological Pericardial - [id number] Implanted:Qty: 1 on 05/28/2016 by Chidi Valenzuela MD at [facility] Right: Carotid Artery [employer] 01/01/2019 0.8P8# / / [id number] Advance Directives * Full Code (Latest Code [...] 5:56 AM 08/31/2015 10:11 AM Care Teams Envelope Stuffer Relationship Specialty Start Date End Date Pao Nguyen MD [address] [place] [address] PCP - General Internal Medicine 12/23/23
--- OUTSIDE RECORDS SUMMARY | 2024-04-06 22:57 | XMS_ITS | Encounter Summary ---
Author Organization [facility] Address [address] [place] [address] Care Team Providers Care Color Checker Name Role Phone Ruben Morelos M.D. Primary Care Provider [phone] Reason for Referral * Outpatient (Routine) - Authorized Specialty Diagnoses / Procedures Referred By Brian t Referred To Contact Family Medicine Chelsi Jimenez M.D. [address] [place] [address] [facility] Region Referral ID Status Reason Start Date Expiration Date V isits Requested Visits Authorized [id number] Authorized 11/28/2023 05/29/2025 1 1 Reason for Visit * Reason Comments Med Refill Encounter Details Date Type Department Care Team (Late st Contact Info) Description 11/27/2023 Refill Department of Family Medicine in [place], [place] [address] [place] [phone] Lashonda Velásquez APRN, C.N.P. Med Refill Social [...] and Family Once a week 12/21/2018 Attends [employer] More than 4 times per year [...] Recorded PHQ-2 Score 0 08/06/2022 [facility] of Occupat ional Health - Occupational Stress [...] Total Score: 0 06/18/20 17 4:38 PM HEALTH EDUCATION COORDINATOR documented as of this encounter Care Teams Color Checker Relationship Specialty Start Date End Date Ruben Morelos M.D. [address] [place] [phone] PCP - General 11/28/23 documented as of this encounter
--- OUTSIDE RECORDS SUMMARY | 2024-04-06 22:57 | XMS_ITS | Continuity of Care Document ---
Author Name DOD-SD Organization [facility] Care Team Providers Care Cleaner Laboratory Equipment Name Role Phone DOD-SD Unavailable Unavailable Problems Combined list of problems from Department of Defense and Veterans Affairs facilities. It does not include entries that were removed or entered in error. Problem Status Onset Date Problem Type Date of Resolution Comments Source Diabetic complication Active Condition [facility] Hypertension * (ICD-9-CM 401.9) Active Condition [facility] Encounters Combined list of: 1) Encounters from Department of Veterans Affairs facilities going back up to thelast 18 months. 2) Encounters from the Department of [facility] facilities going back up to 280 months. Location Location Details Encounter Type Encounter Number Reason For Visit Attending Provider ADM Date DC Date Status Disposition Source [facility] Outpatient Encounter [id number] 01/02 [facility] Outpatient Encounter [id number] 02/03 [facility] Outpatient Encounter [id number] 02/19 [facility] Outpatient Encounter [id number] 05/28 [facility] Outpatient Encounter [id number] 06/12 [facility] Outpatient Encounter [id number] 08/11 [facility] Social History Combined list of available smoking, tobacco, and other social history from Department of Defense and Veterans Affairs facilities. Social History Type Response Date Comment Sourc e Tobacco smoking status NHIS FORMER TOBACCO USE <1Y 02/08/2013 [facility]
--- OUTSIDE RECORDS SUMMARY | 2024-04-06 22:57 | XMS_ITS ---
Author Organization [facility] Address [address] [place] [address] Care Team Providers Care Field Hockey And Lacrosse Coach Name Role Phone Unavailable Unavailable Unavailable Surgery Details Not on file Complications Check Surgery Details section. Procedure Estimated Blood Loss Check Surgery Details section. Procedure Findings Check Surgery Details section. Procedure Specimens Taken Check Surgery Details section.
--- OUTSIDE RECORDS SUMMARY | 2024-04-06 22:57 | XMS_ITS | Referral Summary ---
Author Organization [facility] Address [address] [place] [address] Care Team Providers Care Director Educational Radio Name Role Phone Ruben Morelos M.D. Primary Care Provider [phone] Source Comments Patient records contain information from all sites at [facility]. For routine questions regarding patient records, call [phone] during business hours, M-F 8:00 AM - 5:00 PM Central Time. Record requests for emergency care only can be directed to [phone] at [address] time[address] Encounters Date Type Department Care Team Description 03/09/2024 Orders Only [facility]CP [facility] Ruben Conley M.D. Diabetes Mellitus Type 2 With Diabetic Nephropathy (HCC); Dyslipidemia 01/24/2024 Refill Department of Family Medicine in [place], [place] [address] [place] [phone] Lashonda Velásquez APRN, C.N.P. Med Refill from [...] daily. Do not crush or chew. 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 - [...] Date Recorded Nutrition: EVOO Fat Source Unknown 02/23 /2021 Nutrition: Servings of Fruits/Vegetables per Day Not [...] LIPID PANEL, S Routine 08/06/2022 4:29 PM MAINFRAME SYSTEMS PROGRAMMER Dyslipidemia ALBUMIN, RANDOM, U Routine 03/19/2022 10 [...] Velásquez APRN, C.N.P. LAB BLOOD A DD-ON [facility] [address] [place] [address], [facility] NPRG [facility] [address] [place] [address] * (ABNORMAL) Comprehensive Metabolic Panel (01/31/2023 11:40 [...] Velásquez APRN C.N.P. LAB BLOOD A DD-ON [facility] [address] [place] [address], [facility] [address] [place] [address] * (ABNORMAL) Lipid Panel (08/06/2022 4:29 PM MAINFRAME SYSTEMS PROGRAMMER) Triglycerides 141 mg/dL 08/06/2022 7:29 PM MAINFRAME SYSTEMS PROGRAMMER NPRG Comment: ----REFERENCE VALUE---- Normal: <150 mg/dL Borderline High: 150-199 mg/dL High: 200-499 mg/dL Very High: > or =500 mg/dL Cholesterol, Total 123 mg/dL 2022 7:29 PM MAINFRAME SYSTEMS PROGRAMMER NPRG Comment: ----REFERENCE VALUE---- Desirable: < 200 mg/dL Borderline High: 200 - 239 mg/dL High: > or = 240 mg/dL Cholesterol, LDL, Calculated 60 mg/dL 08/06/2022 7:29 PM MAINFRAME SYSTEMS PROGRAMMER NPRG Comment: ----REFERENCE VALUE---- Desirable: <100 mg/dL Above Desirable: 100-129 mg/dL Borderline High: 130-159 mg/dL High: 160-189 mg/dL Very High: >=190 mg/dL ----ADDITIONAL INFORMATION---- LDL cholesterol calculated using the Islas/NIH equation. Cholesterol, HDL 38(L) >=40 mg/dL 08/06/19 7:29 PM MAINFRAME SYSTEMS PROGRAMMER NPRG Cholesterol, Non-HDL, Calculated 85 mg/dL 08/06/2022 7:29 PM MAINFRAME SYSTEMS PROGRAMMER NPRG Comment: ----REFERENCE VALUE---- Desirable: <130 mg/dL Above Desirable: 130-159 mg/dL Borderline High: 160-189 mg/dL High: 190-219 mg/dL Very High: > or =220 mg/dL Fasting (8 HR or more) Y 08/06/2022 6:58 PM MAINFRAME SYSTEMS PROGRAMMER NPRG Blood (Blood, Venous) 08/06/2022 4:29 PM MAINFRAME SYSTEMS PROGRAMMER 08/06/2022 6:58 PM MAINFRAME SYSTEMS PROGRAMMER Lashonda Velásquez APRN, C.N.P. LAB BLOOD A DD-ON [facility] [address] [place] [address], [facility] NPRG [facility] [address] [place] [address] * (ABNORMAL) Albumin, Random, Urine (03/19/2022 10:44 AM CDT) Microalbumin 17.0 mg/L 03/19/2022 12:51 PM CDT NPRG Creatinine 88 mg/dL 03/19/2022 12:51 PM CDT NPRG Albumin/Creatinin e Ratio 19(H) <17 mg/g 03/19/2022 12:51 PM CDT NPRG Urine (Urine, Midstream) 03/19/2022 10:44 AM CDT 03/19/2022 12:12 PM CDT Lashonda Velásquez APRN, C.N.P. LAB URINE O RDERABLES [facility] [address] [place] [address], [place] NPRG [facility] [address] [place] [address] from Last 3 Months or Most Recently Relevant to Health Maintenance Advance Directives For more information, please contact: [phone] Documents on File Type Date Recorded Patient Inventory Control Manager Expl anation Advance Directives 06/04/2018 1:25 PM * DNR/DNI (Latest Code Status on File) Date Activated Date Inactivated Comments 12/19/2019 3:45 PM 03/24/2021 10:20 AM Healthcare Agents on File Name Relationship Healthcare Agent Relationshi p Communication Michelle Tejada Spouse Health Care Agent Rip Tejada First Alternate Health Care Agent Juanita Velasquez Alterna te Health Care Agent Care Teams Director Educational Radio Relationship Specialty Start Date End Date Ruben Morelos M.D. [address] [place] [phone] PCP - General 11/28/23
== END 2024-04-02 11:06 | disposition home or self-care (01) ==
PROVIDERS: PCP Internal Medicine; Referring Provider Internal Medicine; Visit Provider Internal Medicine
DX: D68.59 Other primary thrombophilia (principal); Z79.01 Long term (current) use of anticoagulants
CPT/HCPCS: 85610

== ENCOUNTER 2024-05-12 10:15 | Outpatient (CLI) | payer MEDICARE, SELFPAY | END 2024-05-12 10:16 | disposition home or self-care (01) | LOC: NFLDREF 05-13 11:17 | PROVIDERS: PCP Internal Medicine; Referring Provider Internal Medicine; Visit Provider Internal Medicine | DX: I48.0 Paroxysmal atrial fibrillation (principal); Z79.01 Long term (current) use of anticoagulants | CPT/HCPCS: 85610 ==

== ENCOUNTER 2024-05-26 09:59 | Outpatient (CLI) | payer MEDICARE, SELFPAY ==
--- OUTSIDE RECORDS SUMMARY | 2024-05-29 12:02 | XMS_ITS ---
Author Organization [facility] Address [address] [place] [address] Care Team Providers Care Light Equipment Operator Name Role Phone Unavailable Unavailable Unavailable Surgery Details Not on file Complications Check Surgery Details section. Procedure Estimated Blood Loss Check Surgery Details section. Procedure Findings Check Surgery Details section. Procedure Specimens Taken Check Surgery Details section.
--- OUTSIDE RECORDS SUMMARY | 2024-05-29 12:02 | XMS_ITS | Clinical Summary ---
Author Organization [facility] Address [place], [place] [address] Care Team Providers Care Restaurant Kitchen Manager Name Role Phone Pao Nguyen MD Primary Care Provider [phone] Allergies No known active allergies Medications Medication [...] graft from the aorta to the LAD Lightheadedness 08/30/2015 Chronic anticoagulation 08/30/2015 ASCVD (arteriosclerotic cardiovascular disease) 08/30/2015 Overview (08/30/2015): -Stress Myoview 08/03/2015 Medium sized area of mild to moderate ischemia in the inferior and inferolateral elkins EF 60% Abnormal liver function tests Diabetes mellitus, type 2 Hearing loss HTN (hypertension) Dyslipidemia Hypothyroidism Nuclear sclerosis History of pulmonary embolism Pulmonary nodule Former smoker Varicose veins Carotid stenosis, asymptomatic Immunizations Name Administration Dates Next Due Influenza, [...] 66 12/23/2023 11:29 AM CDT Temperature 36.7 C (98.1 F) 05/29/2016 7:36 AM PHOTOGRAPHIC PLATEMAKER Respiratory Rate 16 05/29/2016 7:36 AM PHOTOGRAPHIC PLATEMAKER Oxygen Saturation 100% 12/23/2023 11:29 AM CDT [...] history exists COVID-19 vaccine series ( season) 2024 05/06/2023, 09/28/2020, 09/07/2020 Influenza for age 65+ 03/07/2024 05/06/2016, 015 Goals Goal Patient Goal Type Associated Problems Recent Progress Patient-Stated? Author BLOOD PRESSURE - MAINTAINS BP less than 140/90 Blood Pressure No Roman Ortega MD Medical Devices Implanted Type Area Liquid Floor And Wall Applier Device Identifier Shelf Expiration Date Model / Serial / Lot Patch Vasc 0.8x8cm Xenosure Biological Pericardial - [id number] Implanted:Qty: 1 on 05/28/2016 by Chidi Valenzuela MD at [facility] Right: Carotid Artery [employer] 01/01/2019 0.8P8# / / [id number] Advance Directives * Full Code (Latest Code [...] 5:56 AM 08/31/2015 10:11 AM Care Teams Restaurant Kitchen Manager Relationship Specialty Start Date End Date Pao Nguyen MD [address] [place] [address] PCP - General Internal Medicine 12/23/23
--- OUTSIDE RECORDS SUMMARY | 2024-05-29 12:02 | XMS_ITS | Clinical Summary ---
Author Organization [facility] Address [address] [place] [address] Care Team Providers Care Advertisement Compositor Name Role Phone Ruben Morelos M.D. Primary Care Provider Source Comments Patient records contain information from all sites at [facility]. For routine questions regarding patient records, call [phone] during business hours, M-F 8:00 AM - 5:00 PM Central Time. Record requests for emergency care only can be directed to [phone] at any time.[facility] Allergies No known active allergies Medications aspirin [address] tablet Take 81 mg by mouth. 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 25 tablet 1 3 Active Additional Information Patient not taking.Reported on 01/31/2023 metoprolol succinate (TOPROL-XL) 100 mg 24 hr tablet Take 1 tablet (100 mg total) by mouth daily. Do not crush or chew. 90 tablet 3 3 Active Additional Information Patient taking differently: 50 mgoral2 times daily, Do not crush or chew., Reported on 01/10/2023 warfarin (COUMADIN) 5 mg tabletIndication s:Atrial Fibrillation Unspecified (HCC) Take 1/2 tablet (2.5 mg) Friday, Friday, Friday and 1 tablet (5 mg) all other days. Or as directed by INR clinic. 90 tablet 3 3 Active metoprolol succinate (TOPROL-XL) 100 mg 24 hr tablet Take 100 mg by mouth daily. Do not crush or chew. 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 Patient needs Office Visit for further refills. 90 tablet 4 Active metoprolol succinate (TOPROL-XL) 100 mg 24 hr tablet Take 1 tablet (100 mg total) by mouth daily. Patient needs Office Visit for further refills. 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 Followed by [facility] vascular surgery. 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 Gender Identity Not on file Sexual Orientation Not on file Last Filed Vital Signs Vital Sign Reading Time Taken Comments Blood Pressure 127/52 01/31/2023 11:35 AM CDT Pulse 60 01/31/2023 10:47 AM CDT Temperature 36.2 C (97.2 F) 01/31/2023 10:47 AM CDT Respiratory Rate 20 01/31/2023 10:47 AM CDT [...] Risk 3-dose series) 1997 RSV vaccine - (32-36 weeks) or 60+ years (1 - 1-dose 75+ series) 2012 Diabetic Office Visit with Foot Exam 03/19/2023 03/19/2022, 07/10/2021, 12/24/2019, Additional history exists Urine Albumin 03/19/2023 03/19/2022, 12/05, 12/22/2019, Additional history exists Depression Screening (Annual PHQ-2) 07/07/2023 Fall Risk Screen (Annual) 07/07/2023 Hemoglobin A1C 08/03/2023 01/31/2023, 07/09, 03/19/2022, Additional history exists Lipid (Cholesterol) Screening 08/06/2023 08/06/2022, 08/01/2021, 12/15/2020, Additional history exists Creatinine Level (Kidney Function Test) 02/01/2024 01/31/2023, 01/12/2023, 01/11/2023, Additional history exists Potassium Level 02/01/2024 01/31/2023, 07/0 03/2023, 01/11/2023, Additional history exists Sodium Level 02/01/2024 01/31/2023, 07/0 03/2023, 01/11/2023, Additional history exists Visit: Chronic Disease, age 18+ 02/01/2024 01/31/2023, 08/06/2022 COVID-19 Vaccine ( season) 2024 05/06/2023, 05/29/2022, 04/23/2021, Additional history exists Influenza Vaccine (#1) 2024 , 07/05/2022, 04/17/2021, Additional history exists Dilated Eye Exam 06/18/2024 06/18/2023 (Per formed elsewhere), 07/09/2021 (Performed elsewhere), 11/02/2019 (Performed elsewhere), Additional history exists DTaP,Tdap,and Td Vaccines (3 - Td or Tdap) 03/24/2031 03/24/2021, 08/07/2011, 10/30/2007 Pneumococcal vaccine (65+ years) Completed 01/02/2015, 02/13/2012, 10/16/2006 IPV Vaccines Aged Out No longer eligi ble based on patient's age to complete this topic Procedures Procedure Name Priority Date/Time Associated Diagnosis Comments HEMOGLOBIN A1C, B Routine 01/31/2023 11: 40 AM CDT Diabetes Mellitus Type 2 With Diabetic Chronic Kidney Disease (HCC) COMPREHENSIVE METABOLIC PANEL, S/P Routine 01/31/2023 11:40 AM CDT Post COVID-19 Condition Concussion No Loss Of Consciousness Subsequent Diabetes Mellitus Type 2 With Diabetic Chronic Kidney Disease (HCC) LIPID PANEL, S Routine 08/06/2022 4:29 PM AURICULAR DETOXIFICATION SPECIALIST Dyslipidemia ALBUMIN, RANDOM, U Routine 03/19/2022 [...] 11:40 AM CDT 01/31/2023 12:06 PM CDT us Lashonda Velásquez APRN, C.N.P. LAB BLOOD ADD-ON Fi nal Result [facility] [address] [place] [address], [facility] NPRG [facility] [address] [place] [address] * (ABNORMAL) Comprehensive Metabolic Panel (01/31/2023 11:40 [...] 11:40 AM CDT 01/31/2023 12:07 PM CDT us Lashonda Velásquez APRN, C.N.P. LAB BLOOD ADD-ON Fi nal Result [facility] [address] [place] [address], [facility] NPRG [facility] [address] [place] [address] * (ABNORMAL) Lipid Panel (08/06/2022 4:29 PM AURICULAR DETOXIFICATION SPECIALIST) Triglycerides 141 mg/dL 08/06/2022 7:29 PM AURICULAR DETOXIFICATION SPECIALIST NPRG Comment: ----REFERENCE VALUE---- Normal: <150 mg/dL Borderline High: 150-199 mg/dL High: 200-499 mg/dL Very High: > or =500 mg/dL Cholesterol, Total 123 mg/dL 2022 7:29 PM AURICULAR DETOXIFICATION SPECIALIST NPRG Comment: ----REFERENCE VALUE---- Desirable: < 200 mg/dL Borderline High: 200 - 239 mg/dL High: > or = 240 mg/dL Cholesterol, LDL, Calculated 60 mg/dL 08/06/2022 7:29 PM AURICULAR DETOXIFICATION SPECIALIST NPRG Comment: ----REFERENCE VALUE---- Desirable: <100 mg/dL Above Desirable: 100-129 mg/dL Borderline High: 130-159 mg/dL High: 160-189 mg/dL Very High: >=190 mg/dL ----ADDITIONAL INFORMATION---- LDL cholesterol calculated using the Islas/NIH equation. Cholesterol, HDL 38(L) >=40 mg/dL 08/06/19 7:29 PM AURICULAR DETOXIFICATION SPECIALIST NPRG Cholesterol, Non-HDL, Calculated 85 mg/dL 08/06/2022 7:29 PM AURICULAR DETOXIFICATION SPECIALIST NPRG Comment: ----REFERENCE VALUE---- Desirable: <130 mg/dL Above Desirable: 130-159 mg/dL Borderline High: 160-189 mg/dL High: 190-219 mg/dL Very High: > or =220 mg/dL Fasting (8 HR or more) Y 08/06/2022 6:58 PM AURICULAR DETOXIFICATION SPECIALIST NPRG Blood (Blood, Venous) 08/06/2022 4:29 PM AURICULAR DETOXIFICATION SPECIALIST 08/06/2022 6:58 PM AURICULAR DETOXIFICATION SPECIALIST us Lashonda Velásquez APRN, C.N.P. LAB BLOOD ADD-ON Fi nal Result [facility] [address] [place] [address], [place] NPRG [facility] [address] [place] [address] * (ABNORMAL) Albumin, Random, Urine (03/19/2022 10:44 AM CDT) Microalbumin 17.0 mg/L 03/19/2022 12:51 PM CDT NPRG Creatinine 88 mg/dL 03/19/2022 12:51 PM CDT NPRG Albumin/Creatinin e Ratio 19(H) <17 mg/g 03/19/2022 12:51 PM CDT NPRG Urine (Urine, Midstream) 03/19/2022 10:44 AM CDT 03/19/2022 12:12 PM CDT us Lashonda Velásquez APRN, C.N.P. LAB URINE ORDERABLE S Final Result [facility] [address] [place] [address], [place] NPRG [facility] [address] [place] [address] from Last 3 Months or Most Recently Relevant to Health Maintenance Insurance [address] [id number] [facility] Advance Directives For more information, please contact: [phone] Documents on File Type Date Recorded Patient Non Destructive Testing Inspector Expl anation Advance Directives 06/04/2018 1:25 PM * DNR/DNI (Latest Code Status on File) Date Activated Date Inactivated Comments 12/19/2019 3:45 PM 03/24/2021 10:20 AM Healthcare Agents on File Name Relationship Healthcare Agent [facility] Communication Michelle Tejada Spouse Health Care Agent Rip Velasquez Alternate Health Care Agent [facility] Health [facility] Agent Care Teams Advertisement Compositor Relationship Specialty Start Date End Date [place] [phone] PCP - General 11/28/23
--- OUTSIDE RECORDS SUMMARY | 2024-05-29 12:02 | XMS_ITS | Continuity of Care Document ---
Author Name DOD-LA Organization [facility] Care Team Providers Care Heel Packer Name Role Phone DOD-LA Unavailable Unavailable Problems Combined list of problems from Department of Defense and Veterans Affairs facilities. It does not include entries that were removed or entered in error. Problem Status Onset Date Problem Type Date of Resolution Comments Source Diabetic complication Active Condition [facility] Hypertension * (ICD-9-CM 401.9) Active Condition [facility] Encounters Combined list of: 1) Encounters from Department of Veterans Affairs facilities going back up to thelast 18 months. 2) Encounters from the Department of [facility] facilities going back up to 280 months. Location Location Details Encounter Type Encounter Number Reason For Visit Attending Provider ADM Date DC Date Status Disposition Source [facility] Outpatient Encounter [id number] 01/02 [facility] Outpatient Encounter [id number] 02[facility] Encounter [id number] 02/19 [facility] Outpatient Encounter [id number] 05/28 [facility] Outpatient Encounter [id number] 06/12 [facility] Outpatient Encounter [id number] 08/11 [facility] Social History Combined list of available smoking, tobacco, and other social history from Department of Defense and Veterans Affairs facilities. Social History Type Response Date Comment Sourc e Tobacco smoking status NHIS FORMER TOBACCO USE <1Y 02/08/2013 [facility]
--- OUTSIDE RECORDS SUMMARY | 2024-05-29 12:02 | XMS_ITS | Encounter Summary ---
Author Organization [facility] Address [address] [place] [address] Care Team Providers Care Project Surveyor Name Role Phone Ruben Morelos M.D. Primary Care Provider [phone] Encounter Details Date Type Department Care Team (Late st Contact Info) Description 03/09/2024 Orders Only [facility] Ruben Morelos M.D. 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 [address] [facility] [place] [phone] PCP - General 11/28/23 documented as of this encounter
--- OUTSIDE RECORDS SUMMARY | 2024-05-29 12:02 | XMS_ITS | Referral Summary ---
Author Organization [facility] Address [address] [place] [address] Care Team Providers Care Process Project Engineer Name Role Phone Ruben Morelos M.D. Primary Care Provider [phone] Source Comments Patient records contain information from all sites at [facility]. For routine questions regarding patient records, call [phone] during business hours, M-F 8:00 AM - 5:00 PM Central Time. Record requests for emergency care only can be directed to [phone] at any time.[facility] Encounters Date Type Department Care Team Description 03/09/2024 Orders Only [facility] PCP [facility] MNT Ruben Morelos M.D. Diabetes Mellitus Type 2 With Diabetic Nephropathy (HCC); Dyslipidemia from Last 3 Months Allergies No known active allergies Medications aspirin [...] daily. Do not crush or chew. Active Zenops Ultra Test Strips USE ONE STRIP TO [...] fo >70 percent stenosis. Followed by [facility] vascular surgery. 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 Overview [...] Therapeutic D rug Therapy [Z51.81] 06/18/2017 06/18/2017 Systems Protection Technician Anticoagulant Treatment [Z79.01] 06/18/2017 08/26/2023 Other Specified [...] years or older) 01/31/2023(Deferred: Not available from steel grinder),09/28/2020,09/07/2020 SARS-COV-2 (COVID-19) - PFIZ ER Fall Seasonal [...] Answer Date Recorded PHQ-2 Score 0 08/06/2022 [facility] - Occupational Stress [...] PM CDT 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 LAB BLOOD ADD-ON Fi nal Result [facility] [address] [place] [address], [facility] NPRG [facility] [address] [place] [address] * (ABNORMAL) Lipid Panel (08/06/2022 4:29 PM SKIP PIT WORKER) Triglycerides 141 mg/dL 08/06/2022 7:29 PM SKIP PIT WORKER NPRG Comment: ----REFERENCE VALUE---- Normal: <150 mg/dL Borderline High: 150-199 mg/dL High: 200-499 mg/dL Very High: > or =500 mg/dL Cholesterol, Total 123 mg/dL 2022 7:29 PM SKIP PIT WORKER NPRG Comment: ----REFERENCE VALUE---- Desirable: < 200 mg/dL Borderline High: 200 - 239 mg/dL High: > or = 240 mg/dL Cholesterol, LDL, Calculated 60 mg/dL 08/06/2022 7:29 PM SKIP PIT WORKER NPRG Comment: ----REFERENCE VALUE---- Desirable: <100 mg/dL Above Desirable: 100-129 mg/dL Borderline High: 130-159 mg/dL High: 160-189 mg/dL Very High: >=190 mg/dL ----ADDITIONAL INFORMATION---- LDL cholesterol calculated using the Islas/NIH equation. Cholesterol, HDL 38(L) >=40 mg/dL 08/06/19 7:29 PM SKIP PIT WORKER NPRG Cholesterol, Non-HDL, Calculated 85 mg/dL 08/06/2022 7:29 PM SKIP PIT WORKER NPRG Comment: ----REFERENCE VALUE---- Desirable: <130 mg/dL Above Desirable: 130-159 mg/dL Borderline High: 160-189 mg/dL High: 190-219 mg/dL Very High: > or =220 mg/dL Fasting (8 HR or more) Y 08/06/2022 6:58 PM SKIP PIT WORKER NPRG Blood (Blood, Venous) 08/06/2022 4:29 PM SKIP PIT WORKER 08/06/2022 6:58 PM SKIP PIT WORKER us Lashonda Velásquez APRN, C.N.P. LAB BLOOD ADD-ON Fi nal Result Performing Organization Address [facility]/ZIP Co de Phone Number [facility] [address] [place] [address], [facility] NPRG [place] [address] [place] [address] * (ABNORMAL) Albumin, Random, Urine (03/19/2022 10:44 AM CDT) Microalbumin 17.0 mg/L 03/19/2022 12:51 PM CDT NPRG Creatinine 88 mg/dL 03/19/2022 12:51 PM CDT NPRG Albumin/Creatinin e Ratio 19(H) <17 mg/g 03/19/2022 12:51 PM CDT NPRG Urine (Urine, Midstream) 03/19/2022 10:44 AM CDT 03/19/2022 12:12 PM CDT us Lashonda Velásquez APRN, C.N.P. LAB URINE ORDERABLE S Final Result Performing Organization Address 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 [address] [place] [address] PCP - General 11/28/23
== END 2024-05-26 10:00 | disposition home or self-care (01) ==
LOC: NFLDREF 05-29 11:59
PROVIDERS: PCP Internal Medicine; Referring Provider Internal Medicine; Visit Provider Internal Medicine
DX: Z79.01 Long term (current) use of anticoagulants (principal)
CPT/HCPCS: 85610

== ENCOUNTER 2024-06-16 10:12 | Outpatient (CLI) | payer MEDICARE, SELFPAY | END 2024-06-16 10:13 | disposition home or self-care (01) | LOC: NFLDREF 06-17 12:51 | PROVIDERS: PCP Internal Medicine; Referring Provider Internal Medicine; Visit Provider Internal Medicine | DX: Z79.01 Long term (current) use of anticoagulants (principal) | CPT/HCPCS: 85610 ==

== ENCOUNTER 2024-07-08 09:59 | Outpatient (CLI) | payer MEDICARE, SELFPAY | END 2024-07-08 10:00 | disposition home or self-care (01) | LOC: NFLDREF 07-10 12:18 | PROVIDERS: PCP Internal Medicine; Referring Provider Internal Medicine; Visit Provider Internal Medicine | DX: Z79.01 Long term (current) use of anticoagulants (principal) | CPT/HCPCS: 85610 ==

== ENCOUNTER 2024-08-05 09:56 | Outpatient (CLI) | payer MEDICARE, SELFPAY | END 2024-08-05 09:57 | disposition home or self-care (01) | LOC: NFLDREF 08-09 03:33 | PROVIDERS: PCP Internal Medicine; Referring Provider Internal Medicine; Visit Provider Internal Medicine | DX: I48.0 Paroxysmal atrial fibrillation (principal) | CPT/HCPCS: 85610 ==

== ENCOUNTER 2024-08-11 07:57 | Outpatient (CLI) | payer MEDICARE, SELFPAY | END 2024-08-11 07:58 | disposition home or self-care (01) | LOC: NFLDREF 08-15 16:22 | PROVIDERS: PCP Internal Medicine; Referring Provider Internal Medicine; Visit Provider Internal Medicine | DX: E78.5 Hyperlipidemia, unspecified (principal); I10 Essential (primary) hypertension; E03.9 Hypothyroidism, unspecified; E11.40 Type 2 diabetes mellitus with diabetic neuropathy, unspecified; I25.10 Atherosclerotic heart disease of native coronary artery without angina pectoris | CPT/HCPCS: 80053; 80061; 84439; 84443 ==

== ENCOUNTER 2024-10-29 09:25 | Outpatient (CLI) | payer MEDICARE, SELFPAY | END 2024-10-29 09:26 | disposition home or self-care (01) | LOC: NFLDREF 11-01 01:51 | PROVIDERS: PCP Internal Medicine; Referring Provider Internal Medicine; Visit Provider Internal Medicine | DX: I48.0 Paroxysmal atrial fibrillation (principal); Z79.01 Long term (current) use of anticoagulants | CPT/HCPCS: 85610 ==

== ENCOUNTER 2024-12-27 16:05 | Outpatient (CLI) | payer MEDICARE, SELFPAY | END 2024-12-27 16:06 | disposition home or self-care (01) | PROVIDERS: PCP Internal Medicine; Visit Provider Registered Nurse | DX: I10 Essential (primary) hypertension (principal); R53.83 Other fatigue; E03.9 Hypothyroidism, unspecified | CPT/HCPCS: 80048; 84443 ==

== ENCOUNTER 2024-12-30 09:34 | Outpatient (CLI) | payer MEDICARE, SELFPAY ==
--- OUTSIDE RECORDS SUMMARY | 2024-12-21 11:52 | XMS_ITS | Continuity of Care Document ---
Author Name [facility] Organization [facility] Care Team Providers Care Paper Wrapping Machine Operator Name Role Phone [facility] Unavailable Unavailable Problems Combined list of problems from Department of [facility] and [facility] facilities. It does not include entries that were removed or entered in error. Problem Status Onset Date Problem Type Date of Resolution Comments Source Diabetic complication Active Condition [facility] Hypertension * (ICD-9-CM 401.9) Active Condition [facility] Encounters Combined list of: 1) Encounters from [facility] facilities going backup to the last 18 months, not all [place] inpatient encounters are included; 2) Encounters from the [facility] facilities going backup to 280 months. Location Location Details Encounter Type Encounter Number Reason For Visit Attending Provider ADM Date DC Date Status Disposition Source [facility] Outpatient [facility]counter [id number] 08/11 [facility] Outpatient Encounter [id number] 12/10 [facility] Social History Combined list of available smoking, tobacco, and other social history from Department [facility] and [facility] facilities. Social History Type Response Date Comment Sourc e Tobacco smoking status NHIS FORMER TOBACCO USE <1Y 02/08/2013 [facility] Plan of Care List of future care activities from [facility] facilities. Additional future care activities may be listed in the Assessment and Plan section. Date/Time Care Activity Care Activity Detail Facili ty 12/01/2024 Consult Order COMMUNITY CARE-D S ROUTINE AUD Cons Salesperson Floor Coverings's Choice [facility]
--- OUTSIDE RECORDS SUMMARY | 2024-12-21 11:52 | XMS_ITS | Continuity of Care Document ---
Author Name [facility] Organization [facility] Care Team Providers Care Coil Winding Machines Set Up Mechanic Name Role Phone [facility] Unavailable Unavailable Problems Combined list of problems from Department of [facility] and [facility] facilities. It does not include entries that were removed or entered in error. Problem Status Onset Date Problem Type Date of Resolution Comments Source Diabetic complication Active Condition [facility] Hypertension * (ICD-9-CM 401.9) Active Condition [facility] Encounters Combined list of: 1) Encounters from [facility] facilities going backup to the last 18 months, not all [place] inpatient encounters are included; 2) Encounters from the [facility] facilities going backup to 280 months. Location Location Details Encounter Type Encounter Number Reason For Visit Attending Provider ADM Date DC Date Status Disposition Source [facility] Outpatient Encounter [id number] 08/11 [facility] Outpatient Encounter [id number] 12/10 [facility] Social History Combined list of available smoking, tobacco, and other social history from Department [facility] and [facility] facilities. Social History Type Response Date Comment Sourc e Tobacco smoking status NHIS FORMER TOBACCO USE <1Y 02/08/2013 [facility] Plan of Care List of future care activities from [facility] facilities. Additional future care activities may be listed in the Assessment and Plan section. Date/Time Care Activity Care Activity Detail Facili ty 12/01/2024 Consult Order COMMUNITY CARE-D S ROUTINE AUD Cons Senior Analyst's Choice [facility]
--- OUTSIDE RECORDS SUMMARY | 2025-01-03 12:06 | XMS_ITS | Data Portability ---
Author Organization [place] - [facility] [employer] Address [address] [place] [address] Assessment Encounter Date Assessment Date Assessment LastModified by Organization Details LastModified Time 08/02/2024 08/02/2024 Educated patient on proper diabetic foot care including daily hygiene, proper shoegear inside and outside the house, applying lotion to bilateral feet with the avoidance of the webspaces, daily foot inspections, and tight glycemic control. Debrided patient's mycotic nails without incident as documented. Recommended continued use of supportive shoegear and to monitor for injury and infection. Recommended regular follow-up to prevent complications and to manage pain due to thick, elongated nails and any callus formation. All questions answered. The patient was encouraged to call with any questions or concerns. Patient will follow up in 12 weeks for high risk foot care or sooner if needed. Not available 08/03/2024 13:11:08 11/08/2024 11/08/2024 Debrided all mycotic nails without complication as documented. The patient tolerated footcare well. Recommended regular follow-up to prevent complications and manage pain due to thick, elongated nails and calluses. All questions answered. The patient was encouraged to contact the office with any questions or concerns. Patient will follow up in 12 weeks for high risk foot care or sooner if needed. Not available 11/08/2024 16:20:01 Plan of Treatment Reminders Order Date Submit Date Provider Last Modified By Organization Details Last Modified Time Details Appointments None record ed. Lab None record ed. Referral None record ed. Procedures None record ed. Surgeries None record ed. Imaging None record ed. Medication Orders None record ed. Patient TargetsNo targets recorded. Patient InstructionsNo instructions recorded. Reason for Referral None Reported. Procedures Surgical History Date Name Laterality Status Provider Name and Address Organization Details Recorded Time 05/05/[address] Beckford completed CORNELIA BREWSTER, DPM [address] [place], [address], [place] - [facility] 11/08/2024 13:26:[address] Beckford completed CORNELIA BREWSTER, DPM [address] [place], [address], [place] - [facility] 08/03/2024 13:10:19 Imaging Results None recorded. Procedure Notes None recorded. Medical Equipment None Reported. Allergies No known drug allergies Medications Name Sig Start Date Stop Date Status Note LastModified by Organization Details LastModified Time atorvastatin 40 mg tablet TAKE ONE TABLET BY MOUTH (40MG) DAILY active Not Available Not Available No t Available metformin 500 mg tablet TAKE TWO TABLETS BY MOUTH (1000MG) TWICE A DAY active Not Available Not Available Not Available metoprolol succinate ER 100 mg tablet,exten ded release 24 hr TAKE ONE TABLET BY MOUTH (100MG) DAILY active Not Available Not Available No t Available amlodipine 2.5 mg tablet TAKE ONE TABLET BY MOUTH (2.5MG) DAILY active Not Available Not Available No t Available amlodipine 5 mg tablet TAKE ONE TABLET BY MOUTH ONCE DAILY active Not Available Not Available No t Available levothyroxin e 25 mcg tablet TAKE 1 AND 1/2 TABLETS (37.5MCG) DAILY active Not Available Not Available No t Available warfarin 5 mg tablet TAKE 1/2 TABLET BY MOUTH FRIDAY AND FRIDAY AND 1 TABLET THE REST OF THE DAYS OF THE WEEK. active Not Available Not Available No t Available nitroglyceri n 0.4 mg sublingual tablet TAKE 0.4MG SUBLINGUALL Y EVERY 5 TO 15 MINUTES active Not Available Not Available No t Available lisinopril 40 mg tablet TAKE ONE TABLET BY MOUTH (40MG) DAILY active Not Available Not Available No t Available hydrochlorot hiazide 12.5 mg tablet TAKE ONE TABLET BY MOUTH (12.5MG) EVERY MORNING active Not Available Not Available No t Available Vitals Date Recorded Body weight Provider Name an d Address Organization Details Last Updated DateTime 08/02/2024 51920.14 g Ludivina Panchal [place] [facility] 08/03/2024 10:47:05 Social History None recorded. Functional Status None recorded. Mental Status None recorded. Family History Nothing Reported. Medical History No medical history recorded. Past Encounters Encounter ID Performer Location Encounter Start Date Encounter Closed Date Diagnosis/Indication Diagnosis SNOMED-CT Code Diagnosis ICD10 Code Diagnosis Note [id number] CORNELIA BREWSTER DPM [facility] [address] [place] [address] 08/02/2024 12:16:12 08/03/2024 13:53:50 Peripheral neuropathy due to type 2 diabetes mellitus 8357396052 107 E11.42 Onychomycosis 494818965 B35.1 Pain of to e of left foot 3839785714 94080 M79.675 Pain of to e of right foot 9410528080 99291 M79.674 Peripheral vascular disease 453184198 I73.89 Acquired h ammer toe of right foot 4745476786 837511 M20.41 Acquired h ammer toe of lesser toe of left foot 8770843167 0851550 M20.42 [id number] CORNELIA BREWSTER LARSHany [facility] [address] [place] [address] 11/08/2024 11:02:35 11/08/2024 16:39:45 Peripheral neuropathy due to type 2 diabetes mellitus 8858177701 107 E11.42 Onychomycosis 265162664 B35.1 Pain of to e of left foot 6805396158 59432 M79.675 Pain of to e of right foot 1072765127 27783 M79.674 Peripheral vascular disease 935375603 I73.89 Acquired h ammer toe of right foot 6415143138 867030 M20.41 Acquired h ammer toe of lesser toe of left foot 6344721757 5549021 M20.42 Health Concerns Section Related Observation LastModified by Organization Detai ls LastModified Time None Recorded Concern Status LastModified by Organization Details LastModified Time None Recorded Advance Directives Directive None Recorded Payers Insurance Date Sequence Insurance Name Policy Number Policy Clark Covered Member ID Clark Member ID Guarantor Name 12/27/2024 1 [facility] (H[facility]) [id number] Zeke Tejada [id number] Zeke Tejada Notes Date Note Type Note Provider Name and Address Organization Details Recorded Time 08/02/2024 text/html The patient presented today for nail care, as his made the appointment due to issues with his toenails becoming long and uncomfortable. The patient has a history of diabetes, which has been a problem for the past 18 years. Denies any open wounds to his feet. Denies any other pedal complaints at this time. Last PCP visit with Dr. Nguyen on 02/12/24 CORNELIA BREWSTER DPM [address] [place], [address], [facility] - [facility] 08/03/2024 13:11:22 11/08/2024 text/html Patient presents complaining of long, painful, thickened toenails. Patient does relate to previous relief from debridements. They are unable to care for themselves due to the thickness of the nails. Patient denies any other pedal complaints at this time. Last PCP visit with Dr. Nguyen on 08/16/24 CORNELIA BREWSTER DPM [address] [place], [address], [facility] - [facility] 11/08/2024 16:20:11
--- OUTSIDE RECORDS SUMMARY | 2025-01-03 12:06 | XMS_ITS | Clinical Summary ---
Author Organization [facility] Address [address] [place] [id number] Care Team Providers Care Director Of Health Education Name Role Phone Pao Nguyen MD Primary Care Provider [phone] Allergies No known active allergies Medications levothyroxine (SYNTHROID) 25 mcg tablet Take 1 tablet by mouth before breakfast. 0 Active metFORMIN (GLUCOPHAGE) 500 mg tablet Take 1 tablet by mouth 2 times daily with meals. 0 Active CONTOUR NEXT STRIPS strip 6 Active atorvastatin (LIPITOR) 40 mg tabletIndications:S /P CABG x 2 Take 1 tablet by mouth once daily with evening meal. 30 tablet 2 6 Active nitroglycerin (NITROSTAT) 0.4 mg sublingual tabletIndications:S /P CABG x 2,ASCVD (arteriosclerotic cardiovascular disease) Place 1 tablet under the tongue every 5 minutes if needed for Chest Pain. 1 Bottle 0 6 Active aspirin (ECOTRIN) 81 mg enteric coated tablet Take 1 tablet by mouth once daily with a meal. 0 7 Active warfarin (COUMADIN) 5 mg tablet 2.5mg on Fri/Fri; 5mg all other days 9 Active hydroCHLOROthiazide 12.5 mg tablet Take 12.5 mg by mouth. 2 Active lisinopriL (PRINIVIL; ZESTRIL) 40 mg tablet Take 40 mg by mouth. 2 Active dilTIAZem (DILACOR XR; DILTIA XT) 120 mg Extended-Release capsuleIndications: ASHD (arteriosclerotic heart disease),Fatigue, unspecified type Take 1 Capsule (120 mg) by mouth once daily. In AM 30 Capsule 6 3 Active metoprolol succinate (TOPROL XL) 100 mg Sustained-Release tablet Take 0.5 Tablets (50 mg) by mouth once daily. In PM 3 Active Active Problems Problem Noted Date Diagnosed [...] Encounters Date Type Department Care Team Description 12/28/[address] [place] [address] Nickolas Contreras MD Results (echo) 12/22/2024 11:00 AM CDT Ancillary Procedure [facility] [address] [place] [phone] 12/22/2024 Travel 12/11/2024 Transcribe Orders [facility] [address] [place] [address] Tommie Darby MD 11/18/2024 2:00 PM CDT Office Visit [facility] - Breanna Ball [address] [place] [address] Dr [address] JOSE BAER [phone] Chidi Valenzuela MD CV Vascular Est (ANNUAL FOLLOW UP/) 11/18/2024 Travel 11/15/2024 1:00 PM CDT Ancillary Procedure [facility] [address] [place] [address] 11/15/2024 Travel 10/15/2024 9:00 AM CDT Office Visit [facility] [address] [place] [address] Sergio Cast, AuD Hearing Aid 10/15/2024 Travel from Last 3 Months Immunizations Immunization Administration Dates Next Due Influenza, IIV3 (Age >=3 years) 05/06/2016 Influenza, IIV4 07/03/2015 Social History Tobacco Use Types Packs/Day Years Used Date Smoking Tobacco: Former Cigarettes 1 17 Pipe Smokeless Tobacco: Former Chew Tobacco Cessation:Counseling Given: Not Answered Alcohol Use Standard Drinks/Week Comments Not Currently 0 (1 standard drink = 0.6 oz pure alcohol) once or twice week very little Financial Resource Strain Answer Date R ecorded Difficulty of Paying Living Expenses Not on file 07/07/2021 Difficulty of Paying Living Expenses Not on file 07/07/2021 Sex and Gender Information Value Date Recorded Sex Assigned at Not on file 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 Gender Identity Not on file Sexual Orientation Not on file Occupation Industry Job Start Date Job End Date retired Not on file Not on file Not on file Obstetrics History Last Filed Vital Signs Vital Sign Reading Time Taken Comments Blood Pressure 144/62 11/18/2024 1:49 PM CDT Pulse 64 11/18/2024 1:49 PM CDT Temperature 36.7 C (98.1 F) 05/29/2016 7:36 AM 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 OPERATOR Respiratory Rate 16 05/29/2016 7:36 AM DUPLIGRAPH OPERATOR Oxygen Saturation 99% 11/18/2024 1:49 PM CDT Inhaled Oxygen Concentration - - Weight 83.1 kg (183 lb 3.2 oz) 11/18/2024 1:49 P M CDT Height 170.2 cm (5' 7.01) 11/18/2024 1:49 PM CD T Body Mass Index 28.69 11/18/2024 1:49 PM CDT Plan of Treatment Upcoming Encounters Date Type Department Care Team (Late st Contact Info) Description 01/04/2025 11:00 AM CDT Office Visit [facility] [address] [place] [address] Sergio Cast AuD [address] [place] [phone] Health Maintenance Due Date Last Done Comments Tdap 1948 Depression screening for age 12+ 1949 Pneumococcal series for age 50+ (1 of 2 - PCV) 1956 Tetanus booster 1957 Zoster (shingles) series for age 50+ (1 of 2) 1987 Medicare Wellness for age 65+ 2002 RSV vaccine for adults or (1 - 1-dose 75+ series) 2012 COVID-19 vaccine series ( season) 2024 05/06/2023, 09/28/2020, 09/07/2020 Influenza Vaccine (Season Ended) 2025 05/06/2016, 07/03/2015 BMI (ht and wt on same day) for age 18+ 11/18/2025 11/18/2024, 12/19/2021, 12/06/2020, Additional history exists Hepatitis B series for 19+ Aged Out N o longer eligible based on patient's age to complete this topic Goals Goal Patient Goal Type Associated Problems Recent Progress Patient-Stated? Author BLOOD PRESSURE - MAINTAINS BP less than 140/90 Blood Pressure No Roman Ortega MD Medical Devices Implanted Type Area Frame Table Operator Device Identifier Shelf Expiration Date Model / Serial / Lot Patch Vasc 0.8x8cm [employer] Biological Pericardial - [id number] Implanted:Qty: 1 on 05/28/2016 by Chidi Valenzuela MD at [facility] Right: Carotid Artery [employer] 01/01/2019 [id number] / / [id number] Procedures Procedure Name Priority Date/Time Associated Diagnosis Comments ECHO TTE COMPLETE WO CONTRAST Routine 12/22/2024 12:21 PM CDT Aortic valve stenosis, etiology of cardiac valve disease unspecified US CAROTID DUPLEX BILATERAL Routine 11/15/2024 1:52 PM CDT Carotid stenosis, right from Last 3 Months Results * ECHO TTE COMPLETE WO CONTRAST (12/22/2024 12:21 PM CDT) AORTIC VALVE MEAN PG 27 mmHg EJECTION FRACTION 59 % PEAK TR VELOCITY 2.8 m/s LVEDD 4.5 cm EJECTION FRACTION 55 - 60% Anatomical Region Laterality Modality Ultrasound 12/22/2024 11:1 1 AM CDT Narrative 12/22/2024 1:06 PM CDT ECHOCARDIOGRAM RYLEE BERNARD : 1935 89 years Study Date: 12/22/2024 11:11:50 AM Gender: M BP: 117/58 mmHg Height: 170.00 cm BSA: 1.95 m Weight: 83.00 kg Tech: ARETHA Referring MD: NICKOLAS CONTRERAS Site: [facility] Reading Location: MOBILE OP Patient Location: Outpatient. Procedure: 2D, Color Doppler and Spectral Doppler. Indication for study: Aortic valve stenosis, etiology of cardiac valve disease unspecified Cardiac Rhythm: Sinus bradycardia and with premature ventricular contractions.Study quality: Fair. Final Impressions: 1. Moderate [V-max 3.2 m/s, MG 27 mmHg, valve area 1.25 cm2]. 2. LVEF estimate 55-60%. Normal LV size and wall thickness. 3. Normal RV size and global function. 4. Normal RAP estimate. 5. No pericardial effusion. Chamber Sizes and Function Normal left ventricular size, normal wall thickness, normal global systolic function, calculated EF of 59 %. No resting regional wall motion abnormality visualized. Left atrial size is normal. Left atrial pressure is normal. Right ventricular cavity size is normal, global systolic RV function is normal. The right atrium is normal. Right atrial volume index is 21 ml/m . The pulmonary artery is not well visualized. The sinus of Valsalva is normal sized. The ascending aorta is normal sized. Valves, RV Pressures and Diastolic Function The aortic valve is sclerotic, trileaflet and not well visualized , moderate stenosis and mild regurgitation. The mitral valve is sclerotic, mild mitral regurgitation. Mitral annular calcification is present. Indeterminate pattern of LV diastolic filling. The tricuspid valve is normal in structure, mild tricuspid regurgitation. The tricuspid regurgitant velocity is 2.8 m/s, the estimated right ventricular systolic pressure is 31 mmHg plus right atrial pressure. There is mildly increased estimated pulmonary pressure by tricuspid regurgitation velocity and right atrial pressure. The pulmonic valve is not well visualized. Trace pulmonary regurgitation. Masses, Effusion, Shunts There is no pericardial effusion. The inferior vena cava is normal sized, respiratory size variation greater than 50%. No left to right shunting was detected by limited color flow Doppler interrogation of the interatrial septum. MEASUREMENTS AND CALCULATIONS 2-D Measurements and LV Function: LVID (d) 4.5 cm Planimetered EF 59 % LVID (s) 3.2 cm LV FS% (2D) 28 % IVS (d) 1.1 cm LVOT diameter 2.4 cm LVPW (d) 1.0 cm HR 59 bpm Ao Sinus 3.8 cm LA Vol index 28 ml/m2 Ao Sinus ULN 4.1 cm * RA Vol index 21 ml/m2 Asc Ao 3.6 cm RV Basal Diam 4.1 cm Asc Ao ULN 4.3 cm * RV Mid Diam 3.3 cm * Input age outside of range, reported values correspond to Age = 82 Diastology: Mitral Tissue Doppler Pulmonary veins E Peak 1.1 m/s e', Septum 0.06 m/s Pulm s 56.0 cm/s A Peak 1.2 m/s e', Lateral 0.09 m/s Pulm d 37.1 cm/s E/A 0.9 E/e' Average 14.34 Pulm s/d ratio 1.51 DT 256 msec Aortic Valve: Vmax 3.2 m/s MARILY (V) 1.29 cm VTI 0.87 m MARILY (I) 1.25 cm LVOT V max 0.9 m/s Max PG 40 mmHg LVOT VTI 0.23 m Mean PG 27 mmHg SV 109 ml Dim Index 0.27 SV index 56 ml/m CO 6.4 l/min CI 3.3 l/min/m Mitral Valve: MVA 3.0 cm MV P 1/2 74 msec MV Mean G 2 mmHg MV VTI 0.32 m Tricuspid Valve and estimated PA pressures: TR Vmax 2.8 m/s TAPSE 1.9 cm TR maxG 31 mmHg Pulmonic Valve: PV Vmax 0.7 m/s PIEDV 0.9 m/s . Report modified by Thomas Bethea MD on 12/22/2024 1:07:05 PM. This study was interpreted by an [facility] accredited facility. Final (Updated) Procedure Note Thomas Bethea MD - 12/22/2024 ECHOCARDIOGRAM RYLEE BERNARD : 1935 89 years Study Date: 12/22/2024 11:11:50 AM Gender: M BP: 117/58 mmHg Height: 170.00 cm BSA: 1.95 m Weight: 83.00 kg Tech: [facility] Referring MD: NICKOLAS ANSARI [place] Site: [facility] Reading Location: [place] [facility] Patient Location: Outpatient. Procedure: 2D, Color Doppler and Spectral Doppler. Indication for study: Aortic valve stenosis, etiology of cardiac valvedisease unspecified Cardiac Rhythm: Sinus bradycardia and with premature ventricularcontractions.Study quality: Fair. Final Impressions: 1. Moderate [V-max 3.2 m/s, MG 27 mmHg, valve area 1.25 cm2]. 2. LVEF estimate 55-60%. Normal LV size and wall thickness. 3. Normal RV size and global function. 4. Normal RAP estimate. 5. No pericardial effusion. Chamber Sizes and Function Normal left ventricular size, normal wall thickness, normal globalsystolic function, calculated EF of 59 %. No resting regional wall motionabnormality visualized. Left atrial size is normal. Left atrial pressureis normal. Right ventricular cavity size is normal, global systolic RVfunction is normal. The right atrium is normal. Right atrial volume indexis 21 ml/m . The pulmonary artery is not well visualized. The sinus ofValsalva is normal sized. The ascending aorta is normal sized. Valves, RV Pressures and Diastolic Function The aortic valve is sclerotic, trileaflet and not well visualized ,moderate stenosis and mild regurgitation. The mitral valve is sclerotic,mild mitral regurgitation. Mitral annular calcification is present.Indeterminate pattern of LV diastolic filling. The tricuspid valve isnormal in structure, mild tricuspid regurgitation. The tricuspidregurgitant velocity is 2.8 m/s, the estimated right ventricular systolicpressure is 31 mmHg plus right atrial pressure. There is mildly increasedestimated pulmonary pressure by tricuspid regurgitation velocity and rightatrial pressure. The pulmonic valve is not well visualized. Tracepulmonary regurgitation. Masses, Effusion, Shunts There is no pericardial effusion. The inferior vena cava is normal sized,respiratory size variation greater than 50%. No left to right shunting wasdetected by limited color flow Doppler interrogation of the interatrialseptum. MEASUREMENTS AND CALCULATIONS 2-D Measurements and LV Function: LVID (d) 4.5 cm Planimetered EF 59% LVID (s) 3.2 cm LV FS% (2D) 28% IVS (d) 1.1 cm LVOT diameter2.4 cm LVPW (d) 1.0 cm HR 59bpm Ao Sinus 3.8 cm LA Vol index 28ml/m2 Ao Sinus ULN 4.1 cm * RA Vol index 21ml/m2 Asc Ao 3.6 cm RV Basal Diam4.1 cm Asc Ao ULN 4.3 cm * RV Mid Diam3.3 cm * Input age outside of range, reported values correspond to Age = 82 Diastology: Mitral Tissue Doppler Pulmonary veins E Peak 1.1 m/s e', Septum 0.06 m/s Pulm s 56.0 cm/s A Peak 1.2 m/s e', Lateral 0.09 m/s Pulm d 37.1 cm/s E/A 0.9 E/e' Average 14.34 Pulm s/d ratio 1.51 DT 256 msec Aortic Valve: Vmax 3.2 m/s MARILY (V) 1.29 cm VTI 0.87 m MARILY (I) 1.25 cm LVOT V max 0.9 m/s Max PG 40 mmHg LVOT VTI 0.23 m Mean PG 27 mmHg SV 109 ml Dim Index 0.27 SV index 56 ml/m CO 6.4 l/min CI 3.3 l/min/m Mitral Valve: MVA 3.0 cm MV P 1/2 74 msec MV Mean G 2 mmHg MV VTI 0.32 m Tricuspid Valve and estimated PA pressures: TR Vmax 2.8 m/s TAPSE 1.9 cm TR maxG 31 mmHg Pulmonic Valve: PV Vmax 0.7 m/s PIEDV 0.9 m/s . Report modified by Thomas Bethea MD on 12/22/2024 1:07:05 PM. This study was interpreted by an [facility] accredited facility. Final (Updated) us Nickolas Contreras MD ECHO ORD Edited Result - Final * US CAROTID DUPLEX BILATERAL (11/15/2024 1:52 PM CDT) Anatomical Region Laterality Modality CAROTID, NECK Ultrasound 11/15/2024 11:5 6 AM CDT Narrative 11/15/2024 3:34 PM CDT VASCULAR ULTRASOUND REPORT RYLEE BERNARD : 1935 Study Date: 11/15/2024 11:56:35 AM Age: 89 years Tech: BSG Gender: M Referring MD: CHIDI VALENZUELA Site: [facility] Study performed: Carotid Indication for Study: follow-up known disease Study Quality: Good TECHNIQUE: The extracranial carotid arteries, vertebral arteries and subclavian arteries were examined per exam protocol with duplex ultrasound, color-flow and spectral Doppler. Flow velocities including peak systolic (PSV), end diastolic (EDV), and velocity ratios if applicable were documented at sites per exam protocol. IMPRESSION: 1. 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 2. There is a mild to moderate stenosis in the right distal common carotid artery with a velocity ratio of 2.1 and PSV of 150, not shown in table below 3. Normal antegrade flow in the right vertebral artery and normal antegrade flow in the left vertebral artery. 4. Multiphasic flow in the right subclavian artery consistent with no flow limiting stenosis and multiphasic flow in the left subclavian artery consistent with no flow limiting stenosis. COMPARISON: Compared to prior study 03-20-2023, there is no significant change. FINDINGS: There is a stenosis in the right distal common carotid artery with a velocity ratio of 2.1. There is a >50% stenosis in the left external carotid artery. RIGHT FINDINGS: Antegrade flow in the right vertebral artery. Multiphasic flow in the right subclavian artery consistent with no flow limiting stenosis. LEFT FINDINGS: Antegrade flow in the left vertebral artery. Multiphasic flow in the left subclavian artery consistent with no flow limiting stenosis. MEASUREMENTS: +--------+--------+------+--------+--------+ RIGHT RIGHT LEFT LEFT +--------+--------+------+--------+--------+ PSV cm/s EDV cm/s Vessel PSV cm/s EDV cm/s +--------+--------+------+--------+--------+ 69 15 P. CCA 32 1 +--------+--------+------+--------+--------+ 71 16 D. CCA 13 0 +--------+--------+------+--------+--------+ 118 26 P. ICA 0 0 +--------+--------+------+--------+--------+ 62 20 M. ICA +--------+--------+------+--------+--------+ 72 23 D. ICA +--------+--------+------+--------+--------+ 92 12 ECA 446 57 +--------+--------+------+--------+--------+ +-----+ +----+ RIGHT LEFT +-----+ +----+ 84 Subclavian Artery (cm/s) 83 +-----+ +----+ 46 Vertebral Artery (cm/s) 109 +-----+ +----+ 1.7 ICA/CCA Ratio +-----+ +----+ Kei Almanza MD. Electronically signed on 11/15/2024 3:34:00 PM This study was performed and interpreted by a service accredited by the [employer]reditation Commission ([facility]), www.intersocietal.org/vascular Report generated by [employer]. Final Procedure Note Kei Almanza MD - 11/15/2024 VASCULAR ULTRASOUND REPORT RYLEE BERNARD : 1935 Study Date: 11/15/2024 11:56:35 AM Age: 89 years Tech: BSG Gender: M Referring MD: CHIDI VALENZUELA Site: [facility] Study performed: Carotid Indication for Study: follow-up known disease Study Quality: Good TECHNIQUE: The extracranial carotid arteries, vertebral arteries and subclavianarteries were examined per exam protocol with duplex ultrasound,color-flow and spectral Doppler. Flow velocities including peak systolic(PSV), end diastolic (EDV), and velocity ratios if applicable weredocumented at sites per exam protocol. IMPRESSION: 1. Based on the ICA velocities, ICA/CCA ratio, and 2D images there isplaque causing <50% stenosis in the right internal carotid artery andthere is total occlusion in the left internal carotid artery. 2. There is a mild to moderate stenosis in the right distal commoncarotid artery with a velocity ratio of 2.1 and PSV of 150, not shown intable below 3. Normal antegrade flow in the right vertebral artery and normalantegrade flow in the left vertebral artery. 4. Multiphasic flow in the right subclavian artery consistent with noflow limiting stenosis and multiphasic flow in the left subclavian arteryconsistent with no flow limiting stenosis. COMPARISON: Compared to prior study 03-20-2023, there is no significant change. FINDINGS: There is a stenosis in the right distal common carotid artery with avelocity ratio of 2.1. There is a >50% stenosis in the left externalcarotid artery. RIGHT FINDINGS: Antegrade flow in the right vertebral artery. Multiphasic flow in theright subclavian artery consistent with no flow limiting stenosis. LEFT FINDINGS: Antegrade flow in the left vertebral artery. Multiphasic flow in the leftsubclavian artery consistent with no flow limiting stenosis. MEASUREMENTS: +--------+--------+------+--------+--------+ RIGHT RIGHT LEFT LEFT +--------+--------+------+--------+--------+ PSV cm/s EDV cm/s Vessel PSV cm/s EDV cm/s +--------+--------+------+--------+--------+ 69 15 P. CCA 32 1 +--------+--------+------+--------+--------+ 71 16 D. CCA 13 0 +--------+--------+------+--------+--------+ 118 26 P. ICA 0 0 +--------+--------+------+--------+--------+ 62 20 M. ICA +--------+--------+------+--------+--------+ 72 23 D. ICA +--------+--------+------+--------+--------+ 92 12 ECA 446 57 +--------+--------+------+--------+--------+ +-----+ +----+ RIGHT LEFT +-----+ +----+ 84 Subclavian Artery (cm/s) 83 +-----+ +----+ 46 Vertebral Artery (cm/s) 109 +-----+ +----+ 1.7 ICA/CCA Ratio +-----+ +----+ Kei Almanza MD. Electronically signed on 11/15/2024 3:34:00 PM This study was performed and interpreted by a service accredited by theIntersocietal Accreditation Commission ([facility]/V[facility]),www.intersocietal.org/vascular Report generated by [employer]. Final Chidi Valenzuela MD Final Result from Last 3 Months Insurance MEDICARE PART A HB ONLY [facility] [employer] MEDICARE ADVANTAGE Advance Directives * Full Code (Latest Code [...] 5:56 AM 08/31/2015 10:11 AM Care Teams Director Of Health Education Relationship Specialty Start Date End Date Pao Nguyen MD [address] [place], [place] [id number] PCP - General Internal Medicine 12/23/23
== END 2024-12-30 09:35 | disposition home or self-care (01) ==
PROVIDERS: PCP Internal Medicine; Visit Provider Family Medicine
DX: R53.1 Weakness (principal)
CPT/HCPCS: A0998

== ENCOUNTER 2025-01-03 15:32 | Outpatient (CLI) | payer MEDICARE, SELFPAY | END 2025-01-03 15:33 | disposition home or self-care (01) | LOC: NFLDREF 15:39 | PROVIDERS: PCP Internal Medicine; Visit Provider Internal Medicine | DX: E03.9 Hypothyroidism, unspecified (principal); N18.30 Chronic kidney disease, stage 3 unspecified; D68.59 Other primary thrombophilia | CPT/HCPCS: 80048; 85610 ==

== ENCOUNTER 2025-02-25 07:38 | Emergency (ER) | payer MEDICARE, SELFPAY ==
--- OUTSIDE RECORDS SUMMARY | 2025-01-25 05:17 | XMS_ITS | Continuity of Care Document ---
Author Name [facility] Organization [facility] Care Team Providers Care Boiler Repairman Name Role Phone [facility] Unavailable Unavailable Problems Combined list of problems from Department of Defense and Veterans Affairs facilities. It does not include entries that were removed or entered in error. Problem Status Onset Date Problem Type Date of Resolution Comments Source Diabetic complication Active Condition [facility] Hypertension * (ICD-9-CM 401.9) Active Condition [facility] Encounters Combined list of: 1) Encounters from Department of Veterans Affairs facilities going backup to the last 18 months, not all [place] inpatient encounters are included; 2) Encounters from the Department of [facility] facilities going backup to 280 months. Location Location Details Encounter Type Encounter Number Reason For Visit Attending Provider ADM Date DC Date Status Disposition Source [facility] Outpatient Encounter [id number] 08/11 [facility] [place] [facility] Outpatient Encounter [id number] 12/10 [facility] [place] [facility] Outpatient Encounter [id number] 01/13 [facility] Social History Combined list of available smoking, tobacco, and other social history from Department of Defense and Veterans Affairs facilities. Social History Type Response Date Comment Sourc e Tobacco smoking status NHIS FORMER TOBACCO USE <1Y 02/08/2013 [facility]
--- OUTSIDE RECORDS SUMMARY | 2025-01-25 05:17 | XMS_ITS | Continuity of Care Document ---
Author Name [facility] Organization [facility] Care Team Providers Care Radio Division Officer Name Role Phone [facility] Unavailable Unavailable Problems Combined list of problems from Department of Defense and Veterans Affairs facilities. It does not include entries that were removed or entered in error. Problem Status Onset Date Problem Type Date of Resolution Comments Source Diabetic complication Active Condition [facility] Hypertension * (ICD-9-CM 401.9) Active Condition [facility] Encounters Combined list of: 1) Encounters from Department of Veterans Affairs facilities going backup to the last 18 months, not all [place] inpatient encounters are included; 2) Encounters from the Department of [facility] facilities going backup to 280 months. Location Location Details Encounter Type Encounter Number Reason For Visit Attending Provider ADM Date DC Date Status Disposition Source [facility] Outpatient Encounter [id number] 08/11 [facility] [place] [facility] Outpatient Encounter [id number] 12/10 [facility] [place] [facility] Outpatient Encounter [id number] 01/13 [facility] Social History Combined list of available smoking, tobacco, and other social history from Department of Defense and Veterans Affairs facilities. Social History Type Response Date Comment Sourc e Tobacco smoking status NHIS FORMER TOBACCO USE <1Y 02/08/2013 [facility]
--- OUTSIDE RECORDS SUMMARY | 2025-02-25 07:40 | XMS_ITS | Clinical Summary ---
Author Organization [facility] Address [address] [place] [id number] Care Team Providers Care Truck Switcher Name Role Phone Pao Nguyen MD Primary Care Provider [phone] Allergies No known active allergies Medications levothyroxine [...] Encounters Date Type Department Care Team Description 01/04/2025 11:00 AM CDT Office Visit [facility] [address] [place] [address] Sergio Cast AuD Hearing Problem 01/04/2025 Travel 12/28/[address] [place] [address] Nickolas Contreras MD Results (echo) 12/22/2024 11:00 AM CDT Ancillary Procedure [facility] [address] [place] [id number] 12/22/2024 Travel 12/11/2024 Transcribe Orders [facility] [address] [place] [address] Tommie Darby MD from Last 3 Months Immunizations Immunization Administration [...] on file Legal Sex Male 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 Gender Identity Not on file Sexual Orientation Not on file Occupation Industry Job Start Date Job End Date retired Not on file Not on file Not on file Obstetrics History Last Filed Vital Signs Vital Sign Reading Time Taken Comments Blood Pressure 144/62 11/18/2024 1:49 PM CDT Pulse 64 11/18/2024 1:49 PM CDT Temperature 36.7 C (98.1 F) 05/29/2016 7:36 AM LOCOMOTIVE ELECTRICIAN Respiratory Rate 16 05/29/2016 7:36 AM LOCOMOTIVE ELECTRICIAN Oxygen Saturation 99% 11/18/2024 1:49 PM CDT Inhaled Oxygen Concentration - - Weight 83.1 kg (183 lb 3.2 oz) 11/18/2024 1:49 P M CDT Height 170.2 cm (5' 7.01) 11/18/2024 1:49 PM CD T Body Mass Index 28.69 11/18/2024 1:49 PM CDT Plan of Treatment Health Maintenance Due Date Last Done Comments Tetanus booster 1948 Depression screening for age 12+ 1949 Pneumococcal series for age 50+ (1 of 2 - PCV) 1956 Zoster (shingles) series for age 50+ (1 of 2) 1987 Medicare Wellness for age 65+ 2002 RSV vaccine for adults or (1 - 1-dose 75+ series) 2012 COVID-19 vaccine series ( season) 2024 05/06/2023, 09/28/2020, 09/07/2020 Influenza Vaccine (#1) 2025 05/06/2016, 2014 BMI (ht and wt on same day) [...] Ortega MD Medical Devices Implanted Type Area Retail Seasonal Specialist Device Identifier Shelf Expiration Date Model / Serial / Lot Patch Vasc 0.8x8cm Xenosure Biological Pericardial - [id number] Implanted:Qty: 1 on 05/28/2016 by Chidi Valenzuela MD at [facility] Right: Carotid Artery [employer] 01/01/2019 0.8P8# / / [id number] Procedures Procedure Name Priority Date/Time Associated Diagnosis Comments ECHO TTE COMPLETE WO CONTRAST Routine 12/22/2024 12:21 PM CDT Aortic valve stenosis, etiology of cardiac valve disease unspecified from Last 3 Months Results * ECHO [...] 83.00 kg Tech: ARETHA Referring MD: NICKOLAS ANSARI ONTARIOAtif Site: [facility] Reading Location: MOBILE OP Patient Location: Outpatient. [...] PM. This study was interpreted by an [facility] accredited facility. Final (Updated) Procedure Note Thomas Bethea MD - 12/22/2024 ECHOCARDIOGRAM RYLEE BERNARD : 1935 89 years Study Date: 12/22/2024 11:11:50 AM Gender: M BP: 117/58 mmHg Height: 170.00 cm BSA: 1.95 m Weight: 83.00 kg Tech: ARETHA Referring MD: NICKOLAS CONTRERAS Site: [facility] Reading Location: MOBILE OP Patient Location: Outpatient. [...] by an [facility] accredited facility. Final (Updated) Nickolas Contreras MD ECHO ORD Edited Result - Final from Last 3 Months Insurance MEDICARE PART A HB ONLY [facility] UCARE MEDICARE ADVANTAGE Advance Directives * [...] 5:56 AM 08/31/2015 10:11 AM Care Teams Truck Switcher Relationship Specialty Start Date End Date Pao Nguyen MD [address] [place] [id number] PCP - General Internal Medicine 12/23/23
[2025-02-25 07:47] VITALS: BP 107/65; PULSE 64; RESP 16; TEMP 36; O2SAT 99; BMI 27.4
[2025-02-25 08:08] LABS: Glucose, Point-of-Care* 102 mg/dl (60-115)
[2025-02-25 08:11] VITALS: BP 107/65; PULSE 64; RESP 16; TEMP 36; O2SAT 99
--- NOTE | 2025-02-25 08:11 | CRLHL7_ITS ---
For Patients: As a result of the Century Cures Act, medical imaging exams and procedure reports are released immediately into your electronic medical record. You may view this report before your referring provider. If you have questions, please contact your health care provider. INDICATION: Dizziness COMPARISON: None TECHNIQUE: CT examination of the head was performed as axial sections without intravenous contrast. Images were obtained from the vertex of the skull through the skull base. Please note that all CT scans at this facility use dose modulation, iterative reconstruction, and/or weight-based dosing when appropriate to reduce radiation dose to as low as reasonably achievable. FINDINGS: The brain shows no sign of mass lesion, mass effect, hemorrhage, or edema. There are involutional changes. There is moderate cortical atrophy and there is moderate white matter disease. There is no hydrocephalus. The visualized portions of the orbits are normal in appearance. The osseous structures are normal in appearance with no sign of abnormality in the skull base or calvarium. Incidental dentate nucleus and basal ganglionic calcifications. IMPRESSION: Involutional changes. No acute-appearing findings. Please note that all CT scans at this facility use dose modulation, iterative reconstruction, and/or weight-based dosing when appropriate to reduce radiation dose to as low as reasonably achievable. Dictated by Salbador Pereira MD @ 02/25/2025 9:27:10 AM (Electronically Signed)
--- NOTE | 2025-02-25 08:12 | ED.GENADULT ---
HPI - General Adult General Chief complaint: Dizziness/Vertigo Stated complaint: dizzy Time Seen by Provider: 02/25/25 07:47 History of Present Illness HPI narrative: Patient is an 89 year white male lives independently with his at [facility], he has had chronic imbalance issues as well as heart disease mild cognitive impairment and chronic kidney disease, paroxysmal atrial fib, patient presents with dizziness. He states he has been eating and drinking okay but his reports he has not drink much liquids today or the last couple of days. He reports a slight dry mouth. He has no pain. He has no chest pain, shortness of breath, breathing difficulty, abdominal pain. He has no headache. They report no falls. He has had chronic frailty noted in his chart, he has worked with Dr. Brown in. Discuss his present living arrangements his and she feels like assisted living or other more advanced care setting may not be helpful for him. Related Data Home Medications ?Medication ?Instructions ?Recorded ?Confirmed blood sugar diagnostic (OneTouch #10 ea 05/06/23 02/07/25 Ultra Test strips) nitroglycerin 0.4 mg sublingual 0.4 mg sublingual Q5-15M PRN 08/16/24 02/07/25 tablet lisinopril 20 mg tablet 20 mg PO QDAY 12/29/24 02/07/25 Previous Rx's ?Medication ?Instructions ?Recorded atorvastatin 40 mg tablet 40 mg PO DAILY #90 tabs 02/12/24 levothyroxine 25 mcg tablet 37.5 mcg (1.5 x 25 mcg) PO DAILY 02/12/24 #90 tabs lisinopril 40 mg tablet 40 mg PO DAILY #90 tabs 02/12/24 Held on 12/29/24. Instructions: Home Medication placed on hold at Doctor's office metformin 500 mg tablet 1,000 mg (2 x 500 mg) PO BID #180 02/12/24 tabs metoprolol succinate 100 mg 100 mg PO DAILY #90 tabs 02/12/24 tablet,extended release 24 hr warfarin 5 mg tablet See Rx Instructions PO .COMPLEX 10/29/24 #90 tabs amlodipine 2.5 mg tablet 2.5 mg PO DAILY #90 tabs 02/14/25 hydrochlorothiazide 12.5 mg tablet 12.5 mg PO QAM #90 tabs 02/24/25 Allergies Allergy/AdvReac Type Severity Reaction Status Date / Time No Known Drug Allergies Allergy Verified 02/07/25 14:21 Review of Systems Status of ROS: Reports: 6 or more systems reviewed and unremarkable except as noted in History and below [facility] Medical History History of DVT (deep vein thrombosis) (2011) ?Z86.718 - Personal history of other venous thrombosis and embolism (ICD-10) History of pulmonary embolus (PE) (2011) ?Z86.711 - Personal history of pulmonary embolism (ICD-10) Surgical History History of repair of rotator cuff ?Z98.890 - Other specified postprocedural states (ICD-10) History of cataract surgery (02/2016) ?Z98.49 - Cataract extraction status, unspecified eye (ICD-10) History of tonsillectomy ?Z90.89 - Acquired absence of other organs (ICD-10) History of umbilical hernia repair (2006) ?Z98.890 - Other specified postprocedural states (ICD-10) ?Z87.19 - Personal history of other diseases of the digestive system (ICD-10) History of appendectomy ?Z90.49 - Acquired absence of other specified parts of digestive tract (ICD-10) History of carpal tunnel release (1993) ?Z98.890 - Other specified postprocedural states (ICD-10) History of cholecystectomy (2008) ?Z90.49 - Acquired absence of other specified parts of digestive tract (ICD-10) History of right-sided carotid endarterectomy (05/28/16) ?Z98.890 - Other specified postprocedural states (ICD-10) 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: never true Smoking Status: Never smoker How often do you have a drink containing alcohol: never AUDIT-C Alcohol total score: 0 Non-prescribed substance use: denies use How often does anyone, including family, friends and others, physically hurt you: never How often does anyone, including family, friends and others, insult or talk down to you: never How often does anyone, including family, friends and others, threaten you with harm: never How often does anyone, including family, friends and others, scream or curse at you: never Exam Narrative: Exam Narrative: Objective: In general the patient is no apparent distress he is cooperative interactive conversant noncyanotic Vital signs look within normal limits HEENT shows dry mucous membranes otherwise no facial asymmetry neck is supple chest is clear heart rhythm regular 2/6 systolic murmur abdomen benign soft nontender extremities are no edema neurologic nonfocal patient is moving all extremities he appears stronger all extremities. Good peripheral perfusion noted. No skin rashes noted. Of note he denies dysuria frequency. Const: Vital Signs, click to edit/add: Vital Signs - 24 hr 02/25/25 07:47 02/25/25 08:11 02/25/25 09:14 Temperature 96.8 F L 96.8 F L 97.0 F L Pulse Rate [Pulse Oximeter] 64 64 63 Respiratory Rate 16 16 18 Blood Pressure [Ri ght Upper Arm] 107/65 107/65 119/65 Pulse Oximetry 99 99 92 Oxygen Delivery Me thod Room Air Room Air Room Air 02/25/25 10:00 02/25/25 10:28 Temperature 97.1 F L 97.1 F L Pulse Rate [Pulse Oximeter] 59 L 59 L Respiratory Rate 18 18 Blood Pressure [Ri ght Upper Arm] 133/63 133/63 Pulse Oximetry 99 Oxygen Delivery Me thod Room Air Course Vital Signs Vital signs: Initial Vital Signs Temperature 96.8 F L 02/25/25 07:47 Temperature Source Temporal Artery Scan 02/25/25 07:47 Pulse Rate 64 02/25/25 07:47 Respiratory Rate 16 02/25/25 07:47 Blood Pressure 107/65 02/25/25 07:47 Blood Pressure Mean 79 02/25/25 07:47 Blood Pressure Position Sitting 02/25/25 07:47 Pulse Oximetry 99 02/25/25 07:47 Oxygen Delivery Method Room Air 02/25/25 07:47 Vital Signs Temperature 96.8 F L 02/25/25 07:47 Pulse Rate 64 02/25/25 07:47 Respiratory Rate 16 02/25/25 07:47 Blood Pressure 107/65 02/25/25 07:47 Pulse Oximetry 99 02/25/25 07:47 Oxygen Delivery Method Room Air 02/25/25 07:47 Temperature 97.1 F L 02/25/25 10:28 Pulse Rate 59 L 02/25/25 10:28 Respiratory Rate 18 02/25/25 10:28 Blood Pressure 133/63 02/25/25 10:28 Pulse Oximetry 99 02/25/25 10:00 Oxygen Delivery Method Room Air 02/25/25 10:00 Medications Administered Medications: Discontinued Medications Generic Name Dose Route Start Last Admin Trade Name Freq PRN Reason Stop Dose Admin Sodium Chloride 500 mls @ 500 mls/hr 02/25/25 08:10 02/25/25 08:36 0.9 % Sodium Chloride 500 Ml IV 02/25/25 09:09 500 mls/hr .Q1H ONE Administration Medical Decision Making [facility] Narrative Medical decision making narrative: [age] year white male with chronic debility mild cognitive impairment chronic imbalance presents with some lightheadedness today. May be simply due to dehydration. I think a workup including an EKG, troponin, head CT would be appropriate as well as laboratory studies rule out metabolic abnormality. Differential be broad including chronic imbalance, stroke, infection, metabolic disturbance. Electrolyte imbalance. Patient will get IV hydration, will check labs troponin lab, EKG was done that shows sinus bradycardia limited R-wave progression anteriorly inferiorly but no obvious acute changes. Disposition pending findings above. His has appointment today she is concerned about and she certainly can go to her appointment next or other clinic. We will get Zeke taking care of as above and disposition pending his findings. Addendum: 10:05 a.m.: The patient has an EKG that by my read shows sinus bradycardia but otherwise no acute ST T wave changes. Limited R-wave progression inferiorly. Patient has a head CT looks unremarkable for acute change. Lab studies look reassuring. Urinalysis is negative. Troponin is negative. He has been rehydrated. I think we can will long to go home at this time follow up with Dr. Brown in the next few days as needed. Certainly sooner return to ED if problems or concerns. They wish may wish to look into more advanced living arrangement as well as perhaps ongoing physical therapy. Lab Data Labs: Lab Results 02/25/25 02/25/25 02/25/25 Range/Units 08:07 09:30 Unknown WBC 7.33 (4.50-11.00) K/uL RBC 3.52 L (4.30-5.90) m/uL Hgb 11.8 L (13.5-17.5) gm/dL Hct 35.7 L (37.0-53.0) % MCV 101 H (80-100) fL MCH 34 (26-34) pg MCHC 33 (32-36) gm/dL RDW Coeff of Tommy 12.9 (11.5-15.5) % Plt Count 190 (140-440) K/uL Neut % (Auto) 41.7 L (42.0-72.0) % Lymph % (Auto) 24.3 (20-44) % [place] % (Auto) 9.5 (0.0-11.0) % Eos % (Auto) 23.5 H (0.0-7.0) % Baso % (Auto) 0.5 (0.0-3.0) % Neut # (Auto) 3.10 (1.7-7.0) K/uL Lymph # (Auto) 1.78 (0.90-2.90) K/uL [place] # (Auto) 0.70 (0.00-0.90) K/UL Eos # (Auto) 1.70 H (0.00-0.50) K/uL Baso # (Auto) 0.04 (0.00-0.30) K/uL Abs Immat Gran (auto) 0.04 (0.00-0.30) K/uL Imm/Tot Granulo (auto) 0.5 % Sodium 138 (135-149) mmol/L Potassium 4.3 (3.6-5.1) mmol/L Chloride 108 (96-114) mmol/L Carbon Dioxide 18 L (20-32) mmol/L Anion Gap 12 (7-15) mEq/L BUN 37 H (7-30) mg/dL Creatinine 2.5 H (0.5-1.5) mg/dL Estimated Creat Clear 19.46 Estimated GFR 24 ml/min Glucose 115 (60-115) mg/dL Calcium 9.1 (8.4-10.6) mg/dL Total Bilirubin 0.8 (0.1-1.5) mg/dL Direct Bilirubin 0.4 (0.0-0.5) mg/dL AST 25 (12-35) U/L ALT 20 (4-50) U/L Alkaline Phosphatase 58 (40-150) U/L Troponin I < 0.01 (0.01-0.04) ng/mL Total Protein 7.4 (6.0-8.3) g/dL Albumin 4.1 (3.3-5.0) g/dL Urine Color Yellow (Yellow) Urine Appearance Clear (Clear) Urine pH 5.5 (5.0-8.5) Ur Specific [place] 1.015 (1.000-1.030) Urine Protein Trace A (Negative) Urine Glucose (UA) Negative (Negative) Urine Ketones Negative (Negative) Urine Blood Negative (Negative) Urine Nitrite Negative (Negative) Urine Bilirubin Negative (Negative) Urine Urobilinogen 0.2 (0.2-1.0) Ur Leukocyte Esterase Negative (Negative) Urine RBC 0-2 (0-2) Urine WBC 0-2 (0-5) Ur Squamous Epith Cells None (None-Few) Urine Bacteria None (None) SARS-CoV-2 (PCR) Negative SARS-CoV-2 (Negative) Influenza Type A (PCR) Negative PCR FLU A (Negative) Influenza Type B (PCR) Negative PCR FLU B (Negative) RSV (PCR) Negative PCR RSV (Negative) POC Glucose 102 (60-115) mg/dl Discharge Plan Discharge Clinical Impression: Intermittent lightheadedness, Dehydration Patient Disposition: Home w/ Parent or Adult Condition: Improved Additional Instructions: Recheck with Dr. Brown in the next few days, light activity, push fluids orally. Return as needed. Activity Level: Light activity Discharge Diet: Regular Prescriptions: No Action (DME) ThoughtSpotTouch Ultra Test Strip See Rx Instructions .ROUTE DAILY Qty: 10 Rx Instructions: As directed nitroglycerin 0.4 mg tablet, sublingual 0.4 mg sublingual Q5-15M PRN lisinopril 20 mg tablet 20 mg PO QDAY atorvastatin 40 mg tablet 40 mg PO DAILY Qty: 90 3RF levothyroxine 25 mcg tablet 37.5 mcg PO DAILY Qty: 90 3RF lisinopril 40 mg tablet 40 mg PO DAILY Qty: 90 3RF metformin 500 mg tablet 1,000 mg PO BID Qty: 180 3RF metoprolol succinate 100 mg tablet extended release 24 hr 100 mg PO DAILY Qty: 90 3RF warfarin 5 mg tablet See Rx Instructions PO .COMPLEX Qty: 90 0RF Protocol: Dose Management Condition: Friday Dose/Route: 2.5 mg Instruction: 0.5 x 5 mg tablets Condition: Friday Dose/Route: 2.5 mg Instruction: 0.5 x 5 mg tablets Condition: Friday Dose/Route: 2.5 mg Instruction: 0.5 x 5 mg tablets Condition: Friday Dose/Route: 2.5 mg Instruction: 0.5 x 5 mg tablets Condition: Dose/Route: 2.5 mg Instruction: 0.5 x 5 mg tablets Condition: Friday Dose/Route: 2.5 mg Instruction: 0.5 x 5 mg tablets Condition: Friday Dose/Route: 2.5 mg Instruction: 0.5 x 5 mg tablets Protocol Text: Adjustment Start Date: Friday01/25/25 INR Value: 1.8 INR Date: 01/25/25 Recheck Date: 02/24/25 Rx Instructions: take 2.5mg on / and 5mg daily the rest of the week amlodipine 2.5 mg tablet 2.5 mg PO DAILY Qty: 90 3RF hydrochlorothiazide 12.5 mg tablet 12.5 mg PO QAM Qty: 90 3RF Follow Up/Referrals: Pao Nguyen MD [Primary Care Provider, Internal Medicine] Stand Alone Forms: [facility] Info Instructions
[2025-02-25] MEDS: 0.9 % SODIUM CHLORIDE 500 ML 500 ML IV (08:36)
[2025-02-25 09:03] LABS: White Blood Count* 7.33 K/uL (4.50-11.00)
[2025-02-25 09:04] LABS: Hematocrit 35.7 % (37.0-53.0); Hemoglobin* 11.8 gm/dL (13.5-17.5); Immature Granulocytes Abs Auto 0.04 K/uL (0.00-0.30); Immature Granulocytes Pct Auto 0.5 %; Lymphocytes Absolute Auto 1.78 K/uL (0.90-2.90); Mean Corpuscular HGB Conc 33 gm/dL (32-36); Mean Corpuscular Hemoglobin 34 pg (26-34); Mean Corpuscular Volume 101 fL (80-100); RDW Coefficient of Variation % 12.9 % (11.5-15.5); Red Blood Count 3.52 m/uL (4.30-5.90)
[2025-02-25 09:05] LABS: Slide Review Reflex No
[2025-02-25 09:14] VITALS: BP 119/65; PULSE 63; RESP 18; TEMP 36.1; O2SAT 92
[2025-02-25 09:28] LABS: PCR FLU A Negative PCR FLU A (Negative); PCR FLU B Negative PCR FLU B (Negative); PCR RSV Negative PCR RSV (Negative); SARS PCR* Negative SARS-CoV-2 (Negative)
[2025-02-25 09:33] LABS: Albumin* 4.1 g/dL (3.3-5.0); Chloride* 108 mmol/L (96-114); Potassium* 4.3 mmol/L (3.6-5.1); Sodium* 138 mmol/L (135-149)
[2025-02-25 09:34] LABS: Appearance Urine Clear (Clear)
[2025-02-25 09:35] LABS: Blood Urea Nitrogen* 37 mg/dL (7-30); Creatinine* 2.5 mg/dL (0.5-1.5); Est. Creatinine Clearance* 19.46; Estimated Glomerular Filt Rate 24 ml/min
[2025-02-25 09:36] LABS: Alanine Aminotransferase* 20 U/L (4-50); Alkaline Phosphatase* 58 U/L (40-150); Anion Gap 12 mEq/L (7-15); Aspartate Amino Transferase* 25 U/L (12-35); Bilirubin Direct* 0.4 mg/dL (0.0-0.5); Bilirubin Total* 0.8 mg/dL (0.1-1.5); Calcium* 9.1 mg/dL (8.4-10.6); Carbon Dioxide* 18 mmol/L (20-32); Glucose* 115 mg/dL (60-115); Total Protein* 7.4 g/dL (6.0-8.3)
[2025-02-25 10:00] VITALS: BP 133/63; PULSE 59; RESP 18; TEMP 36.2; O2SAT 99
[2025-02-25 10:28] VITALS: BP 133/63; PULSE 59; RESP 18; TEMP 36.2
== END 2025-02-25 10:29 | disposition home or self-care (01) ==
PROVIDERS: Emergency Provider Family Medicine; PCP Internal Medicine
DX: R42 Dizziness and giddiness (principal); E86.0 Dehydration; G31.84 Mild cognitive impairment of uncertain or unknown etiology
CPT/HCPCS: 36415; 70450; 80048; 80076; 81001; 82947; 84484; 85025; 87086; 87631; 93005; 96360; 99284; 99285; J7030